=== PATIENT | female | born 1970 | race Caucasian/White ===

== ENCOUNTER → 2019-07-07 09:24 | Outpatient (BNVA) | payer MEDICAID, SELFPAY | PROVIDERS: PCP Nurse Practitioner Family; Visit Provider Psychiatry & Neurology Psychiatry | DX: F60.3 Borderline personality disorder (principal); F60.7 Dependent personality disorder; F10.21 Alcohol dependence, in remission; F41.0 Panic disorder [episodic paroxysmal anxiety]; F33.42 Major depressive disorder, recurrent, in full remission; F43.12 Post-traumatic stress disorder, chronic; G47.33 Obstructive sleep apnea (adult) (pediatric); F17.210 Nicotine dependence, cigarettes, uncomplicated | CPT/HCPCS: 99213 ==

== ENCOUNTER 2019-07-13 11:20 | Outpatient (CLI) | payer MEDICAID, SELFPAY ==
--- NOTE | 2019-07-13 11:25 | XR_ITS ---
WS: [id number] LATERAL LUMBAR SPINE: 3 view. Lateral radiographs are performed in upright neutral, flexion and extension to the patient's toleranc e. HISTORY: LOW BACK PAIN COMPARISON: 08/19/2018 Normal lumbar alignment. There is no evidence for instability with flexion or extension. Disc spaces and vertebral body heights are preserved. There is mild facet joint arthropathy at L4-5 and L5-S1. XR/XR lumbar spine f/e only [id number] IMPRESSION: No lumbar spine instability.
== END 2019-07-13 11:21 | disposition home or self-care (01) ==
LOC: RAD 11:24
PROVIDERS: PCP Nurse Practitioner Family; Visit Provider Nurse Practitioner
DX: M54.5 Low back pain (principal)
CPT/HCPCS: 72120

== ENCOUNTER 2019-08-28 12:51 | Emergency (ER) | payer MEDICAID, SELFPAY ==
--- NOTE | 2019-08-28 12:57 | XR_ITS ---
WS: [id number] RIGHT FOOT: 3 VIEW(S) TECHNIQUE: AP, oblique and lateral. HISTORY: fall/twist COMPARISON: None available. No acute fracture or dislocation. Normal tarsal/metatarsal alignment. Mild soft tissue edema. No fracture. XR/XR foot RT min 3V* [id number] IMPRESSION: Mild diffuse soft tissue edema. No fracture.
--- NOTE | 2019-08-28 12:57 | XR_ITS ---
WS: [id number] RIGHT ANKLE: 3 VIEW(S) TECHNIQUE: AP, oblique(s) and lateral. HISTORY: fall/twist COMPARISON: None available. Normal anatomic alignment with no fracture or dislocation. No joint effusion or widening of the ankle mortise. No significant degenerative changes at the joint spaces. Mild diffuse soft tissue edema around the ankle. XR/XR ankle RT min 3V* [id number] IMPRESSION: Soft tissue edema but no fracture identified.
--- NOTE | 2019-08-28 12:58 | ED_ITS ---
HPI - Extremity Injury (Lower) General: Chief Complaint: Extremity Injury, Lower Stated Complaint: RIGHT ANKLE PAIN S/P FALL Time Seen by Provider: 08/28/19 12:52 Source: patient Mode of arrival: EMS Limitations: no limitations History of Present Illness: HPI Narrative: Patient is a 49-year-old female who presents to ED today with complaints of a right ankle/foot injury. Patient states she was walking to the bathroom when she accidentally twisted her ankle and fell. Patient denies any other injury sustained during the fall. MD complaint: ankle injury and foot injury Onset (ago): hour(s) Injury: Right: ankle and foot Type of Injury: inversion Place: home Severity: moderate Relieving factors: immobilization Exacerbating factors: weight bearing, movement and palpation Context: other (twisting) Associated symptoms: Reports inability to bear weight Other symptoms: none Treatments prior to arrival: splint (applied by EMS) Review of Systems Card: Denies: chest pain, palpitations, irregular heart rhythm, edema, lightheadedness, syncope or pre-syncope Resp: Denies: shortness of breath Musc: Reports: extremity pain (R foot) and joint pain (R ankle); Denies: neck pain or back pain Neuro: Denies: numbness in extremities, weakness in extremities or changes in sensation PFSH ED PFSH: Medical History (Updated 08/28/19 @ 13:30 by DEXTER Hatch) Alcohol dependence, in remission Borderline personality disorder Cigarette nicotine dependence Dependent personality disorder Major depressive disorder, recurrent, in full remission Obstructive sleep apnea Panic disorder [episodic paroxysmal anxiety] Post-traumatic stress disorder, chronic Social History (Updated 07/07/19 @ 09:30 by Tressa Mercado) Smoking and tobacco status: current every day smoker cigarettes Quit status (tobacco): not considering quitting Second hand smoke exposure: No Physical Exam Const: COMMON NORMALS: no apparent distress, oriented x3, no limitations and alert NUTRITIONAL APPEARANCE: overweight Resp: COMMON NORMALS: normal respiratory effort and clear to auscultation bilaterally AUSCULTATION: clear to auscultation bilaterally Cardio: COMMON NORMALS: regular rate and regular rhythm RATE: regular rate RHYTHM: regular rhythm Extremity: OTHER: TTP lateral R ankle and lateral R foot; mild swelling appreciated; no obvious deformity; DP/PT pulses intact and equal bilaterally; sensory intact; cap refill brisk Neuro: COMMON NORMALS: oriented x3 and no sensory deficits noted SENSORIUM/ORIENTATION: Yes alert Skin: COMMON NORMALS: no rashes or lesions noted GENERAL SKIN EXAM: no rashes or lesions noted Course Vital Signs: Vital signs: Vital Signs Temperature 98.6 F 08/28/19 13:01 Pulse Rate 85 08/28/19 13:01 Respiratory Rate 20 H 08/28/19 13:01 Blood Pressure 135/105 08/28/19 13:01 Pulse Oximetry 95 08/28/19 13:01 MDM - Extremity Injury (Lower) Imaging Data^: R foot XR: My impression: NAD R ankle XR: My impression: NAD Discharge Plan Discharge Patient Disposition: Home, Self-Care Clinical Impression: Right ankle sprain Qualifiers: Encounter type: initial encounter Involved ligament of ankle: unspecified ligament Qualified Code(s): S93.401A - Sprain of unspecified ligament of right ankle, initial encounter Condition: Stable Prescriptions: No Action celecoxib [Celebrex] 400 mg capsule 400 mg PO DAILY RF: 0 amlodipine 10 mg tablet 10 mg PO DAILY RF: 0 simvastatin 40 mg tablet 40 mg PO DAILY RF: 0 tramadol 50 mg tablet 50 mg PO BID RF: 0 hydrochlorothiazide 50 mg tablet 50 mg PO DAILY RF: 0 albuterol sulfate 0.63 mg/3 mL solution for nebulization 0.63 mg INHALATION QID PRNRF: 0 albuterol sulfate 90 mcg/actuation aerosol powdr breath activated 1 inh INHALATION BID RF: 0 acamprosate 333 mg tablet,delayed release (DR/EC) 666 mg PO TID Qty: 180 RF: 5 prazosin 5 mg capsule 5 mg PO .QHS Qty: 30 RF: 5 Trintellix 20 mg tablet 20 mg PO DAILY Qty: 30 RF: 5 Discharge Orders: Discharge Order (Routine); Ordered 08/28/19 Ordered By: Luz Rosado Referrals: [facility] [Other] Serena Santana [Primary Care Provider] - Patient Instructions: Ankle Sprain (ED), RICE Therapy (ED), RICE Therapy Coding Level of Care Code ED Structural Engineering Technician for Chg Fwd Exam Detailed
[2019-08-28 13:01] VITALS: BP 135/105; PULSE 85; RESP 20; TEMP 37; O2SAT 95; BMI 38.0
[2019-08-28 14:47] VITALS: BP 130/97; PULSE 82; RESP 20; O2SAT 96
== END 2019-08-28 14:50 | disposition home or self-care (01) ==
PROVIDERS: Emergency Provider Physician Assistant; PCP Nurse Practitioner Family
DX: S93.401A Sprain of unspecified ligament of right ankle, initial encounter (principal); X50.1XXA Overexertion from prolonged static or awkward postures, initial encounter; F17.210 Nicotine dependence, cigarettes, uncomplicated
CPT/HCPCS: 12345; 73610; 73630; 99281; 99283

== ENCOUNTER → 2019-10-06 08:09 | Outpatient (BNVA) | payer MEDICAID, SELFPAY | PROVIDERS: PCP Nurse Practitioner Family; Visit Provider Psychiatry & Neurology Psychiatry | DX: F43.12 Post-traumatic stress disorder, chronic (principal); F33.42 Major depressive disorder, recurrent, in full remission; F41.0 Panic disorder [episodic paroxysmal anxiety]; F10.21 Alcohol dependence, in remission; F60.3 Borderline personality disorder; F60.7 Dependent personality disorder; F17.210 Nicotine dependence, cigarettes, uncomplicated; G47.33 Obstructive sleep apnea (adult) (pediatric) | CPT/HCPCS: 99213 ==

== ENCOUNTER 2019-11-09 10:49 | Emergency (ER) | payer MEDICAID, SELFPAY ==
[2019-11-09 10:53] VITALS: BP 167/115; PULSE 109; RESP 18; TEMP 36.3; O2SAT 94; BMI 37.1
--- NOTE | 2019-11-09 10:55 | CT_ITS ---
WS: [id number] CT HEAD NONCONTRAST HISTORY: memory loss TECHNIQUE: Contiguous axial imaging performed through the brain in 2.5 mm imaging. Bone and soft tiss ue windows. Sagittal and coronal reformats reviewed. All CT scans at [facility] use at ast one of these dose optimization techniques: automated exposure control; mA and/or kV adjustment pe r patient size (includes targeted exams where dose is matched to clinical indication); or iterative r econstruction. DLP: 795.8 mGy.cm COMPARISON: 03/25/2019 No acute intracranial hemorrhage, midline shift or mass effect. No atrophy or prior infarcts or herniation. Ventricles: Normal size with no hydrocephalus. Paranasal sinuses: As visualized are clear. Mastoid air cells: Well pneumatized. Calvarium and scalp: Hyperostosis frontalis interna. No scalp abnormality. CT/CT head wo con* [id number] IMPRESSION: Negative head CT.
--- NOTE | 2019-11-09 10:56 | ECG_ITS ---
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 Measurements Intervals [place] Rate: 108 P: 73 HI: 176 QRS: -45 QRSD: 114 T: 106 QT: 344 QTc: 462 Interpretive Statements SINUS TACHYCARDIA LEFT ANTERIOR FASCICULAR BLOCK LEFT VENTRICULAR HYPERTROPHY AND ST-T CHANGE POSSIBLE SEPTAL MYOCARDIAL INFARCTION , OF INDETERMINATE AGE No previous ECG available for comparison Electronically Signed On 11-10-2019 17:10:04 CDT by Velia Lopez M.D. [id number]
--- NOTE | 2019-11-09 10:58 | ED_ITS ---
HPI - Headache General: Chief Complaint: Headache Stated Complaint: HEADACHE, LOSS OF MEMORY Time Seen by Provider: 11/09/19 10:52 Source: patient and EMS Mode of arrival: EMS Limitations: no limitations History of Present Illness: HPI Narrative: 49-year-old female who states she has had memory loss over the last 2 to 3 hours. Patient states this is been going on for a month. States she cannot remember anything 2 hours ago and is now gradually having her memory back. States she is also had a headache. Denies any worsening or improving factors. She rates her headache an 8 out of 10. This started gradually. MD elicited complaint: headache Associated symptoms: Deny chest pain, fever(s), nausea, rash or vomiting Review of Systems Const: Denies: fever(s), chills, body aches or change in appetite Eyes: Denies: blurry vision or eye discomfort ENMT: Denies: throat pain or dental pain Card: Denies: chest pain Resp: Denies: dyspnea GI: Denies: abdominal pain, nausea, vomiting or diarrhea : Denies: dysuria Musc: Denies: neck pain or back pain Skin/Breast: Denies: rash Neuro: Reports: headache(s) Psych: Denies: depression Lew/Lymph: Denies: easy bruising All/Imm: Denies: urticaria PFSH ED PFSH: Medical History Alcohol dependence, in remission Borderline personality disorder Cigarette nicotine dependence Dependent personality disorder Major depressive disorder, recurrent, in full remission Obstructive sleep apnea Panic disorder [episodic paroxysmal anxiety] Post-traumatic stress disorder, chronic Social History Smoking and tobacco status: current every day smoker cigarettes Quit status (tobacco): not considering quitting Second hand smoke exposure: No Physical Exam Const: COMMON NORMALS: no acute distress, patient oriented x3 and healthy appearing HENMT: COMMON NORMALS: normocephalic and atraumatic HEAD & SCALP: normocephalic and atraumatic Eye: COMMON NORMALS: Equal, round and reactive pupils present and EOMs intact bilaterally PUPIL: Yes Equal, round and reactive pupils present Neck/C-Spine: COMMON NORMALS: full ROM and supple Chest: COMMONS NORMALS: normal inspection of the chest and normal palpation of entire chest wall Resp: COMMON NORMALS: normal respiratory effort, No retractions, No use of accessory muscles and clear to auscultation bilaterally AUSCULTATION: clear to auscultation bilaterally Cardio: COMMON NORMALS: regular rate, regular rhythm and No murmurs present (Cardio) RATE: regular rate RHYTHM: regular rhythm GI: COMMON NORMALS: Normal to inspection, nondistended, normoactive bowel sounds present, Soft to palpation, non-tender and no masses PALPATION: Yes Soft to palpation Extremity: COMMON NORMALS: normal to inspection and full ROM Neuro: COMMON NORMALS: patient oriented x3, moves all extremities and no focal motor deficits Psych: COMMON NORMALS: mental status grossly normal, Normal thought process present and cooperative THOUGHT PROCESS: Normal thought process present Skin: COMMON NORMALS: no rashes or lesions noted and no wounds GENERAL SKIN EXAM: no rashes or lesions noted Course Vital Signs: Vital signs: Vital Signs Temperature 97.3 F L 11/09/19 10:53 Pulse Rate 94 11/09/19 12:58 Respiratory Rate 22 H 11/09/19 12:58 Blood Pressure 164/110 11/09/19 12:58 Pulse Oximetry 94 11/09/19 12:58 MDM - Headache MDM Narrative: Medical decision making narrative: Patient presents with a headache that is likely a migraine. This is likely causing her memory issues as well. Patient is currently headache free and has no memory issues. Head CT and lab work are all normal. She is stable for discharge is to follow-up with her primary care doctor in 2 to 4 days and return if worsening. Lab Data: Labs: Lab Results 11/09/19 11/09/19 11/09/19 Range/Units 11:04 11:16 11:16 WBC 12.7 H (4.0-10.0) 10^3/ uL RBC 6.52 H (4.1-5.3) 10^6/u L Hgb 17.3 H (11.5-15.3) g/dL Hct 52.7 H (37.0-47.0) % MCV 80.8 L (81-99) fL MCH 26.5 L (28.0-34.0) pg MCHC 32.8 (30.0-36.0) g/dL RDW 15.2 H (12.1-15.1) % Plt Count 502 H (130-400) 10^3/c mm MPV 10.6 H (7.4-10.4) fL Neut % (Auto) 60.5 % Lymph % (Auto) 31.1 % Marshall % (Auto) 6.0 % Eos % (Auto) 0.3 % Baso % (Auto) 1.0 % Neut # (Auto) 7.7 (1.8-7.7) 10^3/u L Lymph # (Auto) 4.0 (0.8-4.8) 10^3/u L Marshall # (Auto) 0.8 (0.2-0.9) 10^3/u L Eos # (Auto) 0.0 (0.0-0.8) 10^3/u L Baso # (Auto) 0.1 (0.0-0.1) 10^3/u L Nucleated RBC % (a uto) 0 % Nucleated RBCs # 0.0 /100WBC Sodium Cancelled Potassium Cancelled Chloride Cancelled Carbon Dioxide Cancelled Anion Gap Cancelled BUN Cancelled Creatinine Cancelled GFR Calculation Cancelled Glucose Cancelled Calculated Osmolal ity Cancelled Calcium Cancelled Total Bilirubin Cancelled AST Cancelled ALT Cancelled Alkaline Phosphata se Cancelled Total Protein Cancelled Albumin Cancelled Globulin Cancelled Urine Color Yellow (Yellow) Urine Appearance Clear (CLEAR) Urine pH 5 (5-7) Ur Specific Gravit y 1.015 (1.005-1.030) Urine Protein 3+ H (Negative) Urine Glucose (UA) Norm (Normal) Urine Ketones Negative (Negative) Urine Blood 2+ H (Negative) Urine Nitrate Negative (Negative) Urine Bilirubin Neg (NEGATIVE) Urine Urobilinogen Norm (Negative) mg/dL Ur Leukocyte Tami ase Negative (Negative) Urine RBC 0-4 H (0-2) /hpf Urine WBC 0-4 H (0-5) /hpf Ur Squamous Epith Cells 10-15 H (0-5) Amorphous Sediment Not Reportable Urine Bacteria 2+ H (NONE) Hyaline Casts 0-4 H Urine Yeast Trace 11/09/19 Range/Units 12:35 WBC (4.0-10.0) 10^3/ uL RBC (4.1-5.3) 10^6/u L Hgb (11.5-15.3) g/dL Hct (37.0-47.0) % MCV (81-99) fL MCH (28.0-34.0) pg MCHC (30.0-36.0) g/dL RDW (12.1-15.1) % Plt Count (130-400) 10^3/c mm MPV (7.4-10.4) fL Neut % (Auto) % Lymph % (Auto) % Marshall % (Auto) % Eos % (Auto) % Baso % (Auto) % Neut # (Auto) (1.8-7.7) 10^3/u L Lymph # (Auto) (0.8-4.8) 10^3/u L Marshall # (Auto) (0.2-0.9) 10^3/u L Eos # (Auto) (0.0-0.8) 10^3/u L Baso # (Auto) (0.0-0.1) 10^3/u L Nucleated RBC % (a uto) % Nucleated RBCs # /100WBC Sodium 138 Potassium 3.4 L Chloride 98 Carbon Dioxide 22 Anion Gap 20.5 H BUN 8 Creatinine 0.6 GFR Calculation 106.7 Glucose 137 H Calculated Osmolal ity 284 L Calcium 10.5 Total Bilirubin 0.2 AST 25 ALT 30 Alkaline Phosphata se 82 Total Protein 7.6 Albumin 4.5 Globulin 3.1 Urine Color (Yellow) Urine Appearance (CLEAR) Urine pH (5-7) Ur Specific Gravit y (1.005-1.030) Urine Protein (Negative) Urine Glucose (UA) (Normal) Urine Ketones (Negative) Urine Blood (Negative) Urine Nitrate (Negative) Urine Bilirubin (NEGATIVE) Urine Urobilinogen (Negative) mg/dL Ur Leukocyte Tami ase (Negative) Urine RBC (0-2) /hpf Urine WBC (0-5) /hpf Ur Squamous Epith Cells (0-5) Amorphous Sediment Urine Bacteria (NONE) Hyaline Casts Urine Yeast EKG Data^: EKG 1: Attestation: I personally reviewed and interpreted this EKG as follows: EKG interpretation date: 11/09/19 EKG interpretation time: 11:15 Interpretation: sinus tach hr [address] or t wave abnormalities qrs 114 qtc 407 Discharge Plan Discharge Patient Disposition: Home, Self-Care Clinical Impression: Headache Qualifiers: Headache type: unspecified Headache chronicity pattern: acute headache Intractability: not intractable Qualified Code(s): R51 - Headache Condition: Stable Prescriptions: No Action celecoxib [Celebrex] 400 mg capsule 400 mg PO DAILY RF: 0 amlodipine 10 mg tablet 10 mg PO DAILY RF: 0 simvastatin 40 mg tablet 40 mg PO DAILY RF: 0 hydrochlorothiazide 50 mg tablet 50 mg PO DAILY RF: 0 acamprosate 333 mg tablet,delayed release (DR/EC) 666 mg PO TID Qty: 180 RF: 5 prazosin 5 mg capsule 5 mg PO .QHS Qty: 30 RF: 5 Trintellix 20 mg tablet 20 mg PO DAILY Qty: 30 RF: 5 epinephrine 0.3 mg/0.3 mL auto-injector 0.3 mg IM Q10M PRNRF: 0 hydrocodone-acetaminophen 10-325 mg tablet 1 tab PO BID PRNRF: 0 metformin 500 mg tablet 500 mg PO DAILY RF: 0 cyclobenzaprine 5 mg tablet 5 mg PO TID PRNRF: 0 Discharge Orders: Discharge Order (Routine); Ordered 11/09/19 Ordered By: Sonali Berumen Referrals: Serena Santana FNP [Primary Care Provider] - 1-3 days Discharge Diet: Advance as tolerated Discharge Activity: Resume usual activity Patient Instructions: Acute Headache (ED) Coding Level of Care Code ED Electrical Instrument Repairer for Chg Fwd Exam Comprehensive
[2019-11-09 11:18] VITALS: BP 165/115; PULSE 102; RESP 19; O2SAT 93
[2019-11-09 11:26] LABS: Basophils # 0.1 10^3/uL (0.0-0.1); Eosinophils % 0.3 %; Hematocrit 52.7 % (37.0-47.0); Hemoglobin 17.3 g/dL (11.5-15.3); Lymphocytes % 31.1 %; Mean Corpuscular HGB Conc 32.8 g/dL (30.0-36.0); Mean Corpuscular Hemoglobin 26.5 pg (28.0-34.0); Mean Corpuscular Volume 80.8 fL (81-99); Mean Platelet Volume 10.6 fL (7.4-10.4); Monocytes # 0.8 10^3/uL (0.2-0.9); Neutrophils # 7.7 10^3/uL (1.8-7.7); Neutrophils % 60.5 %; Nucleated Red Blood Cells % 0 %; Platelet Count 502 10^3/cmm (130-400); Red Blood Count 6.52 10^6/uL (4.1-5.3); Red Cell Distribution Width 15.2 % (12.1-15.1); White Blood Count 12.7 10^3/uL (4.0-10.0)
[2019-11-09] MEDS: ketorolac 30 mg/mL INJ IVP (11:27)
[2019-11-09 11:48] LABS: Add Urine Microscopic? YES; Bilirubin Urine Neg (NEGATIVE); Blood Urine 2+ (Negative); Glucose Urine UA Norm (Normal); Hyaline Casts Urine 0-4; Ketones Urine Negative (Negative); Leukocyte Esterase Urine Negative (Negative); Nitrate Urine Negative (Negative); Protein Urine 3+ (Negative); Specific Gravity, Urine 1.015 (1.005-1.030); Urine Appearance Clear (CLEAR); Urine Color Yellow (Yellow); Urobilinogen Urine Norm (Negative); pH Urine 5 (5-7)
[2019-11-09 11:49] LABS: Bacteria Urine 2+; RBC Urine 0-4 /hpf (0-2); WBC Urine 0-4 /hpf (0-5)
[2019-11-09 11:50] LABS: Add Urine Culture? No
[2019-11-09 12:58] VITALS: BP 164/110; PULSE 94; RESP 22; O2SAT 94
[2019-11-09 13:02] LABS: Alanine Aminotransferase 30 U/L (0-33); Albumin Level 4.5 g/dL (3.5-5.2); Alkaline Phosphatase 82 IU/L (35-105); Chloride 98 mmol/L (98-107); Potassium 3.4 mmol/L (3.5-5.1); Sodium 138 mmol/L (136-145)
[2019-11-09 13:06] LABS: Anion Gap 20.5 (5-19); Aspartate Amino Transferase 25 U/L (0-32); Blood Urea Nitrogen 8 mg/dL (6-20); Calcium 10.5 mg/dL (8.5-10.5); Carbon Dioxide 22 mmol/L (22-29); Globulin 3.1 g/dL (1.3-4.6); Glomerular Filtration Rate 106.7 mL/min (90-130); Glucose 137 mg/dL (65-115); Osmolality Calculated 284 mOsm/kg (285-295); Total Bilirubin 0.2 mg/dL (0.15-1.2); Total Protein 7.6 g/dL (6.6-8.7)
--- NOTE | 2019-11-09 13:07 | PC.NURSE ---
164/[address] TERRELL OF VERBALIZED UNDERSTANDING NO FURTHER ORDERS.
[2019-11-09 13:30] VITALS: BP 131/100; PULSE 93; RESP 16; O2SAT 98
== END 2019-11-09 13:32 | disposition home or self-care (01) ==
PROVIDERS: Emergency Provider Emergency Medicine; PCP Nurse Practitioner Family
DX: R51 Headache (principal); F17.210 Nicotine dependence, cigarettes, uncomplicated
CPT/HCPCS: 12345; 70450; 80053; 81001; 81003; 85025; 93005; 96374; 96375; 99283; 99284; J1885

== ENCOUNTER → 2019-11-16 07:38 | Outpatient (BNVA) | payer MEDICAID, SELFPAY | PROVIDERS: PCP Nurse Practitioner Family; Visit Provider Social Worker Clinical | DX: F43.12 Post-traumatic stress disorder, chronic (principal); F60.3 Borderline personality disorder | CPT/HCPCS: 90834 ==

== ENCOUNTER → 2019-12-22 07:40 | Outpatient (BNVA) | payer MEDICAID, SELFPAY | PROVIDERS: PCP Nurse Practitioner Family; Visit Provider Psychiatry & Neurology Psychiatry | DX: F43.12 Post-traumatic stress disorder, chronic (principal); F33.42 Major depressive disorder, recurrent, in full remission; F41.0 Panic disorder [episodic paroxysmal anxiety]; F10.21 Alcohol dependence, in remission; F60.3 Borderline personality disorder; F60.7 Dependent personality disorder; F17.210 Nicotine dependence, cigarettes, uncomplicated; G47.33 Obstructive sleep apnea (adult) (pediatric) | CPT/HCPCS: 99214 ==

== ENCOUNTER → 2020-01-25 09:12 | Outpatient (BNVA) | payer MEDICAID, SELFPAY | PROVIDERS: PCP Nurse Practitioner Family; Visit Provider Social Worker Clinical | DX: F60.3 Borderline personality disorder (principal); F43.12 Post-traumatic stress disorder, chronic | CPT/HCPCS: 90834 ==

== ENCOUNTER → 2020-01-30 07:42 | Outpatient (BNVA) | payer MEDICAID, SELFPAY | PROVIDERS: PCP Nurse Practitioner Family; Visit Provider Psychiatry & Neurology Psychiatry | DX: F60.3 Borderline personality disorder (principal); F60.7 Dependent personality disorder; F41.0 Panic disorder [episodic paroxysmal anxiety]; F33.42 Major depressive disorder, recurrent, in full remission; F43.12 Post-traumatic stress disorder, chronic; F10.21 Alcohol dependence, in remission | CPT/HCPCS: 99214 ==

== ENCOUNTER → 2020-02-08 08:42 | Outpatient (BNVA) | payer MEDICAID, SELFPAY | PROVIDERS: PCP Nurse Practitioner Family; Visit Provider Social Worker Clinical | DX: F43.12 Post-traumatic stress disorder, chronic (principal); F60.3 Borderline personality disorder | CPT/HCPCS: 90834 ==

== ENCOUNTER 2020-02-14 15:20 | Observation (INO) | payer MEDICAID, SELFPAY ==
[2020-02-14] VITALS (13 sets, daily range): BP systolic 121–167; BP diastolic 74–96; PULSE 71–86; RESP 16–20; TEMP 36.7–36.9; O2SAT 92–97; BMI 36.4
--- NOTE | 2020-02-14 15:32 | XR_ITS ---
WS: [id number] PORTABLE CHEST HISTORY: chest pain COMPARISON: 08/08/2018 Pulmonary hyperinflation. Very minimal interstitial thickening throughout both lungs. No pneumonia. N o pleural effusion or pneumothorax. Cardiac size: Normal. Mediastinum/Aorta: Normal mediastinum. No osseous abnormality seen. XR/XR chest 1V portable [id number] IMPRESSION: Chronic emphysema. Similar appearance to prior studies.
--- NOTE | 2020-02-14 15:32 | ECG_ITS ---
[facility] Test Date: 2020-02-14 Pat Name: Prudence Acuna Department: Room: Gender: Female Scheme Technician: : 1970 Requested By: Heike Garcia Order Number: [id number] Du MD: Ming Chicas M.D. Measurements Intervals [place] Rate: 83 P: 49 [place]: 187 QRS: -39 QRSD: 109 T: 65 QT: 361 QTc: 426 Interpretive Statements SINUS RHYTHM POSSIBLE LEFT ATRIAL ENLARGEMENT [-0.1mV P WAVE IN V1/V2] LEFT AXIS DEVIATION [QRS AXIS < -30] POSSIBLE LEFT VENTRICULAR HYPERTROPHY [VOLTAGE CRITERIA PLUS LAE OR QRS WIDENING] POSSIBLE SEPTAL MYOCARDIAL INFARCTION , PROBABLY OLD [30 ms Q WAVE IN V1/V2] Compared to ECG 11/09/2019 11:15:47 Left-axis deviation now present Sinus tachycardia no longer present Left anterior fascicular block no longer present ST (T wave) deviation no longer present Myocardial infarct finding still present Electronically Signed On 02-16-2020 20:42:39 CDT by Ming Chicas M.D. [id number]
[2020-02-14 15:44] LABS: Basophils # 0.1 10^3/uL (0.0-0.1); Basophils % 0.7 %; Eosinophils # 0.1 10^3/uL (0.0-0.8); Eosinophils % 0.7 %; Hematocrit 49.3 % (37.0-47.0); Hemoglobin 16.2 g/dL (11.5-15.3); Lymphocytes # 4.8 10^3/uL (0.8-4.8); Lymphocytes % 34.5 %; Mean Corpuscular HGB Conc 32.9 g/dL (30.0-36.0); Mean Corpuscular Hemoglobin 26.9 pg (28.0-34.0); Mean Corpuscular Volume 81.9 fL (81-99); Mean Platelet Volume 10.5 fL (7.4-10.4); Monocytes # 0.9 10^3/uL (0.2-0.9); Monocytes % 6.8 %; Neutrophils # 7.85 10^3/uL (1.8-7.7); Neutrophils % 56.6 %; Nucleated Red Blood Cells % 0 %; Platelet Count 461 10^3/cmm (130-400); Red Blood Count 6.02 10^6/uL (4.1-5.3); Red Cell Distribution Width 14.2 % (12.1-15.1); White Blood Count 13.9 10^3/uL (4.0-10.0)
[2020-02-14 15:52] LABS: INR 0.87 (0.8-1.2)
[2020-02-14 15:59] LABS: Troponin(5th) Baseline 6 ng/L (0-10)
[2020-02-14 16:08] LABS: Alanine Aminotransferase 32 U/L (0-33); Albumin Level 4.3 g/dL (3.5-5.2); Alkaline Phosphatase 100 IU/L (35-105); Anion Gap 20.7 (5-19); Aspartate Amino Transferase 25 U/L (0-32); Blood Urea Nitrogen 13 mg/dL (6-20); Calcium 9.7 mg/dL (8.5-10.5); Carbon Dioxide 25 mmol/L (22-29); Chloride 95 mmol/L (98-107); Glomerular Filtration Rate 76.2 mL/min (90-130); Glucose 157 mg/dL (65-115); NT Pro B Type Natriuretic Pept 10 pg/mL (0-125); Osmolality Calculated 287 mOsm/kg (285-295); Potassium 3.7 mmol/L (3.5-5.1); Sodium 137 mmol/L (136-145); Total Bilirubin 0.3 mg/dL (0.15-1.2); Total Protein 7.3 g/dL (6.6-8.7)
[2020-02-14 16:18] LABS: Urine Appearance Hazy (CLEAR); Urine Color Yellow (Yellow); pH Urine 5 (5-7)
[2020-02-14 16:19] LABS: Add Urine Microscopic? YES; Bilirubin Urine Neg (Negative); Blood Urine 2+ (Negative); Glucose Urine UA Norm (Normal); HCG Qualitative Urine. Negative (Negative); Ketones Urine Negative (Negative); Leukocyte Esterase Urine 2+ (Negative); Nitrate Urine Negative (Negative); Protein Urine Trace (Negative); Urobilinogen Urine 1 mg/dL (Negative)
--- NOTE | 2020-02-14 16:19 | ED_ITS ---
Documented by User: Morgan Frias DO 02/15/20 13:20 HPI - Chest Pain General: Chief Complaint: Chest Pain Stated Complaint: CHEST PAIN Time Seen by Provider: 02/14/20 15:24 History of Present Illness: HPI narrative: 50-year-old female presents emergency room complaining of chest pressure radiating to left arm and left jaw said the chest pressure continuously for the last 2 days she has not had any vomiting or diarrhea but has had nausea. She has noticed anything that exacerbates or relieves her symptoms. Today she was feeling worse her home health nurse advised to go to the emergency room. Last week they did add some medicines baclofen muscle spasm this was increasing her BuSpar for some anxiety issues. MD complaint: chest discomfort Onset (ago): day(s) (2) Timing of current episode: constant Prior episodes: No Onset: during rest Pain location: left chest Pain radiation: left arm Severity: severe Quality: heaviness Relieving factors: nothing Exacerbating factors: nothing Associated symptoms: Reports dyspnea and nausea; Deny abdominal pain, diaphoresis, fever(s), leg edema, palpitations, sense of impending doom, syncope or vomiting Treatment prior to arrival: none Review of Systems Const: Denies: fever(s) or diaphoresis ENMT: Denies: throat pain, ear or mastoid pain, nasal discharge or nasal congestion Card: Denies: palpitations or syncope Resp: Reports: dyspnea GI: Reports: nausea; Denies: abdominal pain or vomiting : Denies: flank pain, difficulty voiding, dysuria, urinary frequency or urinary urgency Skin/Breast: Denies: rash or pruritus PFSH ED PFSH: Medical History (Updated 02/14/20 @ 20:47 by Minna Holley MD) Alcohol dependence, in remission Borderline personality disorder Cigarette nicotine dependence COPD (chronic obstructive pulmonary disease) Dependent personality disorder Diabetes Hyperlipidemia Hypertension Major depressive disorder, recurrent, in full remission Obstructive sleep apnea Panic disorder [episodic paroxysmal anxiety] Post-traumatic stress disorder, chronic Surgical History (Updated 02/14/20 @ 20:47 by Minna Holley MD) deliv NOS-unsp X4 History of bilateral tubal ligation History of endometrial ablation Family History Other Cancer Diabetes Social History Smoking and tobacco status: current every day smoker cigarettes Packs smoked per day: 0.5 Years cigarettes smoked: 31 Quit status (tobacco): not considering quitting Second hand smoke exposure: No Alcohol intake: former Former alcohol use details: quit 6 months ago Desire information about alcohol rehabilitation?: No Desire information about substance/drug rehabilitation?: No Adopted: No Caregiver/support person: Yes (does not live in the home, comes in 2 1/2 hours a day) Lives independently: Yes Household members: significant other Housing: House Marital status: Number of children: 4 Number of grandchildren: 5 Highest education level completed: GED or Equivalent service: No Current occupational status: disabled Current occupational exposures/hazards: No Pets and animals: Yes Pets & animals: dog(s) History of recent travel: No Leisure activites: art and other Leisure activities details: games on computer Sexually active: Yes Current gender identity: Female Geno/Scientology: None Special geno needs: No Agree to transfusion: Yes Financial difficulty paying for basics: Hard Female Reproductive History: Date of last menstrual period: 01/07/20 Para: 4 Spontaneous abortions: Yes Physical Exam Const: COMMON NORMALS: no acute distress GENERAL APPEARANCE: cooperative and comfortable ORIENTATION/CONSCIOUSNESS: Yes awake, Yes oriented to person, Yes oriented to place and Yes oriented to time HENMT: COMMON NORMALS: normocephalic, atraumatic and hearing grossly normal bilaterally HEAD & SCALP: normocephalic and atraumatic Eye: COMMON NORMALS: Equal, round and reactive pupils present, EOMs intact bilaterally, conjunctivae normal and no scleral icterus CONJUNCTIVA: Yes conjunctivae normal PUPIL: Yes Equal, round and reactive pupils present Neck/C-Spine: COMMON NORMALS: no JVD Resp: COMMON NORMALS: normal respiratory effort, No retractions, No use of accessory muscles and clear to auscultation bilaterally AUSCULTATION: clear to auscultation bilaterally Cardio: COMMON NORMALS: no JVD, regular rate, regular rhythm and No murmurs present (Cardio) RATE: regular rate RHYTHM: regular rhythm GI: COMMON NORMALS: Soft to palpation and No hepatosplenomegaly present AUSCULTATION: Yes normoactive bowel sounds PALPATION: Yes Soft to palpation, No Tenderness to palpation present (GI), No Guarding due to palpation present (GI) and Yes No hepatosplenomegaly present Extremity: COMMON NORMALS: normal to inspection, capillary refill normal, no clubbing, cyanosis or edema, no calf tenderness and no pedal edema Neuro: SENSORIUM/ORIENTATION: Yes oriented to person, Yes oriented to place and Yes oriented to time Skin: COMMON NORMALS: no rashes or lesions noted GENERAL SKIN EXAM: no rashes or lesions noted Course Vital Signs: Vital signs: Vital Signs Temperature 98.4 F 02/15/20 11:33 Pulse Rate 79 02/15/20 11:33 Respiratory Rate 18 02/15/20 11:33 Blood Pressure 125/82 02/15/20 11:33 Pulse Oximetry 94 02/15/20 11:33 MDM - Chest Pain MDM Narrative: Medical decision making narrative: Care turned over to Dr. Jalloh at change of shift see has note for final diagnosis and disposition Lab Data: Labs: Lab Results 02/14/20 02/14/20 02/14/20 Range/Units 15:00 15:00 15:00 WBC 13.9 H (4.0-10.0) 10^3/ uL RBC 6.02 H (4.1-5.3) 10^6/u L Hgb 16.2 H (11.5-15.3) g/dL Hct 49.3 H (37.0-47.0) % MCV 81.9 (81-99) fL MCH 26.9 L (28.0-34.0) pg MCHC 32.9 (30.0-36.0) g/dL RDW 14.2 (12.1-15.1) % Plt Count 461 H (130-400) 10^3/c mm MPV 10.5 H (7.4-10.4) fL Neut % (Auto) 56.6 % Lymph % (Auto) 34.5 % [place] % (Auto) 6.8 % Eos % (Auto) 0.7 % Baso % (Auto) 0.7 % Neut # (Auto) 7.85 H (1.8-7.7) 10^3/u L Lymph # (Auto) 4.8 (0.8-4.8) 10^3/u L [place] # (Auto) 0.9 (0.2-0.9) 10^3/u L Eos # (Auto) 0.1 (0.0-0.8) 10^3/u L Baso # (Auto) 0.1 (0.0-0.1) 10^3/u L Nucleated RBC % (a uto) 0 % Nucleated RBCs # 0.0 /100WBC PT 12.10 (12.1-14.9) SECO NDS INR 0.87 (0.8-1.2) D-Dimer (0-0.59) ug/mIFE U Sodium 137 (136-145) mmol/L Potassium 3.7 (3.5-5.1) mmol/L Chloride 95 L (98-107) mmol/L Carbon Dioxide 25 (22-29) mmol/L Anion Gap 20.7 H (5-19) BUN 13 (6-20) mg/dL Creatinine 0.8 (0.5-0.9) mg/dL GFR Calculation 76.2 L (90-130) mL/min Glucose 157 H (65-115) mg/dL Estimat Average Gl ucose Hemoglobin A1c (4.0-6.0) % Calculated Osmolal ity 287 (285-295) mOsm/k g Calcium 9.7 (8.5-10.5) mg/dL Total Bilirubin 0.3 (0.15-1.2) mg/dL AST 25 (0-32) U/L ALT 32 (0-33) U/L Alkaline Phosphata se 100 (35-105) IU/L Troponin T Baselin e (0-10) ng/L Troponin T 120 Min [place] (0-10) ng/L Delta Troponin T (0-10) ABS# NT-Pro-B Natriuret Pep 10 (0-125) pg/mL Total Protein 7.3 (6.6-8.7) g/dL Albumin 4.3 (3.5-5.2) g/dL Globulin 3.0 (1.3-4.6) g/dL TSH (0.27-4.20) uIU/ mL HCG, Qual (Negative) Urine Color (Yellow) Urine Appearance (CLEAR) Urine pH (5-7) Ur Specific Gravit y (1.005-1.030) Urine Protein (Negative) Urine Glucose (UA) (Normal) Urine Ketones (Negative) Urine Blood (Negative) Urine Nitrate (Negative) Urine Bilirubin (Negative) Urine Urobilinogen (Negative) mg/dL Ur Leukocyte Tami ase (Negative) Urine RBC (0-2) /hpf Urine WBC (0-5) /hpf Ur Squamous Epith Cells (0-5) /hpf Amorphous Sediment Urine Bacteria (NONE) /hpf 02/14/20 02/14/20 02/14/20 Range/Units 15:00 15:00 15:00 WBC (4.0-10.0) 10^3/ uL RBC (4.1-5.3) 10^6/u L Hgb (11.5-15.3) g/dL Hct (37.0-47.0) % MCV (81-99) fL MCH (28.0-34.0) pg MCHC (30.0-36.0) g/dL RDW (12.1-15.1) % Plt Count (130-400) 10^3/c mm MPV (7.4-10.4) fL Neut % (Auto) % Lymph % (Auto) % [place] % (Auto) % Eos % (Auto) % Baso % (Auto) % Neut # (Auto) (1.8-7.7) 10^3/u L Lymph # (Auto) (0.8-4.8) 10^3/u L [place] # (Auto) (0.2-0.9) 10^3/u L Eos # (Auto) (0.0-0.8) 10^3/u L Baso # (Auto) (0.0-0.1) 10^3/u L Nucleated RBC % (a uto) % Nucleated RBCs # /100WBC PT (12.1-14.9) SECO NDS INR (0.8-1.2) D-Dimer 0.34 (0-0.59) ug/mIFE U Sodium (136-145) mmol/L Potassium (3.5-5.1) mmol/L Chloride (98-107) mmol/L Carbon Dioxide (22-29) mmol/L Anion Gap (5-19) BUN (6-20) mg/dL Creatinine (0.5-0.9) mg/dL GFR Calculation (90-130) mL/min Glucose (65-115) mg/dL Estimat Average Gl ucose 128 Hemoglobin A1c 6.1 H (4.0-6.0) % Calculated Osmolal ity (285-295) mOsm/k g Calcium (8.5-10.5) mg/dL Total Bilirubin (0.15-1.2) mg/dL AST (0-32) U/L ALT (0-33) U/L Alkaline Phosphata se (35-105) IU/L Troponin T Baselin e 6 (0-10) ng/L Troponin T 120 Min [place] (0-10) ng/L Delta Troponin T (0-10) ABS# NT-Pro-B Natriuret Pep (0-125) pg/mL Total Protein (6.6-8.7) g/dL Albumin (3.5-5.2) g/dL Globulin (1.3-4.6) g/dL TSH (0.27-4.20) uIU/ mL HCG, Qual (Negative) Urine Color (Yellow) Urine Appearance (CLEAR) Urine pH (5-7) Ur Specific Gravit y (1.005-1.030) Urine Protein (Negative) Urine Glucose (UA) (Normal) Urine Ketones (Negative) Urine Blood (Negative) Urine Nitrate (Negative) Urine Bilirubin (Negative) Urine Urobilinogen (Negative) mg/dL Ur Leukocyte Tami ase (Negative) Urine RBC (0-2) /hpf Urine WBC (0-5) /hpf Ur Squamous Epith Cells (0-5) /hpf Amorphous Sediment Urine Bacteria (NONE) /hpf 02/14/20 02/14/20 02/14/20 Range/Units 16:02 16:02 16:58 WBC (4.0-10.0) 10^3/ uL RBC (4.1-5.3) 10^6/u L Hgb (11.5-15.3) g/dL Hct (37.0-47.0) % MCV (81-99) fL MCH (28.0-34.0) pg MCHC (30.0-36.0) g/dL RDW (12.1-15.1) % Plt Count (130-400) 10^3/c mm MPV (7.4-10.4) fL Neut % (Auto) % Lymph % (Auto) % [place] % (Auto) % Eos % (Auto) % Baso % (Auto) % Neut # (Auto) (1.8-7.7) 10^3/u L Lymph # (Auto) (0.8-4.8) 10^3/u L [place] # (Auto) (0.2-0.9) 10^3/u L Eos # (Auto) (0.0-0.8) 10^3/u L Baso # (Auto) (0.0-0.1) 10^3/u L Nucleated RBC % (a uto) % Nucleated RBCs # /100WBC PT (12.1-14.9) SECO NDS INR (0.8-1.2) D-Dimer (0-0.59) ug/mIFE U Sodium (136-145) mmol/L Potassium (3.5-5.1) mmol/L Chloride (98-107) mmol/L Carbon Dioxide (22-29) mmol/L Anion Gap (5-19) BUN (6-20) mg/dL Creatinine (0.5-0.9) mg/dL GFR Calculation (90-130) mL/min Glucose (65-115) mg/dL Estimat Average Gl ucose Hemoglobin A1c (4.0-6.0) % Calculated Osmolal ity (285-295) mOsm/k g Calcium (8.5-10.5) mg/dL Total Bilirubin (0.15-1.2) mg/dL AST (0-32) U/L ALT (0-33) U/L Alkaline Phosphata se (35-105) IU/L Troponin T Baselin e (0-10) ng/L Troponin T 120 Min [place] 6.00 (0-10) ng/L Delta Troponin T 0 (0-10) ABS# NT-Pro-B Natriuret Pep (0-125) pg/mL Total Protein (6.6-8.7) g/dL Albumin (3.5-5.2) g/dL Globulin (1.3-4.6) g/dL TSH (0.27-4.20) uIU/ mL HCG, Qual Negative (Negative) Urine Color Yellow (Yellow) Urine Appearance Hazy A (CLEAR) Urine pH 5 (5-7) Ur Specific Gravit y 1.020 (1.005-1.030) Urine Protein Trace (Negative) Urine Glucose (UA) Norm (Normal) Urine Ketones Negative (Negative) Urine Blood 2+ H (Negative) Urine Nitrate Negative (Negative) Urine Bilirubin Neg (Negative) Urine Urobilinogen 1 H (Negative) mg/dL Ur Leukocyte Tami ase 2+ H (Negative) Urine RBC 25-40 H (0-2) /hpf Urine WBC 40-55 H (0-5) /hpf Ur Squamous Epith Cells 10-15 H (0-5) /hpf Amorphous Sediment Not Reportable Urine Bacteria 3+ H (NONE) /hpf 02/14/20 Range/Units 16:58 WBC (4.0-10.0) 10^3/ uL RBC (4.1-5.3) 10^6/u L Hgb (11.5-15.3) g/dL Hct (37.0-47.0) % MCV (81-99) fL MCH (28.0-34.0) pg MCHC (30.0-36.0) g/dL RDW (12.1-15.1) % Plt Count (130-400) 10^3/c mm MPV (7.4-10.4) fL Neut % (Auto) % Lymph % (Auto) % [place] % (Auto) % Eos % (Auto) % Baso % (Auto) % Neut # (Auto) (1.8-7.7) 10^3/u L Lymph # (Auto) (0.8-4.8) 10^3/u L [place] # (Auto) (0.2-0.9) 10^3/u L Eos # (Auto) (0.0-0.8) 10^3/u L Baso # (Auto) (0.0-0.1) 10^3/u L Nucleated RBC % (a uto) % Nucleated RBCs # /100WBC PT (12.1-14.9) SECO NDS INR (0.8-1.2) D-Dimer (0-0.59) ug/mIFE U Sodium (136-145) mmol/L Potassium (3.5-5.1) mmol/L Chloride (98-107) mmol/L Carbon Dioxide (22-29) mmol/L Anion Gap (5-19) BUN (6-20) mg/dL Creatinine (0.5-0.9) mg/dL GFR Calculation (90-130) mL/min Glucose (65-115) mg/dL Estimat Average Gl ucose Hemoglobin A1c (4.0-6.0) % Calculated Osmolal ity (285-295) mOsm/k g Calcium (8.5-10.5) mg/dL Total Bilirubin (0.15-1.2) mg/dL AST (0-32) U/L ALT (0-33) U/L Alkaline Phosphata se (35-105) IU/L Troponin T Baselin e (0-10) ng/L Troponin T 120 Min [place] (0-10) ng/L Delta Troponin T (0-10) ABS# NT-Pro-B Natriuret Pep (0-125) pg/mL Total Protein (6.6-8.7) g/dL Albumin (3.5-5.2) g/dL Globulin (1.3-4.6) g/dL TSH 1.55 (0.27-4.20) uIU/ mL HCG, Qual (Negative) Urine Color (Yellow) Urine Appearance (CLEAR) Urine pH (5-7) Ur Specific Gravit y (1.005-1.030) Urine Protein (Negative) Urine Glucose (UA) (Normal) Urine Ketones (Negative) Urine Blood (Negative) Urine Nitrate (Negative) Urine Bilirubin (Negative) Urine Urobilinogen (Negative) mg/dL Ur Leukocyte Tami ase (Negative) Urine RBC (0-2) /hpf Urine WBC (0-5) /hpf Ur Squamous Epith Cells (0-5) /hpf Amorphous Sediment Urine Bacteria (NONE) /hpf Discharge Plan Discharge Patient Disposition: Placed in Observation Admit Provider: Minna Holley Clinical Impression: Chest pain Qualifiers: Chest pain type: unspecified Qualified Code(s): R07.9 - Chest pain, unspecified Condition: Stable Referrals: [facility] [Outside] Serena Santana FNP [Primary Care Provider] - Discharge Date/Time: 02/14/20 19:59 Sign Out Sign Out Data: Patient Sign Out occurred on 02/14/20 at 18:23. Patient's care was discussed, and care was transferred from to [facility] [place]. Coding Level of Care Code ED Quality Review Specialist for Chg Fwd Exam Comprehensive Documented by User: Ariela German 02/14/20 21:46 HPI - Chest Pain General: Chief Complaint: Chest Pain Stated Complaint: CHEST PAIN Time Seen by Provider: 02/14/20 15:24 PFSH ED PFSH: Medical History (Updated 02/14/20 @ 20:47 by Minna Holley MD) Alcohol dependence, in remission Borderline personality disorder Cigarette nicotine dependence COPD (chronic obstructive pulmonary disease) Dependent personality disorder Diabetes Hyperlipidemia Hypertension Major depressive disorder, recurrent, in full remission Obstructive sleep apnea Panic disorder [episodic paroxysmal anxiety] Post-traumatic stress disorder, chronic Surgical History (Updated 02/14/20 @ 20:47 by Minna Holley MD) deliv NOS-unsp X4 History of bilateral tubal ligation History of endometrial ablation Family History Other Cancer Diabetes Social History Smoking and tobacco status: current every day smoker cigarettes Packs smoked per day: 0.5 Years cigarettes smoked: 31 Quit status (tobacco): not considering quitting Second hand smoke exposure: No Alcohol intake: former Former alcohol use details: quit 6 months ago Desire information about alcohol rehabilitation?: No Desire information about substance/drug rehabilitation?: No Adopted: No Caregiver/support person: Yes (does not live in the home, comes in 2 1/2 hours a day) Lives independently: Yes Household members: significant other Housing: House Marital status: Number of children: 4 Number of grandchildren: 5 Highest education level completed: GED or Equivalent service: No Current occupational status: disabled Current occupational exposures/hazards: No Pets and animals: Yes Pets & animals: dog(s) History of recent travel: No Leisure activites: art and other Leisure activities details: games on computer Sexually active: Yes Current gender identity: Female Geno/Scientology: None Special geno needs: No Agree to transfusion: Yes Financial difficulty paying for basics: Hard Course Vital Signs: Vital signs: Vital Signs Temperature 98.4 F 02/15/20 11:33 Pulse Rate 79 02/15/20 11:33 Respiratory Rate 18 02/15/20 11:33 Blood Pressure 125/82 02/15/20 11:33 Pulse Oximetry 94 02/15/20 11:33 MDM - Chest Pain MDM Narrative: Medical decision making narrative: Prudence is a nice 50-year-old female comes in with symptoms concerning for crescendo angina. Her EKG shows evidence of LVH but no evidence of acute STEMI. Patient's troponins have been negative x2. Patient has a heart score of 5-6. Because of this she will need to come in for further testing. I have endorsed the case to Dr. Holley he agrees to see and evaluate the patient. Lab Data: Attestation: I reviewed the patient's lab results. Labs: Lab Results 02/14/20 02/14/20 02/14/20 Range/Units 15:00 15:00 15:00 WBC 13.9 H (4.0-10.0) 10^3/ uL RBC 6.02 H (4.1-5.3) 10^6/u L Hgb 16.2 H (11.5-15.3) g/dL Hct 49.3 H (37.0-47.0) % MCV 81.9 (81-99) fL MCH 26.9 L (28.0-34.0) pg MCHC 32.9 (30.0-36.0) g/dL RDW 14.2 (12.1-15.1) % Plt Count 461 H (130-400) 10^3/c mm MPV 10.5 H (7.4-10.4) fL Neut % (Auto) 56.6 % Lymph % (Auto) 34.5 % [place] % (Auto) 6.8 % Eos % (Auto) 0.7 % Baso % (Auto) 0.7 % Neut # (Auto) 7.85 H (1.8-7.7) 10^3/u L Lymph # (Auto) 4.8 (0.8-4.8) 10^3/u L [place] # (Auto) 0.9 (0.2-0.9) 10^3/u L Eos # (Auto) 0.1 (0.0-0.8) 10^3/u L Baso # (Auto) 0.1 (0.0-0.1) 10^3/u L Nucleated RBC % (a uto) 0 % Nucleated RBCs # 0.0 /100WBC PT 12.10 (12.1-14.9) SECO NDS INR 0.87 (0.8-1.2) D-Dimer (0-0.59) ug/mIFE U Sodium 137 (136-145) mmol/L Potassium 3.7 (3.5-5.1) mmol/L Chloride 95 L (98-107) mmol/L Carbon Dioxide 25 (22-29) mmol/L Anion Gap 20.7 H (5-19) BUN 13 (6-20) mg/dL Creatinine 0.8 (0.5-0.9) mg/dL GFR Calculation 76.2 L (90-130) mL/min Glucose 157 H (65-115) mg/dL Estimat Average Gl ucose Hemoglobin A1c (4.0-6.0) % Calculated Osmolal ity 287 (285-295) mOsm/k g Calcium 9.7 (8.5-10.5) mg/dL Total Bilirubin 0.3 (0.15-1.2) mg/dL AST 25 (0-32) U/L ALT 32 (0-33) U/L Alkaline Phosphata se 100 (35-105) IU/L Troponin T Baselin e (0-10) ng/L Troponin T 120 Min [place] (0-10) ng/L Delta Troponin T (0-10) ABS# NT-Pro-B Natriuret Pep 10 (0-125) pg/mL Total Protein 7.3 (6.6-8.7) g/dL Albumin 4.3 (3.5-5.2) g/dL Globulin 3.0 (1.3-4.6) g/dL TSH (0.27-4.20) uIU/ mL HCG, Qual (Negative) Urine Color (Yellow) Urine Appearance (CLEAR) Urine pH (5-7) Ur Specific Gravit y (1.005-1.030) Urine Protein (Negative) Urine Glucose (UA) (Normal) Urine Ketones (Negative) Urine Blood (Negative) Urine Nitrate (Negative) Urine Bilirubin (Negative) Urine Urobilinogen (Negative) mg/dL Ur Leukocyte Tami ase (Negative) Urine RBC (0-2) /hpf Urine WBC (0-5) /hpf Ur Squamous Epith Cells (0-5) /hpf Amorphous Sediment Urine Bacteria (NONE) /hpf 02/14/20 02/14/20 02/14/20 Range/Units 15:00 15:00 15:00 WBC (4.0-10.0) 10^3/ uL RBC (4.1-5.3) 10^6/u L Hgb (11.5-15.3) g/dL Hct (37.0-47.0) % MCV (81-99) fL MCH (28.0-34.0) pg MCHC (30.0-36.0) g/dL RDW (12.1-15.1) % Plt Count (130-400) 10^3/c mm MPV (7.4-10.4) fL Neut % (Auto) % Lymph % (Auto) % [place] % (Auto) % Eos % (Auto) % Baso % (Auto) % Neut # (Auto) (1.8-7.7) 10^3/u L Lymph # (Auto) (0.8-4.8) 10^3/u L [place] # (Auto) (0.2-0.9) 10^3/u L Eos # (Auto) (0.0-0.8) 10^3/u L Baso # (Auto) (0.0-0.1) 10^3/u L Nucleated RBC % (a uto) % Nucleated RBCs # /100WBC PT (12.1-14.9) SECO NDS INR (0.8-1.2) D-Dimer 0.34 (0-0.59) ug/mIFE U Sodium (136-145) mmol/L Potassium (3.5-5.1) mmol/L Chloride (98-107) mmol/L Carbon Dioxide (22-29) mmol/L Anion Gap (5-19) BUN (6-20) mg/dL Creatinine (0.5-0.9) mg/dL GFR Calculation (90-130) mL/min Glucose (65-115) mg/dL Estimat Average Gl ucose 128 Hemoglobin A1c 6.1 H (4.0-6.0) % Calculated Osmolal ity (285-295) mOsm/k g Calcium (8.5-10.5) mg/dL Total Bilirubin (0.15-1.2) mg/dL AST (0-32) U/L ALT (0-33) U/L Alkaline Phosphata se (35-105) IU/L Troponin T Baselin e 6 (0-10) ng/L Troponin T 120 Min [place] (0-10) ng/L Delta Troponin T (0-10) ABS# NT-Pro-B Natriuret Pep (0-125) pg/mL Total Protein (6.6-8.7) g/dL Albumin (3.5-5.2) g/dL Globulin (1.3-4.6) g/dL TSH (0.27-4.20) uIU/ mL HCG, Qual (Negative) Urine Color (Yellow) Urine Appearance (CLEAR) Urine pH (5-7) Ur Specific Gravit y (1.005-1.030) Urine Protein (Negative) Urine Glucose (UA) (Normal) Urine Ketones (Negative) Urine Blood (Negative) Urine Nitrate (Negative) Urine Bilirubin (Negative) Urine Urobilinogen (Negative) mg/dL Ur Leukocyte Tami ase (Negative) Urine RBC (0-2) /hpf Urine WBC (0-5) /hpf Ur Squamous Epith Cells (0-5) /hpf Amorphous Sediment Urine Bacteria (NONE) /hpf 02/14/20 02/14/20 02/14/20 Range/Units 16:02 16:02 16:58 WBC (4.0-10.0) 10^3/ uL RBC (4.1-5.3) 10^6/u L Hgb (11.5-15.3) g/dL Hct (37.0-47.0) % MCV (81-99) fL MCH (28.0-34.0) pg MCHC (30.0-36.0) g/dL RDW (12.1-15.1) % Plt Count (130-400) 10^3/c mm MPV (7.4-10.4) fL Neut % (Auto) % Lymph % (Auto) % [place] % (Auto) % Eos % (Auto) % Baso % (Auto) % Neut # (Auto) (1.8-7.7) 10^3/u L Lymph # (Auto) (0.8-4.8) 10^3/u L [place] # (Auto) (0.2-0.9) 10^3/u L Eos # (Auto) (0.0-0.8) 10^3/u L Baso # (Auto) (0.0-0.1) 10^3/u L Nucleated RBC % (a uto) % Nucleated RBCs # /100WBC PT (12.1-14.9) SECO NDS INR (0.8-1.2) D-Dimer (0-0.59) ug/mIFE U Sodium (136-145) mmol/L Potassium (3.5-5.1) mmol/L Chloride (98-107) mmol/L Carbon Dioxide (22-29) mmol/L Anion Gap (5-19) BUN (6-20) mg/dL Creatinine (0.5-0.9) mg/dL GFR Calculation (90-130) mL/min Glucose (65-115) mg/dL Estimat Average Gl ucose Hemoglobin A1c (4.0-6.0) % Calculated Osmolal ity (285-295) mOsm/k g Calcium (8.5-10.5) mg/dL Total Bilirubin (0.15-1.2) mg/dL AST (0-32) U/L ALT (0-33) U/L Alkaline Phosphata se (35-105) IU/L Troponin T Baselin e (0-10) ng/L Troponin T 120 Min [place] 6.00 (0-10) ng/L Delta Troponin T 0 (0-10) ABS# NT-Pro-B Natriuret Pep (0-125) pg/mL Total Protein (6.6-8.7) g/dL Albumin (3.5-5.2) g/dL Globulin (1.3-4.6) g/dL TSH (0.27-4.20) uIU/ mL HCG, Qual Negative (Negative) Urine Color Yellow (Yellow) Urine Appearance Hazy A (CLEAR) Urine pH 5 (5-7) Ur Specific Gravit y 1.020 (1.005-1.030) Urine Protein Trace (Negative) Urine Glucose (UA) Norm (Normal) Urine Ketones Negative (Negative) Urine Blood 2+ H (Negative) Urine Nitrate Negative (Negative) Urine Bilirubin Neg (Negative) Urine Urobilinogen 1 H (Negative) mg/dL Ur Leukocyte Tami ase 2+ H (Negative) Urine RBC 25-40 H (0-2) /hpf Urine WBC 40-55 H (0-5) /hpf Ur Squamous Epith Cells 10-15 H (0-5) /hpf Amorphous Sediment Not Reportable Urine Bacteria 3+ H (NONE) /hpf 02/14/20 Range/Units 16:58 WBC (4.0-10.0) 10^3/ uL RBC (4.1-5.3) 10^6/u L Hgb (11.5-15.3) g/dL Hct (37.0-47.0) % MCV (81-99) fL MCH (28.0-34.0) pg MCHC (30.0-36.0) g/dL RDW (12.1-15.1) % Plt Count (130-400) 10^3/c mm MPV (7.4-10.4) fL Neut % (Auto) % Lymph % (Auto) % [place] % (Auto) % Eos % (Auto) % Baso % (Auto) % Neut # (Auto) (1.8-7.7) 10^3/u L Lymph # (Auto) (0.8-4.8) 10^3/u L [place] # (Auto) (0.2-0.9) 10^3/u L Eos # (Auto) (0.0-0.8) 10^3/u L Baso # (Auto) (0.0-0.1) 10^3/u L Nucleated RBC % (a uto) % Nucleated RBCs # /100WBC PT (12.1-14.9) SECO NDS INR (0.8-1.2) D-Dimer (0-0.59) ug/mIFE U Sodium (136-145) mmol/L Potassium (3.5-5.1) mmol/L Chloride (98-107) mmol/L Carbon Dioxide (22-29) mmol/L Anion Gap (5-19) BUN (6-20) mg/dL Creatinine (0.5-0.9) mg/dL GFR Calculation (90-130) mL/min Glucose (65-115) mg/dL Estimat Average Gl ucose Hemoglobin A1c (4.0-6.0) % Calculated Osmolal ity (285-295) mOsm/k g Calcium (8.5-10.5) mg/dL Total Bilirubin (0.15-1.2) mg/dL AST (0-32) U/L ALT (0-33) U/L Alkaline Phosphata se (35-105) IU/L Troponin T Baselin e (0-10) ng/L Troponin T 120 Min [place] (0-10) ng/L Delta Troponin T (0-10) ABS# NT-Pro-B Natriuret Pep (0-125) pg/mL Total Protein (6.6-8.7) g/dL Albumin (3.5-5.2) g/dL Globulin (1.3-4.6) g/dL TSH 1.55 (0.27-4.20) uIU/ mL HCG, Qual (Negative) Urine Color (Yellow) Urine Appearance (CLEAR) Urine pH (5-7) Ur Specific Gravit y (1.005-1.030) Urine Protein (Negative) Urine Glucose (UA) (Normal) Urine Ketones (Negative) Urine Blood (Negative) Urine Nitrate (Negative) Urine Bilirubin (Negative) Urine Urobilinogen (Negative) mg/dL Ur Leukocyte Tami ase (Negative) Urine RBC (0-2) /hpf Urine WBC (0-5) /hpf Ur Squamous Epith Cells (0-5) /hpf Amorphous Sediment Urine Bacteria (NONE) /hpf Imaging Data^: CXR: Attestation: I personally reviewed and interpreted this imaging study as follows: My impression: No acute cardiopulmonary findings. EKG Data^: EKG 1: Attestation: I personally reviewed and interpreted this EKG as follows: EKG interpretation date: 02/14/20 EKG interpretation time: 17:22 Interpretation: Normal sinus rhythm at 79 beats a minute, LVH, interventricular conduction delay, left axis deviation, no acute ST-T wave changes. EKG 2: Attestation: I personally reviewed and interpreted this EKG as follows: EKG interpretation date: 02/14/20 EKG interpretation time: 19:19 Interpretation: Normal sinus rhythm at 74 beats a minute, left axis deviation, LVH, Q waves anteriorly which is changed from previous likely lead placement, nonspecific ST-T wave changes. Discharge Plan Discharge Patient Disposition: Placed in Observation Admit Provider: Minna Holley Clinical Impression: Chest pain Qualifiers: Chest pain type: unspecified Qualified Code(s): R07.9 - Chest pain, unspecified Condition: Stable Referrals: [facility] [Outside] Serena Santana FNP [Primary Care Provider] - Discharge Date/Time: 02/14/20 19:59 Sign Out Sign Out Data: Patient Sign Out occurred on 02/14/20 at 18:23. Patient's care was discussed, and care was transferred from to Ariela German. Coding Level of Care Code ED Quality Review Specialist for Chg Fwd Exam Comprehensive
[2020-02-14 16:28] LABS: Bacteria Urine 3+ /hpf; WBC Urine 40-55 /hpf (0-5)
[2020-02-14 16:29] LABS: RBC Urine 25-40 /hpf (0-2)
[2020-02-14 16:30] LABS: Add Urine Culture? No
--- NOTE | 2020-02-14 17:32 | ECG_ITS ---
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 Measurements Intervals [place] Rate: 79 P: 47 IN: 189 QRS: -47 QRSD: 114 T: -47 QT: 369 QTc: 424 Interpretive Statements SINUS RHYTHM INCOMPLETE RIGHT BUNDLE BRANCH BLOCK [90+ ms QRS DURATION, TERMINAL R IN V1/V2, 40+ ms S IN I/aVL/V4/V5/V6] LEFT ANTERIOR FASCICULAR BLOCK [QRS AXIS <= -45, QR IN I, RS IN II] VOLTAGE CRITERIA FOR LVH [MEETS CRITERIA IN ONE OF: R(aVL), S(V1), R(V5), R(V5/V6)+S(V1)] POSSIBLE SEPTAL MYOCARDIAL INFARCTION , OF INDETERMINATE AGE [30 ms Q WAVE IN V1/V2] Compared to ECG 02/14/2020 15:26:32 Incomplete right bundle-branch block now present Left anterior fascicular block now present Electronically Signed On 02-16-2020 20:57:31 CDT by Ming Chicas M.D. [id number]
[2020-02-14 18:02] LABS: Troponin 5 2HR Delta 0 ABS# (0-10)
[2020-02-14] MEDS: morphine 4 mg/mL SDV 1 mL IVP ×2 (19:24→21:25)
[2020-02-14] MEDS: nitroglycerin 1 gm/inch oint Pkt 1 INCH TOPICAL (19:25)
[2020-02-14] MEDS: ondansetron 2 mg/ML SDV 2 mL 4 MG IVP (19:25)
--- NOTE | 2020-02-14 19:25 | P.HP_ITS ---
Providers/Chief Complaint Primary Care Provider: JONNY Taylor Chief Complaint: CHEST PAIN History of Present Illness Prudence Acuna is a 50 year old female who has history of type 2 diabetes, dyslipidemia, family history of coronary disease, leading a sedentary lifestyle, active smoker came in today with chief complaint of left-sided chest pain. Patient is stating that for last 2 to 3 days she has been experiencing chest nivia n on and off at rest, initially this pain would subside with change in her position but today her pain was not getting better, it lasted for about 1 hour, she is describing this pain as an elephant sitting on her chest, this pain is radiating towards her left arm she also noticed some numbness and tingling, she noticed nausea and diaphoresis with it. Her pain responded very well to nitroglycerin and morphine in the ER, she was also given GI cocktail. She does not carry any significant past medical history of IA, coronary disease however endorsing history of angina. She is currently following up with [facility] for her depression and podiatry for diabetic neuropathy, she has quit alcohol 6 months ago currently smoking 1 pack/day. Diagnosis in the ER revealed polycythemia, mild leukocytosis, normal hemodynamics, unremarkable troponins, EKG showed left anterior fascicular block, incomplete right bundle branch block, nonspecific T wave changes, LVH, patient is describing chest discomfort 5/10 at the time my evaluation, her chest pain is reproducible on my evaluation. No signs of UTI. Review of Systems Const: Reports: chills, body aches and fatigue; Denies: fever(s) Eyes: Denies: change in vision ENMT: Denies: throat pain Card: Reports: chest pain and dyspnea on exertion; Denies: pre-syncope or orthopnea Resp: Denies: dyspnea GI: Reports: nausea; Denies: abdominal pain or vomiting : Denies: flank pain Musc: Denies: neck pain Skin/Breast: Denies: rash Neuro: Denies: headache(s) Psych: Reports: anxiety and depression Endo: Denies: polyuria Lew/Lymph: Denies: easy bruising All/Imm: Denies: urticaria Medications/Allergies Home Medications Medication Instructions Recorded Confirmed Last Taken Type amlodipine 10 mg tablet 10 mg PO DAILY 07/07/19 02/01/20 Unknown History celecoxib 400 mg capsule 400 mg PO DAILY 07/07/19 02/01/20 Unknown History hydrochlorothiazide 50 mg tablet 50 mg PO DAILY 07/07/19 02/01/20 Unknown History simvastatin 40 mg tablet 40 mg PO DAILY 07/07/19 02/01/20 Unknown History metformin 500 mg tablet 500 mg PO DAILY 09/20/19 02/01/20 Unknown History epinephrine 0.3 mg/0.3 mL 0.3 mg IM Q10M PRN 10/05/19 02/01/20 Unknown History injection, auto-injector prazosin 5 mg capsule 5 mg PO .QHS #30 cap 12/22/19 02/01/20 Unknown Rx hydrocodone 10 mg-acetaminophen 1 tab PO .5 times daily PRN tab 01/27/20 02/01/20 Unknown History 300 mg tablet prazosin 2 mg capsule 2 mg PO .qhs #30 cap 01/30/20 02/01/20 Unknown Rx baclofen 10 mg PO TID PRN 02/14/20 02/14/20 02/14/20 08:00 History buspirone 10 mg PO TID PRN 02/14/20 02/14/20 02/14/20 08:00 History vortioxetine [Trintellix] 20 mg PO DAILY 02/14/20 02/14/20 02/14/20 History Allergies Allergy/AdvReac Type Severity Reaction Status Date / Time venom-wasp Allergy Unknown ALGY-Anaphy Verified 02/14/20 20:43 laxis bees Allergy Unknown ALGY-Anaphy Uncoded 02/14/20 20:43 laxis mushrooms Allergy Unknown ALGY-Anaphy Uncoded 02/14/20 20:43 laxis PFSH Acute PFSH: Medical History (Updated 02/14/20 @ 20:47 by Minna Holley MD) Alcohol dependence, in remission Borderline personality disorder Cigarette nicotine dependence COPD (chronic obstructive pulmonary disease) Dependent personality disorder Diabetes Hyperlipidemia Hypertension Major depressive disorder, recurrent, in full remission Obstructive sleep apnea Panic disorder [episodic paroxysmal anxiety] Post-traumatic stress disorder, chronic Surgical History (Updated 02/14/20 @ 20:47 by Minna Holley MD) deliv NOS-unsp X4 History of bilateral tubal ligation History of endometrial ablation Family History Other Cancer Diabetes Social History Smoking and tobacco status: current every day smoker cigarettes Packs smoked per day: 0.5 Years cigarettes smoked: 31 Quit status (tobacco): not considering quitting Second hand smoke exposure: No Alcohol intake: former Former alcohol use details: quit 6 months ago Desire information about alcohol rehabilitation?: No Desire information about substance/drug rehabilitation?: No Adopted: No Caregiver/support person: Yes (does not live in the home, comes in 2 1/2 hours a day) Lives independently: Yes Household members: significant other Housing: House Marital status: Number of children: 4 Number of grandchildren: 5 Highest education level completed: GED or Equivalent service: No Current occupational status: disabled Current occupational exposures/hazards: No Pets and animals: Yes Pets & animals: dog(s) History of recent travel: No Leisure activites: art and other Leisure activities details: games on computer Sexually active: Yes Current gender identity: Female Geno/Moravian: None Special geno needs: No Agree to transfusion: Yes Financial difficulty paying for basics: Hard Female Reproductive History: Date of last menstrual period: 01/07/20 Para: 4 Spontaneous abortions: Yes Vitals/I&O/Wt Last Vital Signs Temp 98.4 F 02/14/20 15:20 Pulse 81 02/14/20 18:54 Resp 18 02/14/20 19:24 BP 135/85 02/14/20 18:54 Pulse Ox 95 02/14/20 18:54 Weight last 48 hrs Weight 102.512 kg Physical Exam Narrative: EXAM NARRATIVE: General appearance: Patient is sitting in her bed working on her laptop Appears more than stated age Morbidly obese No active distress Chest pain is reproducible S1, S2 no tachycardia heart failure Hypertensive systolic blood pressure 170 mmHg Cholesteatoma around her eyelids bilaterally Lungs are clear to auscultation no adventitious sounds or active respiratory distress Abdomen soft distended bowel sound present Lower extremity no edema gangrene ulcer Neurologically no focal deficit Appropriate mood and affect Data : 02/14/20 15:00 02/14/20 15:00 A&P Assessment and plan (1) Unstable angina: Status: Acute (2) Diabetic peripheral neuropathy associated with type 2 diabetes mellitus: Status: Acute (3) Obstructive sleep apnea: Status: Acute (4) Cigarette nicotine dependence: Status: Acute Additional A&P Information Unstable angina Substernal left-sided chest pain radiating towards her arm associated with nausea lasting more than an hour relieved with nitro, family history positive Currently chest pain 5/10, however her chest pain on physical exam is reproducible, EKG is showing nonspecific T wave changes with LVH, left anterior fascicle block, sinus rhythm, incomplete right bundle branch block, Troponins not significantly higher I would check TSH, D-dimer Heart score 5 I would get Lexiscan stress test in the morning along echo N.p.o. after midnight Type 2 diabetes with peripheral neuropathy: Following up with podiatry, moderate dose sliding scale Will follow up with A1c level Cholesteatoma Patient is denying familial dyslipidemia, will check lipid profile, she is currently on simvastatin 40 mg Obstructive sleep apnea CPAP auto titration overnight Nicotine dependence: Patient is currently smoking 1 pack/day, quit using Chantix secondary to her depression and anxiety, has been sober for last 6 months Patient does not want to use nicotine patch overnight Abnormal UA without signs of UTI, I would avoid antibiotics Polycythemia most likely secondary to sleep apnea, chronic smoking I would add aspirin 81 mg DVT prophylaxis Lovenox Cardiac diet, n.p.o. after midnight Full code Attestations Medical Necessity Statement*: Anticipating discharge in less than 48 hours currently need Lexiscan stress test for coronary ischemia rule out Time Spent in Patient Care: (>than 50% of time spent in counselling and/or direct pt care on unit) . 35mins Coding Level of Care Code Acute Highway Maintenance Supervisor for Mallory Boucher Diagnoses Unstable angina I20.0 Diabetic peripheral neuropathy associated with type 2 diabetes mellitus E11.42 Obstructive sleep apnea G47.33 Cigarette nicotine dependence F17.210
--- NOTE | 2020-02-14 19:27 | ECG_ITS ---
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 Interpretive Statements NAME OF STUDY: LEXISCAN SESTAMIBI STRESS TEST INDICATION: Chest Pain PROCEDURE: At the baseline, the blood pressure was 116/71 mmHg with a heart rate of 74 bpm. The electrocardiogram showed normal sinus rhythm with left axis deviation. Poor anterior R wave progression. Possible old septal infarct. The Lexiscan was infused over a period of 20 seconds. A total of 0.4 milligrams of Lexiscan was infused. The stress phase was continued for a total of 5 minutes. Heart rate at the end of the stress phase was 86 bpm with a blood pressure of 125/77 mmHg. The EKG at the peak infusion revealed sinus rhythm with no significant ST-T wave changes. Study was terminated due to protocol completion. Sestamibi was injected 20 seconds after the Lexiscan infusion. Blood pressure at the end of the recovery phase was 110/81 mmHg with a heart rate of 87 beats per minute. CONCLUSION: 1. No significant EKG changes with the LexiScan infusion. 2. No LexiScan induced chest pain or cardiac arrhythmia. 3. Normal blood pressure and heart rate response. 4. Sestamibi/sestamibi perfusion scan pending; see separate report. Electronically Signed On 02-15-2020 14:56:33 CDT by Velia Lopez M.D. [id number]
--- NOTE | 2020-02-14 20:30 | PC.NURSE ---
Patient arrived to room after report was received via phone. Patient is alert and oriented and ambulatory. Patient is on room air, SR. Patient complains of chest pain 4/10 heavy. Pain becomes worse when pushing on chest. Dr. Holley at bedside. Patient has been oriented to her room and has call light within reach. Patient educated of NPO after midnight diet. VSS. Will monitor.
--- NOTE | 2020-02-14 20:56 | PC.NURSE ---
Patient is refusing a hospital gown at this time. Dr. Holley notified of med red being updated and patient has not had her nighttime medications.
[2020-02-14 20:57] LABS: D Dimer 0.34 ug/mIFEU (0-0.59)
[2020-02-14] MEDS: enoxaparin 40 mg/0.4 mL Syringe SUBCUT (21:04)
[2020-02-14] MEDS: prazosin 5 mg Capsule PO (21:04)
[2020-02-14 21:09] LABS: Thyroid Stimulating Hormone 1.55 uIU/mL (0.27-4.20)
[2020-02-14 21:17] LABS: Glucose Point of Care 200 mg/dL (70-110)
[2020-02-14] MEDS: atorvastatin 40 mg Tablet 20 MG PO (21:25)
--- NOTE | 2020-02-14 21:32 | ECG_ITS ---
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 Measurements Intervals [place] Rate: 74 P: 47 WA: 194 QRS: -41 QRSD: 120 T: 11 QT: 432 QTc: 481 Interpretive Statements SINUS RHYTHM LEFT AXIS DEVIATION [QRS AXIS < -30] VOLTAGE CRITERIA FOR LVH [MEETS CRITERIA IN ONE OF: R(aVL), S(V1), R(V5), R(V5/V6)+S(V1)] POSSIBLE SEPTAL MYOCARDIAL INFARCTION , OF INDETERMINATE AGE [30 ms Q WAVE IN V1/V2] Compared to ECG 02/14/2020 17:22:45 Left-axis deviation now present Incomplete right bundle-branch block no longer present Left anterior fascicular block no longer present Myocardial infarct finding still present Electronically Signed On 02-16-2020 20:55:31 CDT by Ming Chicas M.D. [id number]
--- NOTE | 2020-02-14 21:54 | PC.NURSE ---
Nurse asked patient if the morphine helped her pain and she states yes it is gone, I'm getting ready to lay down and go to sleep. Will monitor.
[2020-02-14 22:01] LABS: Estmated Average Glucose 128; Hemoglobin A1C 6.1 % (4.0-6.0)
[2020-02-15] VITALS (10 sets, daily range): BP systolic 101–125; BP diastolic 63–90; PULSE 73–84; RESP 16–23; TEMP 36.6–37; O2SAT 89–94
[2020-02-15] MEDS: acetaminophen 325 mg Tablet 650 MG PO ×2 (00:29→11:01)
--- NOTE | 2020-02-15 01:37 | PC.NURSE ---
Patient is currently resting with eyes closed. Will monitor.
[2020-02-15] MEDS: morphine 4 mg/mL SDV 1 mL IVP ×3 (04:22→16:00)
--- NOTE | 2020-02-15 04:22 | PC.NURSE ---
Patient is complaining of chest pain 11/10. Patient is currently playing a game on her computer. PRN Morphine given for chest pain. Will monitor and reassess.
[2020-02-15 05:01] LABS: Basophils # 0.1 10^3/uL (0.0-0.1); Basophils % 0.9 %; Eosinophils # 0.1 10^3/uL (0.0-0.8); Eosinophils % 0.9 %; Hematocrit 44.1 % (37.0-47.0); Lymphocytes # 3.8 10^3/uL (0.8-4.8); Lymphocytes % 37.5 %; Mean Corpuscular HGB Conc 31.7 g/dL (30.0-36.0); Mean Corpuscular Hemoglobin 26.9 pg (28.0-34.0); Mean Corpuscular Volume 84.8 fL (81-99); Mean Platelet Volume 10.3 fL (7.4-10.4); Monocytes # 0.7 10^3/uL (0.2-0.9); Monocytes % 7.2 %; Neutrophils # 5.28 10^3/uL (1.8-7.7); Neutrophils % 52.4 %; Nucleated Red Blood Cells % 0 %; Platelet Count 352 10^3/cmm (130-400); Red Cell Distribution Width 14.1 % (12.1-15.1); White Blood Count 10.1 10^3/uL (4.0-10.0)
--- NOTE | 2020-02-15 05:19 | PC.NURSE ---
Patient was awoken from her sleep. Patient stated her pain in chest was down to 3/10. Will monitor and reassess.
[2020-02-15 05:27] LABS: Anion Gap 15.2 (5-19); Blood Urea Nitrogen 12 mg/dL (6-20); Carbon Dioxide 28 mmol/L (22-29); Chloride 96 mmol/L (98-107); Glomerular Filtration Rate 169.7 mL/min (90-130); Glucose 128 mg/dL (65-115); Osmolality Calculated 283 mOsm/kg (285-295); Potassium 3.2 mmol/L (3.5-5.1); Sodium 136 mmol/L (136-145)
--- NOTE | 2020-02-15 07:00 | NMCV_ITS ---
NM julio perf SPECT r/s* [id number] Prudence Acuna Age: 50 Gender: F : 1970 Exam Date: 02/15/2020 07:21 Ordering Phys: Minna Holley MD Technologist: RADHA Nolasco Exam Location: [facility] Indications: Chest pain STRESS TEST Please [facility] IMAGE PROTOCOL Rest/Stress 1 Lexiscan Day Radiopharmaceutical Dose (mCi) Administration Site Administered by Rest: Tc-99m 11.0 IV RADHA Wilkerson Sestamibi Stress:Tc-99m 32.8 IV RADHA Nolasco [place] Rest: 15-Feb-2020 60 Discovery 630 Stress: 15-Feb-2020 45 Discovery 630 0.4mg Lexiscan. Images obtained in supine and prone position. SPECT RESULTS Technical Quality: Excellent Raw Data Analysis: Breast attenuation, Subdiaphragmatic activity Image Corrections: No attenuation or motion correction applied Summed Stress Score: 4 Summed Rest Score: 0 Summed Difference Score: 4 PERFUSION FINDINGS Small size perfusion abnormality of mild severity of apical anterior, apical lateral and apical mason on rest images with improved tracer uptake on stress images. This is suggestive of attenuation artifact. FUNCTIONAL RESULTS (calculated via Gated SPECT) Stress Image LV EF (%): 73 Stress EDV (mL):108 TID: 0.87 Stress ESV (mL):29 FUNCTIONAL FINDINGS: The left ventricle is normal in size. Transient Ischemia Dilatation of 0.87. There is normal left ventricular systolic function. The left ventricular ejection fraction is normal with a value of 73%. There is normal left ventricular wall thickening. Normal end-diastolic and end-systolic volumes. IMPRESSIONS 1. Myocardial perfusion imaging is normal. Attenuation artifact noted on apical anterior and apical lateral mason. 2. Overall left ventricular systolic function is normal without regional wall motion abnormalities. 3. The left ventricular ejection fraction is normal with a value of 73%. 4. No coronary ischemia based on the study. Velia Lopez MD (Electronically Signed) Final Date: 15 February 2020 13:04 S
[2020-02-15 07:05] LABS: Glucose Point of Care 116 mg/dL (70-110)
[2020-02-15] MEDS: regadenoson 0.4 Mg/5 ml Syringe IVP (08:42)
[2020-02-15] MEDS: sennosides-docusate Tablet 1 TAB PO (10:50)
[2020-02-15] MEDS: hydroCHLOROthiazide 25 mg Tablet 50 MG PO (10:50)
[2020-02-15] MEDS: amlodipine 10 mg Tablet PO (10:51)
[2020-02-15] MEDS: aspirin 81 mg EC Tablet PO (10:51)
[2020-02-15] MEDS: potassium chloride ER 10 mEq Tablet 40 MEQ PO (11:00)
[2020-02-15] MEDS: pneumococcal (23 valent) SDV 0.5 mL IM (11:01)
[2020-02-15 11:08] LABS: Glucose Point of Care 154 mg/dL (70-110)
--- NOTE | 2020-02-15 11:55 | XRR_ITS ---
PROCEDURE INFORMATION: Exam: XR Left Shoulder Exam date and time: 02/15/2020 12:21 PM Age: 50 years old Clinical indication: Pain; Shoulder; Left TECHNIQUE: Imaging protocol: XR Left shoulder. Views: 2 or more views. COMPARISON: CR Shoulder 2+ views LEFT* [id number] 02/10/2018 12:44 PM FINDINGS: Bones/joints: No fracture. No dislocation. The glenohumeral and acromioclavicular joints are within normal limits. The acromiohumeral interval is normal. Soft tissues: No acute soft tissue abnormality. XR/XR shoulder LT min 2V* [id number] IMPRESSION: No acute osseous abnormality.
--- NOTE | 2020-02-15 11:55 | P.PN_ITS ---
Subjective Subjective: Interval history: Patient reports that she quit drinking several months ago. Reports that she had fall approximately 4 weeks ago because of chronic problem with her gait and balance. Reports that 2 weeks ago she developed significant left shoulder pain and inability to raise her arm. Reports some neck discomfort with pain radiating to her left upper extremity. On exam she was tender on palpation of the lower cervical spine. She continues to smoke and reports that she is not ready to quit since she just recently quit drinking alcohol. She just had her stress test performed earlier today with results currently pending. She denies dysuria. Vitals/I&O/Wt Last Vital Signs Temp 98.4 F 02/15/20 11:33 Pulse 79 02/15/20 11:33 Resp 18 02/15/20 11:33 BP 125/82 02/15/20 11:33 Pulse Ox 94 02/15/20 11:33 02/14/20 02/15/20 02/15/20 22:59 06:59 14:59 Intake Total 1500 / 1500 220 / 220 Balance 1500 / 1500 220 / 220 Weight last 48 hrs Weight 102.512 kg Physical Exam Const: COMMON NORMALS: no acute distress and patient oriented x3 Resp: COMMON NORMALS: normal respiratory effort and clear to auscultation bilaterally AUSCULTATION: clear to auscultation bilaterally Cardio: COMMON NORMALS: regular rate, regular rhythm and S2 normal heart sound present RATE: regular rate RHYTHM: regular rhythm HEART SOUNDS: S2 normal heart sound present OTHER: No lower extremity edema GI: COMMON NORMALS: Normal to inspection, nondistended, normoactive bowel sounds present, Soft to palpation and non-tender PALPATION: Yes Soft to palpation Neuro: COMMON NORMALS: patient oriented x3 and no focal motor deficits Data : 02/15/20 04:49 02/15/20 04:49 A&P Assessment and plan (1) Unstable angina: Status: Acute (2) Diabetic peripheral neuropathy associated with type 2 diabetes mellitus: Status: Acute (3) Obstructive sleep apnea: Status: Acute (4) Cigarette nicotine dependence: Status: Acute Additional A&P Information Unstable angina felt unlikely but cannot be completely ruled out as patient is at high risk for underlying coronary artery disease. Atypical chest pain. Appears to be related to left shoulder pain. Left shoulder pain post fall 4 weeks ago. Substernal left-sided chest pain radiating towards her arm associated with nausea lasting more than an hour relieved with nitro, family history positive Currently chest pain 5/10, however her chest pain on physical exam is reproducible, EKG is showing nonspecific T wave changes with LVH, left anterior fascicle block, sinus rhythm, incomplete right bundle branch block, Troponins not significantly higher I would check TSH, D-dimer Heart score 5 I would get Lexiscan stress test in the morning along echo N.p.o. after midnight Type 2 diabetes with peripheral neuropathy: Following up with podiatry, moderate dose sliding scale Will follow up with A1c level Cholesteatoma Patient is denying familial dyslipidemia, will check lipid profile, she is currently on simvastatin 40 mg Obstructive sleep apnea CPAP auto titration overnight Nicotine dependence: Patient is currently smoking 1 pack/day, quit using Chantix secondary to her depression and anxiety, has been sober for last 6 months Patient does not want to use nicotine patch overnight Abnormal UA without signs of UTI, I would avoid antibiotics Polycythemia most likely secondary to sleep apnea, chronic smoking I would add aspirin 81 mg DVT prophylaxis Lovenox Cardiac diet, n.p.o. after midnight Full code PLAN: Obtain left shoulder x-ray and cervical spine CT. Will obtain blood cultures. Discontinue hydrochlorothiazide. Patient reports having good appetite and oral intake. Replete potassium. We will request occupational therapy and consider orthopedic surgery consultation either inpatient or outpatient Attestations Medical Necessity Statement*: Patient with atypical chest and shoulder pain and recent fall requires hospitalization for close monitoring, treatment and evaluation. Time Spent in Patient Care: 16 - 35 minutes Coding Level of Care Code Acute Driving Instructor for Mallory Boucher Diagnoses Unstable angina I20.0 Diabetic peripheral neuropathy associated with type 2 diabetes mellitus E11.42 Obstructive sleep apnea G47.33 Cigarette nicotine dependence F17.210
--- NOTE | 2020-02-15 11:55 | CT_ITS ---
WS: [id number] CT CERVICAL SPINE HISTORY: Pain with radiculopathy, had fall 4 weeks ago TECHNIQUE: Contiguous 2.5 mm axial imaging performed through the entire cervical spine. Sagittal and coronal reformats also performed. All CT scans at [facility] use at least one of these do se optimization techniques: automated exposure control; mA and/or kV adjustment per patient size (inc ludes targeted exams where dose is matched to clinical indication); or iterative reconstruction. DLP: 775.39 mGy.cm COMPARISON: 03/25/2019 Mild straightening of the normal cervical lordosis. Craniocervical junction is normal. C1 and C2 are aligned. Mild degenerative disc disease and spondylosis at C5-6 and C6-7. No fractures are identified . No acute-appearing disc protrusions or significant stenosis. There is very mild bilateral foraminal n arrowing at C5-6 and C6-7. Mild paraseptal emphysematous changes at the lung apices. CT/CT cervical spin wo con* [id number] IMPRESSION: 1. No acute cervical spine fracture. 2. Mild bilateral foraminal narrowing at C5-6 and C6-7.
[2020-02-15] MEDS: BuSPIRONE 10 mg Tablet PO (12:42)
[2020-02-15] MEDS: baclofen 10 mg Tablet PO (12:42)
--- NOTE | 2020-02-15 12:44 | PC.RESP ---
pt. does not have a CPAP at home. refuses auto
--- NOTE | 2020-02-15 15:39 | PC.RESP ---
Smoking Cessation and Pulmonary rehab information to patient.
[2020-02-15 16:51] LABS: Glucose Point of Care 130 mg/dL (70-110)
--- NOTE | 2020-02-15 17:11 | PM.DCS ---
Discharge Providers Date of Admission: 02/14/20 19:26 Date of Discharge: February 15, 2020 Attending Provider at Admission: Minna Holley MD Attending Provider at Discharge: Rudy Gandhi MD Primary Care Provider: JONNY Taylor Diagnoses at Discharge Discharge Diagnosis (1) Unstable angina: Status: Acute Problem details: Acute coronary syndrome ruled out. (2) Diabetic peripheral neuropathy associated with type 2 diabetes mellitus: Status: Acute (3) Obstructive sleep apnea: Status: Acute (4) Cigarette nicotine dependence: Status: Acute (5) Left shoulder pain: Status: Acute Problem details: Concerning for rotator cuff injury. Reason for Visit Reason for Visit: CHEST PAIN Hospital Course Hospital Course: Patient presented with left-sided chest pain which appears to be related to significant left shoulder pain after patient had fall approximately 4 weeks ago due to poor balance and unsteady gait which felt to be related to long period of alcohol use. Patient was further evaluated with sestamibi Lexiscan as well as echocardiogram showing no significant findings. Left shoulder x-ray and cervical spine CT showed no significant findings. Rotator cuff injury was suspected. Patient was seen by Occupational Therapy with recommendations provided. I have shortly discussed case with Dr. Garcia and will make an outpatient follow-up. I had extensive discussion with patient regarding smoking cessation of more than 3 minutes. Patient voiced understanding but refused any pharmacological help. Celecoxib will be discontinued as GI origin chest pain cannot be completely ruled out. Physical Exam Narrative: EXAM NARRATIVE: As per my note dictated earlier Discharge Data Data Completed and Pending: Completed Studies During Hospitalization Category Date Time Status CT cervical spin wo con* [id number] Rout ine Cat Scan 02/15/20 11:55 Completed Sestamibi Stress Test Request Routi ne Exams 02/14/20 19:27 Completed XR chest 1V junito ble [id number] Stat Exams 02/14/20 15:32 Completed XR shoulder LT mi n 2V* [id number] Routin e Exams 02/15/20 11:55 Completed NM julio perf SPECT r/s* [id number] Routin e Nuc Med 02/15/20 07:00 Completed CV echo complete* [id number] Routine Ultrasound 02/15/20 20:20 Completed Pending at discharge Category Date Time Status Blood Culture Sta t Lab 02/15/20 15:31 Results Labs from last 24 hours 02/15/20 02/15/20 02/15/20 16:47 11:00 06:31 WBC RBC Hgb Hct MCV MCH MCHC RDW Plt Count MPV Neut % (Auto) Lymph % (Auto) Porter % (Auto) Eos % (Auto) Baso % (Auto) Neut # (Auto) Lymph # (Auto) Porter # (Auto) Eos # (Auto) Baso # (Auto) Nucleated RBC % (a uto) Nucleated RBCs # D-Dimer Sodium Potassium Chloride Carbon Dioxide Anion Gap BUN Creatinine GFR Calculation Glucose POC Glucose 130 154 116 Estimat Average Gl ucose Hemoglobin A1c Calculated Osmolal ity Calcium Troponin T 120 Min [place] Troponin T TSH 02/15/20 02/15/20 02/14/20 04:49 04:49 20:55 WBC 10.1 H RBC 5.20 Hgb 14.0 Hct 44.1 MCV 84.8 MCH 26.9 L MCHC 31.7 RDW 14.1 Plt Count 352 MPV 10.3 Neut % (Auto) 52.4 Lymph % (Auto) 37.5 Porter % (Auto) 7.2 Eos % (Auto) 0.9 Baso % (Auto) 0.9 Neut # (Auto) 5.28 Lymph # (Auto) 3.8 Porter # (Auto) 0.7 Eos # (Auto) 0.1 Baso # (Auto) 0.1 Nucleated RBC % (a uto) 0 Nucleated RBCs # 0.0 D-Dimer Sodium 136 Potassium 3.2 L Chloride 96 L Carbon Dioxide 28 Anion Gap 15.2 BUN 12 Creatinine 0.4 L GFR Calculation 169.7 H Glucose 128 H POC Glucose 200 Estimat Average Gl ucose Hemoglobin A1c Calculated Osmolal ity 283 L Calcium 9.0 Troponin T 120 Min [place] Troponin T TSH 02/14/20 02/14/20 02/14/20 16:58 16:58 15:00 WBC RBC Hgb Hct MCV MCH MCHC RDW Plt Count MPV Neut % (Auto) Lymph % (Auto) Porter % (Auto) Eos % (Auto) Baso % (Auto) Neut # (Auto) Lymph # (Auto) Porter # (Auto) Eos # (Auto) Baso # (Auto) Nucleated RBC % (a uto) Nucleated RBCs # D-Dimer Sodium Potassium Chloride Carbon Dioxide Anion Gap BUN Creatinine GFR Calculation Glucose POC Glucose Estimat Average Gl ucose 128 Hemoglobin A1c 6.1 H Calculated Osmolal ity Calcium Troponin T 120 Min [place] 6.00 Delta Troponin T 0 TSH 1.55 02/14/20 15:00 WBC RBC Hgb Hct MCV MCH MCHC RDW Plt Count MPV Neut % (Auto) Lymph % (Auto) Porter % (Auto) Eos % (Auto) Baso % (Auto) Neut # (Auto) Lymph # (Auto) Porter # (Auto) Eos # (Auto) Baso # (Auto) Nucleated RBC % (a uto) Nucleated RBCs # D-Dimer 0.34 Sodium Potassium Chloride Carbon Dioxide Anion Gap BUN Creatinine GFR Calculation Glucose POC Glucose Estimat Average Gl ucose Hemoglobin A1c Calculated Osmolal ity Calcium Troponin T 120 Min [place] Troponin T TSH Vitals: Last Vital Signs Temp 98.6 F 02/15/20 15:25 Pulse 81 02/15/20 15:25 Resp 16 02/15/20 16:00 BP 118/69 02/15/20 15:25 Pulse Ox 91 02/15/20 16:00 Discharge Plan Discharge Patient Disposition: Home Condition: Stable Prescriptions: New aspirin 81 mg Tablet,Delayed Release (Dr/Ec) 81 mg PO DAILY Qty: 30 RF: 0 Continued prazosin 5 mg capsule 5 mg PO .QHS Qty: 30 RF: 5 hydrocodone-acetaminophen 10-300 mg tablet 1 tab PO .5 times daily PRN (Reason: Anaphylaxis) RF: 0 prazosin 2 mg capsule 2 mg PO .qhs Qty: 30 RF: 4 amlodipine 10 mg tablet 10 mg PO DAILY RF: 0 simvastatin 40 mg tablet 20 mg PO BEDTIME RF: 0 hydrochlorothiazide 50 mg tablet 50 mg PO DAILY RF: 0 epinephrine 0.3 mg/0.3 mL auto-injector 0.3 mg IM Q10M PRN (Reason: Anaphylaxis) RF: 0 metformin 500 mg tablet 500 mg PO QPM RF: 0 baclofen 10 mg Tablet 10 mg PO TID PRN (Reason: muscle spasms) RF: 0 buspirone 10 mg Tablet 10 mg PO TID PRN (Reason: Anxiety) RF: 0 Trintellix 20 mg Tablet 20 mg PO DAILY RF: 0 Protonix 40 mg Tablet,Delayed Release (Dr/Ec) 40 mg PO DAILY RF: 0 Discontinued celecoxib [Celebrex] 400 mg capsule 400 mg PO DAILY RF: 0 Discharge Orders: Discharge Order (Routine); Ordered 02/15/20 Ordered By: Rudy Gandhi Other Ambulatory Orders: DME: Cane/ Crutches (Order) Location: None Selected Ordered By: Rudy Gandhi Referrals: [facility] [Outside] Serena Santana FNP [Primary Care Provider] - 7-10 days (Please follow up with Dr Serena BOYLE on ThursdayFebruary 23 at 09:15 am.) Discharge Diet: Advance as tolerated Discharge Activity: Increase activity as tolerated Activity Restrictions/Additional Instructions: Please call your doctor or present to emergency department if your condition worsens or you develop diarrhea, lightheadedness, fatigue or see blood in your stool or black stool. Please follow-up with orthopedic surgery as we have discussed. Discharge Attestations Time Spent in Discharge Care*: greater than 30 min Time Spent in Smoking Cessation: Time spent discussing smoking cessation with patient: 3 to 10 minutes Quality Metrics Clinical Quality Measures During this hospital stay, did patient experience: None Coding Level of Care Code Acute Pathology Laboratory Director for Mallory Fwd Diagnoses Unstable angina I20.0 Diabetic peripheral neuropathy associated with type 2 diabetes mellitus E11.42 Obstructive sleep apnea G47.33 Cigarette nicotine dependence F17.210 Left shoulder pain M25.512
--- NOTE | 2020-02-15 18:12 | P.CONIM_ITS ---
Providers/Reason For Consult Consulting Physican/Specialty*: Taz Garcia MD Reason for Consult*: Left shoulder pain Attending Physician: Rudy Gandhi MD Primary Care Provider: JONNY Taylor History of Present Illness History of Present Illness Prudence Acuna is a 50 year old female who describes falling on 4 weeks ago on her left shoulder with immediate pain. She describes pain in the lateral subacromial shoulder. She states it is generally worse with effort to use. She describes difficulty holding her arm away from her body and pain at night. She was admitted to the hospital here for unstable angina. I have been asked to see the patient for left shoulder pain. She denies any previous history of problems with her shoulder Meds/Allergies Home Medications and Allergies Home Medications Medication Instructions Recorded Confirmed Last Taken Type amlodipine 10 mg tablet 10 mg PO DAILY 07/07/19 02/14/20 02/14/20 History hydrochlorothiazide 50 mg tablet 50 mg PO DAILY 07/07/19 02/14/20 02/14/20 History simvastatin 40 mg tablet 20 mg PO BEDTIME 07/07/19 02/14/20 02/13/20 History metformin 500 mg tablet 500 mg PO QPM 09/20/19 02/14/20 02/13/20 History epinephrine 0.3 mg/0.3 mL 0.3 mg IM Q10M PRN 10/05/19 02/14/20 Unknown History injection, auto-injector prazosin 5 mg capsule 5 mg PO .QHS #30 cap 12/22/19 02/14/20 02/13/20 Rx hydrocodone 10 mg-acetaminophen 1 tab PO .5 times daily PRN tab 01/27/20 02/14/20 02/14/20 08:00 History 300 mg tablet prazosin 2 mg capsule 2 mg PO .qhs #30 cap 01/30/20 02/14/20 02/13/20 Rx Trintellix 20 mg PO DAILY 02/14/20 02/14/20 02/14/20 History baclofen 10 mg PO TID PRN 02/14/20 02/14/20 02/14/20 08:00 History buspirone 10 mg PO TID PRN 02/14/20 02/14/20 02/14/20 08:00 History Protonix 40 mg PO DAILY 02/15/20 02/15/20 Unknown History aspirin 81 mg PO DAILY #30 tab 02/15/20 Unknown Rx Allergies Allergy/AdvReac Type Severity Reaction Status Date / Time venom-wasp Allergy Unknown ALGY-Anaphy Verified 02/14/20 20:43 laxis bees Allergy Unknown ALGY-Anaphy Uncoded 02/14/20 20:43 laxis mushrooms Allergy Unknown ALGY-Anaphy Uncoded 02/14/20 20:43 laxis Current Medications Current Medications Generic Name Dose Route Start Last Admin Trade Name Freq PRN Reason Stop Dose Admin Acetaminophen 650 mg 02/15/20 00:13 02/15/20 11:01 Tylenol PO 650 mg Q6H PRN Administration MILD PAIN Amlodipine Besylate 10 mg 02/15/20 09:00 02/15/20 10:51 Norvasc PO 10 mg DAILY ARLEY Administration Aspirin 81 mg 02/15/20 09:00 02/15/20 10:51 Aspirin Ec PO 81 mg DAILY ARELY Administration Atorvastatin Calcium 20 mg 02/14/20 21:30 02/14/20 21:25 Lipitor PO 20 mg BEDTIME ARLEY Administration Baclofen 10 mg 02/14/20 20:56 02/15/20 12:42 Lioresal PO 10 mg TID PRN Administration muscle spasms Buspirone HCl 10 mg 02/14/20 20:56 02/15/20 12:42 Buspar PO 10 mg TID PRN Administration Anxiety Enoxaparin Sodium 40 mg 02/14/20 20:20 02/14/20 21:04 Lovenox SUBCUT 40 mg Q24H ARLEY Administration Insulin Aspart 0 unit 02/14/20 21:00 02/15/20 17:20 Novolog SUBCUT Not Given WM&BEDTIME ARLEY Protocol Morphine Sulfate 4 mg 02/14/20 20:20 02/15/20 16:00 Morphine IVP 4 mg Q4H PRN Administration SEVERE PAIN Prazosin HCl 5 mg 02/14/20 21:00 02/14/20 21:04 Minipress PO 5 mg BEDTIME ARLEY Administration Senna/Docusate Sodium 1 tab 02/15/20 09:00 02/15/20 10:50 Senna-S PO 1 tab DAILY ARLEY Administration PFSH Acute PFSH: Medical History (Updated 02/15/20 @ 17:12 by Rudy Gandhi MD) Alcohol dependence, in remission Borderline personality disorder Cigarette nicotine dependence COPD (chronic obstructive pulmonary disease) Dependent personality disorder Diabetes Hyperlipidemia Hypertension Major depressive disorder, recurrent, in full remission Obstructive sleep apnea Panic disorder [episodic paroxysmal anxiety] Post-traumatic stress disorder, chronic Surgical History (Updated 02/14/20 @ 20:47 by Minna Holley MD) deliv NOS-unsp X4 History of bilateral tubal ligation History of endometrial ablation Family History Other Cancer Diabetes Social History Smoking and tobacco status: current every day smoker cigarettes Packs smoked per day: 0.5 Years cigarettes smoked: 31 Quit status (tobacco): not considering quitting Second hand smoke exposure: No Alcohol intake: former Former alcohol use details: quit 6 months ago Desire information about alcohol rehabilitation?: No Desire information about substance/drug rehabilitation?: No Adopted: No Caregiver/support person: Yes (does not live in the home, comes in 2 1/2 hours a day) Lives independently: Yes Household members: significant other Housing: House Marital status: Number of children: 4 Number of grandchildren: 5 Highest education level completed: GED or Equivalent service: No Current occupational status: disabled Current occupational exposures/hazards: No Pets and animals: Yes Pets & animals: dog(s) History of recent travel: No Leisure activites: art and other Leisure activities details: games on computer Sexually active: Yes Current gender identity: Female Geno/Hindu: None Special geno needs: No Agree to transfusion: Yes Financial difficulty paying for basics: Hard Female Reproductive History: Date of last menstrual period: 01/07/20 Para: 4 Spontaneous abortions: Yes Vitals/I&O/Wt Last Vital Signs Temp 98.6 F 02/15/20 15:25 Pulse 81 02/15/20 15:25 Resp 16 02/15/20 17:24 BP 118/69 02/15/20 15:25 Pulse Ox 91 02/15/20 17:24 02/15/20 02/15/20 02/15/20 06:59 14:59 22:59 Intake Total 1500 / 1500 520 / 520 Balance 1500 / 1500 520 / 520 Weight last 48 hrs Weight 226 lb Physical Exam Narrative: EXAM NARRATIVE: The patient is a heavyset female appearing older than stated age. She has a right above-knee amputation but sits up comfortably in bed. She has no visible deformity or swelling about her shoulder She has tenderness over anterior posterior shoulder as well as her subacromial space. I can flex her to 90 degrees and externally rotate her 60 degrees. By comparison her contralateral arm can be flexed to 160 degrees and externally rotated 60 degrees. She has pain with motion of the left shoulder She has excellent rotator cuff strength without pain abducting her arm away from her body in both the pronated and supinated position and with external rotator and subscap strength testing. She has strong and symmetrical wan support specialist, interossei, wrist extension, wrist flexion, biceps and tricep strength. Her sensation is intact light touch. Data Micro: Micro: Microbiology 02/15/20 15:31 Blood Culture - Pr eliminary Blood SPECIMEN [facility] 02/15/20 15:27 Blood Culture - Pr eliminary Blood SPECIMEN [facility] Imaging^: Xray Ortho: My impression: 2 views of the left shoulder are interpreted which are unremarkable for any traumatic process. Glenohumeral joint is well-preserved. A&P Assessment and plan (1) Left shoulder pain: She has a strong rotator cuff. She has no evidence of fractures. I suspect this represents a capsular sprain and should improve with therapy. I wi ll set her up with outpatient therapy. I can follow-up with her in a month. Status: Acute Coding Level of Care Code Acute Production Quality Manager for Mallory Boucher Diagnoses Left shoulder pain M25.512
--- NOTE | 2020-02-15 20:20 | USCV_ITS ---
Prudence Acuna Age: 50 Gender: F : 1970 Exam Date: 02/15/2020 05:36 Ordering Phys: Minna Holley MD Technologist: Hayley Hernandez [place]am Location[place] [facility] [place] Indication: ANGINA BP: 125 / 81 HR: 72 Rhythm: Sinus Technical Quality: Adequate MEASUREMENTS (Male / Female) Normal Values 2D ECHO LV Diastolic Diameter PLAX 4.2 cm 4.2 - 5.9 / 3.9 - 5.3 cm LV Systolic Diameter PLAX 1.7 cm LV Chamber Size 3.8 cm IVS Diastolic Thickness 1.1 cm 0.6 - 1.0 / 0.6 - 0.9 cm IVS Systolic Thickness 1.8 cm LVPW Diastolic Thickness 1.4 cm 0.6 - 1.0 / 0.6 - 0.9 cm LVPW Systolic Thickness 1.5 cm RV Chamber Size 2.8 cm LVOT Diameter 2.0 cm LV Ejection Fraction 2D Teich 88.7 % LV Ejection Fraction MOD 2C 58.4 % LV Ejection Fraction 2C AL 57.0 % LA Diameter 3.5 cm LA Width 2.3 cm LA Height 5.0 cm RA Width 3.4 cm RA Height 4.0 cm Aorta at Sinotubular Diameter 3.0 cm M-MODE LV Diastolic Diameter MM 4.0 cm 4.2 - 5.9 / 3.9 - 5.3 cm LV Systolic Diameter MM 2.5 cm LV Ejection Fraction MM Teich 68.1 % IVS Diastolic Thickness MM 1.4 cm 0.6 - 1.0 / 0.6 - 0.9 cm IVS Systolic Thickness MM 1.6 cm LVPW Diastolic Thickness MM 1.5 cm 0.6 - 1.0 / 0.6 - 0.9 cm LVPW Systolic Thickness MM 1.7 cm RV Diastolic Diameter MM 1.7 cm Aortic Annulus Diameter 3.2 cm LA Ao Ratio MM 1.2 MV E Point Septal Separation 0.1 cm DOPPLER AV Peak Velocity 171.7 cm/s LVOT Peak Velocity 89.0 cm/s AV Area Cont Eq vti 1.7 cm squared AV Area Cont Eq pk 1.6 cm squared MV Area PHT 4.9 cm squared Mitral E to A Ratio 1.1 MV E' Velocity 52.0 cm/s Mitral E to MV E' Ratio 10.4 Mitral E to LV E' Lateral Ratio 9.3 Mitral E to LV E' Septal Ratio 11.9 TR Peak Velocity 186.9 cm/s TR Peak Gradient 14.0 mmHg TR Mean Velocity 122.2 cm/s TR Mean Gradient 6.9 mmHg TR Velocity Time Integral 35.3 cm TV Peak E Velocity 71.0 cm/s Right Atrial Pressure 3.0 mmHg Pulmonary Artery Systolic Pressu 17.0 mmHg PV Peak Velocity 78.0 cm/s RV Acceleration Time 0.2 s RV Ejection Time 0.3 s RV AcT/ET 0.5 FINDINGS Left Ventricle Normal left ventricular size, systolic function and wall thickness, with no regional wall motion abnormalities. LVEF is 55 to 60%. Normal left ventricular wall thickness. Normal diastolic filling pattern. Right Ventricle The right ventricle is normal in size and function. Right Atrium The right atrium is normal in size. Left Atrium The left atrium is normal in size. Mitral Valve Structurally normal mitral valve without significant stenosis or prolapse. There is no mitral regurgitation. Aortic Valve Structurally normal aortic valve without significant sclerosis or stenosis. There is no aortic regurgitation. Tricuspid Valve Structurally normal tricuspid valve without significant stenosis. Trace tricuspid regurgitation is noted. RVSP is 15 to 20 mmHg. Pulmonic Valve Structurally normal pulmonic valve without significant stenosis. There is no pulmonic regurgitation. Pericardium Normal pericardium without effusion. Aorta Normal ascending aorta dimension. CONCLUSIONS LV systolic function is normal with EF of 55 to 60%. Normal diastolic function. Right ventricular systolic pressure is 15 to 20 mmHg. No comparison studies are available. Ming Chicas MD (Electronically Signed) Final Date: 15 February 2020 12:52 S
== END 2020-02-15 18:49 | disposition home or self-care (01) ==
LOC: ER 19:32 → CSU 19:35 → MEDSURG 02-15 06:10
PROVIDERS: Emergency Medicine; Admitting Provider Internal Medicine; PCP Nurse Practitioner Family; Visit Provider Internal Medicine
DX: I20.0 Unstable angina (principal); E11.42 Type 2 diabetes mellitus with diabetic polyneuropathy; G47.33 Obstructive sleep apnea (adult) (pediatric); F17.210 Nicotine dependence, cigarettes, uncomplicated; J44.9 Chronic obstructive pulmonary disease, unspecified; R26.81 Unsteadiness on feet; M25.512 Pain in left shoulder; Z82.49 Family history of ischemic heart disease and other diseases of the circulatory system; Z79.4 Long term (current) use of insulin; F33.9 Major depressive disorder, recurrent, unspecified
CPT/HCPCS: 12345; 36415; 36416; 71045; 72125; 73030; 78452; 80048; 80053; 81001; 81025; 82962; 83036; 83880; 84443; 84484; 85025; 85378; 85610; 87040; 90471; 90686; 90732; 93005; 93017; 93306; 96372; 96374; 96375; 97166; 99284; 99285; A9500; G0378; J1650; J1815; J2270; J2405; J2785

== ENCOUNTER 2020-02-23 07:31 | Outpatient (RCR) | payer SELFPAY | END 2020-03-03 23:59 | disposition home or self-care (01) | LOC: SPT 07:31 | PROVIDERS: PCP Nurse Practitioner Family; Referring Provider Orthopaedic Surgery; Visit Provider Orthopaedic Surgery | DX: M25.512 Pain in left shoulder (principal) | CPT/HCPCS: 97110; 97162 ==

== ENCOUNTER → 2020-02-28 07:44 | Outpatient (BNVA) | payer MEDICAID, SELFPAY | PROVIDERS: PCP Nurse Practitioner Family; Visit Provider Psychiatry & Neurology Psychiatry | DX: F60.3 Borderline personality disorder (principal); F60.7 Dependent personality disorder; F41.0 Panic disorder [episodic paroxysmal anxiety]; F33.42 Major depressive disorder, recurrent, in full remission | CPT/HCPCS: 99213 ==

== ENCOUNTER → 2020-03-01 00:01 | Outpatient (BNVA) | payer MEDICAID, SELFPAY | PROVIDERS: PCP Nurse Practitioner Family; Visit Provider Family Medicine Adult Medicine | DX: S69.91XA Unspecified injury of right wrist, hand and finger(s), initial encounter (principal); R29.6 Repeated falls; M25.361 Other instability, right knee; X58.XXXA Exposure to other specified factors, initial encounter | CPT/HCPCS: 73100; 73560 ==

== ENCOUNTER 2020-03-04 06:00 | Outpatient (RCR) | payer MEDICAID, SELFPAY | END 2020-04-02 10:33 | disposition home or self-care (01) | LOC: SPT 06:00 | PROVIDERS: PCP Nurse Practitioner Family; Referring Provider Orthopaedic Surgery; Visit Provider Orthopaedic Surgery | DX: M25.512 Pain in left shoulder (principal) | CPT/HCPCS: 97110 ==

== ENCOUNTER → 2020-03-06 08:13 | Outpatient (BNVA) | payer MEDICAID, SELFPAY | PROVIDERS: PCP Nurse Practitioner Family; Referring Provider Social Worker Clinical; Visit Provider Social Worker Clinical | DX: F43.12 Post-traumatic stress disorder, chronic (principal); F60.3 Borderline personality disorder; F60.7 Dependent personality disorder | CPT/HCPCS: 90832 ==

== ENCOUNTER → 2020-03-12 10:27 | Outpatient (BNVA) | payer OTHER, SELFPAY | PROVIDERS: PCP Nurse Practitioner Family; Visit Provider Psychiatry & Neurology Psychiatry | DX: F43.12 Post-traumatic stress disorder, chronic (principal); F60.3 Borderline personality disorder | CPT/HCPCS: 80061; 83036 ==

== ENCOUNTER → 2020-03-13 08:00 | Outpatient (BNVA) | payer MEDICAID, SELFPAY ==
[2020-03-13 14:41] VITALS: BP 139/93; BMI 37.2
== END ==
PROVIDERS: Visit Provider Social Worker Clinical
DX: F43.12 Post-traumatic stress disorder, chronic (principal); F60.3 Borderline personality disorder
CPT/HCPCS: 90832

== ENCOUNTER 2020-03-16 09:51 | Outpatient (CLI) | payer MEDICAID, SELFPAY ==
[2020-03-13 14:41] VITALS: BP 139/93; BMI 37.2
--- NOTE | 2020-03-16 09:56 | MM_ITS ---
WS: [id number] Bilateral screening digital mammogram, 03/16/2020 Clinical Data: SCREENING Comparison: 08/09/2018, 02/21/2016, 02/19/2015, 01/19/2014, 12/30/2012, 11/06/2011. Findings: The breast parenchymal pattern shows heterogeneous density No spiculated masses or clustered calcific ations are seen. There are no secondary signs of carcinoma. MM/[place] [id number] Impression: 1. Negative bilateral mammogram unchanged. 2. Recommend annual screening mammograms. BIRADS: 1-Negative FOLLOW UP: 1 Year Follow-up The CAD bill checker was used.
== END 2020-03-16 09:52 | disposition home or self-care (01) ==
LOC: RADSHAW 09:53
PROVIDERS: PCP Nurse Practitioner Family; Visit Provider Nurse Practitioner Family
DX: Z12.31 Encounter for screening mammogram for malignant neoplasm of breast (principal)
CPT/HCPCS: 77067

== ENCOUNTER → 2020-04-03 08:12 | Outpatient (BNVA) | payer MEDICAID, SELFPAY ==
[2020-03-13 14:41] VITALS: BP 139/93; BMI 37.2
== END ==
PROVIDERS: PCP Nurse Practitioner Family; Visit Provider Social Worker Clinical
DX: F43.12 Post-traumatic stress disorder, chronic (principal); F60.3 Borderline personality disorder
CPT/HCPCS: 90834

== ENCOUNTER → 2020-04-12 11:28 | Outpatient (BNVA) | payer MEDICAID, SELFPAY ==
[2020-03-13 14:41] VITALS: BP 139/93; BMI 37.2
== END ==
PROVIDERS: PCP Nurse Practitioner Family; Referring Provider Nurse Practitioner Family; Visit Provider Specialist
DX: M25.561 Pain in right knee (principal)
CPT/HCPCS: 73560; 73565

== ENCOUNTER 2020-04-25 07:53 | Outpatient (CLI) | payer MEDICAID, SELFPAY ==
[2020-03-13 14:41] VITALS: BP 139/93; BMI 37.2
--- NOTE | 2020-04-25 08:00 | MR_ITS ---
WS: [id number] MRI RIGHT KNEE HISTORY: M23.91 - Unspecified internal derangement of right knee COMPARISON: 03/01/2020 knee radiographs. Anterior cruciate ligament: Intact. Posterior cruciate ligament: Intact. Medial collateral ligament: Intact. Posterior lateral corner structures: Intact. Medial menisci: Moderate intrasubstance degeneration posterior horn. Increased signal does not extend to an articular surface. Anterior horn is normal. Lateral meniscus: Intact. Normal signal, size and shape. Extensor mechanism: Distal quadriceps tendon and patellar tendons are intact. Fluid and soft tissue: Very small amount of fluid at the joint space. No Polanco's cyst. Osseous and articular structures: Patellofemoral compartment: Normal. Medial compartment: Mild narrowing of the medial compartment. There is thinning of the cartilage. The re are small defects within the cartilage which are superficial and do not extend completely through to the bone. Lobulated cystic lesion in the posterior medial tibial plateau measures 16 x 22 mm. Mult iple small lobulated components. Serpiginous area of decreased signal surrounding a portion of the le bong suggesting osteonecrosis. Lateral compartment: Negative. MR/MR knee RT wo con* [id number] IMPRESSION: 1. No meniscal tear. 2. Mild joint space narrowing and mild loss of cartilage involving the medial joint space. 3. Subchondral cystic lesion in the posterior medial tibial plateau with mcpherson es also of osteonecrosis. No loose body or collapse at this time.
== END 2020-04-25 07:54 | disposition home or self-care (01) ==
LOC: RADSHAW 07:56
PROVIDERS: PCP Nurse Practitioner Family; Visit Provider Specialist
DX: M23.91 Unspecified internal derangement of right knee (principal)
CPT/HCPCS: 73721

== ENCOUNTER → 2020-05-23 07:30 | Outpatient (BNVA) | payer MEDICAID, SELFPAY ==
[2020-03-13 14:41] VITALS: BP 139/93; BMI 37.2
== END ==
PROVIDERS: PCP Nurse Practitioner Family; Visit Provider Psychiatry & Neurology Psychiatry
DX: F33.1 Major depressive disorder, recurrent, moderate (principal); F43.12 Post-traumatic stress disorder, chronic; F41.0 Panic disorder [episodic paroxysmal anxiety]; F60.3 Borderline personality disorder; F10.21 Alcohol dependence, in remission; F60.7 Dependent personality disorder; F17.210 Nicotine dependence, cigarettes, uncomplicated
CPT/HCPCS: 99214

== ENCOUNTER → 2020-06-13 07:19 | Outpatient (BNVA) | payer MEDICAID, SELFPAY ==
[2020-03-13 14:41] VITALS: BP 139/93; BMI 37.2
== END ==
PROVIDERS: PCP Nurse Practitioner Family; Visit Provider Psychiatry & Neurology Psychiatry
DX: F33.42 Major depressive disorder, recurrent, in full remission (principal); F43.12 Post-traumatic stress disorder, chronic; F41.0 Panic disorder [episodic paroxysmal anxiety]; F10.21 Alcohol dependence, in remission; F60.3 Borderline personality disorder; F60.7 Dependent personality disorder; F17.210 Nicotine dependence, cigarettes, uncomplicated; F33.2 Major depressive disorder, recurrent severe without psychotic features
CPT/HCPCS: 99214

== ENCOUNTER → 2020-07-19 08:00 | Outpatient (BNVA) | payer MEDICAID, SELFPAY ==
[2020-03-13 14:41] VITALS: BP 139/93; BMI 37.2
== END ==
PROVIDERS: PCP Nurse Practitioner Family; Visit Provider Psychiatry & Neurology Psychiatry
DX: F33.42 Major depressive disorder, recurrent, in full remission (principal); F43.12 Post-traumatic stress disorder, chronic; F41.0 Panic disorder [episodic paroxysmal anxiety]; F10.21 Alcohol dependence, in remission; F60.3 Borderline personality disorder
CPT/HCPCS: 99214

== ENCOUNTER → 2020-08-20 07:33 | Outpatient (BNVA) | payer MEDICAID, SELFPAY ==
[2020-03-13 14:41] VITALS: BP 139/93; BMI 37.2
== END ==
PROVIDERS: PCP Nurse Practitioner Family; Visit Provider Psychiatry & Neurology Psychiatry
DX: F33.42 Major depressive disorder, recurrent, in full remission (principal); F43.12 Post-traumatic stress disorder, chronic; F41.0 Panic disorder [episodic paroxysmal anxiety]; F10.21 Alcohol dependence, in remission; F60.3 Borderline personality disorder; F17.210 Nicotine dependence, cigarettes, uncomplicated
CPT/HCPCS: 99214

== ENCOUNTER 2020-11-17 11:34 | Inpatient (IN) | payer MEDICAID, SELFPAY ==
[2020-03-13 14:41] VITALS: BP 139/93; BMI 37.2
[2020-11-17] VITALS (8 sets, daily range): BP systolic 113–127; BP diastolic 69–93; PULSE 74–87; RESP 16–18; TEMP 36.7–36.9; O2SAT 65–96
--- NOTE | 2020-11-17 11:46 | ED_ITS ---
HPI - Psych General: Chief Complaint: Psychiatric Symptoms Stated Complaint: SI Time Seen by Provider: 11/17/20 11:36 History of Present Illness: HPI Narrative: The patient is a 50-year-old female with past medical history depression and suicidal ideation who comes to the ER complaining of suicidal ideation with plans to take all of her medications because she wants it all to end. She says she is feeling hopeless and depressed about bills, needing to take other of other people when she cannot take care of herself. She has made no attempt at harming herself today. She also says she is out of her medications. complaint: suicidal ideation and feels depressed Duration: constant History of same: Yes Relieving factors: none Exacerbating factors: none Associated psychiatric symptoms: depression and suicidal ideation Associated symptoms: Reports no associated symptoms, depression and suicidal ideation; Deny auditory hallucinations, visual hallucinations or homicidal ideation If self harm: admits thoughts of self harm and has plan Review of Systems General: Reports: 10 or more systems reviewed and unremarkable except in HPI and below Const: Denies: fatigue Eyes: Denies: change in vision, blurry vision or eye redness ENMT: Denies: throat pain, swelling of lips/tongue, ear or mastoid pain or nasal congestion Card: Denies: chest pain, palpitations, irregular heart rhythm, edema, dyspnea on exertion or orthopnea Resp: Denies: dyspnea, productive cough or non-productive cough GI: Denies: abdominal pain, diarrhea or GI cramping : Denies: flank pain, difficulty voiding, urinary frequency or urinary urgency Musc: Denies: neck pain, back pain, extremity pain, joint pain, joint redness, limited range of motion or muscle weakness Skin/Breast: Denies: rash, pruritus, erythema, skin pain or skin tenderness Neuro: Denies: headache(s), numbness in extremities, weakness in extremities, sensory changes, difficulty walking, dizziness, confusion or Slurred speech present Psych: Reports: depression and suicidal ideation; Denies: anxiety, visual hallucinations, auditory hallucinations or homicidal ideation Endo: Denies: polyuria All/Imm: Denies: urticaria, throat swelling or tongue swelling PFSH ED PFSH: Medical History (Updated 11/17/20 @ 13:12 by Felipe Faria MD) Alcohol dependence, in remission Borderline personality disorder Cigarette nicotine dependence COPD (chronic obstructive pulmonary disease) Dependent personality disorder Diabetes Falls frequently Hyperlipidemia Hypertension Insect bite, venomous Knee buckling Major depressive disorder, recurrent, in full remission Obstructive sleep apnea Panic disorder [episodic paroxysmal anxiety] Post-traumatic stress disorder, chronic Right wrist injury Surgical History deliv NOS-unsp X4 History of bilateral tubal ligation History of endometrial ablation Family History Other Cancer Diabetes Social History Smoking and tobacco status: current every day smoker cigarettes Packs smoked per day: 0.5 Years cigarettes smoked: 31 Quit status (tobacco): not considering quitting Second hand smoke exposure: No Alcohol intake: former Former alcohol use details: quit 6 months ago Desire information about alcohol rehabilitation?: No Desire information about substance/drug rehabilitation?: No Adopted: No Caregiver/support person: Yes (does not live in the home, comes in 2 1/2 hours a day) Lives independently: Yes Household members: significant other Housing: House Marital status: Number of children: 4 Number of grandchildren: 5 Highest education level completed: GED or Equivalent service: No Current occupational status: disabled Current occupational exposures/hazards: No Pets and animals: Yes Pets & animals: dog(s) History of recent travel: No Leisure activites: art and other Leisure activities details: games on computer Sexually active: Yes Current gender identity: Female Geno/Zoroastrian: None Special geno needs: No Agree to transfusion: Yes Financial difficulty paying for basics: Hard Female Reproductive History: Date of last menstrual period: 01/07/20 Para: 4 Spontaneous abortions: Yes Physical Exam Const: COMMON NORMALS: no acute distress, average body habitus, patient oriented x3, no limitations, healthy appearing, alert and well nourished GENERAL APPEARANCE: cooperative, comfortable, well kempt and well developed ORIENTATION/CONSCIOUSNESS: Yes awake, Yes oriented to person, Yes oriented to place and Yes oriented to time HENMT: COMMON NORMALS: normocephalic, external ears normal and Normal external nose present HEAD & SCALP: normal to inspection and normocephalic NOSE: Normal external nose present EXTERNAL EAR: Yes external ears normal MOUTH: Normal oral and palatal mucosa present THROAT: posterior oropharynx normal Eye: COMMON NORMALS: Equal, round and reactive pupils present and EOMs intact bilaterally GENERAL EYE: appearance normal, both eyes and all related structures PUPIL: Yes Equal, round and reactive pupils present Neck/C-Spine: COMMON NORMALS: full ROM, no lymphadenopathy, no meningeal signs and no JVD GENERAL: Yes normal visual inspection Lymph: LYMPHATIC: no lymphadenopathy noted Chest: COMMONS NORMALS: normal inspection of the chest and normal palpation of entire chest wall Resp: COMMON NORMALS: normal respiratory effort, No retractions, No use of accessory muscles, clear to auscultation bilaterally and percussion normal EFFORT & INSPECTION: Yes able to speak in complete sentences AUSCULTATION: clear to auscultation bilaterally PERCUSSION: percussion normal Cardio: COMMON NORMALS: no JVD, regular rate, regular rhythm, S1 normal heart sound present, S2 normal heart sound present and Peripheral pulses 2+ throughout RATE: regular rate RHYTHM: regular rhythm HEART SOUNDS: S1 normal heart sound present and S2 normal heart sound present PERIPHERAL PULSES: Peripheral pulses 2+ throughout GI: COMMON NORMALS: Normal to inspection, nondistended, normoactive bowel sounds present, Soft to palpation, non-tender and no masses INSPECTION: Yes normal to inspection PALPATION: Yes Soft to palpation : COMMON NORMALS: Yes no CVA tenderness BLADDER/KIDNEY EXAM: Yes no CVA tenderness Back/Pelvis: COMMON NORMALS: no CVA tenderness, thoracic and lumbar spine normal to inspection, no thoracic nor lumbar tenderness and thoraco-lumbar ROM normal Extremity: COMMON NORMALS: normal to inspection, full ROM, capillary refill normal, no joint enlargement and no pedal edema GENERAL: Yes normal exam except as noted Neuro: COMMON NORMALS: patient oriented x3, CN's II-XII intact bilaterally, moves all extremities, no focal motor deficits, no sensory deficits noted and gait normal SENSORIUM/ORIENTATION: Yes alert, Yes oriented to person, Yes oriented to place and Yes oriented to time MENINGEAL SIGNS: Yes no meningeal signs Psych: COMMON NORMALS: mental status grossly normal, Normal thought process present, cooperative, normal affect and speech normal APPEARANCE: Yes well kempt ATTITUDE: Yes calm SPEECH: Yes normal speech THOUGHT PROCESS: Normal thought process present Skin: COMMON NORMALS: no rashes or lesions noted GENERAL SKIN EXAM: no rashes or lesions noted Course Vital Signs: Vital signs: Vital Signs Temperature 98.4 F 07/17/21 11:38 Pulse Rate 86 11/17/20 12:50 Respiratory Rate 18 11/17/20 12:50 Blood Pressure 127/93 11/17/20 11:45 Pulse Oximetry 91 11/17/20 12:50 MDM - Psych MDM Narrative: Medical decision making narrative: Patient came to the ER complaining of suicidal ideations. Drug screen shows positive opiates which is in her prescription and benzodiazepine which is not. Discussed with Dr. Singh who accepts for admission. The patient has been stable in the ED. Medically clear for admission Lab Data: Labs: Lab Results 11/17/20 11/17/20 11/17/20 Range/Units 11:54 11:54 12:02 WBC 11.7 H (4.0-10.0) 10^3/ uL RBC 6.15 H (4.1-5.3) 10^6/u L Hgb 16.3 H (11.5-15.3) g/dL Hct 49.7 H (37.0-47.0) % MCV 80.8 L (81-99) fL MCH 26.5 L (28.0-34.0) pg MCHC 32.8 (30.0-36.0) g/dL RDW 14.2 (12.1-15.1) % Plt Count 421 H (130-400) 10^3/c mm MPV 10.4 (7.4-10.4) fL Neut % (Auto) 59.1 % Lymph % (Auto) 32.9 % [place] % (Auto) 5.9 % Eos % (Auto) 0.7 % Baso % (Auto) 1.0 % Neut # (Auto) 6.88 (1.8-7.7) 10^3/u L Lymph # (Auto) 3.8 (0.8-4.8) 10^3/u L [place] # (Auto) 0.7 (0.2-0.9) 10^3/u L Eos # (Auto) 0.1 (0.0-0.8) 10^3/u L Baso # (Auto) 0.1 (0.0-0.1) 10^3/u L Nucleated RBC % (a uto) 0 % Nucleated RBCs # 0.0 /100WBC Sodium 138 (136-145) mmol/L Potassium 3.7 (3.5-5.1) mmol/L Chloride 99 (98-107) mmol/L Carbon Dioxide 28 (22-29) mmol/L Anion Gap 14.7 (5-19) BUN 8 (6-20) mg/dL Creatinine 0.5 (0.5-0.9) mg/dL GFR Calculation 131.1 H (90-130) mL/min Glucose 148 H (65-115) mg/dL Calculated Osmolal ity 287 (285-295) mOsm/k g Calcium 9.0 (8.5-10.5) mg/dL Total Bilirubin 0.2 (0.15-1.2) mg/dL AST 21 (0-32) U/L ALT 29 (0-33) U/L Alkaline Phosphata se 74 (35-105) IU/L Total Protein 6.7 (6.6-8.7) g/dL Albumin 4.0 (3.5-5.2) g/dL Globulin 2.7 (1.3-4.6) g/dL TSH 0.70 (0.27-4.20) uIU/ mL HCG, Qual Negative (Negative) Urine Color (Yellow) Urine Appearance (CLEAR) Urine pH (5-7) Ur Specific Gravit y (1.005-1.030) Urine Protein (Negative) Urine Glucose (UA) (Normal) Urine Ketones (Negative) Urine Blood (Negative) Urine Nitrate (Negative) Urine Bilirubin (Negative) Urine Urobilinogen (Negative) mg/dL Ur Leukocyte Tami ase (Negative) Urine RBC (0-2) /hpf Urine WBC (0-5) /hpf Ur Squamous Epith Cells (0-5) /hpf Amorphous Sediment Urine Bacteria (NONE) /hpf Urine Mucus /hpf Salicylates < 0.3 L (3-10) mg/dL Urine Opiates Scre en (Negative) ng/mL Acetaminophen < 5.0 L (10-30) ug/mL Ur Barbiturates Sc reen (Negative) ng/mL Ur Phencyclidine S crn (Negative) ng/mL Ur Amphetamines Sc reen (Negative) ng/mL U Benzodiazepines Scrn (Negative) ng/mL Urine Cocaine Scre en (Negative) ng/mL U Marijuana (THC) Screen (Negative) ng/mL Ethyl Alcohol < 10 (0-10) mg/dL 11/17/20 11/17/20 Range/Units 12:02 12:02 WBC (4.0-10.0) 10^3/ uL RBC (4.1-5.3) 10^6/u L Hgb (11.5-15.3) g/dL Hct (37.0-47.0) % MCV (81-99) fL MCH (28.0-34.0) pg MCHC (30.0-36.0) g/dL RDW (12.1-15.1) % Plt Count (130-400) 10^3/c mm MPV (7.4-10.4) fL Neut % (Auto) % Lymph % (Auto) % [place] % (Auto) % Eos % (Auto) % Baso % (Auto) % Neut # (Auto) (1.8-7.7) 10^3/u L Lymph # (Auto) (0.8-4.8) 10^3/u L [place] # (Auto) (0.2-0.9) 10^3/u L Eos # (Auto) (0.0-0.8) 10^3/u L Baso # (Auto) (0.0-0.1) 10^3/u L Nucleated RBC % (a uto) % Nucleated RBCs # /100WBC Sodium (136-145) mmol/L Potassium (3.5-5.1) mmol/L Chloride (98-107) mmol/L Carbon Dioxide (22-29) mmol/L Anion Gap (5-19) BUN (6-20) mg/dL Creatinine (0.5-0.9) mg/dL GFR Calculation (90-130) mL/min Glucose (65-115) mg/dL Calculated Osmolal ity (285-295) mOsm/k g Calcium (8.5-10.5) mg/dL Total Bilirubin (0.15-1.2) mg/dL AST (0-32) U/L ALT (0-33) U/L Alkaline Phosphata se (35-105) IU/L Total Protein (6.6-8.7) g/dL Albumin (3.5-5.2) g/dL Globulin (1.3-4.6) g/dL TSH (0.27-4.20) uIU/ mL HCG, Qual (Negative) Urine Color Straw (Yellow) Urine Appearance Clear (CLEAR) Urine pH 7 (5-7) Ur Specific Gravit y 1.005 (1.005-1.030) Urine Protein Trace (Negative) Urine Glucose (UA) Norm (Normal) Urine Ketones Negative (Negative) Urine Blood 2+ H (Negative) Urine Nitrate Negative (Negative) Urine Bilirubin Neg (Negative) Urine Urobilinogen Norm (Negative) mg/dL Ur Leukocyte Tami ase Negative (Negative) Urine RBC None (0-2) /hpf Urine WBC Rare (0-5) /hpf Ur Squamous Epith Cells 25-40 H (0-5) /hpf Amorphous Sediment Not Reportable Urine Bacteria 2+ H (NONE) /hpf Urine Mucus 1+ /hpf Salicylates (3-10) mg/dL Urine Opiates Scre en Positive H (Negative) ng/mL Acetaminophen (10-30) ug/mL Ur Barbiturates Sc reen Negative (Negative) ng/mL Ur Phencyclidine S crn Negative (Negative) ng/mL Ur Amphetamines Sc reen Negative (Negative) ng/mL U Benzodiazepines Scrn Positive H (Negative) ng/mL Urine Cocaine Scre en Negative (Negative) ng/mL U Marijuana (THC) Screen Negative (Negative) ng/mL Ethyl Alcohol (0-10) mg/dL Discharge Plan Discharge Patient Disposition: Admitted As Inpatient Clinical Impression: Suicidal ideation Condition: Stable Coding Level of Care Code ED [employer] for [employer] Fwscar[facility] Exam Comprehensive
[2020-11-17 12:03] LABS: Basophils # 0.1 10^3/uL (0.0-0.1); Eosinophils # 0.1 10^3/uL (0.0-0.8); Eosinophils % 0.7 %; Hematocrit 49.7 % (37.0-47.0); Hemoglobin 16.3 g/dL (11.5-15.3); Lymphocytes # 3.8 10^3/uL (0.8-4.8); Lymphocytes % 32.9 %; Mean Corpuscular HGB Conc 32.8 g/dL (30.0-36.0); Mean Corpuscular Hemoglobin 26.5 pg (28.0-34.0); Mean Corpuscular Volume 80.8 fL (81-99); Mean Platelet Volume 10.4 fL (7.4-10.4); Monocytes # 0.7 10^3/uL (0.2-0.9); Monocytes % 5.9 %; Neutrophils # 6.88 10^3/uL (1.8-7.7); Neutrophils % 59.1 %; Nucleated Red Blood Cells % 0 %; Platelet Count 421 10^3/cmm (130-400); Red Blood Count 6.15 10^6/uL (4.1-5.3); Red Cell Distribution Width 14.2 % (12.1-15.1); White Blood Count 11.7 10^3/uL (4.0-10.0)
[2020-11-17 12:17] LABS: HCG Qualitative Urine. Negative (Negative)
[2020-11-17 12:22] LABS: Amphetamines Screen Urine Negative (Negative); Barbiturates Screen Urine Negative (Negative); Benzodiazepines Screen Urine Positive (Negative); Cocaine Screen Urine Negative (Negative); Opiate Screen Urine Positive (Negative); PCP Screen Urine Negative (Negative); THC Screen Urine Negative (Negative)
[2020-11-17 12:34] LABS: Urine Appearance Clear (CLEAR); Urine Color Straw (Yellow)
[2020-11-17 12:34] LABS: Alanine Aminotransferase 29 U/L (0-33); Alkaline Phosphatase 74 IU/L (35-105); Anion Gap 14.7 (5-19); Aspartate Amino Transferase 21 U/L (0-32); Blood Urea Nitrogen 8 mg/dL (6-20); Carbon Dioxide 28 mmol/L (22-29); Chloride 99 mmol/L (98-107); Globulin 2.7 g/dL (1.3-4.6); Glomerular Filtration Rate 131.1 mL/min (90-130); Glucose 148 mg/dL (65-115); Osmolality Calculated 287 mOsm/kg (285-295); Potassium 3.7 mmol/L (3.5-5.1); Sodium 138 mmol/L (136-145); Total Bilirubin 0.2 mg/dL (0.15-1.2); Total Protein 6.7 g/dL (6.6-8.7)
[2020-11-17 12:35] LABS: Add Urine Culture? No; Add Urine Microscopic? YES; Bacteria Urine 2+ /hpf; Bilirubin Urine Neg (Negative); Blood Urine 2+ (Negative); Glucose Urine UA Norm (Normal); Ketones Urine Negative (Negative); Leukocyte Esterase Urine Negative (Negative); Mucus Urine 1+ /hpf; Nitrate Urine Negative (Negative); Protein Urine Trace (Negative); Specific Gravity, Urine 1.005 (1.005-1.030); Squamous Epithelial Cell Urine 25-40 /hpf (0-5); Urobilinogen Urine Norm (Negative); WBC Urine RARE /hpf (0-5); pH Urine 7 (5-7)
[2020-11-17 12:37] LABS: Acetaminophen < 5.0 ug/mL (10-30); Alcohol Level < 10 mg/dL (0-10); Salicylate < 0.3 mg/dL (3-10)
[2020-11-17 22:22] LABS: Glucose Point of Care 130 mg/dL (70-110)
[2020-11-18 06:00] VITALS: BP 114/69; PULSE 80; RESP 17; TEMP 36.4; O2SAT 94
[2020-11-18 06:41] LABS: Glucose Point of Care 128 mg/dL (70-110)
[2020-11-18] MEDS: pantoprazole DR 40 mg Tablet PO (09:43)
[2020-11-18] MEDS: polyethylene glycol 3350 Pkt 17 gm PO (09:43)
[2020-11-18] MEDS: methocarbamol 750 mg Tablet PO ×3 (09:43→20:35)
[2020-11-18] MEDS: aspirin 81 mg EC Tablet PO (09:43)
[2020-11-18] MEDS: amlodipine 10 mg Tablet PO (09:44)
[2020-11-18] MEDS: hydroCHLOROthiazide 25 mg Tablet 50 MG PO (09:44)
[2020-11-18] MEDS: BuSPIRONE 10 mg Tablet 20 MG PO ×3 (09:44→20:35)
[2020-11-18] MEDS: hyDROXYzine 25 mg Capsule 50 MG PO (10:52)
--- NOTE | 2020-11-18 10:56 | PC.NURSE ---
PRN [id number] administered vistaril 50mg for anxiety, will continue to monitor pt until end of shift.
[2020-11-18 11:20] LABS: Glucose Point of Care 133 mg/dL (70-110)
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
[2020-11-18] MEDS: buPROPion XL (24 HR) 150 mg Tablet PO (12:33)
[2020-11-18 14:00] VITALS: BP 143/91; PULSE 72; RESP 18; TEMP 36.5; O2SAT 96
[2020-11-18 16:23] LABS: Glucose Point of Care 130 mg/dL (70-110)
[2020-11-18] MEDS: metformin 500 mg Tablet PO (17:52)
[2020-11-18 20:29] VITALS: BP 128/90; PULSE 77; RESP 15; TEMP 36.6; O2SAT 95
[2020-11-18] MEDS: acetaminophen 325 mg Tablet 650 MG PO (20:35)
[2020-11-18] MEDS: atorvastatin 40 mg Tablet PO (20:35)
[2020-11-18] MEDS: prazosin 1 mg Capsule 2 MG PO (20:36)
[2020-11-18 22:13] LABS: Glucose Point of Care 149 mg/dL (70-110)
[2020-11-18] MEDS: prazosin 5 mg Capsule PO (22:58)
[2020-11-19 06:00] VITALS: BP 128/76; PULSE 67; RESP 15; TEMP 37.1; O2SAT 97
[2020-11-19 06:43] LABS: Glucose Point of Care 140 mg/dL (70-110)
[2020-11-19] MEDS: polyethylene glycol 3350 Pkt 17 gm PO (09:12)
[2020-11-19] MEDS: buPROPion XL (24 HR) 150 mg Tablet PO (09:12)
[2020-11-19] MEDS: aspirin 81 mg EC Tablet PO (09:12)
[2020-11-19] MEDS: methocarbamol 750 mg Tablet PO ×2 (09:12→16:09)
[2020-11-19] MEDS: amlodipine 10 mg Tablet PO (09:12)
[2020-11-19] MEDS: BuSPIRONE 10 mg Tablet 20 MG PO ×2 (09:12→15:45)
[2020-11-19] MEDS: hydroCHLOROthiazide 25 mg Tablet 50 MG PO (09:12)
[2020-11-19] MEDS: pantoprazole DR 40 mg Tablet PO (09:12)
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
[2020-11-19 13:31] VITALS: BP 128/76; PULSE 67; RESP 15; TEMP 37.1; O2SAT 97
[2020-11-19] MEDS: metformin 500 mg Tablet PO (17:30)
--- NOTE | 2020-11-19 18:55 | PC.RESP ---
SMOKING CESSATION AND PULMONARY REHAB INFORMATION SENT TO PATIENT.
== END 2020-11-19 17:45 | disposition home or self-care (01) | DRG 885 ==
LOC: ER 13:12 → NP 13:30
PROVIDERS: Admitting Provider Psychiatry & Neurology Psychiatry; Emergency Provider Family Medicine; PCP Nurse Practitioner Family; Visit Provider Psychiatry & Neurology Psychiatry
DX: F33.2 Major depressive disorder, recurrent severe without psychotic features (principal); R45.851 Suicidal ideations; Z68.42 Body mass index [BMI] 45.0-49.9, adult; F17.210 Nicotine dependence, cigarettes, uncomplicated; E66.01 Morbid (severe) obesity due to excess calories; F10.21 Alcohol dependence, in remission; F60.3 Borderline personality disorder; J44.9 Chronic obstructive pulmonary disease, unspecified; E11.42 Type 2 diabetes mellitus with diabetic polyneuropathy; E78.5 Hyperlipidemia, unspecified; I10 Essential (primary) hypertension; G47.33 Obstructive sleep apnea (adult) (pediatric); F43.12 Post-traumatic stress disorder, chronic; F41.0 Panic disorder [episodic paroxysmal anxiety]; M25.512 Pain in left shoulder; M23.91 Unspecified internal derangement of right knee; Z91.5 Personal history of self-harm; Z63.0 Problems in relationship with spouse or partner; Z62.810 Personal history of physical and sexual abuse in childhood; Z79.82 Long term (current) use of aspirin; Z79.84 Long term (current) use of oral hypoglycemic drugs; Z79.891 Long term (current) use of opiate analgesic
CPT/HCPCS: 36416; 80053; 80306; 80307; 81001; 81025; 82962; 84443; 85025; 96372; 99285; J1815

== ENCOUNTER → 2020-11-30 07:08 | Outpatient (BNVA) | payer MEDICAID, SELFPAY ==
[2020-03-13 14:41] VITALS: BP 139/93; BMI 37.2
== END ==
PROVIDERS: PCP Nurse Practitioner Family; Visit Provider Psychiatry & Neurology Psychiatry
DX: F33.1 Major depressive disorder, recurrent, moderate (principal); F60.3 Borderline personality disorder; F43.12 Post-traumatic stress disorder, chronic; F41.0 Panic disorder [episodic paroxysmal anxiety]; F17.210 Nicotine dependence, cigarettes, uncomplicated; F10.21 Alcohol dependence, in remission; Z59.6 Low income
CPT/HCPCS: 99214

== ENCOUNTER → 2020-12-24 07:43 | Outpatient (BNVA) | payer MEDICAID, SELFPAY ==
[2020-03-13 14:41] VITALS: BP 139/93; BMI 37.2
== END ==
PROVIDERS: PCP Nurse Practitioner Family; Visit Provider Psychiatry & Neurology Psychiatry
DX: F33.42 Major depressive disorder, recurrent, in full remission (principal); F60.3 Borderline personality disorder; F41.0 Panic disorder [episodic paroxysmal anxiety]; F17.210 Nicotine dependence, cigarettes, uncomplicated; F43.12 Post-traumatic stress disorder, chronic; F10.21 Alcohol dependence, in remission; Z59.6 Low income
CPT/HCPCS: 99214

== ENCOUNTER → 2021-04-10 08:13 | Outpatient (BNVA) | payer MEDICAID, SELFPAY ==
[2020-03-13 14:41] VITALS: BP 139/93; BMI 37.2
== END ==
PROVIDERS: PCP Nurse Practitioner Family; Visit Provider Psychiatry & Neurology Psychiatry
DX: F33.42 Major depressive disorder, recurrent, in full remission (principal); F60.3 Borderline personality disorder; F41.0 Panic disorder [episodic paroxysmal anxiety]; F17.210 Nicotine dependence, cigarettes, uncomplicated; F43.12 Post-traumatic stress disorder, chronic; F10.21 Alcohol dependence, in remission; Z59.6 Low income
CPT/HCPCS: 99215

== ENCOUNTER 2021-04-25 08:04 | Outpatient (CLI) | payer MEDICAID, SELFPAY ==
[2020-03-13 14:41] VITALS: BP 139/93; BMI 37.2
--- NOTE | 2021-04-25 08:10 | CT_ITS ---
WS: [id number] CT CHEST WITH INTRAVENOUS CONTRAST HISTORY: ABNORMAL CHEST X-RAY TECHNIQUE: Contiguous 5 mm axial imaging performed on the thorax. Coronal and sagittal reformats are submitted. All CT scans at [facility] use at least one of these dose optimization techniques: automated exposure control; mA and/or kV adjustment per patient size (includes targeted exams where dose is matched to clinical indication); or iterative reconstruction. CONTRAST: Omnipaque 300; 95 mL IV. DLP: 840.87 mGy.cm COMPARISON: 08/17/2010, 05/01/2016, 04/02/2021 Lungs and central airway: Hyperinflated lungs. Paraseptal emphysematous changes. No pulmonary nodule or mass is identified. Pleura: Normal. No pleural effusion. Heart and pericardium: Normal size heart with no pericardial effusion. Mediastinum and cece: No mediastinum or hilar adenopathy. Vessels: Normal size aortic and pulmonary artery. No coronary artery calcifications. 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 Chest wall and lower neck: No soft tissue masses. Upper abdomen: Liver is enlarged as visualized with hepatic steatosis. There is a well-rounded nodule measuring 14 x 18 mm in the medial RIGHT lobe of the liver just posterior to the gallbladder. This n odule has been present on prior studies and slowly increased in size since 2010. No adrenal mass. Osseous structures: Moderate RIGHT curvature thoracic spine. CT/CT chest w con* [id number] IMPRESSION: 1. No pulmonary mass or nodule is identified. This may have been superimposed soft tissues seen on the recent chest radiograph. 2. Moderate paraseptal emphysema. 3. Low-attenuation nodule incompletely visualized in the inferior medial RIGHT lobe of the liver. This liver nodule measures 14 x 18 mm and slowly increased in size since 2010. Consider ultrasound follow-up to confirm this is probably a cyst or benign lesion.
[2021-04-25] MEDS: iohexol 300 mg/mL 100 mL Btl IV (08:22)
== END 2021-04-25 08:05 | disposition home or self-care (01) ==
PROVIDERS: PCP Nurse Practitioner Family; Visit Provider Nurse Practitioner Family
DX: R93.89 Abnormal findings on diagnostic imaging of other specified body structures (principal); J43.8 Other emphysema
CPT/HCPCS: 71260

== ENCOUNTER → 2021-05-09 08:36 | Outpatient (BNVA) | payer MEDICAID, SELFPAY ==
[2020-03-13 14:41] VITALS: BP 139/93; BMI 37.2
== END ==
PROVIDERS: PCP Nurse Practitioner Family; Visit Provider Psychiatry & Neurology Psychiatry
DX: F33.42 Major depressive disorder, recurrent, in full remission (principal); F60.3 Borderline personality disorder; F41.0 Panic disorder [episodic paroxysmal anxiety]; F43.12 Post-traumatic stress disorder, chronic; F10.21 Alcohol dependence, in remission; F17.210 Nicotine dependence, cigarettes, uncomplicated; Z59.6 Low income
CPT/HCPCS: 99214

== ENCOUNTER 2021-05-29 20:00 | Outpatient (CLI) | payer MEDICAID, SELFPAY ==
[2020-03-13 14:41] VITALS: BP 139/93; BMI 37.2
== END 2021-05-29 20:01 | disposition home or self-care (01) ==
LOC: SLEEP 05-30 02:29
PROVIDERS: PCP Nurse Practitioner Family; Visit Provider Nurse Practitioner Family
DX: G47.33 Obstructive sleep apnea (adult) (pediatric) (principal)
CPT/HCPCS: 95810

== ENCOUNTER → 2021-06-03 00:01 | Outpatient (BNVA) | payer MEDICAID, SELFPAY ==
[2020-03-13 14:41] VITALS: BP 139/93; BMI 37.2
== END ==
PROVIDERS: PCP Nurse Practitioner Family; Visit Provider Family Medicine
DX: Z01.812 Encounter for preprocedural laboratory examination (principal); Z20.822 Contact with and (suspected) exposure to COVID-19
CPT/HCPCS: 87635

== ENCOUNTER 2021-07-01 10:04 | Outpatient (CLI) | payer MEDICAID, SELFPAY ==
[2020-03-13 14:41] VITALS: BP 139/93; BMI 37.2
--- NOTE | 2021-07-01 10:16 | MM_ITS ---
WS: [id number] BILATERAL DIGITAL SCREENING MAMMOGRAPHY WITH CAD CLINICAL INFORMATION: SCREENING HISTORY: Screening mammogram. No current complaints. COMPARISON: March 16, 2020, 2015, 2018. TECHNIQUE: Bilateral CC and MLO views. FINDINGS: Scattered fibroglandular densities bilaterally. Increasing ovoid nodule mid RIGHT breast measuring 8 mm may represent intramammary lymph node but indeterminant. Recommend further evaluation with RIGHT d iagnostic mammography and ultrasound. This is best seen on the cc view. LEFT breast is unchanged and unremarkable. MM/[place] [id number] IMPRESSION: BI-RADS: 0-Incomplete: Need additional imaging evaluation FOLLOW UP: Need Additional Imaging Recommend RIGHT breast diagnostic mammography and ultrasound.
== END 2021-07-01 10:05 | disposition home or self-care (01) ==
PROVIDERS: PCP Nurse Practitioner Family; Visit Provider Nurse Practitioner Family
DX: Z12.31 Encounter for screening mammogram for malignant neoplasm of breast (principal)
CPT/HCPCS: 77067

== ENCOUNTER 2021-07-22 20:00 | Outpatient (CLI) | payer MEDICAID, SELFPAY ==
[2020-03-13 14:41] VITALS: BP 139/93; BMI 37.2
== END 2021-07-22 20:01 | disposition home or self-care (01) ==
LOC: SLEEP 07-23 07:45
PROVIDERS: PCP Nurse Practitioner Family; Visit Provider Nurse Practitioner Family
DX: G47.33 Obstructive sleep apnea (adult) (pediatric) (principal)
CPT/HCPCS: 95811

== ENCOUNTER → 2021-08-15 08:27 | Outpatient (BNVA) | payer MEDICAID, SELFPAY ==
[2020-03-13 14:41] VITALS: BP 139/93; BMI 37.2
== END ==
PROVIDERS: PCP Nurse Practitioner Family; Visit Provider Psychiatry & Neurology Psychiatry
DX: F33.42 Major depressive disorder, recurrent, in full remission (principal); F60.3 Borderline personality disorder; F43.12 Post-traumatic stress disorder, chronic; G47.33 Obstructive sleep apnea (adult) (pediatric); F17.210 Nicotine dependence, cigarettes, uncomplicated; F41.0 Panic disorder [episodic paroxysmal anxiety]
CPT/HCPCS: 99215

== ENCOUNTER 2021-08-16 01:17 | Emergency (ER) | payer MEDICAID, SELFPAY ==
[2020-03-13 14:41] VITALS: BP 139/93; BMI 37.2
--- NOTE | 2021-08-16 01:19 | XRR_ITS ---
PROCEDURE INFORMATION: Exam: XR Right Ankle Exam date and time: 08/16/2021 2:33 AM Age: 51 years old Clinical indication: Injury or trauma; Fall; Blunt trauma; Right; Patient HX: Patient tripped and fell at home from standing position. C/O RT knee and ankle pain. ; Additional info: Right ankle pain, fall TECHNIQUE: Imaging protocol: XR Right ankle. Views: 3 or more views. COMPARISON: No relevant prior studies available. FINDINGS: Bones/joints: Normal. Soft tissues: Normal. XR/XR ankle RT min 3V* [id number] IMPRESSION: No acute findings.
--- NOTE | 2021-08-16 01:19 | W.ED.LOWEXIN ---
HPI - Extremity Injury (Lower) General: Chief Complaint: Fall Stated Complaint: fall, ankle pain History of Present Illness: 51-year-old female comes in today with complaints of injury to the right ankle. Patient reports going down the steps and missed stepped on the last one causing her to twist her right ankle. Patient has pain and discomfort to the ankle. EMS has wrapped the ankle and reports some swelling and no obvious deformity. Cap refill is intact. Patient has a history of bipolar disorder, diabetes mellitus type 2, gallstones, and anxiety. Review of Systems General: Reports: 10 or more systems reviewed and unremarkable except in HPI and below Card: Denies: chest pain Resp: Denies: dyspnea Musc: Reports: joint pain (Right ankle pain) PFS ED PFSH: Medical History (Updated 08/16/21 @ 02:38 by JONNY Lowry) Alcohol dependence, in remission Borderline personality disorder Cigarette nicotine dependence COPD (chronic obstructive pulmonary disease) Dependent personality disorder Diabetes Falls frequently Hyperlipidemia Hypertension Insect bite, venomous Knee buckling Major depressive disorder, recurrent, in full remission Obstructive sleep apnea Panic disorder [episodic paroxysmal anxiety] Post-traumatic stress disorder, chronic Psychiatric care Right wrist injury Surgical History deliv NOS-unsp X4 History of bilateral tubal ligation History of endometrial ablation Family History Other Cancer Diabetes Social History Smoking and tobacco status: current every day smoker cigarettes Packs smoked per day: 0.5 Years cigarettes smoked: 31 Quit status (tobacco): not considering quitting Second hand smoke exposure: No Alcohol intake: former Former alcohol use details: quit 6 months ago Desire information about alcohol rehabilitation?: No Desire information about substance/drug rehabilitation?: No Adopted: No Caregiver/support person: Yes (does not live in the home, comes in 2 1/2 hours a day) Lives independently: Yes Household members: significant other Housing: House Marital status: Number of children: 4 Number of grandchildren: 5 Highest education level completed: GED or Equivalent service: No Current occupational status: disabled Current occupational exposures/hazards: No Pets and animals: Yes Pets & animals: dog(s) History of recent travel: No Leisure activites: art and other Leisure activities details: games on computer Sexually active: Yes Current gender identity: Female Geno/Rastafari: None Special geno needs: No Agree to transfusion: Yes Financial difficulty paying for basics: Hard Female Reproductive History: Date of last menstrual period: 01/07/20 Para: 4 Spontaneous abortions: Yes Physical Exam Const: COMMON NORMALS: alert Neck/C-Spine: COMMON NORMALS: full ROM Resp: COMMON NORMALS: normal respiratory effort and clear to auscultation bilaterally AUSCULTATION: clear to auscultation bilaterally Cardio: COMMON NORMALS: regular rate and regular rhythm RATE: regular rate RHYTHM: regular rhythm Extremity: RIGHT LOWER EXTREMITY: Yes knee joint (Tenderness distal knee no swelling) Right knee: Yes inspection, Yes palpation and Yes ROM and Yes foot & digits (Lateral swelling and tenderness.) Right ankle: Yes inspection, Yes palpation and Yes ROM Neuro: SENSORIUM/ORIENTATION: Yes alert Skin: COMMON NORMALS: no rashes or lesions noted GENERAL SKIN EXAM: no rashes or lesions noted Course Vital Signs: Vital signs: Vital Signs Temperature 97.1 F L 08/16/21 01:25 Pulse Rate 75 08/16/21 01:25 Respiratory Rate 20 H 08/16/21 02:42 Blood Pressure 132/80 08/16/21 02:42 Pulse Oximetry 97 08/16/21 01:25 MDM - Extremity Injury (Lower) Medical Decision Making Patient is presents with injury to the right ankle. Patient reports she had stepped off the last step but missed stepped on her to roll her right ankle. Patient has pain and discomfort to the right ankle and right knee. Patient states pain is mainly in the ankle. No obvious deformity is noted. Pulses are intact. Patient has some swelling to the lateral aspect of ankle. Differential diagnosis includes but not limited to fracture, sprain, contusion. X-rays showed no definitive fracture or dislocation. Patient was put into a premade stirrup splint for her ankles. Patient was recommended to use a walker until she can bear weight comfortably on her ankle. Patient to use Tylenol for further pain relief and ice packs. Case management was requested for referral to podiatry for follow-up and possible management of foot care due to patient's diabetes mellitus type 2. Discharge Plan Discharge Patient Disposition: Home Clinical Impression: Fall (on) (from) other stairs and steps, initial encounter Knee pain, right Qualifiers: Chronicity: unspecified Qualified Code(s): M25.561 - Pain in right knee Right ankle injury Qualifiers: Encounter type: initial encounter Qualified Code(s): S99.911A - Unspecified injury of right ankle, initial encounter Condition: Stable Prescriptions: No Action melatonin 500 mcg tablet 600 mcg PO BEDTIME PRN (Reason: Sleep) 0RF amlodipine 10 mg tablet 10 mg PO DAILY 0RF hydrochlorothiazide 50 mg tablet 50 mg PO DAILY 0RF simvastatin 40 mg tablet 40 mg PO BEDTIME 0RF epinephrine 0.3 mg/0.3 mL auto-injector 0.3 mg IM Q10M PRN (Reason: Anaphylaxis) 0RF Rx Instructions: for 2 doses metformin 500 mg tablet 500 mg PO QPM 0RF polyethylene glycol 3350 [Miralax] 17 gram/dose powder 17 g PO DAILY 0RF hydrocodone-acetaminophen 7.5-325 mg tablet 1 tab PO TID PRN (Reason: Pain) 0RF bupropion HCl [Wellbutrin XL] 300 mg tablet extended release 24 hr 300 mg PO QAM Qty: 30 11RF buspirone 10 mg tablet 20 mg PO TID Qty: 90 11RF nicotine 21 mg/24 hr patch 24 hour 1 patch transdermal Q24H Qty: 28 2RF nicotine (polacrilex) 4 mg gum 4 mg buccal Q2H Qty: 110 5RF prazosin 5 mg capsule 5 mg PO BEDTIME Qty: 30 11RF prazosin 2 mg capsule 2 mg PO BEDTIME Qty: 30 11RF Rx Instructions: take with 5mg dose for total daily dose of 7mg. Trintellix 20 mg tablet 20 mg PO DAILY Qty: 30 11RF pantoprazole [Protonix] 40 mg Tablet,Delayed Release (Dr/Ec) 40 mg PO DAILY 0RF aspirin 81 mg Tablet,Delayed Release (Dr/Ec) 81 mg PO DAILY Qty: 30 0RF celecoxib [Celebrex] 100 mg Capsule 100 mg PO BID PRN (Reason: Pain) 0RF Narcan 4 mg/actuation [place]y,Non-Aerosol 4 mg INTRANASAL Q2M PRN (Reason: overdose) 0RF Discharge Orders: Discharge ED (Routine); Ordered 08/16/21 Ordered By: Praveen Calixto Referrals: Max,Serena, [employer] OPERATOR [Primary Care Provider] - Discharge Diet: Usual diet Discharge Activity: Increase activity as tolerated Patient Instructions: Ankle Sprain (ED), Opioid Safety Activity Restrictions/Additional Instructions: Use stirrup splint for added ankle support. Use a walker to help with ambulation until he can bear weight comfortably on the ankle. Use acetaminophen for pain. Use ice packs for further pain. Follow-up with primary care for further instructions. Case management will contact you for podiatry follow-up for further evaluation of ankle injury and assistance with diabetic foot care. Coding Level of Care Code ED Coiled Tubing Operator for Mallory Fwd Exam Detailed
--- NOTE | 2021-08-16 01:22 | XRR_ITS ---
PROCEDURE INFORMATION: Exam: XR Right Knee Exam date and time: 08/16/2021 2:33 AM Age: 51 years old Clinical indication: Injury or trauma; Fall; Blunt trauma; Right; Patient HX: Patient tripped and fell at home from standing position. C/O RT knee and ankle pain. ; Additional info: [place] TECHNIQUE: Imaging protocol: XR Right knee. Views: 3 views. COMPARISON: No relevant prior studies available. FINDINGS: Bones/joints: Normal. Soft tissues: Normal. XR/XR knee RT 3V* [id number] IMPRESSION: No acute findings.
[2021-08-16 01:25] VITALS: BP 158/68; PULSE 75; RESP 20; TEMP 36.2; O2SAT 97; BMI 44.1
[2021-08-16] MEDS: HYDROcodone-acetaminophen 5-325 mg Tablet 1 TAB PO (02:40)
[2021-08-16 02:42] VITALS: BP 132/80; RESP 20
[2021-08-16 03:08] VITALS: BP 132/80; PULSE 75; RESP 20; O2SAT 97
--- NOTE | 2021-08-16 12:56 | DCPLANNER ---
Addendum entered by Aziza Cristobal 08/21/21 07:51: Patient had a follow up appointment scheduled for 08.20.[address] Kuhn at ortho - patient did attend appointment. Original Note: client service manager had message to schedule a follow up appointment for patient with ortho. client service manager sent patients information for review to the front staff at ortho. Patients information will be printed and reviewed. Clinic will call patient with appointment information.
== END 2021-08-16 03:13 | disposition home or self-care (01) ==
PROVIDERS: Emergency Provider Nurse Practitioner Family; PCP Nurse Practitioner Family
DX: S99.911A Unspecified injury of right ankle, initial encounter (principal); W10.9XXA Fall (on) (from) unspecified stairs and steps, initial encounter
CPT/HCPCS: 73562; 73610; 99283

== ENCOUNTER → 2021-08-20 10:45 | Outpatient (BNVA) | payer MEDICAID, SELFPAY ==
[2020-03-13 14:41] VITALS: BP 139/93; BMI 37.2
== END ==
PROVIDERS: PCP Nurse Practitioner Family; Referring Provider Nurse Practitioner Family; Visit Provider Podiatrist Foot & Ankle Surgery
DX: S93.402A Sprain of unspecified ligament of left ankle, initial encounter (principal); W10.9XXA Fall (on) (from) unspecified stairs and steps, initial encounter; E11.42 Type 2 diabetes mellitus with diabetic polyneuropathy; L60.3 Nail dystrophy; F17.210 Nicotine dependence, cigarettes, uncomplicated
CPT/HCPCS: 11721; 99213; 99214

== ENCOUNTER 2021-08-27 15:22 | Outpatient (CLI) | payer MEDICAID, SELFPAY ==
[2020-03-13 14:41] VITALS: BP 139/93; BMI 37.2
--- NOTE | 2021-08-27 15:39 | MM_ITS ---
WS: [id number] RIGHT 3D TOMOSYNTHESIS DIGITAL MAMMOGRAPHY WITH CAD CLINICAL INFORMATION: ABNORMAL MAMMOGRAM COMPARISON: July 01, 2021 TECHNIQUE: 3 views of the right breast were obtained. FINDINGS: Scattered fibroglandular densities of the right breast. Stable 8 mm ovoid nodule mid RIGHT breast. This persists on spot compression views. Ultrasound is pen ding. ULTRASOUND BREAST RIGHT TECHNIQUE: Ultrasound right breast focused area of concern. CLINICAL INFORMATION: ABNORMAL MAMMOGRAM COMPARISON: None. FINDINGS: Ultrasound RIGHT breast at the 6 clock position 1 cm from the nipple. Hypoechoic ovoid solid appearin g lesion at the 6 clock position 1 cm from the nipple. This measures approximately 6.4 x 5.3 x 9.5 mm and is indeterminant. Recommend further evaluation with ultrasound-guided biopsy. Additional tiny adjacent lesion measuring 2.9 x 1.7 x 3.9 mm may represent a tiny complex cyst but t oo small to definitively characterize. Small amount of through transmission suggesting cystic content s. MM/[place] [id number] IMPRESSION: BI-RADS: 4-Suspicious Finding-Biopsy Should Be Considered FOLLOW UP: Biopsy Recommended Recommend ultrasound-guided biopsy of the solid ovoid lesion at the 6 clock pos ition measuring 6.4 x 5.3 x 9.5 mm
== END 2021-08-27 15:23 | disposition home or self-care (01) ==
PROVIDERS: PCP Nurse Practitioner Family; Visit Provider Nurse Practitioner Family
DX: N64.9 Disorder of breast, unspecified (principal); R92.8 Other abnormal and inconclusive findings on diagnostic imaging of breast
CPT/HCPCS: 76642; 77061

== ENCOUNTER 2021-09-13 12:26 | Outpatient (CLI) | payer MEDICAID, SELFPAY ==
[2020-03-13 14:41] VITALS: BP 139/93; BMI 37.2
--- NOTE | 2021-09-13 12:37 | US_ITS ---
WS: [id number] ULTRASOUND-GUIDED RIGHT BREAST BIOPSY CLINICAL INFORMATION: ABNORMAL MAMMO FINDINGS: The procedure including risks, benefits, and complications were discussed with the patient who agreed to proceed. Using sterile technique patient was prepped and draped in the usual sterile fashion. Aft er 1% lidocaine utilizing real-time ultrasound guidance 5 14-gauge cores were obtained of the RIGHT b reast lesion at the 6 o'clock position. Subsequently a titanium clip was placed in the biopsy cavity. No immediate complications. Pathology demonstrates : Right breast mass, multiple core biopsies: Fibroadenoma There is no evidence of atypical ductal proliferation or malignancy US/[place] [id number] IMPRESSION: 1. Uncomplicated ultrasound-guided RIGHT breast biopsy. 2. The pathology demonstrates fibroadenoma. No evidence of malignancy. 3. Recommend 6 month follow-up postbiopsy RIGHT breast diagnostic mammography and ultrasound BI-RADS: 2-Benign FOLLOW UP: 6 Month Follow-up
== END 2021-09-13 12:27 | disposition home or self-care (01) ==
LOC: RAD 12:28
PROVIDERS: PCP Nurse Practitioner Family; Visit Provider Nurse Practitioner Family
DX: N63.10 Unspecified lump in the right breast, unspecified quadrant (principal); R92.8 Other abnormal and inconclusive findings on diagnostic imaging of breast
CPT/HCPCS: 19083; 88305

== ENCOUNTER 2021-10-24 06:41 | Day surgery (SDC) | payer MEDICAID, SELFPAY ==
[2020-03-13 14:41] VITALS: BP 139/93; BMI 37.2
[2021-10-23 15:09] VITALS: BMI 43.6
[2021-10-24] VITALS (10 sets, daily range): BP systolic 124–150; BP diastolic 78–97; PULSE 94–105; RESP 16–20; TEMP 36.2–36.4; O2SAT 90–94
[2021-10-24] MEDS: sodium chloride 0.9% 1,000 ML 30 ML IV (07:20)
[2021-10-24 07:30] LABS: Glucose Point of Care 202 mg/dL (70-110)
[2021-10-24 07:33] LABS: OR HCG Qualitative Urine Negative (Negative)
--- NOTE | 2021-10-24 07:34 | W.PM.OPSUD ---
Surgery/Procedure H&P Update DATE OF PROCEDURE: October 24, 2021 DATE H&P PERFORMED: 10/15/21 H&P UPDATE INFORMATION: No changes to prior documentation PREOP DIAGNOSIS: Symptomatic cholelithiasis. PLANNED PROCEDURE: Operation Date: 10/24/21 08:05 Proposed Procedures p Laparoscopic Possible Open Cholecystectomy 20247,K80.10(Not Applicable) - Karan Murphy MD
--- NOTE | 2021-10-24 07:39 | P.ANESASSM_ITS ---
Pre-Anesthetic Assessment Height/Weight: Height 1.65 m Weight 118.841 kg Preop Diagnosis: Symptomatic cholelithiasis. Operation Date: 10/24/21 08:05 Proposed Procedures p Laparoscopic Possible Open Cholecystectomy 49366,K80.10(Not Applicable) - Karan Murphy MD Familial anesthetic complications: None Was Beta Yary taken within 24 hours: N/A Was Clonidine taken within 24 hours: N/A Social Tobacco and No alcohol Exam alert, oriented x 3 and regular rate & rhythm Airway Submandibular: within normal limits Cervical ROM: within normal limits Mallampati: Class II Dentition: false Pulmonary Chronic Obstructive Pulmonary Disease and Sleep Apnea CV/HEM Hypertension GI Gastroesophageal Reflux Disease Metabolic Diabetes Mellitus and Morbid Ob[place] [facility] [place] Lower Back Pain chronic pain Neuropsych Depression and Neuropathy Anesthetic Plan ASA status: 3 Anesthesia: General Medications/Allergies Home Medications Medication Instructions Recorded Confirmed Last Taken Type amlodipine 10 mg tablet 10 mg PO DAILY 07/07/19 10/24/21 10/23/21 History hydrochlorothiazide 50 mg tablet 50 mg PO DAILY 07/07/19 10/24/21 10/23/21 History metformin 500 mg tablet 500 mg PO BID 09/20/19 10/24/21 10/22/21 History epinephrine 0.3 mg/0.3 mL 0.3 mg IM Q10M PRN 10/05/19 10/23/21 Unknown History injection, auto-injector aspirin 81 mg tablet,delayed 81 mg PO DAILY #30 tab 02/15/20 10/24/21 10/23/21 Rx release pantoprazole 40 mg tablet,delayed 40 mg PO DAILY 02/15/20 10/24/21 10/23/21 History release (Protonix) simvastatin 40 mg tablet 40 mg PO BEDTIME tab 03/01/20 10/24/21 10/23/21 History polyethylene glycol 3350 17 17 g PO DAILY 04/11/20 10/24/21 10/23/21 History gram/dose oral powder (Miralax) hydrocodone 7.5 mg-acetaminophen 1 tab PO TID PRN tab 08/17/20 10/24/21 10/23/21 History 325 mg tablet bupropion HCl 300 mg 24 hr tablet, 300 mg PO QAM #30 tab 08/15/21 10/24/21 10/23/21 Rx extended release (Wellbutrin XL) prazosin 2 mg capsule 2 mg PO BEDTIME #30 cap 08/15/21 10/24/21 10/23/21 Rx prazosin 5 mg capsule 5 mg PO BEDTIME #30 cap 08/15/21 10/24/21 10/23/21 Rx vortioxetine 20 mg tablet 20 mg PO DAILY #30 tab 08/15/21 10/24/21 10/23/21 Rx (Trintellix) buspirone 10 mg tablet 20 mg PO TID PRN 10/23/21 10/24/21 10/23/21 History lisinopril 5 mg tablet 5 mg PO DAILY 10/24/21 10/24/21 10/23/21 History Allergies Allergy/AdvReac Type Severity Reaction Status Date / Time venom-wasp Allergy Unknown ALGY-Anaphy Verified 10/23/21 15:07 laxis bees Allergy Unknown ALGY-Anaphy Uncoded 10/23/21 15:07 laxis mushrooms Allergy Unknown ALGY-Anaphy Uncoded 10/23/21 15:07 laxis [facility] Anesthesia Medical History Alcohol dependence, in remission Borderline personality disorder Cigarette nicotine dependence COPD (chronic obstructive pulmonary disease) Dependent personality disorder Diabetes Falls frequently Hyperlipidemia Hypertension Insect bite, venomous Knee buckling Major depressive disorder, recurrent, in full remission Obstructive sleep apnea Panic disorder [episodic paroxysmal anxiety] Post-traumatic stress disorder, chronic Psychiatric care Right wrist injury Surgical History deliv NOS-unsp X4 History of bilateral tubal ligation History of endometrial ablation Family History Other Cancer Diabetes Social History Smoking and tobacco status: current every day smoker cigarettes Packs smoked per day: 0.5 Years cigarettes smoked: 31 Quit status (tobacco): not considering quitting Second hand smoke exposure: No Alcohol intake: former Former alcohol use details: quit 6 months ago Desire information about alcohol rehabilitation?: No Desire information about substance/drug rehabilitation?: No Adopted: No Caregiver/support person: Yes (does not live in the home, comes in 2 1/2 hours a day) Lives independently: Yes Household members: significant other Housing: House Marital status: Number of children: 4 Number of grandchildren: 5 Highest education level completed: GED or Equivalent service: No Current occupational status: disabled Current occupational exposures/hazards: No Pets and animals: Yes Pets & animals: dog(s) History of recent travel: No Leisure activites: art and other Leisure activities details: games on computer Sexually active: Yes Current gender identity: Female Geno/Rastafarian: None Special geno needs: No Agree to transfusion: Yes Financial difficulty paying for basics: Hard Female Reproductive History Date of last menstrual period: 09/19/21 Para: 4 Spontaneous abortions: Yes Data Anesthesia Cardiac Studies: Echocardiogram Ultrasound 02/15/20 Sestamibi Stress Test (Cardiology) 02/14/20
[2021-10-24] MEDS: ceFAZolin 3,000 MG in sodium chloride 0.9% (100 ml) 100 ML 200 MG IV (07:50)
--- NOTE | 2021-10-24 08:50 | P.OP_ITS ---
Operative Report Date of procedure: October 24, 2021 Pre-op diagnosis: Preop Diagnosis Symptomatic cholelithiasis. Post-op diagnosis: Same. Procedure done: Laparoscopic cholecystectomy. Specimens removed/disposition: Gallbladder. Surgeon: General Surgery Karan Murphy MD Anesthesia: General Estimated blood loss: 5 mL. Complications: None. Procedure: The patient was brought to the Operating Room and was placed in a supine pos ition on the Operating Room table. General endotracheal anesthesia was induced. The abdomen was prepped and draped in a sterile fashion. A small vertical incision was carried out in the superior aspect of the umbilicus. Blunt dissection was carried out down to the fascia, which was grasped with a Dee clamp. A stay suture of 0 Vicryl was placed on either side of the midline and the midline fascia was incised. The underlying peritoneum was opened bluntly and the Darion port was placed directly into the peritoneal cavity and was held in place with the inflatable balloon. The peritoneal cavity was insufflated with carbon dioxide. The laparoscope was used to inspect the abdominal cavity. No gross abnormalities were initially noted other than for some focal adhesions from the anterior surface of the liver to the diaphragm. These were taken down. A 5 millimeter port was placed in the epigastrium under direct vision. Two 5- millimeter ports were placed on the right side of the abdomen under direct vision. The gallbladder was grasped and was elevated. The patient had a few adhesions to the fundus of the gallbladder which were taken down using blunt dissection. Blunt dissection and hydrodissection were carried out in the infundibular region of the gallbladder and the cystic duct and cystic artery were identified. The gallbladder was partially removed from the liver bed using cautery and the spatula to confirm the anatomy before the structures were clipped and divided. The gallbladder was then removed from the liver bed using cautery and the spatula. After the gallbladder had been removed from the liver bed, the laparoscope was moved to the epigastric port and the gallbladder was removed from the peritoneal cavity through the umbilical port site. The stay sutures of Vicryl were tied to each other at the umbilicus. An additional [id number] suture of 0 Vicryl was placed, closing the defect so that it was airtight. The perihepatic spaces were irrigated with saline and the liver bed was reinspected. No ongoing problems were seen. The remaining ports were removed from the abdominal wall and the pneumoperitoneum was evacuated. All skin incisions were closed using inverted interrupted sutures of 4-0 Vicryl. Benzoin and Steri-Strips were placed over the incisions and Band-Aids followed. The patient was taken to the Recovery Area in stable condition postoperatively.
[2021-10-24] MEDS: fentaNYL 50 mcg/mL INJ 2mL IVP ×2 (09:00→09:22)
[2021-10-24] MEDS: HYDROcodone-acetaminophen 7.5-325 mg Tablet 1 TAB PO (09:56)
--- NOTE | 2021-10-24 14:59 | ANE.PACU2 ---
Inpatient post-anesthesia follow up: Airway intact: Yes Vital signs: Temperature 97.1 F Pulse Rate 100 Respiratory Rate 18 Blood Pressure 147/95 Pulse Oximetry 93 Oxygen Delivery Me thod Room Air Oxygen Flow Rate 4 Fraction of Inspir ed Oxygen Hydration adequate: Yes Nausea and vomiting: No Pain level: 3 Mental status: Baseline
== END 2021-10-24 10:36 | disposition home or self-care (01) ==
PROVIDERS: Anesthesiology; PCP Nurse Practitioner Family; Visit Provider Surgery
PROC: 0FT44ZZ Resection of Gallbladder, Percutaneous Endoscopic Approach (ICD-10-PCS; CPT 47562; principal; 2021-10-24 08:05)
DX: K80.10 Calculus of gallbladder with chronic cholecystitis without obstruction (principal); J44.9 Chronic obstructive pulmonary disease, unspecified; E11.40 Type 2 diabetes mellitus with diabetic neuropathy, unspecified; Z79.82 Long term (current) use of aspirin; E78.5 Hyperlipidemia, unspecified; G47.33 Obstructive sleep apnea (adult) (pediatric); F17.210 Nicotine dependence, cigarettes, uncomplicated
CPT/HCPCS: 47562; 36416; 81025; 82962; 84703; 88304; J0690; J1100; J1170; J2405; J2704; J2710; J3010; J3490; J7030

== ENCOUNTER → 2021-11-25 09:34 | Outpatient (BNVA) | payer MEDICAID, SELFPAY ==
[2020-03-13 14:41] VITALS: BP 139/93; BMI 37.2
== END ==
PROVIDERS: PCP Nurse Practitioner Family; Visit Provider Psychiatry & Neurology Neurology
DX: F43.12 Post-traumatic stress disorder, chronic (principal)
CPT/HCPCS: 80061; 83036

== ENCOUNTER 2021-12-09 20:00 | Outpatient (CLI) | payer MEDICAID, SELFPAY ==
[2020-03-13 14:41] VITALS: BP 139/93; BMI 37.2
[2021-12-03 15:38] VITALS: BP 130/93; BMI 42.0
== END 2021-12-09 20:01 | disposition home or self-care (01) ==
PROVIDERS: PCP Nurse Practitioner Family; Visit Provider Nurse Practitioner Family
DX: G47.33 Obstructive sleep apnea (adult) (pediatric) (principal)
CPT/HCPCS: 95811

== ENCOUNTER 2022-03-20 07:33 | Outpatient (CLI) | payer MEDICAID, SELFPAY ==
[2021-12-03 15:38] VITALS: BP 130/93; BMI 42.0
--- NOTE | 2022-03-20 07:55 | MR_ITS ---
WS: [id number] MRI LUMBAR SPINE NONCONTRAST HISTORY: LUMBOSACRAL SPONDYLOSIS COMPARISON: 04/20/2019 TECHNIQUE: Sagittal and axial multisequence imaging is submitted. Normal lumbar alignment with no compression fractures or marrow edema. Disc spaces and vertebral body heights are well-preserved. Conus terminates normally at L1-2 disc level. L1-L2: Normal. L2-L3: Normal. L3-L4: Mild disc bulging with mild ligamentum flavum and facet arthritis. There is very mild encroach ment into the subarticular recesses. No high-grade stenosis. L4-L5: Mild annular disc bulging. Moderate ligamentum flavum and facet arthritis. Small amount of flu id in the facet joints. No focal disc protrusion. Mild central and bilateral subarticular recess sten osis. L5-S1: Mild disc bulging and moderate facet arthritis. There is probably a very tiny central disc pro trusion. Paravertebral soft tissues are negative. MR/MR lumbar spine wo con* [id number] IMPRESSION: 1. No high-grade central or foraminal stenosis. 2. Mild central and bilateral subarticular recess stenosis at L4-5 as describe d above. 3. Facet joint arthritis from L3-4 to L5-S1. Most significant is moderate at L 5-S1.
== END 2022-03-20 07:34 | disposition home or self-care (01) ==
LOC: RAD 07:34
PROVIDERS: PCP Nurse Practitioner Family; Visit Provider Nurse Practitioner Family
DX: M48.061 Spinal stenosis, lumbar region without neurogenic claudication (principal); M47.897 Other spondylosis, lumbosacral region; M47.896 Other spondylosis, lumbar region
CPT/HCPCS: 72148

== ENCOUNTER 2022-10-27 08:44 | Emergency (ER) | payer MEDICAID, SELFPAY ==
[2021-12-03 15:38] VITALS: BP 130/93; BMI 42.0
[2022-10-27 08:45] VITALS: BP 130/106; PULSE 110; RESP 18; TEMP 37; O2SAT 93; BMI 37.9
--- NOTE | 2022-10-27 08:47 | XR_ITS ---
WS: [id number] Exam: XR shoulder LT min 2V* [id number] Date/Time of Exam: 10/27/2022 8:49 AM Reason For Exam: trauma No acute fracture or dislocation. Minimal AC joint DJD. Normal soft tissues. XR/XR shoulder LT min 2V* [id number] IMPRESSION: 1. No fracture or dislocation.
--- NOTE | 2022-10-27 08:47 | XR_ITS ---
WS: [id number] Exam: XR hip LT 2-3V wo/w pel* [id number] Date/Time of Exam: 10/27/2022 8:49 AM Reason For Exam: trauma Comparison 08/28/2015. [id number] degenerative narrowing of the joint compartment. No fracture or dislocation. Normal soft tissues. XR/XR hip LT 2-3V wo/w pel* [id number] IMPRESSION: 1. Mild to moderate DJD. No fracture.
--- NOTE | 2022-10-27 08:56 | XR_ITS ---
WS: [id number] Exam: XR chest 1V portable [id number] Date/Time of Exam: 10/27/2022 8:56 AM Reason For Exam: chest pain Comparison 04/02/2021. The lungs are clear and fully expanded. Normal cardiomediastinal silhouette. Bony structures are inta ct. XR/XR chest 1V portable [id number] IMPRESSION: 1. No acute cardiopulmonary process.
--- NOTE | 2022-10-27 08:58 | ECG_ITS ---
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 Measurements Intervals [place] Rate: 90 P: 58 KS: 197 QRS: -11 QRSD: 109 T: 88 QT: 380 QTc: 467 Interpretive Statements SINUS RHYTHM INCOMPLETE RIGHT BUNDLE BRANCH BLOCK [90+ ms QRS DURATION, TERMINAL R IN V1/V2, 40+ ms S IN I/aVL/V4/V5/V6] MINIMAL VOLTAGE CRITERIA FOR LVH, CONSIDER NORMAL VARIANT [MEETS CRITERIA IN ONE OF: R(aVL), S(V1), R(V5), R(V5/V6)+S(V1)] SEPTAL MYOCARDIAL INFARCTION , PROBABLY OLD [40+ ms Q WAVE IN V1/V2] Compared to ECG 02/14/2020 19:19:46 Incomplete right bundle-branch block now present Left-axis deviation no longer present Myocardial infarct finding still present Electronically Signed On 10-27-2022 9:37:35 CDT by Ming Chicas M.D. [id number]
--- NOTE | 2022-10-27 09:06 | W.ED.FALL ---
HPI - Fall General: Chief Complaint: Fall Stated Complaint: fall, left hip and left shoulder pain Time Seen by Provider: 10/27/22 08:47 Source: patient Mode of arrival: EMS History of Present Illness: 52-year-old female who presents via EMS after having stood up to get out of bed to get her medications she got lightheaded dizzy sensation after standing and was going to try to sit back down on the bed she thought she was closer to the bed than she was and when she went to sit down she fell onto the floor. She is complaining of left shoulder elbow and left hip pain. Did not strike her head she did not lose consciousness. MD complaint: fall Onset (ago): minute(s) Fall from: standing Fall witnessed: no Loss of consciousness: None Prolonged down time: no Symptoms prior to fall: lightheadedness and dizziness Location of injury - extremities: Left: shoulder, elbow and thigh Associated symptoms-after fall: Denies abdominal pain, chest pain, confusion, difficulty walking, headache(s), hematuria, lightheadedness, neck pain, numbness, short of breath, vertigo or weakness Review of Systems Const: Denies: fever(s) or chills Card: Denies: chest pain or lightheadedness GI: Denies: abdominal pain : Denies: flank pain, dysuria, urinary frequency, urinary urgency or hematuria Musc: Reports: extremity pain and joint pain; Denies: neck pain or back pain Neuro: Denies: headache(s), difficulty walking, vertigo or confusion PFSH ED PFSH: Medical History Alcohol dependence, in remission Borderline personality disorder COPD (chronic obstructive pulmonary disease) Dependent personality disorder Diabetes Falls frequently Hyperlipidemia Hypertension Insect bite, venomous Knee buckling Major depressive disorder, recurrent, in full remission Obstructive sleep apnea Panic disorder [episodic paroxysmal anxiety] Post-traumatic stress disorder, chronic Psychiatric care Right wrist injury Surgical History deliv NOS-unsp X4 History of bilateral tubal ligation History of endometrial ablation Family History Other Cancer Diabetes Social History (Reviewed 10/27/22 @ 09:13 by LAURA Banda Smoking and tobacco status: current every day smoker cigarettes Packs smoked per day: 0.5 Years cigarettes smoked: 33 Quit status (tobacco): has tried quititng Number of times tried to quit tobacco: 1 Second hand smoke exposure: No Smoking risk assessment/counseling performed?: Yes Tobacco counseling given: counseling >3 minutes Alcohol intake: former Former alcohol use details: quit 6 months ago Desire information about alcohol rehabilitation?: No Substance/Drug Use: former Desire information about substance/drug rehabilitation?: No Adopted: No Caregiver/support person: Yes ([facility] 2 days a week for 4.5 hrs and med Nurse 1 day a week) Lives independently: Yes Household members: friend(s) Housing: House Marital status: Number of children: 4 Number of grandchildren: 5 Highest education level completed: GED or Equivalent service: No Current occupational status: disabled Current occupational exposures/hazards: No Pets and animals: Yes Pets & animals: cat(s) and dog(s) Leisure activites: reading and other Leisure activities details: games on computer Sexually active: No Do you think of yourself as: Straight/Heterosexual Current gender identity: Female Geno/Restorationism: None Special geno needs: No Agree to transfusion: Yes Financial difficulty paying for basics: Hard Female Reproductive History: Para: 4 Spontaneous abortions: Yes Physical Exam Const: GENERAL APPEARANCE: cooperative and comfortable ORIENTATION/CONSCIOUSNESS: Yes awake, Yes oriented to person, Yes oriented to place and Yes oriented to time HENMT: COMMON NORMALS: normocephalic, atraumatic and hearing grossly normal bilaterally HEAD & SCALP: normocephalic and atraumatic Resp: COMMON NORMALS: normal respiratory effort, No retractions, No use of accessory muscles and clear to auscultation bilaterally AUSCULTATION: clear to auscultation bilaterally Cardio: COMMON NORMALS: regular rate, regular rhythm and No murmurs present (Cardio) RATE: regular rate RHYTHM: regular rhythm GI: COMMON NORMALS: Soft to palpation and No hepatosplenomegaly present AUSCULTATION: Yes normoactive bowel sounds PALPATION: Yes Soft to palpation, No Tenderness to palpation present (GI), No Guarding due to palpation present (GI) and Yes No hepatosplenomegaly present Extremity: COMMON NORMALS: normal to inspection, capillary refill normal, no clubbing, cyanosis or edema, no calf tenderness and no pedal edema Neuro: SENSORIUM/ORIENTATION: Yes oriented to person, Yes oriented to place and Yes oriented to time Skin: COMMON NORMALS: no rashes or lesions noted GENERAL SKIN EXAM: no rashes or lesions noted Course Vital Signs: Vital signs: Vital Signs Temperature 98.6 F 10/27/22 08:45 Pulse Rate 87 10/27/22 11:16 Respiratory Rate 18 10/27/22 11:16 Blood Pressure 156/96 10/27/22 11:16 Pulse Oximetry 94 10/27/22 11:16 Oxygen Delivery Me thod Room Air 10/27/22 10:21 MDM - Fall Medical Decision Making Labs and imaging reviewed no acute fractures. We will discharge patient home with tramadol to use as needed follow-up with primary care. Discussed imaging findings with her as well. Medical Records I reviewed the patient's medical records. Lab Data I reviewed the patient's lab results. 10/27/22 08:26 10/27/22 08:26 Radiology Impressions Hip/Pelvis X-Ray 10/27/22 08:47 IMPRESSION: 1. Mild to moderate DJD. No fracture. Shoulder X-Ray 10/27/22 08:47 IMPRESSION: 1. No fracture or dislocation. Chest X-Ray 10/27/22 08:56 IMPRESSION: 1. No acute cardiopulmonary process. Elbow X-Ray 10/27/22 09:09 IMPRESSION: 1. Mild DJD. No acute fracture noted. Laboratory Results WBC 9.9 10^3/uL (4.0-10.0) 10/27/22 08:26 RBC 5.63 10^6/uL (4.1-5.3) H 10/27/22 08:26 Hgb 14.9 g/dL (11.5-15.3) 10/27/22 08:26 Hct 48.1 % (37.0-47.0) H 10/27/22 08:26 MCV 85.4 fl (81-99) 10/27/22 08:26 MCH 26.5 pg (28.0-34.0) L 10/27/22 08: MCHC 31.0 g/dL (30.0-36.0) 10/27/22 08:26 RDW 13.9 % (12.1-15.1) 10/27/22 08:26 Plt Count 449 10^3/cmm (130-400) H 10/27/22 08: MPV 10.8 fL (7.4-10.4) H 10/27/22 08:26 Neut % (Auto) 55.1 % 10/27/22 08: Lymph % (Auto) 33.9 % 10/27/22 08: Miner % (Auto) 8.0 % 10/27/22 08: Eos % (Auto) 1.6 % 10/27/22 08:26 Baso % (Auto) 0.8 % 10/27/22 08: Neut # (Auto) 5.46 10^3/uL (1.8-7.7) 10/27/22 08: Lymph # (Auto) 3.4 10^3/uL (0.8-4.8) 10/27/22 08: Miner # (Auto) 0.8 10^3/uL (0.2-0.9) 10/27/22 08: Eos # (Auto) 0.2 10^3/uL (0.0-0.8) 10/27/22 08: Baso # (Auto) 0.1 10^3/uL (0.0-0.1) 10/27/22 08: Nucleated RBC % (auto) 0 % 10/27/22 08: Nucleated RBCs # 0.0 /100WBC 10/27/22 08:26 Sodium 142 mmol/L (136-145) 10/27/22 08:26 Potassium 4.7 mmol/L (3.5-5.1) 10/27/22 08: Chloride 102 mmol/L (98-107) 10/27/22 08:26 Carbon Dioxide 25 mmol/L (22-29) 10/27/22 08:26 Anion Gap 19.7 (5-19) H 10/27/22 08:26 BUN 6 mg/dL (6-20) 10/27/22 08:26 Creatinine 0.6 mg/dL (0.5-0.9) 10/27/22 08:26 GFR Calculation 105.4 mL/min (90-130) 10/27/22 08:26 Glucose 162 mg/dL (65-115) H 10/27/22 08:26 Calculated Osmolality 295 mOsm/kg (285-295) 10/27/22 08:26 Calcium 9.7 mg/dL (8.5-10.5) 10/27/22 08:26 Total Bilirubin 0.2 mg/dL (0.15-1.2) 10/27/22 08:26 AST 29 U/L (0-32) 10/27/22 08:26 ALT 29 U/L (0-33) 10/27/22 08:26 Alkaline Phosphatase 95 U/L (35-105) 10/27/22 08:26 Troponin T Baseline 6 ng/L (0-10) 10/27/22 08: Troponin T 120 Minute 6.00 ng/L (0-10) 10/27/22 10:31 Delta Troponin T 0 ABS# (0-10) 10/27/22 10:31 Total Protein 6.9 g/dL (6.6-8.7) 10/27/22 08:26 Albumin 4.5 g/dL (3.5-5.2) 10/27/22 08:26 Globulin 2.4 g/dL (1.3-4.6) 10/27/22 08:26 Discharge Plan Discharge Patient Disposition: Home Clinical Impression: Left hip pain, Left shoulder pain, Left elbow pain Condition: Stable Prescriptions: New tramadol 50 mg tablet 50 mg PO Q8H PRN (Reason: pain) Qty: 10 0RF No Action amlodipine 10 mg tablet 10 mg PO QAM hydrochlorothiazide 50 mg tablet 50 mg PO QAM epinephrine 0.3 mg/0.3 mL auto-injector 0.3 mg IM Q10M PRN (Reason: Anaphylaxis) Rx Instructions: for 2 doses meloxicam 15 mg tablet 15 mg PO DAILY albuterol sulfate [ProAir HFA] 90 mcg/actuation HFA aerosol inhaler 2 puff inhalation Q6H PRN (Reason: Shortness Of Breath) bupropion HCl [Wellbutrin XL] 150 mg tablet extended release 24 hr 150 mg PO QAM Qty: 30 11RF Rx Instructions: Take with 300mg tablet for total daily dose of 450mg. gabapentin 300 mg capsule 300 mg PO TID Trintellix 20 mg tablet 20 mg PO DAILY Qty: 30 11RF buspirone 30 mg tablet 30 mg PO BID Qty: 60 11RF pantoprazole [Protonix] 40 mg Tablet,Delayed Release (Dr/Ec) 40 mg PO DAILY lisinopril 5 mg tablet 5 mg PO QAM benzonatate 200 mg capsule 200 mg PO TID PRN (Reason: Cough) famotidine 20 mg tablet 20 mg PO BEDTIME PRN (Reason: Acid Reflux) meclizine 25 mg tablet 25 mg PO TID PRN (Reason: Nausea And Vomiting) simvastatin 20 mg tablet 20 mg PO BEDTIME metformin 500 mg tablet extended release 24 hr 500 mg PO BID bupropion HCl 300 mg tablet extended release 24 hr 300 mg PO QAM aspirin 81 mg tablet,delayed release (DR/EC) 81 mg PO QAM Discharge Orders: Discharge ED (Routine); Ordered 10/27/22 Ordered By: Morgan Frias Referrals: Serena Santana FNP [Primary Care Provider] - Patient Instructions: Opioid Safety, Pain Management Coding Level of Care Code ED Biodiesel Engineering Manager for Mallory Boucher
[2022-10-27 09:08] LABS: Basophils # 0.1 10^3/uL (0.0-0.1); Basophils % 0.8 %; Eosinophils # 0.2 10^3/uL (0.0-0.8); Eosinophils % 1.6 %; Hematocrit 48.1 % (37.0-47.0); Hemoglobin 14.9 g/dL (11.5-15.3); Lymphocytes # 3.4 10^3/uL (0.8-4.8); Lymphocytes % 33.9 %; Mean Corpuscular Hemoglobin 26.5 pg (28.0-34.0); Mean Corpuscular Volume 85.4 fl (81-99); Mean Platelet Volume 10.8 fL (7.4-10.4); Monocytes # 0.8 10^3/uL (0.2-0.9); Neutrophils # 5.46 10^3/uL (1.8-7.7); Neutrophils % 55.1 %; Nucleated Red Blood Cells % 0 %; Platelet Count 449 10^3/cmm (130-400); Red Blood Count 5.63 10^6/uL (4.1-5.3); Red Cell Distribution Width 13.9 % (12.1-15.1); White Blood Count 9.9 10^3/uL (4.0-10.0)
[2022-10-27] MEDS: aspirin 81 mg Chew Tablet 324 MG PO (09:09)
--- NOTE | 2022-10-27 09:09 | XR_ITS ---
WS: [id number] Exam: XR elbow LT min 3V* [id number] Date/Time of Exam: 10/27/2022 9:09 AM Reason For Exam: trauma No acute fracture or dislocation. No significant joint effusion seen. Soft tissues are unremarkable. Mild degenerative changes. XR/XR elbow LT min 3V* [id number] IMPRESSION: 1. Mild DJD. No acute fracture noted.
[2022-10-27 09:19] LABS: Alanine Aminotransferase 29 U/L (0-33); Albumin Level 4.5 g/dL (3.5-5.2); Alkaline Phosphatase 95 U/L (35-105); Anion Gap 19.7 (5-19); Aspartate Amino Transferase 29 U/L (0-32); Blood Urea Nitrogen 6 mg/dL (6-20); Calcium 9.7 mg/dL (8.5-10.5); Carbon Dioxide 25 mmol/L (22-29); Chloride 102 mmol/L (98-107); Globulin 2.4 g/dL (1.3-4.6); Glomerular Filtration Rate 105.4 mL/min (90-130); Glucose 162 mg/dL (65-115); Osmolality Calculated 295 mOsm/kg (285-295); Potassium 4.7 mmol/L (3.5-5.1); Sodium 142 mmol/L (136-145); Total Bilirubin 0.2 mg/dL (0.15-1.2); Total Protein 6.9 g/dL (6.6-8.7)
[2022-10-27 09:20] LABS: Troponin(5th) Baseline 6 ng/L (0-10)
[2022-10-27 10:21] VITALS: BP 136/98; PULSE 91; RESP 18; O2SAT 93
[2022-10-27] MEDS: acetaminophen 500 mg Tablet 1000 MG PO (10:42)
--- NOTE | 2022-10-27 10:58 | ECG_ITS ---
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 Measurements Intervals [place] Rate: 74 P: 62 KS: 184 QRS: -20 QRSD: 107 T: 16 QT: 391 QTc: 436 Interpretive Statements SINUS RHYTHM INCOMPLETE RIGHT BUNDLE BRANCH BLOCK [90+ ms QRS DURATION, TERMINAL R IN V1/V2, 40+ ms S IN I/aVL/V4/V5/V6] MODERATE VOLTAGE CRITERIA FOR LVH, CONSIDER NORMAL VARIANT [MEETS CRITERIA IN ONE OF: R(aVL), S(V1), R(V5), R(V5/V6)+S(V1)] POSSIBLE SEPTAL MYOCARDIAL INFARCTION , PROBABLY OLD [30 ms Q WAVE IN V1/V2] Compared to ECG 10/27/2022 09:06:46 No significant changes Electronically Signed On 10-27-2022 17:26:49 CDT by Ming Chicas M.D. [email or web address]' [email or web address] medical [email or web address]/[id number]
[2022-10-27 11:16] VITALS: BP 156/96; PULSE 87; RESP 18; O2SAT 94
[2022-10-27 11:16] LABS: Troponin 5 2HR Delta 0 ABS# (0-10)
== END 2022-10-27 11:18 | disposition home or self-care (01) ==
PROVIDERS: Emergency Provider Family Medicine; PCP Nurse Practitioner Family
DX: M25.552 Pain in left hip (principal); M25.512 Pain in left shoulder; M25.522 Pain in left elbow; Z79.84 Long term (current) use of oral hypoglycemic drugs; Z79.82 Long term (current) use of aspirin; F17.210 Nicotine dependence, cigarettes, uncomplicated; J44.9 Chronic obstructive pulmonary disease, unspecified; E22.9 Hyperfunction of pituitary gland, unspecified; E78.5 Hyperlipidemia, unspecified; I10 Essential (primary) hypertension
CPT/HCPCS: 71045; 73030; 73080; 73502; 80053; 84484; 85025; 93005; 99285

== ENCOUNTER → 2022-11-11 10:31 | Outpatient (BNVA) | payer OTHER, SELFPAY ==
[2021-12-03 15:38] VITALS: BP 130/93; BMI 42.0
== END ==
PROVIDERS: PCP Nurse Practitioner Family; Visit Provider Psychiatry & Neurology Psychiatry
DX: F60.3 Borderline personality disorder (principal)
CPT/HCPCS: 80061; 83036

== ENCOUNTER 2023-01-08 10:40 | Inpatient (IN) | payer MEDICAID, SELFPAY ==
[2022-12-05 16:05] VITALS: BP 129/87; BMI 38.7
[2023-01-08] VITALS (12 sets, daily range): BP systolic 108–147; BP diastolic 68–99; PULSE 81–101; RESP 16–19; TEMP 36.6–36.8; O2SAT 90–95; BMI 39.5
[2023-01-08 11:20] LABS: Basophils # 0.1 10^3/uL (0.0-0.1); Basophils % 0.6 %; Eosinophils % 0.2 %; Hematocrit 41.9 % (36-47); Lymphocytes # 2.5 10^3/uL (0.8-4.8); Lymphocytes % 14.1 %; Mean Corpuscular HGB Conc 33.7 g/dL (30-55); Mean Corpuscular Volume 77.2 fl (85-98); Mean Platelet Volume 10.4 fL (7.4-10.4); Monocytes # 1.7 10^3/uL (0.2-0.9); Monocytes % 9.6 %; Neutrophils # 13.01 10^3/uL (1.8-7.7); Neutrophils % 74.1 %; Nucleated Red Blood Cells % 0 %; Platelet Count 400 10^3/cmm (157-399); Red Blood Count 5.43 10^6/uL (3.85-5.65); Red Cell Distribution Width 13.6 % (12.1-15.1); White Blood Count 17.57 10^3/uL (3.29-11.43)
[2023-01-08 11:36] LABS: Alanine Aminotransferase 33 U/L (0-33); Albumin Level 3.6 g/dL (3.5-5.2); Alkaline Phosphatase 140 U/L (35-105); Anion Gap 16.7 (5-19); Aspartate Amino Transferase 17 U/L (0-32); Blood Urea Nitrogen 8 mg/dL (6-20); Calcium 8.9 mg/dL (8.5-10.5); Carbon Dioxide 29 mmol/L (22-29); Chloride 84 mmol/L (98-107); Glomerular Filtration Rate 88.2 mL/min (90-130); Glucose 164 mg/dL (65-115); Osmolality Calculated 266 mOsm/kg (285-295); Sodium 127 mmol/L (136-145); Total Bilirubin 0.3 mg/dL (0.15-1.2); Total Protein 6.6 g/dL (6.6-8.7)
[2023-01-08 11:49] LABS: Potassium 2.7 mmol/L (3.5-5.1)
[2023-01-08] MEDS: sodium chloride 0.9% 1,000 ML 999 ML IV (13:28)
[2023-01-08 13:31] LABS: Magnesium 1.6 mg/dL (1.7-2.3)
--- NOTE | 2023-01-08 13:31 | W.ED.ABDPA2 ---
HPI - Abdominal Pain General: Chief Complaint: Abdominal Pain Stated Complaint: sent by UC/abn labs Time Seen by Provider: 01/08/23 13:12 Source: patient Mode of arrival: ambulatory Limitations: no limitations History of Present Illness: 52-year-old female over the last 3 to 4 days been having right lower quadrant abdominal pain. States she is also had vomiting and diarrhea she was seen at urgent care yesterday told that she had had an elevated white count. States pain is sharp in nature rates it a 7 out of 10 its worse with movement and palpation. No known fevers. Associated Symptoms: Reports diarrhea, nausea and vomiting; Denies chills, dysuria and fever(s) Review of Systems Const: Denies: fever(s) or chills Eyes: Denies: eye discomfort ENMT: Denies: throat pain or dental pain Card: Denies: chest pain Resp: Denies: dyspnea GI: Reports: abdominal pain, nausea, vomiting and diarrhea : Denies: dysuria Musc: Denies: neck pain or back pain Skin/Breast: Denies: rash Neuro: Denies: headache(s) Psych: Denies: depression PFSH ED PFSH: Medical History Alcohol dependence, in remission Borderline personality disorder COPD (chronic obstructive pulmonary disease) Dependent personality disorder Diabetes Falls frequently Hyperlipidemia Hypertension Insect bite, venomous Knee buckling Major depressive disorder, recurrent, in full remission Obstructive sleep apnea Panic disorder [episodic paroxysmal anxiety] Post-traumatic stress disorder, chronic Psychiatric care Right wrist injury Surgical History deliv NOS-unsp X4 History of bilateral tubal ligation History of endometrial ablation Family History Other Cancer Diabetes Social History Smoking and tobacco status: current every day smoker cigarettes Years cigarettes smoked: 34 Quit status (tobacco): has tried quititng Number of times tried to quit tobacco: 1 Second hand smoke exposure: No Smoking risk assessment/counseling performed?: Yes (discussed risks/benefits. client declined TTS at this time) Alcohol intake: former Former alcohol use details: quit 6 months ago Desire information about alcohol rehabilitation?: No Substance/Drug Use: former Desire information about substance/drug rehabilitation?: No Adopted: No Caregiver/support person: Yes ([facility] aid 5 days a week for 2.5 hrs and med Nurse 1 day a week) Lives independently: Yes Household members: none Housing: Apartment Marital status: Number of children: 4 Number of grandchildren: 5 Highest education level completed: GED or Equivalent service: No Current occupational status: disabled Current occupational exposures/hazards: No Pets and animals: Yes Pets & animals: dog(s) Pets & animal details: mighty Leisure activites: reading and other Leisure activities details: games on computer, making jewlery Sexually active: No Do you think of yourself as: Straight/Heterosexual Current gender identity: Female Geno/Scientologist: None Special geno needs: No Agree to transfusion: Yes Financial difficulty paying for basics: Somewhat Hard Female Reproductive History: Para: 4 Spontaneous abortions: Yes Physical Exam Const: COMMON NORMALS: no acute distress, patient oriented x3 and healthy appearing HENMT: COMMON NORMALS: normocephalic and atraumatic HEAD & SCALP: normocephalic and atraumatic Neck/C-Spine: COMMON NORMALS: full ROM and supple Chest: COMMONS NORMALS: normal inspection of the chest Resp: COMMON NORMALS: normal respiratory effort, No retractions, No use of accessory muscles and clear to auscultation bilaterally AUSCULTATION: clear to auscultation bilaterally Cardio: COMMON NORMALS: regular rate, regular rhythm and No murmurs present (Cardio) RATE: regular rate RHYTHM: regular rhythm GI: COMMON NORMALS: Soft to palpation INSPECTION: Yes normal to inspection PALPATION: Yes Soft to palpation and Yes Tenderness to palpation present (GI) Details: RLQ Extremity: COMMON NORMALS: normal to inspection and full ROM Neuro: COMMON NORMALS: patient oriented x3, moves all extremities and no focal motor deficits Psych: COMMON NORMALS: mental status grossly normal, Normal thought process present and cooperative THOUGHT PROCESS: Normal thought process present Skin: COMMON NORMALS: no rashes or lesions noted and no wounds GENERAL SKIN EXAM: no rashes or lesions noted Course Vital Signs: Vital signs: Vital Signs Temperature 97.8 F 01/08/23 10:51 Pulse Rate 91 01/08/23 14:30 Respiratory Rate 19 H 01/08/23 13:33 Blood Pressure 126/83 01/08/23 14:30 Pulse Oximetry 94 01/08/23 14:30 Oxygen Delivery Me thod Room Air 01/08/23 14:30 MDM - Abdominal Pain Medical Decision Making Patient presents for abdominal pain along with vomiting diarrhea along with leukocytosis hyponatremia and hypokalemia likely from her diarrhea will order C. difficile she has not been able to give a stool sample here did speak to the hospitalist will admit charlie Varela. Medical Records I reviewed the patient's medical records. Lab Data I reviewed the patient's lab results. 01/08/23 11:13 01/08/23 11:13 Labs/Radiology: Laboratory Results WBC 17.57 10^3/uL (3.29-11.43) H 01/08/23 11:13 RBC 5.43 10^6/uL (3.85-5.65) 01/08/23 11:13 Hgb 14.10 g/dL (11.27-16.99) 01/08/23 11:13 Hct 41.9 % (36-47) 01/08/23 11:13 MCV 77.2 fl (85-98) L 01/08/23 11:13 MCH 26.0 pg (27-33) L 01/08/23 11:13 MCHC 33.7 g/dL (30-55) 01/08/23 11:13 RDW 13.6 % (12.1-15.1) 01/08/23 11:13 Plt Count 400 10^3/cmm (157-399) H 01/08/23 11:13 MPV 10.4 fL (7.4-10.4) 01/08/23 11:13 Neut % (Auto) 74.1 % 01/08/23 11:13 Lymph % (Auto) 14.1 % 01/08/23 11:13 [place] % (Auto) 9.6 % 01/08/23 11:13 Eos % (Auto) 0.2 % 01/08/23 11:13 Baso % (Auto) 0.6 % 01/08/23 11:13 Neut # (Auto) 13.01 10^3/uL (1.8-7.7) H 01/08/23 11:13 Lymph # (Auto) 2.5 10^3/uL (0.8-4.8) 01/08/23 11:13 [place] # (Auto) 1.7 10^3/uL (0.2-0.9) H 01/08/23 11:13 Eos # (Auto) 0.0 10^3/uL (0.0-0.8) 01/08/23 11:13 Baso # (Auto) 0.1 10^3/uL (0.0-0.1) 01/08/23 11:13 Nucleated RBC % (auto) 0 % 01/08/23 11:13 Nucleated RBCs # 0.0 /100WBC 01/08/23 11:13 Sodium 127 mmol/L (136-145) L 01/08/23 11:13 Potassium 2.7 mmol/L (3.5-5.1) L* 01/08/23 11:13 Chloride 84 mmol/L (98-107) L 01/08/23 11:13 Carbon Dioxide 29 mmol/L (22-29) 01/08/23 11:13 Anion Gap 16.7 (5-19) 01/08/23 11:13 BUN 8 mg/dL (6-20) 01/08/23 11:13 Creatinine 0.7 mg/dL (0.5-0.9) 01/08/23 11:13 GFR Calculation 88.2 mL/min (90-130) L 01/08/23 11:13 Glucose 164 mg/dL (65-115) H 01/08/23 11:13 Calculated Osmolality 266 mOsm/kg (285-295) L 01/08/23 11:13 Calcium 8.9 mg/dL (8.5-10.5) 01/08/23 11:13 Magnesium 1.6 mg/dL (1.7-2.3) L 01/08/23 11:13 Total Bilirubin 0.3 mg/dL (0.15-1.2) 01/08/23 11:13 AST 17 U/L (0-32) 01/08/23 11:13 ALT 33 U/L (0-33) 01/08/23 11:13 Alkaline Phosphatase 140 U/L (35-105) H 01/08/23 11:13 Total Protein 6.6 g/dL (6.6-8.7) 01/08/23 11:13 Albumin 3.6 g/dL (3.5-5.2) 01/08/23 11:13 Globulin 3.0 g/dL (1.3-4.6) 01/08/23 11:13 Discharge Plan Discharge Patient Disposition: Admitted As Inpatient Clinical Impression: Colitis, Hypokalemia, Hyponatremia Condition: Stable Prescriptions: No Action amlodipine 10 mg tablet 10 mg PO QAM hydrochlorothiazide 50 mg tablet 50 mg PO QAM epinephrine 0.3 mg/0.3 mL auto-injector 0.3 mg IM Q10M PRN (Reason: Anaphylaxis) Rx Instructions: for 2 doses meloxicam 15 mg tablet 15 mg PO DAILY albuterol sulfate [ProAir HFA] 90 mcg/actuation HFA aerosol inhaler 2 puff inhalation Q6H PRN (Reason: Shortness Of Breath) bupropion HCl [Wellbutrin XL] 150 mg tablet extended release 24 hr 150 mg PO QAM Qty: 30 11RF Rx Instructions: Take with 300mg tablet for total daily dose of 450mg. gabapentin 300 mg capsule 300 mg PO TID Trintellix 20 mg tablet 20 mg PO DAILY Qty: 30 11RF buspirone 30 mg tablet 30 mg PO BID Qty: 60 11RF pantoprazole [Protonix] 40 mg Tablet,Delayed Release (Dr/Ec) 40 mg PO DAILY lisinopril 5 mg tablet 5 mg PO QAM benzonatate 200 mg capsule 200 mg PO TID PRN (Reason: Cough) famotidine 20 mg tablet 20 mg PO BEDTIME PRN (Reason: Acid Reflux) simvastatin 20 mg tablet 20 mg PO BEDTIME metformin 500 mg tablet extended release 24 hr 500 mg PO BID bupropion HCl 300 mg tablet extended release 24 hr 300 mg PO QAM aspirin 81 mg tablet,delayed release (DR/EC) 81 mg PO QAM Referrals: Serena Santana FNP [Primary Care Provider] - Coding Level of Care Code ED Software Test Technician for Mallory Boucher
[2023-01-08] MEDS: morphine 4 mg/mL SDV 1 mL IVP (13:33)
[2023-01-08] MEDS: ondansetron 2 mg/ML SDV 2 mL 4 MG IVP (13:33)
--- NOTE | 2023-01-08 13:59 | CT_ITS ---
WS: [id number] CT ABDOMEN PELVIS TECHNIQUE: Contrast-enhanced CT of the abdomen and pelvis with coronal and sagittal reformatted image s. CLINICAL INFORMATION: rlq pain COMPARISON: None. DLP: 1161.[address] scans at [facility] use at least one of these dose optimization techniques: automated e xposure control; mA and/or kV adjustment per patient size (includes targeted exams where dose is matc hed to clinical indication); or iterative reconstruction. FINDINGS: Appendix in the RIGHT lower quadrant is air-filled and appears normal. No evidence of acute appendici tis. However, there is diffuse thickening with edema involving the cecum and RIGHT colon extending in to the transverse colon. Associated submucosal enhancement with surrounding induration. Findings comp atible with colitis. Descending LEFT colon has a more normal-appearing appearance. Normal sigmoid col on. Diffuse fatty filtration of the liver. Mild hepatomegaly. Prior cholecystectomy. Normal spleen. Tiny esophageal hernia. Lung bases are well aerated. Tiny RIGHT adrenal adenoma measuring 10 mm. Portal vein and splenic vein are patent. Normal pancreati c parenchymal enhancement. Normal renal parenchymal enhancement. No hydronephrosis. Celiac and SMA ar e patent. Normal caliber abdominal aorta. Urine distended bladder. No free fluid in the pelvis. IMPRESSION: 1. Normal air-filled appendix in the RIGHT lower quadrant. No evidence of acute appendicitis. 2. Diffuse thickening with bowel wall edema and enhancement involving the cecum and RIGHT colon exte nding into the transverse colon suspicious for infectious or inflammatory colitis. LEFT descending co rafael has a more normal appearance. Normal sigmoid colon. 3. Mild hepatomegaly with diffuse fatty infiltration. 4. Prior cholecystectomy. 5. 10 mm RIGHT adrenal adenoma. 6. Incidental RIGHT hepatic cyst measuring 2.9 cm. Notified Sonali Berumen MD at 01/08/2023 2:51 PM.
[2023-01-08] MEDS: iohexol 350 mg/mL 500 mL Btl (per mL) IV (14:20)
[2023-01-08] MEDS: potassium chloride ER 20 mEq Tablet 40 MEQ PO (15:00)
[2023-01-08 15:21] LABS: Add Urine Microscopic? NO; Charge for UA Resulting for Rev
[2023-01-08 15:24] LABS: Bilirubin Urine Neg (Negative); Blood Urine Neg (Negative); Glucose Urine UA Norm (Normal); Ketones Urine Negative (Negative); Leukocyte Esterase Urine Negative (Negative); Nitrate Urine Negative (Negative); Protein Urine Neg (Negative); Urine Appearance Clear (CLEAR); Urine Color Light yellow (Yellow); Urobilinogen Urine Norm (Negative); pH Urine 6 (5-7)
--- NOTE | 2023-01-08 16:05 | PC.NURSE ---
REPORT CALLED TO [facility]. NURSE TAKING PATIENT NOTIFIED OF PHARMACY DELAY FOR MAGNESIUM AND DELAY OF HANGING ANTIBIOTICS DUE TO BLOOD CULTURES NOT BEING COLLECTED YET. RECEIVING NURSE OKAY WITH PATIENT BEING SENT UP WITH MAGNESIUM TO BE HUNG ON THE FLOOR.
--- NOTE | 2023-01-08 17:10 | P.HP_ITS ---
Providers/Chief Complaint Admitting Physician: Beatriz Sow MD Primary Care Provider: JONNY Taylor Chief Complaint: sent by UC/abn labs History of Present Illness Prudence Acuna is a 52 year old female with past medical history of hypertension, diabetes mellitus, sleep apnea, developed right lower quadrant abdominal pain 4 days ago. Patient states that her symptoms came on all of a sudden, she woke up and had to go to the bathroom due to significant abdominal pain. She has had multiple episodes of diarrhea and vomiting thereafter. Pain is located mostly in the right lower quadrant, 8-10 on intensity, nonradiating. She has been unable to keep any food down. Does not recall eating anything out of the ordinary prior to onset of symptoms. Drinks bottled water usually. She went to [facility] with the above symptoms yesterday, she was noted to have leukocytosis on lab work, she was given Zofran for symptomatic management and today asked to come to the ER when her symptoms did not improve. She has not been able to tolerate the oral Zofran at home because of nausea and vomiting. CT scan taken in the emergency room today shows evidence of colitis. Negative for appendicitis. Patient had a colonoscopy approximately 1 year ago at which time she was found to have 5 polyps which were removed. She does not have any past medical history of inflammatory bowel disease. No history of atrial fibrillation. No history of CAD. Review of Systems General: Reports: 10 or more systems reviewed and unremarkable except in HPI and below Const: Denies: fever(s), chills or body aches Eyes: Denies: change in vision, blurry vision or photophobia ENMT: Reports: hoarseness; Denies: throat pain, enlarged tonsils, odynophagia or nasal congestion Card: Denies: chest pain, palpitations, irregular heart rhythm, edema, swelling of feet/ankles, lightheadedness, pre-syncope, dyspnea on exertion or orthopnea Resp: Denies: dyspnea, productive cough, non-productive cough, wheezing, stridor, pain on inspiration, change in phlegm color, hemoptysis or chest congestion GI: Denies: abdominal pain, nausea, vomiting, hematemesis, coffee ground emesis, dysphagia, heartburn, diarrhea, constipation, GI cramping, change in stool character, hematochezia or melena : Denies: flank pain, difficulty voiding, dysuria, urinary frequency, urinary urgency, urinary hesitancy or hematuria Musc: Denies: neck pain, back pain, extremity pain, joint swelling, joint w armth or deformity Neuro: Denies: headache(s), numbness in extremities, weakness in extremities, sensory changes, difficulty walking, frequent falls, dizziness, vertigo, behavioral changes, Slurred speech present or seizure-like activity Psych: Denies: anxiety, depression, suicidal ideation or homicidal ideation Endo: Denies: polyuria, polydipsia, tired all the time, cold intolerance or hot flashes Lew/Lymph: Denies: easy bruising or easy bleeding Medications/Allergies Home Medications Medication Instructions Recorded Confirmed Last Taken Type amlodipine 10 mg tablet 10 mg PO QAM 07/07/19 01/08/23 01/08/23 History hydrochlorothiazide 50 mg tablet 50 mg PO QAM 07/07/19 01/08/23 01/08/23 History epinephrine 0.3 mg/0.3 mL 0.3 mg IM Q10M PRN Anaphylaxis 10/05/19 01/08/23 Unknown History injection, auto-injector pantoprazole 40 mg tablet,delayed 40 mg PO DAILY 02/15/20 01/08/23 01/08/23 Hist ory release (Protonix) lisinopril 5 mg tablet 5 mg PO QAM 10/24/21 01/08/23 01/08/23 History albuterol sulfate 90 mcg/actuation 2 puff inhalation Q6H PRN 11/25/21 01/08/23 Unknown History aerosol inhaler (ProAir HFA) Shortness Of Breath meloxicam 15 mg tablet 15 mg PO DAILY 11/25/21 01/08/23 01/08/23 History bupropion HCl 150 mg 24 hr tablet, 150 mg PO QAM #30 tabs 04/08/22 01/08/23 01/08/23 Rx extended release (Wellbutrin XL) gabapentin 300 mg capsule 300 mg PO TID 05/06/22 01/08/23 01/08/23 History buspirone 30 mg tablet 30 mg PO BID #60 tabs 06/10/22 01/08/23 01/08/23 Rx vortioxetine 20 mg tablet 20 mg PO DAILY #30 tabs 06/10/22 01/08/23 01/08/23 Rx (Trintellix) aspirin 81 mg tablet,delayed 81 mg PO QAM 10/27/22 01/08/23 01/08/23 History release benzonatate 200 mg capsule 200 mg PO TID PRN Cough 10/27/22 01/08/23 Unknown History bupropion HCl 300 mg 24 hr tablet, 300 mg PO QAM 10/27/22 01/08/23 01/08/23 History extended release famotidine 20 mg tablet 20 mg PO BEDTIME PRN Acid Reflux 10/27/22 01/08/23 Unknown History metformin 500 mg tablet,extended 500 mg PO BID 10/27/22 01/08/23 01/08/23 History release 24 hr simvastatin 20 mg tablet 20 mg PO BEDTIME 10/27/22 01/08/23 01/08/23 History Allergies Allergy/AdvReac Type Severity Reaction Status Date / Time venom-wasp Allergy Unknown ALGY-Anaphy Verified 11/11/22 10:31 laxis Latex, Natural Rubber Allergy ALGY-Bliste Verified 11/11/22 10:31 r bees Allergy Unknown ALGY-Anaphy Uncoded 10/22/22 09:37 laxis mushrooms Allergy Unknown ALGY-Anaphy Uncoded 10/22/22 09:37 laxis PFSH Acute PFSH: Medical History (Updated 01/08/23 @ 17:15 by Beatriz Sow MD) Alcohol dependence, in remission Borderline personality disorder COPD (chronic obstructive pulmonary disease) Dependent personality disorder Diabetes Falls frequently Hyperlipidemia Hypertension Insect bite, venomous Knee buckling Major depressive disorder, recurrent, in full remission Obstructive sleep apnea Panic disorder [episodic paroxysmal anxiety] Post-traumatic stress disorder, chronic Psychiatric care Right wrist injury Surgical History deliv NOS-unsp X4 History of bilateral tubal ligation History of endometrial ablation Family History Other Cancer Diabetes Social History Smoking and tobacco status: current every day smoker cigarettes Years cigarettes smoked: 34 Quit status (tobacco): has tried quititng Number of times tried to quit tobac co: 1 Second hand smoke exposure: No Smoking risk assessment/counseling performed?: Yes (discussed risks/benefits. client declined TTS at this time) Alcohol intake: former Former alcohol use details: quit 6 months ago Desire information about alcohol rehabilitation?: No Substance/Drug Use: former Desire information about substance/drug rehabilitation?: No Adopted: No Caregiver/support person: Yes ([facility] 5 days a week for 2.5 hrs and med Nurse 1 day a week) Lives independently: Yes Household members: none Housing: Apartment Marital status: Number of children: 4 Number of grandchildren: 5 Highest education level completed: GED or Equivalent service: No Current occupational status: disabled Current occupational exposures/hazards: No Pets and animals: Yes Pets & animals: dog(s) Pets & animal details: mighty Leisure activites: reading and other Leisure activities details: games on computer, making jewlery Sexually active: No Do you think of yourself as: Straight/Heterosexual Current gender identity: Female Geno/Restorationism: None Special geno needs: No Agree to transfusion: Yes Financial difficulty paying for basics: Somewhat Hard Female Reproductive History: Para: 4 Spontaneous abortions: Yes Vitals/I&O/Wt Last Vital Signs Temp 97.8 F 01/08/23 10:51 Pulse 98 01/08/23 16:00 Resp 19 H 01/08/23 13:33 BP 109/76 01/08/23 16:00 Pulse Ox 90 01/08/23 16:00 O2 Del Method Room Air 01/08/23 16:31 01/08/23 01/08/23 01/08/23 06:59 14:59 22:59 Intake Total 1000 / 1000 Balance 1000 / 1000 Weight last 48 hrs Weight 111.13 kg Physical Exam Narrative: General: No acute distress, AO x3 HEENT: PERRLA, pupils bilaterally equal and reactive, pallors not present Chest: Normal vesicular breath sounds, no added sounds, equal good air entry bilaterally CVS: S1-S2 regular, no murmurs, no tachycardia, no gallops, no rubs Abdomen: Soft, nontender, no organomegaly, bowel sounds present Neuro: No focal deficits, no facial deformity, AO x3, power 5/5 in all limbs Extremities: Healthy surgical dressing present on the right hip, mild tenderness, soft no erythema. Data 01/08/23 11:13 01/08/23 11:13 Micro: Microbiology 01/08/23 15:45 Blood Culture - Preliminary Blood SPECIMEN COLLECTED 01/08/23 15:45 Blood Culture - Preliminary Blood SPECIMEN COLLECTED Other data: Laboratory Results WBC 17.57 10^3/uL (3.29-11.43) H 01/08/23 11:13 RBC 5.43 10^6/uL (3.85-5.65) 01/08/23 11:13 Hgb 14.10 g/dL (11.27-16.99) 01/08/23 11:13 Hct 41.9 % (36-47) 01/08/23 11:13 MCV 77.2 fl (85-98) L 01/08/23 11:13 MCH 26.0 pg (27-33) L 01/08/23 11:13 MCHC 33.7 g/dL (30-55) 01/08/23 11:13 RDW 13.6 % (12.1-15.1) 01/08/23 11:13 Plt Count 400 10^3/cmm (157-399) H 01/08/23 11:13 MPV 10.4 fL (7.4-10.4) 01/08/23 11:13 Neut % (Auto) 74.1 % 01/08/23 11:13 Lymph % (Auto) 14.1 % 01/08/23 11:13 [place] % (Auto) 9.6 % 01/08/23 11:13 Eos % (Auto) 0.2 % 01/08/23 11:13 Baso % (Auto) 0.6 % 01/08/23 11:13 Neut # (Auto) 13.01 10^3/uL (1.8-7.7) H 01/08/23 11:13 Lymph # (Auto) 2.5 10^3/uL (0.8-4.8) 01/08/23 11:13 [place] # (Auto) 1.7 10^3/uL (0.2-0.9) H 01/08/23 11:13 Eos # (Auto) 0.0 10^3/uL (0.0-0.8) 01/08/23 11:13 Baso # (Auto) 0.1 10^3/uL (0.0-0.1) 01/08/23 11:13 Nucleated RBC % (auto) 0 % 01/08/23 11:13 Nucleated RBCs # 0.0 /100WBC 01/08/23 11:13 Sodium 127 mmol/L (136-145) L 01/08/23 11:13 Potassium 2.7 mmol/L (3.5-5.1) L* 01/08/23 11:13 Chloride 84 mmol/L (98-107) L 01/08/23 11:13 Carbon Dioxide 29 mmol/L (22-29) 01/08/23 11:13 Anion Gap 16.7 (5-19) 01/08/23 11:13 BUN 8 mg/dL (6-20) 01/08/23 11:13 Creatinine 0.7 mg/dL (0.5-0.9) 01/08/23 11:13 GFR Calculation 88.2 mL/min (90-130) L 01/08/23 11:13 Glucose 164 mg/dL (65-115) H 01/08/23 11:13 Calculated Osmolality 266 mOsm/kg (285-295) L 01/08/23 11:13 Calcium 8.9 mg/dL (8.5-10.5) 01/08/23 11:13 Magnesium 1.6 mg/dL (1.7-2.3) L 01/08/23 11:13 Total Bilirubin 0.3 mg/dL (0.15-1.2) 01/08/23 11:13 AST 17 U/L (0-32) 01/08/23 11:13 ALT 33 U/L (0-33) 01/08/23 11:13 Alkaline Phosphatase 140 U/L (35-105) H 01/08/23 11:13 Total Protein 6.6 g/dL (6.6-8.7) 01/08/23 11:13 Albumin 3.6 g/dL (3.5-5.2) 01/08/23 11:13 Globulin 3.0 g/dL (1.3-4.6) 01/08/23 11:13 Urine Color Light yellow (Yellow) 01/08/23 15:10 Urine Appearance Clear (CLEAR) 01/08/23 15:10 Urine pH 6 (5-7) 01/08/23 15:10 Ur Specific [place] 1.010 (1.005-1.030) 01/08/23 15:10 Urine Protein Neg (Negative) 01/08/23 15:10 Urine Glucose (UA) Norm (Normal) 01/08/23 15:10 Urine Ketones Negative (Negative) 01/08/23 15:10 Urine Blood Neg (Negative) 01/08/23 15:10 Urine Nitrate Negative (Negative) 01/08/23 15:10 Urine Bilirubin Neg (Negative) 01/08/23 15:10 Urine Urobilinogen Norm mg/dL (Negative) 01/08/23 15:10 Ur Leukocyte Esterase Negative (Negative) 01/08/23 15:10 [facility] [address] [address] CT Scan Report Signed Patient: Prudence Acuna Unit #: [id number] : 1970 Age/Sex: 52 / F ADM Date: 01/08/23 Loc: ER Room/Bed: Attending Dr: Ordering Provider/Ordering MD: Sonali Berumen MD Date of Service: 01/08/23 Procedure(s): CT abdomen pelvis w con* [id number] Accession Number(s): [id number] Report Number: [id number] WS: [id number] CT ABDOMEN PELVIS TECHNIQUE: Contrast-enhanced CT of the abdomen and pelvis with coronal and sagittal reformatted images. CLINICAL INFORMATION: rlq pain COMPARISON: None. DLP: 1161.[address] scans at [facility] use at least one of these dose optimization techniques: automated exposure control; mA and/or kV adjustment per patient size (includes targeted exams where dose is matched to clinical indication); or iterative reconstruction. FINDINGS: Appendix in the RIGHT lower quadrant is air-filled and appears normal. No evidence of acute appendicitis. However, there is diffuse thickening with edema involving the cecum and RIGHT colon extending into the transverse colon. Associated submucosal enhancement with surrounding induration. Findings compatible with colitis. Descending LEFT colon has a more normal-appearing appearance. Normal sigmoid colon. Diffuse fatty filtration of the liver. Mild hepatomegaly. Prior cholecystectomy. Normal spleen. Tiny esophageal hernia. Lung bases are well aerated. Tiny RIGHT adrenal adenoma measuring 10 mm. Portal vein and splenic vein are patent. Normal pancreatic parenchymal enhancement. Normal renal parenchymal enhancement. No hydronephrosis. Celiac and SMA are patent. Normal caliber abdominal aorta. Urine distended bladder. No free fluid in the pelvis. IMPRESSION: 1.? Normal air-filled appendix in the RIGHT lower quadrant. No evidence of acute appendicitis. 2.? Diffuse thickening with bowel wall edema and enhancement involving the cecum and RIGHT colon extending into the transverse colon suspicious for infectious or inflammatory colitis. LEFT descending colon has a more normal appearance. Normal sigmoid colon. 3.? Mild hepatomegaly with diffuse fatty infiltration. 4.? Prior cholecystectomy. 5.? 10 mm RIGHT adrenal adenoma. 6.? Incidental RIGHT hepatic cyst measuring 2.9 cm. Notified Sonali Berumen MD at 01/08/2023 2:51 PM. A&P Assessment and plan (1) Colitis: Admit to MedSurg IV fluid with normal saline at 100 cc an hour Clear liquid diet for now as tolerated Pain control with as needed morphine As needed Tylenol for pain and fever. As needed Zofran for nausea management. CT of the abdomen and pelvis shows signs of colitis involving the right colon extending into the transverse colon. started on empiric antibiotic regimen with ciprofloxacin and metronidazole intravenously which we will continue. blood cx pending (2) Hypokalemia: Likely related to GI losses, replete with IV supplementation (3) Hyponatremia: likely from GI loss , IVF NS (4) Obstructive sleep apnea: Bipap at [facility] time (5) Diabetes: insulin sliding scale Plan dvt ppx: lovenox Attestations Medical Necessity Statement*: Greater than 2 midnight admission is anticipated for acute colitis, need for IV antibiotics, IV hydration, inability to tolerate any p.o. intake currently, trial of clears Coding Level of Care Code Acute Code for g Fwd Diagnoses Colitis K52.9 Hypokalemia E87.6 Hyponatremia E87.1 Obstructive sleep apnea G47.33 Diabetes E11.9
[2023-01-08] MEDS: ciprofloxacin 400 MG/200 ML PREMIX 200 MG IV (18:05)
[2023-01-08] MEDS: enoxaparin 40 mg/0.4 mL Syringe SUBCUT (18:05)
[2023-01-08] MEDS: BuSPIRONE 10 mg Tablet 30 MG PO (18:05)
[2023-01-08] MEDS: metroNIDAZOLE IV 500 MG/100 ML PREMIX 100 MG IV (18:06)
[2023-01-08] MEDS: morphine 4 mg/mL SDV 1 mL 2 MG IVP (18:19)
[2023-01-08] MEDS: sodium chlor 0.9% + KCl 40 mEq 40 MEQ/1,000 ML BAG 75 MEQ IV (18:50)
[2023-01-08 18:54] LABS: Glucose Point of Care 164 mg/dL (70-110)
[2023-01-08] MEDS: insulin lispro 100 unit/1 mL SUBCUT (18:59)
[2023-01-08] MEDS: gabapentin 300 mg Capsule PO (20:50)
[2023-01-08] MEDS: atorvastatin 40 mg Tablet 20 MG PO (20:50)
[2023-01-08] MEDS: HYDROcodone-acetaminophen 5-325 mg Tablet 1 TAB PO (20:53)
[2023-01-08 22:16] LABS: Glucose Point of Care 109 mg/dL (70-110)
[2023-01-09] VITALS (11 sets, daily range): BP systolic 95–134; BP diastolic 61–90; PULSE 72–87; RESP 15–18; TEMP 36.6–36.8; O2SAT 91–96
[2023-01-09] MEDS: metroNIDAZOLE IV 500 MG/100 ML PREMIX 100 MG IV ×3 (02:07→17:49)
[2023-01-09 05:20] LABS: Basophils # 0.1 10^3/uL (0.0-0.1); Basophils % 0.8 %; Eosinophils % 0.2 %; Hematocrit 39.1 % (36-47); Lymphocytes # 2.2 10^3/uL (0.8-4.8); Lymphocytes % 15.6 %; Mean Corpuscular HGB Conc 33.2 g/dL (30-55); Mean Corpuscular Hemoglobin 26.1 pg (27-33); Mean Corpuscular Volume 78.4 fl (85-98); Mean Platelet Volume 10.7 fL (7.4-10.4); Monocytes # 1.6 10^3/uL (0.2-0.9); Monocytes % 11.4 %; Neutrophils % 68.9 %; Nucleated Red Blood Cells % 0 %; Platelet Count 394 10^3/cmm (157-399); Red Blood Count 4.99 10^6/uL (3.85-5.65); Red Cell Distribution Width 13.7 % (12.1-15.1); White Blood Count 14.36 10^3/uL (3.29-11.43)
[2023-01-09] MEDS: morphine 4 mg/mL SDV 1 mL 2 MG IVP ×3 (05:38→17:04)
[2023-01-09] MEDS: buPROPion XL (24 HR) 150 mg Tablet PO (05:39)
[2023-01-09] MEDS: buPROPion XL (24 HR) 300 mg Tablet PO (05:39)
[2023-01-09] MEDS: aspirin 81 mg EC Tablet PO (05:39)
[2023-01-09] MEDS: amlodipine 10 mg Tablet PO (05:39)
[2023-01-09 05:50] LABS: Alanine Aminotransferase 26 U/L (0-33); Albumin Level 3.2 g/dL (3.5-5.2); Alkaline Phosphatase 143 U/L (35-105); Anion Gap 13.8 (5-19); Aspartate Amino Transferase 19 U/L (0-32); Blood Urea Nitrogen 4 mg/dL (6-20); Calcium 8.6 mg/dL (8.5-10.5); Carbon Dioxide 30 mmol/L (22-29); Chloride 90 mmol/L (98-107); Glomerular Filtration Rate 130.1 mL/min (90-130); Glucose 112 mg/dL (65-115); Magnesium 1.7 mg/dL (1.7-2.3); Osmolality Calculated 270 mOsm/kg (285-295); Sodium 131 mmol/L (136-145); Total Bilirubin 0.3 mg/dL (0.15-1.2); Total Protein 6.2 g/dL (6.6-8.7)
[2023-01-09 05:57] LABS: Potassium 2.8 mmol/L (3.5-5.1)
[2023-01-09] MEDS: ciprofloxacin 400 MG/200 ML PREMIX 200 MG IV ×2 (06:07→17:50)
[2023-01-09 06:35] LABS: Glucose Point of Care 158 mg/dL (70-110)
[2023-01-09] MEDS: gabapentin 300 mg Capsule PO ×3 (08:39→20:13)
[2023-01-09] MEDS: BuSPIRONE 10 mg Tablet 30 MG PO ×2 (08:41→17:50)
[2023-01-09] MEDS: insulin lispro 100 unit/1 mL SUBCUT (08:41)
[2023-01-09] MEDS: sodium chlor 0.9% + KCl 40 mEq 40 MEQ/1,000 ML BAG 75 MEQ IV ×2 (08:42→21:32)
[2023-01-09] MEDS: potassium chloride premix 100 ML 25 MEQ IV ×3 (08:42→20:13)
[2023-01-09] MEDS: lidocaine 1% INJ 10 mL (per mL) INJECTION (08:57)
[2023-01-09] MEDS: ondansetron 2 mg/ML SDV 2 mL 4 MG IVP (10:43)
[2023-01-09] MEDS: pantoprazole DR 40 mg Tablet PO (10:44)
[2023-01-09 11:37] LABS: Glucose Point of Care 105 mg/dL (70-110)
--- NOTE | 2023-01-09 13:43 | PM.PN ---
Subjective Subjective: States abdominal pain is slightly better today but continues to have nausea. Vomiting has resolved in spite of this she wishes to try to advance her diet for a trial. Continues to have 6-7 episodes of diarrhea. Leukocytosis at 14,000, Medications: Reviewed: Yes Vitals/I&O/Wt Last Vital Signs Temp 98.0 F 01/09/23 11:40 Pulse 86 01/09/23 11:40 Resp 17 01/09/23 11:40 BP 117/81 01/09/23 11:40 Pulse Ox 93 01/09/23 11:40 O2 Del Method Room Air 01/09/23 08:00 01/08/23 01/09/23 01/09/23 22:59 06:59 14:59 Intake Total 1592 / 1592 340 / 2 2019 Balance 1592 / 1592 / 1931 Weight last 48 hrs Weight 111.13 kg Physical Exam Narrative: General: No acute distress, AO x3 HEENT: PERRLA, pupils bilaterally equal and reactive, pallors not present Chest: Normal vesicular breath sounds, no added sounds, equal good air entry bilaterally CVS: S1-S2 regular, no murmurs, no tachycardia, no gallops, no rubs Abdomen: Soft, nontender, no organomegaly, bowel sounds present Neuro: No focal deficits, no facial deformity, AO x3, power 5/5 in all limbs Data 01/09/23 04:13 01/09/23 04:13 Micro: Microbiology 01/08/23 15:45 Blood Culture - Preliminary Blood SPECIMEN COLLECTED 01/08/23 15:45 Blood Culture - Preliminary Blood SPECIMEN COLLECTED A&P Assessment and plan (1) Colitis: Continue IV fluid with normal saline at 100 cc an hour Clear liquid diet to be advanced today Pain control with as needed morphine As needed Tylenol for pain and fever. As needed Zofran for nausea management. CT of the abdomen and pelvis shows signs of colitis involving the right colon extending into the transverse colon. started on empiric antibiotic regimen with ciprofloxacin and metronidazole blood cx pending C diff pending patient asking for loperamide - will need to await c diff negative testing- counselled regarding same (2) Hypokalemia: Likely related to GI losses, supplement with iv KCL again (3) Hyponatremia: likely from GI loss , IVF NS ,improving (4) Obstructive sleep apnea: Bipap at [facility] time (5) Diabetes: insulin sliding scale Plan dvt ppx: lovenox Attestations Medical Necessity Statement*: IVF, Iv abx , persisting leukocytsosi, trial of diet, c diff pending Coding Level of Care Code Acute Code for Chg Fwd Diagnoses Colitis K52.9 Hypokalemia E87.6 Hyponatremia E87.1 Obstructive sleep apnea G47.33 Diabetes E11.9
[2023-01-09] MEDS: lidocaine 1% INJ 10 mL (per mL) 20 ML INJECTION (16:00)
[2023-01-09 17:46] LABS: Glucose Point of Care 108 mg/dL (70-110)
[2023-01-09] MEDS: enoxaparin 40 mg/0.4 mL Syringe SUBCUT (17:50)
[2023-01-09] MEDS: atorvastatin 40 mg Tablet 20 MG PO (20:12)
[2023-01-09] MEDS: HYDROcodone-acetaminophen 5-325 mg Tablet 1 TAB PO (20:19)
[2023-01-09 20:47] LABS: Glucose Point of Care 116 mg/dL (70-110)
[2023-01-10] VITALS (7 sets, daily range): BP systolic 91–122; BP diastolic 59–73; PULSE 68–76; RESP 15–20; TEMP 36.6–36.9; O2SAT 93–98
[2023-01-10] MEDS: metroNIDAZOLE IV 500 MG/100 ML PREMIX 100 MG IV ×2 (01:02→09:26)
[2023-01-10 05:11] LABS: Mean Corpuscular HGB Conc 31.3 g/dL (30-55); Mean Corpuscular Hemoglobin 25.8 pg (27-33); Mean Corpuscular Volume 82.4 fl (85-98); Mean Platelet Volume 10.3 fL (7.4-10.4); Platelet Count 412 10^3/cmm (157-399); Red Blood Count 4.61 10^6/uL (3.85-5.65); Red Cell Distribution Width 13.9 % (12.1-15.1); White Blood Count 10.51 10^3/uL (3.29-11.43)
[2023-01-10] MEDS: buPROPion XL (24 HR) 300 mg Tablet PO (05:17)
[2023-01-10] MEDS: aspirin 81 mg EC Tablet PO (05:17)
[2023-01-10] MEDS: amlodipine 10 mg Tablet PO (05:17)
[2023-01-10] MEDS: buPROPion XL (24 HR) 150 mg Tablet PO (05:17)
[2023-01-10] MEDS: ciprofloxacin 400 MG/200 ML PREMIX 200 MG IV (05:18)
[2023-01-10 05:24] LABS: Alanine Aminotransferase 22 U/L (0-33); Alkaline Phosphatase 117 U/L (35-105); Anion Gap 12.6 (5-19); Aspartate Amino Transferase 22 U/L (0-32); Blood Urea Nitrogen 3 mg/dL (6-20); Calcium 8.3 mg/dL (8.5-10.5); Carbon Dioxide 29 mmol/L (22-29); Chloride 99 mmol/L (98-107); Glomerular Filtration Rate 130.1 mL/min (90-130); Glucose 103 mg/dL (65-115); Osmolality Calculated 279 mOsm/kg (285-295); Potassium 4.6 mmol/L (3.5-5.1); Sodium 136 mmol/L (136-145); Total Bilirubin 0.2 mg/dL (0.15-1.2)
[2023-01-10] MEDS: HYDROcodone-acetaminophen 5-325 mg Tablet 1 TAB PO ×3 (05:24→13:35)
[2023-01-10 05:44] LABS: Slide Review Slide Review Perform
[2023-01-10 05:45] LABS: Absolute Neutrophil 5.5 10^3/cmm (1.4-6.5); Absolute Segmented Neutrophil 5.4 10/cmm (1.6-7.1); Band Neutrophils Absolute 0.1 10^3/cmm (0.0-1.2); Eosinophils 0 %; Lymphocytes 33 %; Lymphocytes Absolute 3.5 10^3/cmm (1.2-3.4); Monocytes Absolute 1.1 10^3/cmm (0.1-0.6); Platelet Estimate Increased (Normal); Segmented Neutrophils 51 %; Total Cells Counted 100 (0-100)
[2023-01-10 07:11] LABS: Glucose Point of Care 173 mg/dL (70-110)
[2023-01-10] MEDS: gabapentin 300 mg Capsule PO (09:25)
[2023-01-10] MEDS: insulin lispro 100 unit/1 mL SUBCUT ×2 (09:26→12:02)
[2023-01-10] MEDS: pantoprazole DR 40 mg Tablet PO (09:26)
[2023-01-10] MEDS: BuSPIRONE 10 mg Tablet 30 MG PO (09:26)
[2023-01-10] MEDS: sodium chlor 0.9% + KCl 40 mEq 40 MEQ/1,000 ML BAG 75 MEQ IV (10:59)
[2023-01-10 11:33] LABS: Glucose Point of Care 164 mg/dL (70-110)
--- NOTE | 2023-01-10 17:51 | PM.DCS ---
Discharge Providers Date of Admission: 01/08/23 15:20 Date of Discharge: January 10, 2023 Attending Provider at Admission: Beatriz Sow MD Attending Provider at Discharge: Beatriz Sow MD Primary Care Provider: JONNY Taylor Diagnoses at Discharge Discharge Diagnosis (1) Colitis: Status: Acute (2) Hypokalemia: Status: Acute (3) Hyponatremia: Status: Acute (4) Obstructive sleep apnea: Status: Acute (5) Diabetes: Status: Acute Reason for Visit Reason for Visit: sent by UC/abn labs Hospital Course Hospital Course Prudence Acuna is a 52 year old female with past medical history of hypertension, diabetes mellitus, sleep apnea, developed right lower quadrant abdominal pain 4 days ago.She has had multiple episodes of diarrhea and vomiting thereafter.? Pain is located mostly in the right lower quadrant, 8-10 on intensity, nonradiating.? She has been unable to keep any food down.? Does not recall eating anything out of the ordinary prior to onset of symptoms.?She was diagnosed with diffuse thickening with bowel wall edema and enhancement involving the cecum and RIGHT colon extending into the transverse colon suspicious for infectious or inflammatory colitis. She was admitted and started on iv antibiotics and iv fluids. She as treated with iv ciprofloxacin and IV metronidazole and she improved significantly over the course of the next 3 days. Slowly advanced from clear liquid to mechanical soft which she is tolerating well. Antibiotics have been transitioned to oral ciprofloxacin and metronidazole for the next 10 days at the time of discharge. She is currently able to tolerate p.o. intake. Recommended to follow-up with surgery in about 6 weeks to discuss colonoscopy and follow-up. C. difficile testing remains pending at the time of discharge, we will follow and if positive will likely add p.o. vancomycin. Physical Exam Narrative: General: No acute distress, AO x3 HEENT: PERRLA, pupils bilaterally equal and reactive, pallors not present Chest: Normal vesicular breath sounds, no added sounds, equal good air entry bilaterally CVS: S1-S2 regular, no murmurs, no tachycardia, no gallops, no rubs Abdomen: Soft, nontender, no organomegaly, bowel sounds present Neuro: No focal deficits, no facial deformity, AO x3, power 5/5 in all limbs Discharge Data Studies Completed and Pending Completed Studies During Hospitalization Category Date Time Status CT abdomen pelvis w con* [id number] Stat Cat Scan 01/08/23 13:59 Completed Pending at discharge Category Date Time Status Blood Culture Stat Lab 01/08/23 15:45 Results Miscellaneous Test Routine Lab 01/09/23 22:28 Received Salmonella / Shigella / Campy Routine Lab 01/08/23 22:28 Received Laboratory Results WBC 10.51 10^3/uL (3.29-11.43) 01/10/23 04:36 RBC 4.61 10^6/uL (3.85-5.65) 01/10/23 04:36 Hgb 11.90 g/dL (11.27-16.99) 01/10/23 04:36 Hct 38.0 % (36-47) 01/10/23 04:36 MCV 82.4 fl (85-98) L 01/10/23 04:36 MCH 25.8 pg (27-33) L 01/10/23 04:36 MCHC 31.3 g/dL (30-55) D 01/10/23 04:36 RDW 13.9 % (12.1-15.1) 01/10/23 04:36 Plt Count 412 10^3/cmm (157-399) H 01/10/23 04:36 MPV 10.3 fL (7.4-10.4) 01/10/23 04:36 Neut % (Auto) 68.9 % 01/09/23 04:13 Lymph % (Auto) Not Reportable 01/10/23 04:36 [place] % (Auto) Not Reportable 01/10/23 04:36 Eos % (Auto) 0.2 % 01/09/23 04:13 Baso % (Auto) 0.8 % 01/09/23 04:13 Neut # (Auto) 9.90 10^3/uL (1.8-7.7) H 01/09/23 04:13 Lymph # (Auto) Not Reportable 01/10/23 04:36 [place] # (Auto) Not Reportable 01/10/23 04:36 Eos # (Auto) 0.0 10^3/uL (0.0-0.8) 01/09/23 04:13 Baso # (Auto) 0.1 10^3/uL (0.0-0.1) 01/09/23 04:13 Nucleated RBC % (auto) 0 % 01/09/23 04:13 Total Counted 100 (0-100) 01/10/23 04:36 Atypical Lymphs % 0.0 % (0-5) 01/10/23 04:36 Absolute Neutrophils 5.5 10^3/cmm (1.4-6.5) 01/10/23 04:36 Segmented Neutrophils 51 % 01/10/23 04:36 Abs Segm Neuts (Man) 5.4 10/cmm (1.6-7.1) 01/10/23 04:36 Band Neutrophils 1.0 % 01/10/23 04:36 Abs Band Neuts (Man) 0.1 10^3/cmm (0.0-1.2) 01/10/23 04:36 Absolute Lymphocytes 3.5 10^3/cmm (1.2-3.4) H 01/10/23 04:36 Lymphocytes (Manual) 33 % 01/10/23 04:36 Monocytes (Manual) 10.0 % 01/10/23 04:36 Absolute Monocytes 1.1 10^3/cmm (0.1-0.6) H 01/10/23 04:36 Eosinophils (Manual) 0 % 01/10/23 04:36 Absolute Eosinophils 0.0 10^3/cmm (0.0-0.7) 01/10/23 04:36 Basophils (Manual) 0.0 % 01/10/23 04:36 Absolute Basophils 0.0 10^3/cmm (0.0-0.2) 01/10/23 04:36 Metamyelocytes 3.0 % 01/10/23 04:36 Myelocytes 2.0 % 01/10/23 04:36 Nucleated RBCs # 0.0 /100WBC 01/09/23 04:13 Platelet Estimate Increased (Normal) H 01/10/23 04:36 Sodium 136 mmol/L (136-145) 01/10/23 04:36 Potassium 4.6 mmol/L (3.5-5.1) 01/10/23 04:36 Chloride 99 mmol/L (98-107) 01/10/23 04:36 Carbon Dioxide 29 mmol/L (22-29) 01/10/23 04:36 Anion Gap 12.6 (5-19) 01/10/23 04:36 BUN 3 mg/dL (6-20) L 01/10/23 04:36 Creatinine 0.5 mg/dL (0.5-0.9) 01/10/23 04:36 GFR Calculation 130.1 mL/min (90-130) H 01/10/23 04:36 Glucose 103 mg/dL (65-115) 01/10/23 04:36 POC Glucose 164 mg/dL (70-110) H 01/10/23 11:26 Calculated Osmolality 279 mOsm/kg (285-295) L 01/10/23 04:36 Calcium 8.3 mg/dL (8.5-10.5) L 01/10/23 04:36 Magnesium 1.7 mg/dL (1.7-2.3) 01/09/23 04:13 Total Bilirubin 0.2 mg/dL (0.15-1.2) 01/10/23 04:36 AST 22 U/L (0-32) 01/10/23 04:36 ALT 22 U/L (0-33) 01/10/23 04:36 Alkaline Phosphatase 117 U/L (35-105) H 01/10/23 04:36 Total Protein 5.0 g/dL (6.6-8.7) L 01/10/23 04:36 Albumin 3.0 g/dL (3.5-5.2) L 01/10/23 04:36 Globulin 2.0 g/dL (1.3-4.6) 01/10/23 04:36 Urine Color Light yellow (Yellow) 01/08/23 15:10 Urine Appearance Clear (CLEAR) 01/08/23 15:10 Urine pH 6 (5-7) 01/08/23 15:10 Ur Specific [place] 1.010 (1.005-1.030) 01/08/23 15:10 Urine Protein Neg (Negative) 01/08/23 15:10 Urine Glucose (UA) Norm (Normal) 01/08/23 15:10 Urine Ketones Negative (Negative) 01/08/23 15:10 Urine Blood Neg (Negative) 01/08/23 15:10 Urine Nitrate Negative (Negative) 01/08/23 15:10 Urine Bilirubin Neg (Negative) 01/08/23 15:10 Urine Urobilinogen Norm mg/dL (Negative) 01/08/23 15:10 Ur Leukocyte Esterase Negative (Negative) 01/08/23 15:10 C. difficile Tox (PCR) Cancelled 01/08/23 20:57 Vitals Last Vital Signs Temp 97.9 F 01/10/23 13:48 Pulse 76 01/10/23 13:48 Resp 18 01/10/23 13:48 BP 111/72 01/10/23 13:48 Pulse Ox 95 01/10/23 13:48 O2 Del Method Room Air 01/10/23 11:50 FiO2 35 01/10/23 01:56 Discharge Plan Discharge Patient Disposition: Home Condition: Stable Prescriptions: New hydrocodone-acetaminophen 5-325 mg Tablet 1 tab PO Q8H PRN (Reason: Moderate To Severe Pain) 5 Days Qty: 15 0RF Cipro 500 mg tablet 500 mg PO Q12H 10 Days Qty: 20 0RF metronidazole 500 mg tablet 500 mg PO Q8H 10 Days Qty: 30 0RF Continued amlodipine 10 mg tablet 10 mg PO QAM hydrochlorothiazide 50 mg tablet 50 mg PO QAM epinephrine 0.3 mg/0.3 mL auto-injector 0.3 mg IM Q10M PRN (Reason: Anaphylaxis) Rx Instructions: for 2 doses meloxicam 15 mg tablet 15 mg PO DAILY albuterol sulfate [ProAir HFA] 90 mcg/actuation HFA aerosol inhaler 2 puff inhalation Q6H PRN (Reason: Shortness Of Breath) bupropion HCl [Wellbutrin XL] 150 mg tablet extended release 24 hr 150 mg PO QAM Qty: 30 11RF Rx Instructions: Take with 300mg tablet for total daily dose of 450mg. gabapentin 300 mg capsule 300 mg PO TID Trintellix 20 mg tablet 20 mg PO DAILY Qty: 30 11RF buspirone 30 mg tablet 30 mg PO BID Qty: 60 11RF pantoprazole [Protonix] 40 mg Tablet,Delayed Release (Dr/Ec) 40 mg PO DAILY lisinopril 5 mg tablet 5 mg PO QAM benzonatate 200 mg capsule 200 mg PO TID PRN (Reason: Cough) famotidine 20 mg tablet 20 mg PO BEDTIME PRN (Reason: Acid Reflux) simvastatin 20 mg tablet 20 mg PO BEDTIME metformin 500 mg tablet extended release 24 hr 500 mg PO BID bupropion HCl 300 mg tablet extended release 24 hr 300 mg PO QAM aspirin 81 mg tablet,delayed release (DR/EC) 81 mg PO QAM Discharge Orders: Discharge Order (Routine); Ordered 01/10/23 Ordered By: Beatriz Sow Referrals: Serena Santana FNP [Primary Care Provider] - 01/13/23 9:30 am Juan Luis Butterfield MD [Physician] - (colitis, on treatment. F/up colonoscopy ) Patient Instructions: Ciprofloxacin (By mouth), Hydrocodone/Acetaminophen (By mouth), Metronidazole (By mouth), Colitis (ED), Opioid Safety Discharge Attestations Time Spent in Discharge Care*: greater than 30 min Quality Metrics Clinical Quality Measures [ No reported AMI, CVA or VTE this stay] Coding Level of Care Code Acute Code for g Fwd Diagnoses Colitis K52.9 Hypokalemia E87.6 Hyponatremia E87.1 Obstructive sleep apnea G47.33 Diabetes E11.9
[2023-01-19 17:21] LABS: Miscellaneous Test SEE COMMENTS
== END 2023-01-10 14:10 | disposition home or self-care (01) | DRG 392 ==
LOC: ER 15:51 → MEDSURG 15:52
PROVIDERS: Admitting Provider Student in an Organized Health Care Education/Training Program; Emergency Provider Emergency Medicine; PCP Nurse Practitioner Family; Visit Provider Student in an Organized Health Care Education/Training Program
DX: K52.9 Noninfective gastroenteritis and colitis, unspecified (principal); E87.1 Hypo-osmolality and hyponatremia; I10 Essential (primary) hypertension; E11.9 Type 2 diabetes mellitus without complications; G47.33 Obstructive sleep apnea (adult) (pediatric); Z79.51 Long term (current) use of inhaled steroids; Z79.84 Long term (current) use of oral hypoglycemic drugs; Z79.82 Long term (current) use of aspirin; F10.21 Alcohol dependence, in remission; F60.3 Borderline personality disorder; J44.9 Chronic obstructive pulmonary disease, unspecified; E78.5 Hyperlipidemia, unspecified; F33.42 Major depressive disorder, recurrent, in full remission; F41.0 Panic disorder [episodic paroxysmal anxiety]; F43.12 Post-traumatic stress disorder, chronic; F17.210 Nicotine dependence, cigarettes, uncomplicated; E87.6 Hypokalemia
CPT/HCPCS: 36415; 36416; 74177; 80053; 81003; 82962; 83735; 85007; 85025; 87040; 87045; 87324; 87427; 87449; 87493; 87506; 94660; 96365; 96367; 96372; 96375; 99285; J0744; J1650; J1815; J2270; J2405; J3475; J3480; J3490; J7030; Q9967

== ENCOUNTER 2023-01-16 11:42 | Emergency (ER) | payer MEDICAID, SELFPAY ==
[2022-12-05 16:05] VITALS: BP 129/87; BMI 38.7
[2023-01-16 11:50] VITALS: BP 114/80; PULSE 107; RESP 17; TEMP 37.6; O2SAT 95; BMI 37.9
[2023-01-16 12:08] LABS: Basophils # 0.1 10^3/uL (0.0-0.1); Basophils % 0.5 %; Eosinophils # 0.1 10^3/uL (0.0-0.8); Eosinophils % 0.5 %; Hematocrit 41.3 % (36-47); Lymphocytes # 4.5 10^3/uL (0.8-4.8); Lymphocytes % 29.8 %; Mean Corpuscular HGB Conc 32.2 g/dL (30-55); Mean Corpuscular Hemoglobin 26.4 pg (27-33); Mean Corpuscular Volume 81.9 fl (85-98); Monocytes # 1.2 10^3/uL (0.2-0.9); Monocytes % 7.9 %; Neutrophils # 9.02 10^3/uL (1.8-7.7); Neutrophils % 59.7 %; Nucleated Red Blood Cells % 0 %; Platelet Count 610 10^3/cmm (157-399); Red Blood Count 5.04 10^6/uL (3.85-5.65); Red Cell Distribution Width 14.6 % (12.1-15.1); White Blood Count 15.09 10^3/uL (3.29-11.43)
[2023-01-16 12:26] LABS: Albumin Level 4.1 g/dL (3.5-5.2); Alkaline Phosphatase 108 U/L (35-105); Anion Gap 16.1 (5-19); Blood Urea Nitrogen 9 mg/dL (6-20); Calcium 9.4 mg/dL (8.5-10.5); Carbon Dioxide 26 mmol/L (22-29); Chloride 95 mmol/L (98-107); Globulin 2.8 g/dL (1.3-4.6); Glomerular Filtration Rate 105.4 mL/min (90-130); Glucose 232 mg/dL (65-115); Lipase 86 U/L (13-60); Osmolality Calculated 282 mOsm/kg (285-295); Potassium 4.1 mmol/L (3.5-5.1); Sodium 133 mmol/L (136-145); Total Bilirubin 0.3 mg/dL (0.15-1.2); Total Protein 6.9 g/dL (6.6-8.7)
[2023-01-16 12:37] LABS: Alanine Aminotransferase 22 U/L (0-33); Aspartate Amino Transferase 5 U/L (0-32)
--- NOTE | 2023-01-16 12:41 | CT_ITS ---
WS: [id number] CT ABDOMEN AND PELVIS WITH CONTRAST HISTORY: abd pain, history of colitis. Bloody stools TECHNIQUE: Imaging performed of the abdomen and pelvis with IV contrast. Single phase imaging of the abdomen. Coronal and sagittal reformats are submitted. All CT scans at [facility] use at [address] one of these dose optimization techniques: automated exposure control; mA and/or kV adjustment per patient size (includes targeted exams where dose is matched to clinical indication); or iterative re construction. IV CONTRAST: Omnipaque 350; 100 mL IV. Oral contrast: No DLP: 1080.85 mGy.cm COMPARISON: 01/08/2023 Lower thorax: Lung bases are clear. Small hiatal hernia. Normal size heart. Liver/biliary system: Liver is enlarged with a stable 3.0 cm cyst in the RIGHT lobe. No mass or bile duct dilatation. Gallbladder: Status post cholecystectomy. Pancreas: Common bile duct at the pancreatic head is mildly dilated measuring 8.8 mm. Similar to prio r studies. No pancreatic duct dilatation. Spleen: Normal size spleen. No mass or infarct. Adrenal glands: Stable 10 mm RIGHT adrenal nodule. Normal LEFT adrenal gland. Right kidney: Normal. Left kidney: Normal. Aorta: Mild atherosclerosis with no aneurysm. Lymphadenopathy: None. Free fluid: None. GI tract: Nondistended stomach. No small bowel obstruction. Normal appendix. Moderate improvement in the submucosal edema and thickening involving the colon but greatest in the RIGHT colon. Improving dumas bmucosal edema. Increase in the amount of fluid within the colon. No enhancing colon lesions are iden tified. Abdominal wall: Unremarkable abdominal wall. No hernia. Pelvis: No free fluid or adenopathy within the pelvis. Bones: Unremarkable. IMPRESSION: 1. Moderate improvement in the submucosal edema and pericolonic stranding throughout the colon but g reatest in the RIGHT colon. Improvement since the recent CT of 01/08/2023. There is still a small amoun t of submucosal edema. 2. Increasing fluid within the colon. No blush like areas of enhancement or active bleeding identifi ed. 3. Normal appendix. 4. Prior cholecystectomy. 5. Stable hepatic cyst.
--- NOTE | 2023-01-16 12:44 | ED_ITS ---
HPI - GI Bleed General: Chief complaint: GI Bleed Stated complaint: blood in stool Time Seen by Provider: 01/16/23 12:32 Source: patient Mode of arrival: ambulatory Limitations: no limitations History of Present Illness: 52-year-old female who was seen last week and diagnosed with colitis admitted to the hospital with IV antibiotics she has been on Cipro Flagyl at home as well. States she ran out of her hydrocodone she been having some increased diffuse abdominal pain states started having some blood in her stool over the last 2 days as well. Denies any severe diarrhea she denies any fever she rates her pain a 5 out of 10 Associated symptoms: Reports abdominal pain; Denies chills, fever(s), headache(s), nausea, rash or vomiting Review of Systems Const: Denies: fever(s), chills or change in appetite Eyes: Denies: eye discomfort ENMT: Denies: throat pain or dental pain Card: Denies: chest pain Resp: Denies: dyspnea GI: Reports: abdominal pain and hematochezia; Denies: nausea, vomiting or diarrhea : Denies: dysuria Musc: Denies: neck pain or back pain Skin/Breast: Denies: rash Neuro: Denies: headache(s) PFSH ED PFSH: Medical History Alcohol dependence, in remission Borderline personality disorder COPD (chronic obstructive pulmonary disease) Dependent personality disorder Diabetes Falls frequently Hyperlipidemia Hypertension Insect bite, venomous Knee buckling Major depressive disorder, recurrent, in full remission Obstructive sleep apnea Panic disorder [episodic paroxysmal anxiety] Post-traumatic stress disorder, chronic Psychiatric care Right wrist injury Surgical History deliv NOS-unsp X4 History of bilateral tubal ligation History of endometrial ablation Family History Other Cancer Diabetes Social History Smoking and tobacco status: current every day smoker cigarettes Years cigarettes smoked: 34 Quit status (tobacco): has tried quititng Number of times tried to quit tobacco: 1 Second hand smoke exposure: No Smoking risk assessment/counseling performed?: Yes (discussed risks/benefits. client declined TTS at this time) Alcohol intake: former Former alcohol use details: quit 6 months ago Desire information about alcohol rehabilitation?: No Substance/Drug Use: former Desire information about substance/drug rehabilitation?: No Adopted: No Caregiver/support person: Yes ([facility] 5 days a week for 2.5 hrs and med Nurse 1 day a week) Lives independently: Yes Household members: none Housing: Apartment Marital status: Number of children: 4 Number of grandchildren: 5 Highest education level completed: GED or Equivalent service: No Current occupational status: disabled Current occupational exposures/hazards: No Pets and animals: Yes Pets & animals: dog(s) Pets & animal details: mighty Leisure activites: reading and other Leisure activities details: games on computer, making jewlery Sexually active: No Do you think of yourself as: Straight/Heterosexual Current gender identity: Female Geno/Mormon: None Special geon needs: No Agree to transfusion: Yes Financial difficulty paying for basics: Somewhat Hard Female Reproductive History: Para: 4 Spontaneous abortions: Yes Physical Exam Const: COMMON NORMALS: patient oriented x3 HENMT: COMMON NORMALS: normocephalic and atraumatic HEAD & SCALP: normocephalic and atraumatic Eye: COMMON NORMALS: Equal, round and reactive pupils present and EOMs intact bilaterally PUPIL: Yes Equal, round and reactive pupils present Neck/C-Spine: COMMON NORMALS: full ROM and supple Chest: COMMONS NORMALS: normal inspection of the chest and normal palpation of entire chest wall Resp: COMMON NORMALS: normal respiratory effort, No retractions, No use of accessory muscles and clear to auscultation bilaterally AUSCULTATION: clear to auscultation bilaterally Cardio: COMMON NORMALS: regular rate, regular rhythm and No murmurs present (Cardio) RATE: regular rate RHYTHM: regular rhythm GI: COMMON NORMALS: Normal to inspection, nondistended, normoactive bowel sounds present, Soft to palpation and no masses PALPATION: Yes Soft to palpation RECTAL EXAM: stool normal and heme positive stool Extremity: COMMON NORMALS: normal to inspection and full ROM Neuro: COMMON NORMALS: patient oriented x3, moves all extremities and no focal motor deficits Psych: COMMON NORMALS: mental status grossly normal, Normal thought process present and cooperative THOUGHT PROCESS: Normal thought process present Skin: COMMON NORMALS: no rashes or lesions noted and no wounds GENERAL SKIN EXAM: no rashes or lesions noted Course Vital Signs: Vital signs: Vital Signs Temperature 99.6 F 01/16/23 11:50 Pulse Rate 82 01/16/23 14:13 Respiratory Rate 18 01/16/23 14:13 Blood Pressure 84/47 01/16/23 14:13 Pulse Oximetry 93 01/16/23 14:13 Oxygen Delivery Me thod Room Air 01/16/23 14:13 MDM - GI Bleed Medical Decision Making Patient presents with some abdominal pain along with blood in her stool. CT scan here showed improving colitis likely having some blood in her stool still from the colitis on my rectal exam she had no gross blood it was Hemoccult positive her hemoglobin here is normal she is to continue her Cipro Flagyl CT showed improvement. Pain is much improved here she had some low blood pressure readings here but they were false that she was laying on her side when I laid on her back her blood pressure is 124/78 she is to follow-up with Dr. [place] who she is going to get a colonoscopy from return if worsening she understands agrees to plan. Lab Data 01/16/23 11:57 01/16/23 11:57 Laboratory Results WBC 15.09 10^3/uL (3.29-11.43) H 01/16/23 11:57 RBC 5.04 10^6/uL (3.85-5.65) 01/16/23 11:57 Hgb 13.30 g/dL (11.27-16.99) 01/16/23 11:57 Hct 41.3 % (36-47) 01/16/23 11:57 MCV 81.9 fl (85-98) L 01/16/23 11:57 MCH 26.4 pg (27-33) L 01/16/23 11:57 MCHC 32.2 g/dL (30-55) 01/16/23 11:57 RDW 14.6 % (12.1-15.1) 01/16/23 11:57 Plt Count 610 10^3/cmm (157-399) H 01/16/23 11:57 MPV 9.0 fL (7.4-10.4) 01/16/23 11:57 Neut % (Auto) 59.7 % 01/16/23 11:57 Lymph % (Auto) 29.8 % 01/16/23 11:57 [place] % (Auto) 7.9 % 01/16/23 11:57 Eos % (Auto) 0.5 % 01/16/23 11:57 Baso % (Auto) 0.5 % 01/16/23 11:57 Neut # (Auto) 9.02 10^3/uL (1.8-7.7) H 01/16/23 11:57 Lymph # (Auto) 4.5 10^3/uL (0.8-4.8) 01/16/23 11:57 [place] # (Auto) 1.2 10^3/uL (0.2-0.9) H 01/16/23 11:57 Eos # (Auto) 0.1 10^3/uL (0.0-0.8) 01/16/23 11:57 Baso # (Auto) 0.1 10^3/uL (0.0-0.1) 01/16/23 11:57 Nucleated RBC % (auto) 0 % 01/16/23 11:57 Nucleated RBCs # 0.0 /100WBC 01/16/23 11:57 Sodium 133 mmol/L (136-145) L 01/16/23 11:57 Potassium 4.1 mmol/L (3.5-5.1) 01/16/23 11:57 Chloride 95 mmol/L (98-107) L 01/16/23 11:57 Carbon Dioxide 26 mmol/L (22-29) 01/16/23 11:57 Anion Gap 16.1 (5-19) 01/16/23 11:57 BUN 9 mg/dL (6-20) 01/16/23 11:57 Creatinine 0.6 mg/dL (0.5-0.9) 01/16/23 11:57 GFR Calculation 105.4 mL/min (90-130) 01/16/23 11:57 Glucose 232 mg/dL (65-115) H 01/16/23 11:57 Calculated Osmolality 282 mOsm/kg (285-295) L 01/16/23 11:57 Lactic Acid 2.6 mmol/L (0.5-2.2) H 01/16/23 11:57 Calcium 9.4 mg/dL (8.5-10.5) 01/16/23 11:57 Total Bilirubin 0.3 mg/dL (0.15-1.2) 01/16/23 11:57 AST 5 U/L (0-32) 01/16/23 11:57 ALT 22 U/L (0-33) 01/16/23 11:57 Alkaline Phosphatase 108 U/L (35-105) H 01/16/23 11:57 Total Protein 6.9 g/dL (6.6-8.7) 01/16/23 11:57 Albumin 4.1 g/dL (3.5-5.2) 01/16/23 11:57 Globulin 2.8 g/dL (1.3-4.6) 01/16/23 11:57 Lipase 86 U/L (13-60) H 01/16/23 11:57 All radiology interpretation(s) finalized by discharge Discharge Plan Discharge Patient Disposition: Home Clinical Impression: Colitis Condition: Stable Prescriptions: New hydrocodone-acetaminophen 5-325 mg tablet 1 tab PO Q6H PRN (Reason: pain) Qty: 14 0RF No Action amlodipine 10 mg tablet 10 mg PO QAM hydrochlorothiazide 50 mg tablet 50 mg PO QAM epinephrine 0.3 mg/0.3 mL auto-injector 0.3 mg IM Q10M PRN (Reason: Anaphylaxis) Rx Instructions: for 2 doses meloxicam 15 mg tablet 15 mg PO DAILY albuterol sulfate [ProAir HFA] 90 mcg/actuation HFA aerosol inhaler 2 puff inhalation Q6H PRN (Reason: Shortness Of Breath) bupropion HCl [Wellbutrin XL] 150 mg tablet extended release 24 hr 150 mg PO QAM Qty: 30 11RF Rx Instructions: Take with 300mg tablet for total daily dose of 450mg. gabapentin 300 mg capsule 300 mg PO TID Trintellix 20 mg tablet 20 mg PO DAILY Qty: 30 11RF buspirone 30 mg tablet 30 mg PO BID Qty: 60 11RF pantoprazole [Protonix] 40 mg Tablet,Delayed Release (Dr/Ec) 40 mg PO DAILY ciprofloxacin HCl [Cipro] 500 mg tablet 500 mg PO Q12H 10 Days Qty: 20 0RF metronidazole 500 mg tablet 500 mg PO Q8H 10 Days Qty: 30 0RF lisinopril 5 mg tablet 5 mg PO QAM famotidine 20 mg tablet 20 mg PO BEDTIME PRN (Reason: Acid Reflux) simvastatin 20 mg tablet 20 mg PO BEDTIME metformin 500 mg tablet extended release 24 hr 500 mg PO BID bupropion HCl 300 mg tablet extended release 24 hr 300 mg PO QAM aspirin 81 mg tablet,delayed release (DR/EC) 81 mg PO QAM ondansetron 4 mg tablet,disintegrating 4 mg PO BID MDD NAUSEA Discharge Orders: Discharge ED (Routine); Ordered 01/16/23 Ordered By: Sonali Berumen Referrals: Serena Santana FNP [Primary Care Provider] - 1-3 days Discharge Diet: Advance as tolerated Discharge Activity: Resume usual activity Patient Instructions: Abdominal Pain (ED), Opioid Safety Coding Level of Care Code ED [employer] 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
[2023-01-16 13:01] VITALS: BP 106/67; PULSE 88; RESP 18; O2SAT 92
[2023-01-16 13:27] VITALS: RESP 18; O2SAT 98
[2023-01-16] MEDS: morphine 4 mg/mL SDV 1 mL IVP (13:27)
[2023-01-16] MEDS: ondansetron 2 mg/ML SDV 2 mL 4 MG IVP (13:28)
[2023-01-16] MEDS: iohexol 350 mg/mL 500 mL Btl (per mL) IV (13:52)
[2023-01-16 14:12] LABS: Lactic Sepsis W/Reflex 2.6 mmol/L (0.5-2.2)
[2023-01-16 14:13] VITALS: BP 84/47; PULSE 82; RESP 18; O2SAT 93
[2023-01-16] MEDS: sodium chloride 0.9% 1,000 ML 999 ML IV ×2 (14:22)
[2023-01-16 15:43] LABS: Reflex Lactate Order REFLEX LACTIC ORDERD
== END 2023-01-16 15:34 | disposition home or self-care (01) ==
PROVIDERS: Emergency Provider Emergency Medicine; PCP Nurse Practitioner Family
DX: K52.9 Noninfective gastroenteritis and colitis, unspecified (principal); Z79.84 Long term (current) use of oral hypoglycemic drugs; Z79.82 Long term (current) use of aspirin; F17.210 Nicotine dependence, cigarettes, uncomplicated; J44.9 Chronic obstructive pulmonary disease, unspecified; E11.9 Type 2 diabetes mellitus without complications; I10 Essential (primary) hypertension; E78.5 Hyperlipidemia, unspecified
CPT/HCPCS: 36415; 74177; 80053; 83605; 83690; 85025; 96374; 96375; 99285; J2270; J2405; J7030; Q9967

== ENCOUNTER 2023-05-04 15:21 | Emergency (ER) | payer MEDICAID, SELFPAY ==
[2023-04-13 09:30] VITALS: BP 129/87; BMI 38.7
[2023-05-04 15:41] VITALS: BP 121/76; PULSE 107; RESP 17; TEMP 36.6; O2SAT 97; BMI 39.6
--- NOTE | 2023-05-04 15:59 | CTR_ITS ---
PROCEDURE INFORMATION: Exam: CT Abdomen And Pelvis With Contrast Exam date and time: 05/04/2023 4:32 PM Age: 53 years old Clinical indication: Abdominal tenderness; Prior surgery; Surgery date: 6+ months; Surgery type: Gb, c section; Additional info: 4 episodes of brbpr and HX of colitis TECHNIQUE: Imaging protocol: Computed tomography of the abdomen and pelvis with contrast. Sagittal and coronal reformatted images were created and reviewed. Radiation optimization: All CT scans at this facility use at least one of these dose optimization techniques: automated exposure control; mA and/or kV adjustment per patient size (includes targeted exams where dose is matched to clinical indication); or iterative reconstruction. Contrast material: OMNI 350; Contrast volume: 100 ml; Contrast route: INTRAVENOUS (IV); REPORTING DATA: Count of CT and Cardiac NM exams in prior 12 months: This patient has received 2 known CTs and 0 known cardiac nuclear medicine studies in the 12 months prior to the current study. COMPARISON: CT abdomen pelvis w con* [id number] 01/16/2023 1:50 PM RADIATION DOSE METRICS: Total DLP (mGy-cm): 1138.52 FINDINGS: Lungs: Visualized lungs are clear. Pleural spaces: No pleural effusion. Heart: Stable mild enlargement of the visualized portions of the heart. Liver: Stable cyst in the right hepatic lobe measuring 3.4 cm. Multiple calcified granulomas in the liver are stable. Gallbladder and bile ducts: Stable findings consistent with a previous cholecystectomy. Stable dilatation of the biliary ducts, not unexpected in a patient who has had a prior cholecystectomy. Pancreas: The pancreas is unremarkable. No pancreatic ductal dilatation. Spleen: The spleen is unremarkable. Adrenal glands: The right and left adrenal glands are unremarkable. Kidneys and ureters: The right and left kidneys are unremarkable. The right and left ureters are unremarkable. Stomach and bowel: Scattered diverticula in the colon. No evidence for diverticulitis. No acute abnormality in the small bowel. Ingested contents in the stomach. Appendix: The appendix is visualized and is unremarkable. No findings to suggest acute appendicitis. Intraperitoneal space: No free intraperitoneal air. No ascites. No loculated fluid collections to suggest an abscess. Vasculature: Stable mild atherosclerotic calcifications in the visualized arteries. No evidence for aortic aneurysm or aortic dissection. Hepatic veins, portal veins, splenic vein, and SMV are patent. Lymph nodes: No lymphadenopathy. Urinary bladder: The bladder is unremarkable for the degree of distension. Reproductive: Multiple Nabothian cysts in the cervix. Interval development of a 3.2 x 3.5 cm cyst in the right ovary (series 4, image 68). The left ovary is unremarkable. Bones/joints: Degenerative changes in the spine, sacroiliac joints, and hips. Soft tissues: No acute abnormality in the extra-abdominal soft tissues. CT/CT abdomen pelvis w con* [id number] IMPRESSION: 1. Interval development of a 3.2 x 3.5 cm cyst in the right ovary. 2. Scattered diverticula in the colon. No evidence for diverticulitis. 3. Incidental/nonacute findings are listed in the report.
[2023-05-04 16:27] LABS: Basophils % 0.4 %; Eosinophils # 0.1 10^3/uL (0.0-0.8); Eosinophils % 0.7 %; Hematocrit 43.9 % (36-47); Lymphocytes # 3.8 10^3/uL (0.8-4.8); Lymphocytes % 36.9 %; Mean Corpuscular HGB Conc 31.7 g/dL (30-55); Mean Corpuscular Hemoglobin 23.8 pg (27-33); Mean Platelet Volume 10.7 fL (7.4-10.4); Monocytes # 0.9 10^3/uL (0.2-0.9); Monocytes % 8.8 %; Neutrophils # 5.48 10^3/uL (1.8-7.7); Neutrophils % 52.6 %; Nucleated Red Blood Cells % 0 %; Platelet Count 419 10^3/cmm (157-399); Red Blood Count 5.85 10^6/uL (3.85-5.65); Red Cell Distribution Width 14.7 % (12.1-15.1); White Blood Count 10.39 10^3/uL (3.29-11.43)
[2023-05-04] MEDS: iohexol 350 mg/mL 500 mL Btl (per mL) IV (16:36)
[2023-05-04 16:40] LABS: INR 0.89 (0.8-1.2)
[2023-05-04 16:41] LABS: Partial Thromboplastin Time 31.5 SECONDS (23.9-36.7)
[2023-05-04 16:48] LABS: Alanine Aminotransferase 32 U/L (0-33); Albumin Level 4.1 g/dL (3.5-5.2); Alkaline Phosphatase 123 U/L (35-105); Anion Gap 19.3 (5-19); Aspartate Amino Transferase 27 U/L (0-32); Blood Urea Nitrogen 6 mg/dL (6-20); Calcium 8.7 mg/dL (8.5-10.5); Carbon Dioxide 24 mmol/L (22-29); Chloride 97 mmol/L (98-107); Globulin 3.1 g/dL (1.3-4.6); Glomerular Filtration Rate 87.9 mL/min (90-130); Glucose 108 mg/dL (65-115); Osmolality Calculated 282 mOsm/kg (285-295); Potassium 3.3 mmol/L (3.5-5.1); Sodium 137 mmol/L (136-145); Total Bilirubin 0.2 mg/dL (0.15-1.2); Total Protein 7.2 g/dL (6.6-8.7)
[2023-05-04 17:00] VITALS: BP 148/102; PULSE 91; RESP 18; O2SAT 93
--- NOTE | 2023-05-04 18:12 | ED_ITS ---
HPI - GI Bleed 2 General: Chief complaint: GI Bleed Stated complaint: passing blood clots Time Seen by Provider: 05/04/23 16:12 History of Present Illness: 53-year-old female presents the emergenc y department complaining of 4 episodes of painless bright red blood per rectum. She has had a little bit of abdominal discomfort and cramping in the left lower quadrant. She reports a history of colitis in the past. She takes baby aspirin daily but no other blood thinners. She reports she had a bright red small blood clot at one point come out. No syncope, diaphoresis, nausea, vomiting, abdominal distention, trauma. Reports most recent colonoscopy was about 1.5 years ago and she had noncancerous polyps. Associated symptoms: Denies chills, fever(s), nausea, rash, syncope or vomiting Review of Systems 2 General: Reports: 10 or more systems reviewed and unremarkable except in HPI and below Const: Denies: fever(s), chills or body aches Eyes: Denies: change in vision ENMT: Denies: throat pain Card: Denies: chest pain, edema or syncope Resp: Denies: dyspnea or productive cough GI: Denies: nausea, vomiting or diarrhea : Denies: flank pain, dysuria or urinary frequency Musc: Reports: back pain (Chronic, unchanged); Denies: neck pain, extremity pain or extremity swelling Skin/Breast: Denies: rash or erythema PFSH ED 2 PFSH: Medical History Alcohol dependence, in remission Borderline personality disorder COPD (chronic obstructive pulmonary disease) Dependent personality disorder Diabetes Falls frequently Hyperlipidemia Hypertension Insect bite, venomous Knee buckling Major depressive disorder, recurrent, in full remission Obstructive sleep apnea Panic disorder [episodic paroxysmal anxiety] Post-traumatic stress disorder, chronic Psychiatric care Right wrist injury Surgical History deliv NOS-unsp X4 History of bilateral tubal ligation History of endometrial ablation Family History Other Cancer Diabetes Social History Smoking and tobacco/nicotine status: current every day tobacco/nicotine user cigarettes Years cigarettes smoked: 34 Quit status (tobacco/nicotine): has tried quititng Number of times tried to quit tobacco: 1 Second hand smoke exposure: No Alcohol intake: former Former alcohol use details: quit 6 months ago Substance/Drug Use: former Adopted: No Caregiver/support person: Yes ([facility] 5 days a week for 2.5 hrs and med Nurse 1 day a week) Lives independently: Yes Household members: none Housing: Apartment Marital status: Number of children: 4 Number of grandchildren: 5 Highest education level completed: GED or Equivalent service: No Current occupational status: disabled Current occupational exposures/hazards: No Pets and animals: Yes Pets & animals: dog(s) Pets & animal details: mighty Leisure activites: reading and other Leisure activities details: games on computer, making jewlery Sexually active: No Do you think of yourself as: Straight/Heterosexual Current gender identity: Female Geno/Anglican: None Special geno needs: No Agree to transfusion: Yes Female Reproductive History: Para: 4 Spontaneous abortions: Yes Physical Exam 2 Narrative: EXAM NARRATIVE: left lateral decubitus position, no distress, morbid obesity Const: COMMON NORMALS: no limitations, alert and well nourished EXAM LIMITATIONS: no altered mental status HENMT: COMMON NORMALS: normocephalic, atraumatic and external ears normal H EAD & SCALP: normocephalic and atraumatic EXTERNAL EAR: Yes external ears normal MOUTH: no muffled voice Eye: COMMON NORMALS: EOMs intact bilaterally, conjunctivae normal and no scleral icterus CONJUNCTIVA: Yes conjunctivae normal Neck/C-Spine: GENERAL: Yes normal visual inspection and Yes trachea midline Resp: COMMON NORMALS: normal respiratory effort, No use of accessory muscles and clear to auscultation bilaterally AUSCULTATION: clear to auscultation bilaterally Cardio: COMMON NORMALS: regular rate (91) RATE: regular rate (91) GI: COMMON NORMALS: Soft to palpation PALPATION: Yes Soft to palpation, Yes Tenderness to palpation present (GI) (mild LLQ tenderness) and No Guarding due to palpation present (GI) Extremity: COMMON NORMALS: normal to inspection Neuro: COMMON NORMALS: moves all extremities, no focal motor deficits and no sensory deficits noted SENSORIUM/ORIENTATION: Yes alert SPEECH: speech normal Psych: COMMON NORMALS: mental status grossly normal, Normal thought process present, cooperative, normal affect and speech normal SPEECH: Yes normal speech THOUGHT PROCESS: Normal thought process present Skin: COMMON NORMALS: turgor normal, no jaundice and no mottling GENERAL SKIN EXAM: turgor normal Course 2 Vital Signs: Vital signs: Vital Signs Temperature 98 F 05/04/23 15:41 Pulse Rate 76 05/04/23 18:30 Respiratory Rate 18 05/04/23 18:30 Blood Pressure 135/89 05/04/23 18:30 Pulse Oximetry 95 05/04/23 18:30 Oxygen Delivery Me thod Room Air 05/04/23 15:41 MDM - GI Bleed Medical Decision Making 53-year-old female presents with painless bright red bleeding per rectum. She has reported some cramping and mild tenderness on exam in the left lower quadrant. She reports a history of colitis but not inflammatory bowel disease. She takes aspirin but no other anticoagulation. A CT scan of the abdomen and pelvis was performed to evaluate for any signs of colitis, diverticulitis, abnormal adenopathy, or other anatomic abnormalities. She did have diverticulosis but no diverticulitis according to the radiologist. Her hemoglobin is normal. Her heart rate is 91 during my exam. Her blood pressure has been normal. She has not had any bowel movements here in the emergency department or since leaving her home. I think she is stable for outpatient follow-up but I am going to touch base with Dr. Butterfield, general surgery. UPDATE [id number] Butterfield. He agrees with plan for discharge with follow-up in his clinic this week for repeat assessment. Patient was given return precautions verbally and written instructions. Concerning the right ovarian cyst. This was an incidental finding. The patient is not postmenopausal. Routine follow-up with PCP was advised to the patient. Lab Data 05/04/23 16:23 05/04/23 16:23 Radiology Impressions Abdomen/Pelvis CT 05/04/23 15:59 IMPRESSION: 1. Interval development of a 3.2 x 3.5 cm cyst in the right ovary. 2. Scattered diverticula in the colon. No evidence for diverticulitis. 3. Incidental/nonacute findings are listed in the report. Laboratory Results WBC 10.39 10^3/uL (3.29-11.43) 05/04/23 16:23 RBC 5.85 10^6/uL (3.85-5.65) H 05/04/23 16:23 Hgb 13.90 g/dL (11.27-16.99) 05/04/23 16:23 Hct 43.9 % (36-47) 05/04/23 16:23 MCV 75.0 fl (85-98) L 05/04/23 16:23 MCH 23.8 pg (27-33) L 05/04/23 16:23 MCHC 31.7 g/dL (30-55) 05/04/23 16:23 RDW 14.7 % (12.1-15.1) 05/04/23 16:23 Plt Count 419 10^3/cmm (157-399) H 05/04/23 16:23 MPV 10.7 fL (7.4-10.4) H 05/04/23 16:23 Neut % (Auto) 52.6 % 05/04/23 16:23 Lymph % (Auto) 36.9 % 05/04/23 16:23 [place] % (Auto) 8.8 % 05/04/23 16:23 Eos % (Auto) 0.7 % 05/04/23 16:23 Baso % (Auto) 0.4 % 05/04/23 16:23 Neut # (Auto) 5.48 10^3/uL (1.8-7.7) 05/04/23 16:23 Lymph # (Auto) 3.8 10^3/uL (0.8-4.8) 05/04/23 16:23 [place] # (Auto) 0.9 10^3/uL (0.2-0.9) 05/04/23 16:23 Eos # (Auto) 0.1 10^3/uL (0.0-0.8) 05/04/23 16:23 Baso # (Auto) 0.0 10^3/uL (0.0-0.1) 05/04/23 16:23 Nucleated RBC % (auto) 0 % 05/04/23 16:23 Nucleated RBCs # 0.0 /100WBC 05/04/23 16:23 PT 12.30 SECONDS (12.1-14.9) 05/04/23 16:23 INR 0.89 (0.8-1.2) 05/04/23 16:23 APTT 31.5 SECONDS (23.9-36.7) 05/04/23 16:23 Sodium 137 mmol/L (136-145) 05/04/23 16:23 Potassium 3.3 mmol/L (3.5-5.1) L 05/04/23 16:23 Chloride 97 mmol/L (98-107) L 05/04/23 16:23 Carbon Dioxide 24 mmol/L (22-29) 05/04/23 16:23 Anion Gap 19.3 (5-19) H 05/04/23 16:23 BUN 6 mg/dL (6-20) 05/04/23 16:23 Creatinine 0.7 mg/dL (0.5-0.9) 05/04/23 16:23 GFR Calculation 87.9 mL/min (90-130) L 05/04/23 16:23 Glucose 108 mg/dL (65-115) 05/04/23 16:23 Calculated Osmolality 282 mOsm/kg (285-295) L 05/04/23 16:23 Calcium 8.7 mg/dL (8.5-10.5) 05/04/23 16:23 Total Bilirubin 0.2 mg/dL (0.15-1.2) 05/04/23 16:23 AST 27 U/L (0-32) 05/04/23 16:23 ALT 32 U/L (0-33) 05/04/23 16:23 Alkaline Phosphatase 123 U/L (35-105) H 05/04/23 16:23 Total Protein 7.2 g/dL (6.6-8.7) 05/04/23 16:23 Albumin 4.1 g/dL (3.5-5.2) 05/04/23 16:23 Globulin 3.1 g/dL (1.3-4.6) 05/04/23 16:23 Blood Type O Positive 05/04/23 16:33 Rho(D) Type Rh positive 05/04/23 16:33 Antibody Screen Negative 05/04/23 16:33 All radiology interpretation(s) finalized by discharge Discharge Plan Discharge Patient Disposition: Home Clinical Impression: Hematochezia, Lower gastrointestinal hemorrhage, Diverticulosis, Right ovarian cyst Condition: Stable Prescriptions: Held aspirin 81 mg tablet,delayed release (DR/EC) 81 mg PO QAM Hold Instructions: Resume on 06/09/23. No Action amlodipine 10 mg tablet 10 mg PO QAM hydrochlorothiazide 50 mg tablet 50 mg PO QAM epinephrine 0.3 mg/0.3 mL auto-injector 0.3 mg IM Q10M PRN (Reason: Anaphylaxis) Rx Instructions: for 2 doses albuterol sulfate [ProAir HFA] 90 mcg/actuation HFA aerosol inhaler 2 puff inhalation Q6H PRN (Reason: Shortness Of Breath) gabapentin 300 mg capsule 300 mg PO TID Trintellix 20 mg tablet 20 mg PO DAILY Qty: 30 11RF buspirone 30 mg tablet 30 mg PO BID Qty: 60 11RF bupropion HCl 150 mg tablet extended release 24 hr See Rx Instructions .ROUTE .COMPLEX Qty: 30 11RF Dose Instruction: TAKE 1 TABLET BY MOUTH EVERY MORNING with 300mg DOSE Rx Instructions: TAKE 1 TABLET BY MOUTH EVERY MORNING with 300mg DOSE pantoprazole [Protonix] 40 mg Tablet,Delayed Release (Dr/Ec) 40 mg PO DAILY lisinopril 5 mg tablet 5 mg PO QAM famotidine 20 mg tablet 20 mg PO BEDTIME PRN (Reason: Acid Reflux) simvastatin 20 mg tablet 20 mg PO BEDTIME metformin 500 mg tablet extended release 24 hr 500 mg PO BID bupropion HCl 300 mg tablet extended release 24 hr 300 mg PO QAM ondansetron 4 mg tablet,disintegrating 4 mg PO BID MDD NAUSEA Discharge Orders: Discharge ED (Routine); Ordered 05/04/23 Ordered By: Herson Kamara Referrals: Juan Luis Butterfield MD [Physician] - 1-3 days Serena Santana FNP [Primary Care Provider] - 2 weeks (Right ovarian cyst) Discharge Diet: Advance as tolerated Discharge Activity: Resume usual activity Patient Instructions: Gastrointestinal Bleeding (ED), Pain Management Activity Restrictions/Additional Instructions: You have reported bright red blood per rectum. You do have diverticulosis but you do not have any signs of colitis or active inflammation or infection on CT scan. Your hemoglobin is normal. I have discussed your case with the general surgeon, Dr. Jorge. He would like you to call his clinic tomorrow for an urgent follow-up appointment to make sure that the bleeding has stopped and to do a repeat examination. You may need a repeat colonoscopy for further evaluation. If you start to become dizzy, passout, have large quantities of blood passing from the rectum, low blood pressure, or other emergent symptoms then return to the emergency department for repeat evaluation. You also have a incidental finding of a right ovarian cyst. Since you have not gone through menopause, this is not unusual. You can do a routine follow-up with your primary care doctor. Coding Level of Care Code ED Envelope Machine Adjuster for Mallory Boucher
[2023-05-04 18:30] VITALS: BP 135/89; PULSE 76; RESP 18; O2SAT 95
== END 2023-05-04 19:03 | disposition home or self-care (01) ==
PROVIDERS: Emergency Provider Emergency Medicine; PCP Nurse Practitioner Family
DX: K57.31 Diverticulosis of large intestine without perforation or abscess with bleeding (principal); K92.1 Melena; N83.201 Unspecified ovarian cyst, right side; Z79.84 Long term (current) use of oral hypoglycemic drugs; F17.210 Nicotine dependence, cigarettes, uncomplicated; J44.9 Chronic obstructive pulmonary disease, unspecified; E11.9 Type 2 diabetes mellitus without complications; E78.5 Hyperlipidemia, unspecified; I10 Essential (primary) hypertension
CPT/HCPCS: 74177; 80053; 85025; 85610; 85730; 86850; 86900; 99285; Q9967

== ENCOUNTER → 2023-05-12 13:49 | Outpatient (BNVA) | payer MEDICAID, SELFPAY ==
[2023-04-13 09:30] VITALS: BP 129/87; BMI 38.7
== END ==
PROVIDERS: PCP Nurse Practitioner Family; Referring Provider Emergency Medicine; Visit Provider Surgery
DX: Z09 Encounter for follow-up examination after completed treatment for conditions other than malignant neoplasm (principal); K92.2 Gastrointestinal hemorrhage, unspecified; K21.9 Gastro-esophageal reflux disease without esophagitis; R10.9 Unspecified abdominal pain
CPT/HCPCS: 99204

== ENCOUNTER 2023-06-03 05:24 | Day surgery (SDC) | payer MEDICAID, SELFPAY ==
[2023-04-13 09:30] VITALS: BP 129/87; BMI 38.7
[2023-06-03 06:05] VITALS: BP 136/96; PULSE 102; RESP 18; TEMP 36.1; O2SAT 97; BMI 39.6
[2023-06-03] MEDS: sodium chloride 0.9% 1,000 ML 30 ML IV (06:15)
[2023-06-03 06:19] LABS: Glucose Point of Care 145 mg/dL (70-110)
--- NOTE | 2023-06-03 06:47 | W.PM.OPSUD ---
Surgery/Procedure H&P Update DATE OF PROCEDURE: June 03, 2023 DATE H&P PERFORMED: 05/12/23 H&P UPDATE INFORMATION: I have reviewed H&P completed within last 30 days, I have examined patient prior to procedure and No changes to prior documentation PLANNED PROCEDURE: Operation Date: 06/03/23 07:00 Proposed Procedures p [id number] egd [id number] colon G0121 screen colon A risk K92.2, K21.9,R10.9(Not Applicable) - DO concetta Jaime Colonoscopy(Not Applicable) - Sahil Frost DO
--- NOTE | 2023-06-03 06:49 | ANES.PREANE2 ---
Pre-Anesthetic Assessment Height/Weight: Height 1.68 m Weight 111.584 kg Temp Pulse Resp BP Pulse Ox O2 Del Method 97 F L 102 H 18 136/96 97 Room Air 06/03/23 06:05 06/03/23 06:05 06/03/23 06:05 06/03/23 06:05 06/03/23 06:05 06/03/23 06:05 Preop Diagnosis: Gerd, abdominal pain Operation Date: 06/03/23 07:00 Proposed Procedures p [id number] egd [id number] colon G0121 screen colon A risk K92.2, K21.9,R10.9(Not Applicable) - DO concetta Jaime Colonoscopy(Not Applicable) - Sahil Frost DO Familial anesthetic complications: none Was Beta Yary taken within 24 hours: N/A Was Clonidine taken within 24 hours: N/A Last intake: Intake Last Liquid Date 06/02/23 Last Liquid Time 22:30 Last Solid Date 06/01/23 Last Solid Time 17:30 Social No alcohol 1 pack(s) per day Exam alert, oriented x 3, clear to auscultation bilaterally and regular rate & rhythm Airway Mallampati: Class II Dentition: false History/ROS No significant history except as noted Pulmonary Chronic Obstructive Pulmonary Disease and Sleep Apnea (wear bipap with o2) CV/HEM Hypertension None reported Hepatic None reported GI Gastroesophageal Reflux Disease Metabolic Diabetes Mellitus [facility] [place] None reported Neuropsych None reported Anesthetic Plan ASA status: 3 Anesthesia: Anesthesia Evaluation and MAC Risk of > 500 ml blood loss (7ml/kg in children): No Medications/Allergies Home Medications Medication Instructions Recorded Confirmed Last Taken Type amlodipine 10 mg tablet 10 mg PO QAM 07/07/19 06/02/23 06/02/23 History hydrochlorothiazide 50 mg tablet 50 mg PO QAM 07/07/19 06/02/23 06/02/23 History epinephrine 0.3 mg/0.3 mL 0.3 mg IM Q10M PRN Anaphylaxis 10/05/19 06/02/23 Unknown History injection, auto-injector lisinopril 5 mg tablet 5 mg PO QAM 10/24/21 06/02/23 06/02/23 History albuterol sulfate 90 mcg/actuation 2 puff inhalation Q6H PRN 11/25/21 06/02/23 06/02/23 History aerosol inhaler (ProAir HFA) Shortness Of Breath gabapentin 300 mg capsule 300 mg PO TID 05/06/22 06/02/23 06/02/23 History aspirin 81 mg tablet,delayed 81 mg PO QAM 10/27/22 06/02/23 06/02/23 History release famotidine 20 mg tablet 20 mg PO BEDTIME Acid Reflux 10/27/22 06/02/23 06/02/23 History metformin 500 mg tablet,extended 500 mg PO BID 10/27/22 06/02/23 06/02/23 History release 24 hr simvastatin 20 mg tablet 20 mg PO BEDTIME 10/27/22 06/02/23 06/02/23 History meclizine 25 mg tablet 25 mg PO TID PRN Dizziness Or 05/12/23 06/02/23 06/02/23 History Vertigo pantoprazole 40 mg tablet,delayed 40 mg PO BID 6 weeks #84 tabs 05/12/23 06/02/23 06/02/23 Rx release (Protonix) bupropion HCl 300 mg 24 hr tablet, 300 mg PO QAM #30 tabs 05/15/23 06/02/23 06/02/23 Rx extended release buspirone 30 mg tablet 30 mg PO BID #60 tabs 05/15/23 06/02/23 06/02/23 Rx duloxetine 30 mg capsule,delayed 30 mg PO DAILY 7 days #7 caps 05/28/23 06/02/23 06/02/23 Rx release (Cymbalta) duloxetine 60 mg capsule,delayed 60 mg PO DAILY #30 caps 05/28/23 06/02/23 06/02/23 Rx release (Cymbalta) vortioxetine 10 mg tablet 10 mg PO DAILY 7 days #7 tabs 05/28/23 06/02/23 06/02/23 Rx (Trintellix) bupropion HCl 150 mg 24 hr tablet, 150 mg PO DAILY 06/02/23 06/02/23 06/02/23 History extended release meloxicam 15 mg tablet 15 mg PO DAILY 06/02/23 06/02/23 06/02/23 History Allergies Allergy/AdvReac Type Severity Reaction Status Date / Time venom-wasp Allergy Unknown ALGY-Anaphy Verified 05/28/23 09:43 laxis Latex, Natural Rubber Allergy ALGY-Bliste Verified 05/28/23 09:43 r bees Allergy Unknown ALGY-Anaphy Uncoded 05/12/23 13:53 laxis mushrooms Allergy Unknown ALGY-Anaphy Uncoded 05/12/23 13:53 laxis Current Medications Generic Name Dose Route Start Last Admin Trade Name Freq PRN Reason Stop Dose Admin Sodium Chloride 1,000 mls @ 30 mls/hr 06/03/23 05:45 06/03/23 06:15 Sodium Chloride 0.9% IV 06/04/23 05:44 30 mls/hr .Q24H ARLEY Administration PFSH Anesthesia Medical History Psychiatric care Insect bite, venomous Knee buckling Right wrist injury Falls frequently Hyperlipidemia Diabetes COPD (chronic obstructive pulmonary disease) Hypertension Obstructive sleep apnea Dependent personality disorder Borderline personality disorder Alcohol dependence, in remission Panic disorder [episodic paroxysmal anxiety] Major depressive disorder, recurrent, in full remission Post-traumatic stress disorder, chronic Surgical History deliv NOS-unsp X4 History of bilateral tubal ligation History of endometrial ablation Family History Other Cancer Diabetes Social History Smoking and tobacco/nicotine status: current every day tobacco/nicotine user cigarettes Years cigarettes smoked: 34 Quit status (tobacco/nicotine): has tried quititng Number of times tried to quit tobacco: 1 Second hand smoke exposure: No Alcohol intake: former Former alcohol use details: quit 6 months ago Substance/Drug Use: former Adopted: No Caregiver/support person: Yes ([facility] 5 days a week for 2.5 hrs and med Nurse 1 day a week) Lives independently: Yes Household members: none Housing: Apartment Marital status: Number of children: 4 Number of grandchildren: 5 Highest education level completed: GED or Equivalent service: No Current occupational status: disabled Current occupational exposures/hazards: No Pets and animals: Yes Pets & animals: dog(s) Pets & animal details: mighty Leisure activites: reading and other Leisure activities details: games on computer, making jewlery Sexually active: No Do you think of yourself as: Straight/Heterosexual Current gender identity: Female Geno/Synagogue: None Special geno needs: No Agree to transfusion: Yes Female Reproductive History Para: 4 Spontaneous abortions: Yes Data Anesthesia Cardiac Studies: Echocardiogram Ultrasound 02/15/20 Sestamibi Stress Test (Cardiology) 02/14/20
[2023-06-03 07:34] VITALS: BP 119/69; PULSE 90; RESP 16; TEMP 36.1; O2SAT 96
[2023-06-03 07:39] VITALS: BP 157/98; PULSE 99; RESP 18; O2SAT 94
--- NOTE | 2023-06-03 07:39 | PC.NURSE ---
patient demanding to get up to bathroom. offered bedpan, patient refused and demanded again to get up to the bathroom. assisted patient up and assisted patient to bathroom.
[2023-06-03 07:49] VITALS: BP 128/95; PULSE 89; RESP 18; O2SAT 97
--- NOTE | 2023-06-03 08:05 | ANE.PACU2 ---
Inpatient post-anesthesia follow up: Airway intact: Yes Vital signs: Temperature 97.0 F Pulse Rate 89 Respiratory Rate 18 Blood Pressure 128/95 Pulse Oximetry 97 Oxygen Delivery Me thod Room Air Oxygen Flow Rate Fraction of Inspir ed Oxygen Hydration adequate: Yes Nausea and vomiting: No Pain level: 1 Mental status: Baseline
== END 2023-06-03 08:04 | disposition home or self-care (01) ==
PROVIDERS: PCP Nurse Practitioner Family; Visit Provider Surgery
PROC: 0DJ08ZZ Inspection of Upper Intestinal Tract, Via Natural or Artificial Opening Endoscopic (ICD-10-PCS; CPT 43235; principal; 2023-06-03 07:00)
PROC: 0DJD8ZZ Inspection of Lower Intestinal Tract, Via Natural or Artificial Opening Endoscopic (ICD-10-PCS; CPT 45378; 2023-06-03 07:00)
DX: K21.9 Gastro-esophageal reflux disease without esophagitis (principal); R10.9 Unspecified abdominal pain; K57.30 Diverticulosis of large intestine without perforation or abscess without bleeding; K64.4 Residual hemorrhoidal skin tags; K20.90 Esophagitis, unspecified without bleeding; J44.9 Chronic obstructive pulmonary disease, unspecified; G47.30 Sleep apnea, unspecified; Z99.81 Dependence on supplemental oxygen; I10 Essential (primary) hypertension; E11.9 Type 2 diabetes mellitus without complications; Z79.82 Long term (current) use of aspirin; Z79.84 Long term (current) use of oral hypoglycemic drugs; E78.5 Hyperlipidemia, unspecified; Z91.81 History of falling; F17.210 Nicotine dependence, cigarettes, uncomplicated
CPT/HCPCS: 36416; 43239; 45380; 82962; 88305; J2704; J7030

== ENCOUNTER → 2023-06-16 10:45 | Outpatient (BNVA) | payer MEDICAID, SELFPAY ==
[2023-04-13 09:30] VITALS: BP 129/87; BMI 38.7
== END ==
PROVIDERS: PCP Nurse Practitioner Family; Referring Provider Nurse Practitioner Family; Visit Provider Nurse Practitioner Women's Health
DX: N83.209 Unspecified ovarian cyst, unspecified side (principal); Z12.4 Encounter for screening for malignant neoplasm of cervix; N91.2 Amenorrhea, unspecified
CPT/HCPCS: 82670; 83001; 86304; 87624

== ENCOUNTER → 2023-07-06 07:53 | Outpatient (BNVA) | payer MEDICAID, SELFPAY ==
[2023-04-13 09:30] VITALS: BP 129/87; BMI 38.7
== END ==
PROVIDERS: PCP Nurse Practitioner Family; Visit Provider Nurse Practitioner Women's Health
DX: N83.201 Unspecified ovarian cyst, right side (principal)
CPT/HCPCS: 76830

== ENCOUNTER → 2023-08-31 10:09 | Outpatient (BNVA) | payer MEDICAID, SELFPAY ==
[2023-04-13 09:30] VITALS: BP 129/87; BMI 38.7
== END ==
PROVIDERS: PCP Nurse Practitioner Family; Visit Provider Nurse Practitioner Women's Health
DX: R10.2 Pelvic and perineal pain (principal); N83.201 Unspecified ovarian cyst, right side; D25.9 Leiomyoma of uterus, unspecified; N88.8 Other specified noninflammatory disorders of cervix uteri
CPT/HCPCS: 76830

== ENCOUNTER → 2023-10-27 10:54 | Outpatient (BNVA) | payer MEDICAID, SELFPAY ==
[2023-04-13 09:30] VITALS: BP 129/87; BMI 38.7
== END ==
PROVIDERS: PCP Nurse Practitioner Family; Visit Provider Internal Medicine Cardiovascular Disease
DX: R55 Syncope and collapse (principal); I49.1 Atrial premature depolarization; I49.3 Ventricular premature depolarization
CPT/HCPCS: 93225

== ENCOUNTER 2023-11-03 11:54 | Outpatient (CLI) | payer MEDICAID, SELFPAY ==
[2023-04-13 09:30] VITALS: BP 129/87; BMI 38.7
--- NOTE | 2023-11-03 12:00 | MR_ITS ---
WS: [id number] MRI HEAD WITHOUT CONTRAST TECHNIQUE: Sagittal T1, T2 axial, T2 axial FLAIR, axial and coronal T1 images, axial susceptibility w eighted imaging, axial diffusion weighted images, and coronal T2 images were obtained. CLINICAL INFORMATION: SYNCOPE COMPARISON: MRI 2013 FINDINGS: No evidence of restricted diffusion to suggest acute ischemia. Ventricular system and basal cisterns are patent. Mild small vessel changes. Mild parenchymal volume loss. Small vessel changes in the cindy . Normal vascular flow voids at the skull base. No extra-axial fluid collections. Paranasal sinuses a nd mastoid air cells are well aerated. Normal posterior nasopharynx. No hemosiderin on the susceptibl y weighted images. Incidental venous angioma RIGHT cerebellum. Temporal lobes and hippocampal formations are normal in appearance. MR/MR head wo con* [id number] IMPRESSION: 1. No evidence of restricted diffusion to suggest acute ischemia. 2. Mild small vessel changes with mild parenchymal volume loss. Small vessel c hanges in the cindy. 3. Incidental venous angioma RIGHT cerebellum. 4. No other acute findings.
== END 2023-11-03 11:55 | disposition home or self-care (01) ==
LOC: RAD 11:54
PROVIDERS: PCP Nurse Practitioner Family; Visit Provider Nurse Practitioner Family
DX: R55 Syncope and collapse (principal); D18.02 Hemangioma of intracranial structures
CPT/HCPCS: 70551

== ENCOUNTER → 2023-12-10 10:18 | Outpatient (BNVA) | payer MEDICAID, SELFPAY ==
[2023-04-13 09:30] VITALS: BP 129/87; BMI 38.7
== END ==
PROVIDERS: PCP Nurse Practitioner Family; Visit Provider Internal Medicine Cardiovascular Disease
DX: R55 Syncope and collapse (principal); E11.9 Type 2 diabetes mellitus without complications; G47.33 Obstructive sleep apnea (adult) (pediatric); F17.210 Nicotine dependence, cigarettes, uncomplicated; F41.0 Panic disorder [episodic paroxysmal anxiety]; F60.3 Borderline personality disorder; Z79.84 Long term (current) use of oral hypoglycemic drugs
CPT/HCPCS: 99203

== ENCOUNTER 2024-01-06 07:37 | Outpatient (CLI) | payer MEDICAID, SELFPAY ==
[2023-04-13 09:30] VITALS: BP 129/87; BMI 38.7
--- NOTE | 2024-01-06 07:45 | MM_ITS ---
WS: [id number] BILATERAL SCREENING DIGITAL TOMOSYNTHESIS MAMMOGRAM WITH CAD HISTORY: SCREENING COMPARISON: 08/27/2021, 07/01/2021 and 03/16/2020 and 08/19/2018 Bilateral CC and MLO views with tomosynthesis and synthetic mammography submitted. Computer aided det ection analyzed. Breast composition: There are scattered areas of fibroglandular density. No suspicious masses, microc alcifications or architectural distortion. There are a few benign calcifications and stable asymmetri es over multiple prior years. MM/[place] [id number] IMPRESSION: BI-RADS: 2 - Benign. FOLLOW UP: 1 Year Follow-up
== END 2024-01-06 07:38 | disposition home or self-care (01) ==
LOC: RAD 07:39
PROVIDERS: PCP Nurse Practitioner Family; Visit Provider Nurse Practitioner Family
DX: Z12.31 Encounter for screening mammogram for malignant neoplasm of breast (principal); R92.323 Mammographic fibroglandular density, bilateral breasts; R92.1 Mammographic calcification found on diagnostic imaging of breast; N64.89 Other specified disorders of breast
CPT/HCPCS: 77063; 77067

== ENCOUNTER → 2024-01-11 08:21 | Outpatient (BNVA) | payer MEDICAID, SELFPAY ==
[2023-04-13 09:30] VITALS: BP 129/87; BMI 38.7
== END ==
PROVIDERS: PCP Nurse Practitioner Family; Visit Provider Podiatrist Foot & Ankle Surgery
DX: M79.672 Pain in left foot (principal); M76.822 Posterior tibial tendinitis, left leg; E11.9 Type 2 diabetes mellitus without complications
CPT/HCPCS: 73630; 99203

== ENCOUNTER → 2024-02-10 10:43 | Outpatient (BNVA) | payer MEDICAID, SELFPAY ==
[2023-04-13 09:30] VITALS: BP 129/87; BMI 38.7
== END ==
PROVIDERS: PCP Nurse Practitioner Family; Referring Provider Nurse Practitioner Family; Visit Provider Psychiatry & Neurology Neurology
DX: R55 Syncope and collapse (principal)
CPT/HCPCS: 36415; 82306; 82607; 82746; 83090; 83735; 83921; 84439; 84443; 84481; 99203; 99204

== ENCOUNTER → 2024-02-22 11:22 | Outpatient (BNVA) | payer MEDICAID, SELFPAY ==
[2023-04-13 09:30] VITALS: BP 129/87; BMI 38.7
== END ==
PROVIDERS: PCP Nurse Practitioner Family; Visit Provider Podiatrist Foot & Ankle Surgery
DX: E11.9 Type 2 diabetes mellitus without complications; M76.822 Posterior tibial tendinitis, left leg
CPT/HCPCS: 99213

== ENCOUNTER 2024-03-07 06:00 | Outpatient (CLI) | payer MEDICAID, SELFPAY ==
[2023-04-13 09:30] VITALS: BP 129/87; BMI 38.7
--- NOTE | 2024-03-07 08:45 | MR_ITS ---
WS: [id number] MRA CAROTID ARTERIES HISTORY: R55 - Syncope and collapse COMPARISON: None available. TECHNIQUE: MRA is performed with intravenous gadolinium. MIP and source images are reviewed. Right: No occlusion or high-grade stenosis RIGHT common, internal and external carotid arteries. Left: No occlusion or high-grade stenosis LEFT common, internal or external carotid arteries. Subclavian Arteries: Proximal subclavian arteries are of generated by breathing motion artifact. Good flow distally and into the axillary arteries. Vertebral Arteries: Proximal RIGHT vertebral artery and origin of the LEFT vertebral artery poorly vi sualized due to breathing motion artifact. Both arteries are present with the LEFT being dominant. MR/MR angio neck w con* [id number] IMPRESSION: 1. No significant carotid artery stenosis. Both cervical carotid arteries are opacified and patent. 2. Proximal subclavian and vertebral arteries are obscured by breathing motion artifact. 3. Patent vertebral arteries, LEFT is dominant.
[2024-03-07] MEDS: gadobenate dimeglumine 20 mL vial IV (09:28)
== END 2024-03-07 06:01 | disposition home or self-care (01) ==
LOC: RAD 05-09 16:08
PROVIDERS: PCP Nurse Practitioner Family; Visit Provider Psychiatry & Neurology Neurology
DX: R55 Syncope and collapse (principal)
CPT/HCPCS: 70548; A9577

== ENCOUNTER → 2024-03-11 08:33 | Outpatient (BNVA) | payer MEDICAID, SELFPAY ==
[2023-04-13 09:30] VITALS: BP 129/87; BMI 38.7
== END ==
PROVIDERS: PCP Nurse Practitioner Family; Visit Provider Nurse Practitioner Family
DX: R55 Syncope and collapse (principal); R00.0 Tachycardia, unspecified; F17.200 Nicotine dependence, unspecified, uncomplicated; I10 Essential (primary) hypertension
CPT/HCPCS: 99213

== ENCOUNTER → 2024-04-15 07:12 | Outpatient (BNVA) | payer MEDICAID, SELFPAY ==
[2023-04-13 09:30] VITALS: BP 129/87; BMI 38.7
== END ==
PROVIDERS: PCP Nurse Practitioner Family; Visit Provider Podiatrist Foot & Ankle Surgery
DX: E11.9 Type 2 diabetes mellitus without complications; M76.822 Posterior tibial tendinitis, left leg
CPT/HCPCS: 99213

== ENCOUNTER 2024-06-14 20:08 | Emergency (ER) | payer MEDICAID, SELFPAY ==
[2023-04-13 09:30] VITALS: BP 129/87; BMI 38.7
[2024-06-14 20:09] VITALS: BP 124/84; PULSE 93; RESP 18; TEMP 36.8; O2SAT 93; BMI 42.7
--- NOTE | 2024-06-14 20:20 | ECG_ITS ---
[employer] Test Date: 2024-06-14 Pat Name: Prudence Acuna Department: Room: Gender: Female Skid Wrapper: : 1970 Requested By: Sonali Berumen Order Number: [id number] MD: Hortencia Gamez M.D. Measurements Intervals [place] Rate: 96 P: 69 TN: 179 QRS: -29 QRSD: 117 T: 62 QT: 360 QTc: 455 Interpretive Statements SINUS RHYTHM WITH OCCASIONAL SUPRAVENTRICULAR PREMATURE COMPLEXES MINIMAL VOLTAGE CRITERIA FOR LVH, CONSIDER NORMAL VARIANT [MEETS CRITERIA IN ONE OF: R(aVL), S(V1), R(V5), R(V5/V6)+S(V1)] SEPTAL MYOCARDIAL INFARCTION , PROBABLY OLD [40+ ms Q WAVE IN V1/V2] Compared to ECG 10/27/2022 11:07:18 Incomplete right bundle-branch block no longer present Myocardial infarct finding still present Electronically Signed On 06-15-2024 17:44:30 TOP LIFT TRIMMER by Hortencia Gamez M.D. [email or web address]
[2024-06-14 20:25] LABS: Glucose Point of Care 114 mg/dL (70-110)
[2024-06-14 20:58] LABS: Basophils # 0.1 10^3/uL (0.0-0.1); Basophils % 0.7 %; Eosinophils # 0.1 10^3/uL (0.0-0.8); Eosinophils % 0.6 %; Hematocrit 45.6 % (36-47); Lymphocytes # 3.1 10^3/uL (0.8-4.8); Lymphocytes % 36.9 %; Mean Corpuscular Hemoglobin 22.5 pg (27-33); Mean Platelet Volume 10.7 fL (7.4-10.4); Monocytes # 0.6 10^3/uL (0.2-0.9); Monocytes % 7.3 %; Neutrophils # 4.49 10^3/uL (1.8-7.7); Nucleated Red Blood Cells % 0 %; Platelet Count 403 10^3/cmm (157-399); Red Blood Count 6.08 10^6/uL (3.85-5.65); Red Cell Distribution Width 16.4 % (12.1-15.1); White Blood Count 8.32 10^3/uL (3.29-11.43)
[2024-06-14 21:14] LABS: Alanine Aminotransferase 30 U/L (0-33); Alkaline Phosphatase 120 U/L (35-105); Anion Gap 17.8 (5-19); Aspartate Amino Transferase 48 U/L (0-32); Blood Urea Nitrogen 5 mg/dL (6-20); Calcium 9.5 mg/dL (8.5-10.5); Carbon Dioxide 26 mmol/L (22-29); Chloride 95 mmol/L (98-107); Globulin 3.3 g/dL (1.3-4.6); Glomerular Filtration Rate 104.6 mL/min (90-130); Glucose 119 mg/dL (65-115); Osmolality Calculated 278 mOsm/kg (285-295); Potassium 3.8 mmol/L (3.5-5.1); Sodium 135 mmol/L (136-145); Total Bilirubin 0.4 mg/dL (0.15-1.2); Total Protein 7.3 g/dL (6.6-8.7)
--- NOTE | 2024-06-14 21:54 | XRR_ITS ---
PROCEDURE INFORMATION: Exam: XR Chest Exam date and time: 06/14/2024 9:55 PM Age: 54 years old Clinical indication: Other: Weakness TECHNIQUE: Imaging protocol: Radiologic exam of the chest. Views: 1 view. COMPARISON: CR XR chest 2V* [id number] 02/10/2024 12:55 PM FINDINGS: Lungs: Unremarkable. No consolidation. Pleural spaces: Unremarkable. No pleural effusion. No pneumothorax. Heart/Mediastinum: Unremarkable. No cardiomegaly. Bones/joints: Unremarkable. XR/XR chest 1V portable [id number] IMPRESSION: No acute findings.
[2024-06-14 22:10] LABS: Troponin(5th) Baseline < 6 ng/L (0-10)
[2024-06-14 22:11] LABS: Covid PCR NEGATIVE (Negative); Influenza A NEGATIVE (Negative); Influenza B NEGATIVE (Negative); Respiratory Syncytial Virus Ce NEGATIVE (Negative)
[2024-06-14] MEDS: sodium chloride 0.9% 1,000 ML 999 ML IV (22:12)
--- NOTE | 2024-06-14 22:21 | W.ED.WEAKNES ---
HPI - Weakness General: Chief complaint: Weakness Stated complaint: Dizzy Time Seen by Provider: 06/14/24 21:47 Source: patient Mode of arrival: EMS Limitations: no limitations History of Present Illness: Patient is a 54-year-old female with history of diabetes, COPD, and psychiatric history presenting to the emergency department by ambulance for weakness for the past 3 days. She states I have been unable to stay awake for the past 3 days. She also reports that prior to arrival, she had sudden onset of chest pressure that has since resolved, noting that it felt like something light was sitting on her chest. She was laying down when this pain started, does report a history of GERD and states this does feel somewhat similar now that she thinks about it. She does not report any new shortness of breath, though states she is always short of breath due to her asthma and COPD. The pain in her chest did not radiate when she had it, states that it resolved on its own and there was no specific alleviating or exacerbating factor to it. She also reports that her roommate took her blood pressure prior to coming in, and found it to be 110s systolic and this concerned her. No other symptoms reported at this time, specifically no urinary symptoms, no fevers, no cough, and no seizures or syncopal episodes. In regards to any medication changes, she states that she was recently prescribed Valium to take as needed but has not taken this for the past 4 days. MD Complaint: generalized weakness Onset (ago): day(s) (3) Duration: constant Location: generalized Migration: none Severity: moderate Relieving factors: none Exacerbating factors: none Associated symptoms: Reports chest pain; Denies chills, dysuria, fever(s), headache(s), nausea or vomiting Review of Systems General: Reports: 10 or more systems reviewed and unremarkable except in HPI and below Const: Reports: fatigue; Denies: fever(s) or chills Eyes: Denies: change in vision ENMT: Denies: throat pain, ear or mastoid pain or nasal discharge Card: Reports: chest pain; Denies: palpitations, swelling of feet/ankles or lightheadedness Resp: Reports: dyspnea (Chronic); Denies: productive cough or wheezing GI: Denies: abdominal pain, nausea, vomiting, diarrhea or constipation : Denies: flank pain, difficulty voiding, dysuria or urinary frequency Musc: Reports: muscle weakness; Denies: neck pain, back pain or joint pain Skin/Breast: Denies: rash Neuro: Denies: headache(s) or numbness in extremities PFSH ED PFSH: Medical History Syncope History of colon polyps Psychiatric care Insect bite, venomous Knee buckling Right wrist injury Falls frequently Hyperlipidemia Diabetes COPD (chronic obstructive pulmonary disease) Hypertension Obstructive sleep apnea Dependent personality disorder Borderline personality disorder Alcohol dependence, in remission Panic disorder [episodic paroxysmal anxiety] Major depressive disorder, recurrent, in full remission Post-traumatic stress disorder, chronic Surgical History History of cholecystectomy deliv NOS-unsp X4 History of bilateral tubal ligation History of endometrial ablation for heavy menses; did not resolve issue Family History Brother Heart disease Hyperlipidemia Hypertension Sister Hypertension Denies family history of Colon cancer Diabetes Breast cancer Social History Smoking and tobacco/nicotine status: current every day tobacco/nicotine user Alcohol intake: never Substance/Drug Use: never Female Reproductive History: Para: 4 Spontaneous abortions: Yes Physical Exam Const: COMMON NORMALS: no acute distress, patient oriented x3 and no limitations GENERAL APPEARANCE: cooperative, comfortable and well developed NUTRITIONAL APPEARANCE: obese morbidly obese ORIENTATION/CONSCIOUSNESS: Yes awake, Yes oriented to person, Yes oriented to place and Yes oriented to time HENMT: COMMON NORMALS: normocephalic, atraumatic, hearing grossly normal bilaterally, moist oral mucous membranes and oropharynx normal HEAD & SCALP: normocephalic and atraumatic Eye: COMMON NORMALS: Equal, round and reactive pupils present, EOMs intact bilaterally and conjunctivae normal CONJUNCTIVA: Yes conjunctivae normal PUPIL: Yes Equal, round and reactive pupils present OTHER: Xanthomas present to bilateral upper eyelids Neck/C-Spine: COMMON NORMALS: full ROM, supple and no JVD Resp: COMMON NORMALS: normal respiratory effort, No retractions, No use of accessory muscles and clear to auscultation bilaterally AUSCULTATION: clear to auscultation bilaterally Cardio: COMMON NORMALS: no JVD, regular rate, regular rhythm, No clicks present (Cardio), No murmurs present (Cardio) and No rub (Cardio) RATE: regular rate RHYTHM: regular rhythm GI: COMMON NORMALS: Normal to inspection, nondistended, normoactive bowel sounds present, Soft to palpation and non-tender AUSCULTATION: Yes normoactive bowel sounds PALPATION: Yes Soft to palpation RECTAL EXAM: deferred Extremity: COMMON NORMALS: normal to inspection, full ROM and capillary refill normal Neuro: COMMON NORMALS: patient oriented x3, moves all extremities, no focal motor deficits and no sensory deficits noted SENSORIUM/ORIENTATION: Yes oriented to person, Yes oriented to place and Yes oriented to time Psych: COMMON NORMALS: mental status grossly normal and Normal thought process present THOUGHT PROCESS: Normal thought process present Skin: COMMON NORMALS: no rashes or lesions noted GENERAL SKIN EXAM: no rashes or lesions noted Course Vital Signs: Vital signs: Vital Signs Temperature 98.2 F 06/14/24 20:09 Pulse Rate 93 06/14/24 20:09 Respiratory Rate 18 06/14/24 20:09 Blood Pressure 124/84 06/14/24 20:09 Pulse Oximetry 93 06/14/24 20:09 Oxygen Delivery Me thod Room Air 06/14/24 20:09 MDM - Weakness Medical Decision Making This patient presented by ambulance for weakness, stating to me that she was having difficulty staying awake for the past 3 days. Also had chest pain tonight which ultimately was why she came in to the ED. Her initial troponin was negative, EKG reviewed with physician showing normal sinus rhythm with no acute STEMI. Chest x-ray normal. On physical exam there were no abnormalities and her vitals have been within normal limits throughout ED stay. She was started on some IV fluids, on recheck stated she was feeling much better so there could be a dehydration component to her weakness. She also recently started Valium as needed for psych history, this could be causing her weakness. Ultimately her lab work and urinalysis was all unremarkable, no concern for infection. Ultimately she is ready for discharge home, strict return precautions were given. She does have a history of GERD and did state that her chest pain felt similar to GERD, this is more likely than any acute coronary syndrome. Lab Data 06/14/24 20:53 06/14/24 20:53 Radiology Impressions Chest X-Ray 06/14/24 21:54 IMPRESSION: No acute findings. Laboratory Results WBC 8.32 10^3/uL (3.29-11.43) 06/14/24 20:53 RBC 6.08 10^6/uL (3.85-5.65) H 06/14/24 20:53 Hgb 13.70 g/dL (11.27-16.99) 06/14/24 20:53 Hct 45.6 % (36-47) 06/14/24 20:53 MCV 75.0 fl (85-98) L 06/14/24 20:53 MCH 22.5 pg (27-33) L 06/14/24 20:53 MCHC 30.0 g/dL (30-55) 06/14/24 20:53 RDW 16.4 % (12.1-15.1) H 06/14/24 20:53 Plt Count 403 10^3/cmm (157-399) H 06/14/24 20:53 MPV 10.7 fL (7.4-10.4) H 06/14/24 20:53 Neut % (Auto) 54.0 % 06/14/24 20:53 Lymph % (Auto) 36.9 % 06/14/24 20:53 [place] % (Auto) 7.3 % 06/14/24 20:53 Eos % (Auto) 0.6 % 06/14/24 20:53 Baso % (Auto) 0.7 % 06/14/24 20:53 Neut # (Auto) 4.49 10^3/uL (1.8-7.7) 06/14/24 20:53 Lymph # (Auto) 3.1 10^3/uL (0.8-4.8) 06/14/24 20:53 [place] # (Auto) 0.6 10^3/uL (0.2-0.9) 06/14/24 20:53 Eos # (Auto) 0.1 10^3/uL (0.0-0.8) 06/14/24 20:53 Baso # (Auto) 0.1 10^3/uL (0.0-0.1) 06/14/24 20:53 Nucleated RBC % (auto) 0 % 06/14/24 20:53 Nucleated RBCs # 0.0 /100WBC 06/14/24 20:53 Sodium 135 mmol/L (136-145) L 06/14/24 20:53 Potassium 3.8 mmol/L (3.5-5.1) 06/14/24 20:53 Chloride 95 mmol/L (98-107) L 06/14/24 20:53 Carbon Dioxide 26 mmol/L (22-29) 06/14/24 20:53 Anion Gap 17.8 (5-19) 06/14/24 20:53 BUN 5 mg/dL (6-20) L 06/14/24 20:53 Creatinine 0.6 mg/dL (0.5-0.9) 06/14/24 20:53 GFR Calculation 104.6 mL/min (90-130) 06/14/24 20:53 Glucose 119 mg/dL (65-115) H 06/14/24 20:53 POC Glucose 114 mg/dL (70-110) H 06/14/24 20:22 Calculated Osmolality 278 mOsm/kg (285-295) L 06/14/24 20:53 Calcium 9.5 mg/dL (8.5-10.5) 06/14/24 20:53 Total Bilirubin 0.4 mg/dL (0.15-1.2) 06/14/24 20:53 AST 48 U/L (0-32) H 06/14/24 20:53 ALT 30 U/L (0-33) 06/14/24 20:53 Alkaline Phosphatase 120 U/L (35-105) H 06/14/24 20:53 Troponin T Baseline < 6 ng/L (0-10) 06/14/24 20:53 Total Protein 7.3 g/dL (6.6-8.7) 06/14/24 20:53 Albumin 4.0 g/dL (3.5-5.2) 06/14/24 20:53 Globulin 3.3 g/dL (1.3-4.6) 06/14/24 20:53 Urine Color Yellow (Yellow) 06/14/24 22:48 Urine Appearance Cloudy (CLEAR) A 06/14/24 22:48 Urine pH 6.5 (5-7) 06/14/24 22:48 Ur Specific Elmer 1.014 (1.005-1.030) 06/14/24 22:48 Urine Protein Negative (Negative) 06/14/24 22:48 Urine Glucose (UA) Negative (Normal) 06/14/24 22:48 Urine Ketones Negative (Negative) 06/14/24 22:48 Urine Blood Negative (Negative) 06/14/24 22:48 Urine Nitrate Negative (Negative) 06/14/24 22:48 Urine Bilirubin Negative (Negative) 06/14/24 22:48 Urine Urobilinogen 0.2 mg/dL (Negative) 06/14/24 22:48 Ur Leukocyte Esterase Negative (Negative) 06/14/24 22:48 Urine RBC 0-2 /hpf (0-2) 06/14/24 22:48 Urine WBC 0-5 /hpf (0-5) 06/14/24 22:48 Ur Squamous Epith Cells 11-20 /hpf (0-5) H 06/14/24 22:48 Amorphous Sediment Not Reportable 06/14/24 22:48 Urine Bacteria Trace /hpf (NONE) 06/14/24 22:48 Hyaline Casts 0.40 /lpf 06/14/24 22:48 Coronavirus (PCR) Negative (Negative) 06/14/24 20:20 Influenza A (PCR) Negative (Negative) 06/14/24 20:20 Influenza Type B (PCR) Negative (Negative) 06/14/24 20:20 RSV (PCR) Negative (Negative) 06/14/24 20:20 All radiology interpretation(s) finalized by discharge Discharge Plan Discharge Patient Disposition: Home Clinical Impression: Acute dehydration, Chest pain Condition: Stable Prescriptions: No Action amlodipine 10 mg tablet 10 mg PO QAM hydrochlorothiazide 50 mg tablet 50 mg PO QAM epinephrine 0.3 mg/0.3 mL auto-injector 0.3 mg IM Q10M PRN (Reason: Anaphylaxis) Rx Instructions: for 2 doses meclizine 25 mg tablet 25 mg PO TID PRN (Reason: Dizziness Or Vertigo) pantoprazole 40 mg tablet,delayed release (DR/EC) 40 mg PO DAILY budesonide-formoterol [Symbicort] 160-4.5 mcg/actuation HFA aerosol inhaler 1 puff inhalation BID Spiriva Respimat 1.25 mcg/actuation mist 2 puff inhalation DAILY nicotine 21 mg/24 hr patch 24 hour 1 patch transdermal DAILY Qty: 28 2RF duloxetine [Cymbalta] 60 mg capsule,delayed release(DR/EC) 60 mg PO DAILY Qty: 30 5RF diazepam 2 mg tablet 2 mg PO BID PRN (Reason: anxiety) Qty: 60 2RF gabapentin 400 mg capsule 400 mg PO TID (DME) Cam Boot See Rx Instructions .Route .MEDSUPPLY Qty: 1 0RF Rx Instructions: As directed by HOME L foot esomeprazole magnesium 40 mg capsule,delayed release(DR/EC) 40 mg PO DAILY Qty: 30 4RF cholecalciferol (vitamin D3) 1,250 mcg (50,000 unit) capsule 50,000 unit PO .weekly Qty: 14 2RF bupropion HCl 150 mg tablet extended release 24 hr 150 mg PO DAILY Qty: 30 11RF Rx Instructions: TAKE 1 TABLET BY MOUTH EVERY MORNING with 300mg DOSE bupropion HCl 300 mg tablet extended release 24 hr 300 mg PO QAM Qty: 30 11RF Rx Instructions: Take with Buproion ER 150 mg for a total daily dose of 450 mg. lisinopril 5 mg tablet 5 mg PO QAM famotidine 20 mg tablet 20 mg PO BEDTIME simvastatin 20 mg tablet 20 mg PO BEDTIME aspirin 81 mg tablet,delayed release (DR/EC) 81 mg PO QAM meloxicam 15 mg tablet 15 mg PO DAILY Discharge Orders: Discharge ED (Routine); Ordered 06/14/24 Ordered By: Juan Luis Kennedy Referrals: Serena Santana FNP [Primary Care Provider] - Patient Instructions: Dehydration (ED) Activity Restrictions/Additional Instructions: Make sure to drink plenty of fluids. Follow-up with primary care for close reevaluation. If you develop any further chest pain, worsening breathing, or other concerns please return to the ED as we discussed. Continue taking home medications as prescribed. Print Language: Kyrgyz Coding Level of Care Code ED Braker Passenger Train for Chg Fwd Related Data Home Medications ?Medication ?Instructions ?Recorded ?Confirmed amlodipine 10 mg tablet 10 mg PO QAM 07/07/19 06/09/24 hydrochlorothiazide 50 mg tablet 50 mg PO QAM 07/07/19 06/09/24 epinephrine 0.3 mg/0.3 mL 0.3 mg IM Q10M PRN Anaphylaxis 10/05/19 06/09/24 injection, auto-injector lisinopril 5 mg tablet 5 mg PO QAM 10/24/21 06/09/24 aspirin 81 mg tablet,delayed 81 mg PO QAM 10/27/22 06/09/24 release famotidine 20 mg tablet 20 mg PO BEDTIME Acid Reflux 10/27/22 06/09/24 simvastatin 20 mg tablet 20 mg PO BEDTIME 10/27/22 06/09/24 meclizine 25 mg tablet 25 mg PO TID PRN Dizziness Or 05/12/23 06/09/24 Vertigo meloxicam 15 mg tablet 15 mg PO DAILY 06/02/23 06/09/24 Held on 06/03/23. Instructions: Resume on 06/05/23. gabapentin 400 mg capsule 400 mg PO TID 12/29/23 06/09/24 pantoprazole 40 mg tablet,delayed 40 mg PO DAILY 02/10/24 06/09/24 release budesonide-formoterol HFA 160 1 puff inhalation BID 02/22/24 06/09/24 mcg-4.5 mcg/actuation aerosol inhaler (Symbicort) tiotropium bromide 1.25 2 puff inhalation DAILY 02/22/24 06/09/24 mcg/actuation mist for inhalation (Spiriva Respimat) Previous Rx's ?Medication ?Instructions ?Recorded Cam [place] #1 ea 01/11/24 cholecalciferol (vitamin D3) 1,250 50,000 unit PO .weekly #14 caps 02/10/24 mcg (50,000 unit) capsule esomeprazole magnesium 40 mg 40 mg PO DAILY #30 caps 02/10/24 capsule,delayed release bupropion HCl 150 mg 24 hr tablet, 150 mg PO DAILY #30 tabs 03/17/24 extended release bupropion HCl 300 mg 24 hr tablet, 300 mg PO QAM #30 tabs 03/17/24 extended release duloxetine 60 mg capsule,delayed 60 mg PO DAILY #30 caps 05/25/24 release (Cymbalta) nicotine 21 mg/24 hr daily 1 patch transdermal DAILY #28 ea 05/25/24 transdermal patch diazepam 2 mg tablet 2 mg PO BID PRN anxiety #60 tabs 06/09/24 Allergies Allergy/AdvReac Type Severity Reaction Status Date / Time bee venom protein (honey bee) Allergy Unknown ALGY-Anaphy Verified 06/14/24 20:18 laxis mushroom Allergy Unknown ALGY-Anaphy Verified 06/14/24 20:18 laxis venom-wasp Allergy Unknown ALGY-Anaphy Verified 06/14/24 20:18 laxis Latex, Natural Rubber Allergy ALGY-Bliste Verified 06/14/24 20:18 r
[2024-06-14 22:52] LABS: Bilirubin Urine Negative (Negative); Blood Urine Negative (Negative); Glucose Urine UA Negative (Normal); Ketones Urine Negative (Negative); Leukocyte Esterase Urine Negative (Negative); Nitrate Urine Negative (Negative); Protein Urine Negative (Negative); Specific Gravity, Urine 1.014 (1.005-1.030); Urine Appearance Cloudy (CLEAR); Urine Color Yellow (Yellow); Urobilinogen Urine 0.2 mg/dL (Negative); pH Urine 6.5 (5-7)
[2024-06-14 22:57] LABS: Add Urine Microscopic? YES; Bacteria Urine Trace /hpf; RBC Urine 0-2 /hpf (0-2); WBC Urine 0-5 /hpf (0-5)
[2024-06-14 23:00] VITALS: BP 128/86; PULSE 82; RESP 16; O2SAT 94
[2024-06-14 23:35] VITALS: BP 131/95; PULSE 83; RESP 16; O2SAT 95
== END 2024-06-14 23:32 | disposition home or self-care (01) ==
PROVIDERS: Emergency Medicine; Emergency Provider Physician Assistant; PCP Nurse Practitioner Family
DX: E86.0 Dehydration (principal); R07.9 Chest pain, unspecified; Z79.82 Long term (current) use of aspirin; Z11.52 Encounter for screening for COVID-19; Z72.0 Tobacco use; J44.9 Chronic obstructive pulmonary disease, unspecified; E11.9 Type 2 diabetes mellitus without complications; I10 Essential (primary) hypertension; E78.5 Hyperlipidemia, unspecified
CPT/HCPCS: 36416; 71045; 80053; 81001; 82962; 84484; 85025; 87637; 93005; 96360; 99285; J7030

== ENCOUNTER → 2024-07-12 06:29 | Outpatient (BNVA) | payer MEDICAID, SELFPAY ==
[2023-04-13 09:30] VITALS: BP 129/87; BMI 38.7
== END ==
PROVIDERS: PCP Nurse Practitioner Family; Referring Provider Psychiatry & Neurology Neurology; Visit Provider Psychiatry & Neurology Neurology
DX: R55 Syncope and collapse (principal); R29.6 Repeated falls
CPT/HCPCS: 95813

== ENCOUNTER 2024-08-09 18:51 | Inpatient (IN) | payer MEDICAID, SELFPAY ==
[2023-04-13 09:30] VITALS: BP 129/87; BMI 38.7
[2024-08-09 18:54] VITALS: BP 120/77; PULSE 92; RESP 18; TEMP 36.6; O2SAT 92; BMI 40.6
--- NOTE | 2024-08-09 18:58 | W.ED.PSYCHS ---
HPI - Psych General: Chief Complaint: Overdose Stated Complaint: SI - possible overdose Time Seen by Provider: 08/09/24 18:55 Source: patient Mode of arrival: ambulatory Limitations: no limitations History of Present Illness: 54-year-old female who states she has been suicidal she states she took Xanax an hour ago and attempt to overdose. She is unsure exactly how many she took. She denies any worse improving factors. Associated symptoms: Reports depression and suicidal ideation Related Data Home Medications ?Medication ?Instructions ?Recorded ?Confirmed amlodipine 10 mg tablet 10 mg PO QAM 07/07/19 07/12/24 hydrochlorothiazide 50 mg tablet 50 mg PO QAM 07/07/19 07/12/24 epinephrine 0.3 mg/0.3 mL 0.3 mg IM Q10M PRN Anaphylaxis 10/05/19 07/12/24 injection, auto-injector lisinopril 5 mg tablet 5 mg PO QAM 10/24/21 07/12/24 aspirin 81 mg tablet,delayed 81 mg PO QAM 10/27/22 07/12/24 release famotidine 20 mg tablet 20 mg PO BEDTIME Acid Reflux 10/27/22 07/12/24 simvastatin 20 mg tablet 20 mg PO BEDTIME 10/27/22 07/12/24 meclizine 25 mg tablet 25 mg PO TID PRN Dizziness Or 05/12/23 07/12/24 Vertigo meloxicam 15 mg tablet 15 mg PO DAILY 06/02/23 07/12/24 Held on 06/03/23. Instructions: Resume on 06/05/23. gabapentin 400 mg capsule 400 mg PO TID 12/29/23 07/12/24 pantoprazole 40 mg tablet,delayed 40 mg PO DAILY 02/10/24 07/12/24 release budesonide-formoterol HFA 160 1 puff inhalation BID 02/22/24 07/12/24 mcg-4.5 mcg/actuation aerosol inhaler (Symbicort) tiotropium bromide 1.25 2 puff inhalation DAILY 02/22/24 07/12/24 mcg/actuation mist for inhalation (Spiriva Respimat) Previous Rx's ?Medication ?Instructions ?Recorded [place] #1 ea 01/11/24 cholecalciferol (vitamin D3) 1,250 50,000 unit PO .weekly #14 caps 02/10/24 mcg (50,000 unit) capsule esomeprazole magnesium 40 mg 40 mg PO DAILY #30 caps 02/10/24 capsule,delayed release bupropion HCl 150 mg 24 hr tablet, 150 mg PO DAILY #30 tabs 03/17/24 extended release bupropion HCl 300 mg 24 hr tablet, 300 mg PO QAM #30 tabs 03/17/24 extended release duloxetine 60 mg capsule,delayed 60 mg PO DAILY #30 caps 05/25/24 release (Cymbalta) nicotine 21 mg/24 hr daily 1 patch transdermal DAILY #28 ea 05/25/24 transdermal patch diazepam 2 mg tablet 2 mg PO BID PRN anxiety #60 tabs 06/09/24 Allergies Allergy/AdvReac Type Severity Reaction Status Date / Time bee venom protein (honey bee) Allergy Unknown ALGY-Anaphy Verified 08/09/24 19:06 laxis mushroom Allergy Unknown ALGY-Anaphy Verified 08/09/24 19:06 laxis venom-wasp Allergy Unknown ALGY-Anaphy Verified 08/09/24 19:06 laxis Latex, Natural Rubber Allergy ALGY-Bliste Verified 08/09/24 19:06 r Review of Systems Const: Denies: fever(s), chills, body aches or change in appetite ENMT: Denies: throat pain or dental pain Card: Denies: chest pain Resp: Denies: dyspnea GI: Denies: abdominal pain, nausea, vomiting or diarrhea Musc: Denies: neck pain or back pain Skin/Breast: Denies: rash Neuro: Denies: headache(s) Psych: Reports: depression and suicidal ideation PFSH ED PFSH: Medical History Syncope History of colon polyps Psychiatric care Insect bite, venomous Knee buckling Right wrist injury Falls frequently Hyperlipidemia Diabetes COPD (chronic obstructive pulmonary disease) Hypertension Obstructive sleep apnea Dependent personality disorder Borderline personality disorder Alcohol dependence, in remission Panic disorder [episodic paroxysmal anxiety] Major depressive disorder, recurrent, in full remission Post-traumatic stress disorder, chronic Surgical History History of cholecystectomy deliv NOS-unsp X4 History of bilateral tubal ligation History of endometrial ablation for heavy menses; did not resolve issue Family History Brother Heart disease Hyperlipidemia Hypertension Sister Hypertension Denies family history of Colon cancer Diabetes Breast cancer Social History Smoking and tobacco/nicotine status: current every day tobacco/nicotine user Alcohol intake: never Substance/Drug Use: never Female Reproductive History: Para: 4 Spontaneous abortions: Yes Physical Exam Const: COMMON NORMALS: no acute distress, patient oriented x3 and healthy appearing HENMT: COMMON NORMALS: normocephalic and atraumatic HEAD & SCALP: normocephalic and atraumatic Eye: COMMON NORMALS: conjunctivae normal CONJUNCTIVA: Yes conjunctivae normal Neck/C-Spine: COMMON NORMALS: full ROM and supple Chest: COMMONS NORMALS: normal inspection of the chest Resp: COMMON NORMALS: normal respiratory effort Cardio: COMMON NORMALS: regular rate, regular rhythm and No murmurs present (Cardio) RATE: regular rate RHYTHM: regular rhythm Extremity: COMMON NORMALS: normal to inspection and full ROM Neuro: COMMON NORMALS: patient oriented x3, moves all extremities and no focal motor deficits Psych: COMMON NORMALS: mental status grossly normal, Normal thought process present and cooperative MOOD & AFFECT: Yes depressed mood THOUGHT PROCESS: Normal thought process present THOUGHT CONTENT: Yes Suicidality present Skin: COMMON NORMALS: no rashes or lesions noted and no wounds GENERAL SKIN EXAM: no rashes or lesions noted Course Vital Signs: Vital signs: Vital Signs Temperature 97.9 F 08/09/24 18:54 Pulse Rate 92 08/09/24 18:54 Respiratory Rate 18 08/09/24 18:54 Blood Pressure 120/77 08/09/24 18:54 Pulse Oximetry 92 08/09/24 18:54 Oxygen Delivery Me thod Room Air 08/09/24 18:54 MDM - Psych Medical Decision Making Patient presents here with suicidal ideations she is medically cleared she has no signs of true overdose will admit to the psych henyr. Medical Records I reviewed the patient's medical records. Lab Data I reviewed the patient's lab results. 08/09/24 18:36 08/09/24 19:51 Laboratory Results WBC 7.72 10^3/uL (3.29-11.43) 08/09/24 18:36 RBC 5.76 10^6/uL (3.85-5.65) H 08/09/24 18:36 Hgb 13.30 g/dL (11.27-16.99) 08/09/24 18:36 Hct 43.4 % (36-47) 08/09/24 18:36 MCV 75.3 fl (85-98) L 08/09/24 18:36 MCH 23.1 pg (27-33) L 08/09/24 18:36 MCHC 30.6 g/dL (30-55) 08/09/24 18:36 RDW 16.6 % (12.1-15.1) H 08/09/24 18:36 Plt Count 353 10^3/cmm (157-399) 08/09/24 18:36 MPV 11.8 fL (7.4-10.4) H 08/09/24 18:36 Neut % (Auto) 55.2 % 08/09/24 18:36 Lymph % (Auto) 35.5 % 08/09/24 18:36 [place] % (Auto) 7.1 % 08/09/24 18:36 Eos % (Auto) 1.0 % 08/09/24 18:36 Baso % (Auto) 0.8 % 08/09/24 18:36 Neut # (Auto) 4.26 10^3/uL (1.8-7.7) 08/09/24 18:36 Lymph # (Auto) 2.7 10^3/uL (0.8-4.8) 08/09/24 18:36 [place] # (Auto) 0.6 10^3/uL (0.2-0.9) 08/09/24 18:36 Eos # (Auto) 0.1 10^3/uL (0.0-0.8) 08/09/24 18:36 Baso # (Auto) 0.1 10^3/uL (0.0-0.1) 08/09/24 18:36 Nucleated RBC % (auto) 0 % 08/09/24 18:36 Nucleated RBCs # 0.0 /100WBC 08/09/24 18:36 Sodium 138 mmol/L (136-145) 08/09/24 19:51 Potassium 3.7 mmol/L (3.5-5.1) 08/09/24 19:51 Chloride 101 mmol/L (98-107) 08/09/24 19:51 Carbon Dioxide 24 mmol/L (22-29) 08/09/24 19:51 Anion Gap 16.7 (5-19) 08/09/24 19:51 BUN 3 mg/dL (6-20) L 08/09/24 19:51 Creatinine 0.7 mg/dL (0.5-0.9) 08/09/24 19:51 GFR Calculation 87.5 mL/min (90-130) L 08/09/24 19:51 Glucose 151 mg/dL (65-115) H 08/09/24 19:51 Calculated Osmolality 285 mOsm/kg (285-295) 08/09/24 19:51 Calcium 8.9 mg/dL (8.5-10.5) 08/09/24 19:51 Total Bilirubin 0.2 mg/dL (0.15-1.2) 08/09/24 19:51 AST 37 U/L (0-32) H 08/09/24 19:51 ALT 27 U/L (0-33) 08/09/24 19:51 Alkaline Phosphatase 102 U/L (35-105) 08/09/24 19:51 Total Protein 6.8 g/dL (6.6-8.7) 08/09/24 19:51 Albumin 3.9 g/dL (3.5-5.2) 08/09/24 19:51 Globulin 2.9 g/dL (1.3-4.6) 08/09/24 19:51 Salicylates < 0.3 mg/dL (3-10) L 08/09/24 19:51 Acetaminophen < 5.0 ug/mL (10-30) L 08/09/24 19:51 Ethyl Alcohol < 10 mg/dL (0-10) 08/09/24 19:51 No radiology studies performed this visit Discharge Plan Discharge Patient Disposition: Admitted As Inpatient Clinical Impression: Suicidal ideation Condition: Stable Prescriptions: No Action amlodipine 10 mg tablet 10 mg PO QAM hydrochlorothiazide 50 mg tablet 50 mg PO QAM epinephrine 0.3 mg/0.3 mL auto-injector 0.3 mg IM Q10M PRN (Reason: Anaphylaxis) Rx Instructions: for 2 doses meclizine 25 mg tablet 25 mg PO TID PRN (Reason: Dizziness Or Vertigo) pantoprazole 40 mg tablet,delayed release (DR/EC) 40 mg PO DAILY budesonide-formoterol [Symbicort] 160-4.5 mcg/actuation HFA aerosol inhaler 1 puff inhalation BID Spiriva Respimat 1.25 mcg/actuation mist 2 puff inhalation DAILY nicotine 21 mg/24 hr patch 24 hour 1 patch transdermal DAILY Qty: 28 2RF duloxetine [Cymbalta] 60 mg capsule,delayed release(DR/EC) 60 mg PO DAILY Qty: 30 5RF diazepam 2 mg tablet 2 mg PO BID PRN (Reason: anxiety) Qty: 60 2RF gabapentin 400 mg capsule 400 mg PO TID (DME) [place] [employer] See Rx Instructions .Route .MEDSUPPLY Qty: 1 0RF Rx Instructions: As directed by HOME Jose sorto esomeprazole magnesium 40 mg capsule,delayed release(DR/EC) 40 mg PO DAILY Qty: 30 4RF cholecalciferol (vitamin D3) 1,250 mcg (50,000 unit) capsule 50,000 unit PO .weekly Qty: 14 2RF bupropion HCl 150 mg tablet extended release 24 hr 150 mg PO DAILY Qty: 30 11RF Rx Instructions: TAKE 1 TABLET BY MOUTH EVERY MORNING with 300mg DOSE bupropion HCl 300 mg tablet extended release 24 hr 300 mg PO QAM Qty: 30 11RF Rx Instructions: Take with Buproion ER 150 mg for a total daily dose of 450 mg. lisinopril 5 mg tablet 5 mg PO QAM famotidine 20 mg tablet 20 mg PO BEDTIME simvastatin 20 mg tablet 20 mg PO BEDTIME aspirin 81 mg tablet,delayed release (DR/EC) 81 mg PO QAM meloxicam 15 mg tablet 15 mg PO DAILY Referrals: Serena Santana FNP [Primary Care Provider] - Print Language: Azerbaijani Coding Level of Care Code ED [employer] Rep[employer]r for Mallory Boucher
--- NOTE | 2024-08-09 19:27 | PC.NURSE ---
Poison control contacted at this time. info is being faxed
--- NOTE | 2024-08-09 19:27 | PC.NURSE ---
Pt arrived with a [facility], pt had a caregiver here who was willing to care for the dog until the pt is released. The caregiver took the dog and blanket home with her at this time.
[2024-08-09 19:31] LABS: Basophils # 0.1 10^3/uL (0.0-0.1); Basophils % 0.8 %; Eosinophils # 0.1 10^3/uL (0.0-0.8); Hematocrit 43.4 % (36-47); Lymphocytes # 2.7 10^3/uL (0.8-4.8); Lymphocytes % 35.5 %; Mean Corpuscular HGB Conc 30.6 g/dL (30-55); Mean Corpuscular Hemoglobin 23.1 pg (27-33); Mean Corpuscular Volume 75.3 fl (85-98); Mean Platelet Volume 11.8 fL (7.4-10.4); Monocytes # 0.6 10^3/uL (0.2-0.9); Monocytes % 7.1 %; Neutrophils # 4.26 10^3/uL (1.8-7.7); Neutrophils % 55.2 %; Nucleated Red Blood Cells % 0 %; Platelet Count 353 10^3/cmm (157-399); Red Blood Count 5.76 10^6/uL (3.85-5.65); Red Cell Distribution Width 16.6 % (12.1-15.1); White Blood Count 7.72 10^3/uL (3.29-11.43)
[2024-08-09 20:10] LABS: Slide Review Slide Review Perform
--- NOTE | 2024-08-09 20:11 | ECG_ITS ---
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 Measurements Intervals [place] Rate: 80 P: 69 MD: 197 QRS: -36 QRSD: 114 T: 43 QT: 401 QTc: 464 Interpretive Statements SINUS RHYTHM LEFT AXIS DEVIATION [QRS AXIS < -30] PATTERN CONSISTENT WITH PULMONARY DISEASE MODERATE INTRAVENTRICULAR CONDUCTION DELAY [105+ ms QRS DURATION, 80+ ms Q/S IN V1/V2, NO Q AND 60+ ms R IN I/aVL/V5/V6] VOLTAGE CRITERIA FOR LVH [MEETS CRITERIA IN ONE OF: R(aVL), S(V1), R(V5), R(V5/V6)+S(V1)] NONSPECIFIC T-WAVE ABNORMALITY Compared to ECG 06/14/2024 20:25:13 Left-axis deviation now present.Intraventricular conduction delay now present T-wave abnormality now present.Myocardial infarct finding no longer present Electronically Signed On 08-10-2024 16:02:42 CDT by Hortencia Gamez M.D. [email or web address]
[2024-08-09 20:36] LABS: Alanine Aminotransferase 27 U/L (0-33); Albumin Level 3.9 g/dL (3.5-5.2); Alkaline Phosphatase 102 U/L (35-105); Aspartate Amino Transferase 37 U/L (0-32); Blood Urea Nitrogen 3 mg/dL (6-20); Calcium 8.9 mg/dL (8.5-10.5); Creatinine Clr Calc Pharmacy 119.2913; Globulin 2.9 g/dL (1.3-4.6); Glomerular Filtration Rate 87.5 mL/min (90-130); Glucose 151 mg/dL (65-115); Total Bilirubin 0.2 mg/dL (0.15-1.2); Total Protein 6.8 g/dL (6.6-8.7)
--- NOTE | 2024-08-09 20:41 | PC.NURSE ---
pt assisted into restroom, placed urine hat in toilet and pt missed the hat. will try again.
[2024-08-09 20:45] LABS: Acetaminophen < 5.0 ug/mL (10-30); Alcohol Level < 10 mg/dL (0-10); Salicylate < 0.3 mg/dL (3-10)
[2024-08-09 20:57] LABS: Anion Gap 16.7 (5-19); Carbon Dioxide 24 mmol/L (22-29); Chloride 101 mmol/L (98-107); Osmolality Calculated 285 mOsm/kg (285-295); Potassium 3.7 mmol/L (3.5-5.1); Sodium 138 mmol/L (136-145)
--- NOTE | 2024-08-09 21:22 | PC.NURSE ---
96 Hour Hold Pt served with copy of 96 HH by this RN. Pt A&Ox3, pt states that she has been through the 96 Hour Hold process and has no questions regarding it. Pt states she is needing to find a new PCP to address her baseline needs.
[2024-08-09 22:19] VITALS: BP 106/68; PULSE 83; RESP 18; O2SAT 92
--- NOTE | 2024-08-09 22:23 | PC.NURSE ---
pt report called to [facility] [phone].
[2024-08-09 22:25] VITALS: BP 133/86; PULSE 96; RESP 18; TEMP 36.4; O2SAT 96
[2024-08-09 23:02] VITALS: BP 106/68; PULSE 83; O2SAT 92
--- NOTE | 2024-08-09 23:27 | PC.ADMIT ---
[email or web address] Admission Note: The patient,Prudence Acuna,54 y/o, was given written information regarding hospital policies, unit procedures and contact persons. Patient's smoking status: current every day smoker. Vital Signs - 8 hr 08/09/24 18:54 08/09/24 22:19 08/09/24 22:25 Temperature 97.9 F 97.6 F Pulse Rate 92 83 96 Respiratory Rate 18 18 18 Blood Pressure 120/77 106/68 133/86 Pulse Oximetry 92 92 96 Oxygen Delivery Method Room Air Room Air Room Air 08/09/24 22:36 08/09/24 23:02 Temperature Pulse Rate 83 Respiratory Rate Blood Pressure 106/68 Pulse Oximetry 92 Oxygen Delivery Method Room Air Pt. came in on a 96 hr hold. Pt. stated she took a hand full of Valium. Pt. states she has a live in that is an alcoholic and the entire building where she lives ([facility]) now knows she lives with an alcoholic. Pt. has HH for 3.25 hrs a day Mon-Fri. Pt. is cooperative, is excessive is speech and rambles on. Pt. uses a w/c, but was able to self transfer from chair to w/c. Pt. says she goes to a shinto to receive free food and the shinto told her she can no longer bring her dog and this upset her very much. Pt. says she has not used alcohol is 5 years. Pt. has a HX of falls.
--- NOTE | 2024-08-09 23:28 | PC.NURSE ---
Pt. came in on a 96 hr hold. Pt. stated she took a hand full of Valium. Pt. states she has a live in that is an alcoholic and the entire building where she lives ([facility]) now knows she lives with an alcoholic. Pt. has HH for 3.25 hrs a day Mon-Fri. Pt. is cooperative, is excessive is speech and rambles on. Pt. uses a w/c, but was able to self transfer from chair to w/c. Pt. says she goes to a yarsani to receive free food and the yarsani told her she can no longer bring her dog and this upset her very much. Pt. says she has not used alcohol is 5 years. Pt. has a HX of falls.
[2024-08-10 06:00] VITALS: BP 138/86; PULSE 87; RESP 18; TEMP 36.4; O2SAT 96
[2024-08-10 06:37] LABS: Amphetamines Screen Urine Negative (Negative); Barbiturates Screen Urine Negative (Negative); Benzodiazepines Screen Urine Positive (Negative); Cocaine Screen Urine Negative (Negative); Opiate Screen Urine Negative (Negative); PCP Screen Urine Negative (Negative); THC Screen Urine Negative (Negative)
[2024-08-10 07:35] LABS: Glucose Point of Care 190 mg/dL (70-110)
[2024-08-10] MEDS: hydroCHLOROthiazide 25 mg Tablet 50 MG PO (08:21)
[2024-08-10] MEDS: aspirin 81 mg EC Tablet PO (08:21)
[2024-08-10] MEDS: gabapentin 400 mg Capsule PO ×3 (08:21→20:40)
[2024-08-10] MEDS: ondansetron 4 MG Tablet PO (08:22)
[2024-08-10] MEDS: meloxicam 7.5 mg tablet 15 MG PO (08:22)
[2024-08-10] MEDS: lisinopril 5 mg Tablet PO (08:22)
[2024-08-10] MEDS: duloxetine 60 mg Capsule PO (08:22)
[2024-08-10] MEDS: buPROPion XL (24 HR) 300 mg Tablet PO (08:22)
[2024-08-10] MEDS: amlodipine 10 mg Tablet PO (08:22)
[2024-08-10] MEDS: buPROPion XL (24 HR) 150 mg Tablet PO (08:22)
[2024-08-10 11:53] LABS: Glucose Point of Care 204 mg/dL (70-110)
[2024-08-10 14:00] VITALS: BP 108/70; PULSE 85; RESP 18; TEMP 37.2; O2SAT 90
[2024-08-10] MEDS: acetaminophen 325 mg Tablet 650 MG PO (14:43)
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
[2024-08-10 17:25] LABS: Glucose Point of Care 144 mg/dL (70-110)
[2024-08-10 19:54] VITALS: BP 102/66; PULSE 83; RESP 16; TEMP 36.6; O2SAT 91
[2024-08-10] MEDS: meclizine 25 mg tablet PO (20:40)
[2024-08-10] MEDS: trazodone 50 mg Tablet PO (20:40)
[2024-08-10] MEDS: hyDROXYzine 25 mg Capsule 50 MG PO (20:40)
[2024-08-10] MEDS: atorvastatin 40 mg Tablet 20 MG PO (20:40)
[2024-08-10] MEDS: famotidine 20 mg Tablet PO (20:40)
[2024-08-11 06:00] VITALS: BP 101/63; PULSE 86; RESP 16; O2SAT 90
[2024-08-11 07:34] LABS: Glucose Point of Care 239 mg/dL (70-110)
--- NOTE | 2024-08-11 08:14 | PC.NURSE ---
Addendum entered by Jaz Allen RN 08/11/24 08:50: Correction: patient is taking Mobic rather than Lyrica as noted below. Original Note: During shift assessment, patient c/o pain in her back and left side 10/11. She states that this is normal for her at home and a chronic pain issue. I asked if she takes anything at home for pain and she states yes, normally a Naproxen but she states that whatever medication they gave me yesterday worked fine . Upon review, patient has Lyrica and Gabapentin as scheduled medications. Will reassess pain after these medications.
[2024-08-11 09:20] VITALS: BP 101/64; PULSE 91; RESP 17; O2SAT 90
[2024-08-11] MEDS: amlodipine 10 mg Tablet PO (10:22)
[2024-08-11] MEDS: meloxicam 7.5 mg tablet 15 MG PO (10:22)
[2024-08-11] MEDS: lisinopril 5 mg Tablet PO (10:23)
[2024-08-11] MEDS: buPROPion XL (24 HR) 300 mg Tablet PO (10:23)
[2024-08-11] MEDS: duloxetine 60 mg Capsule PO (10:23)
[2024-08-11] MEDS: aspirin 81 mg EC Tablet PO (10:23)
[2024-08-11] MEDS: buPROPion XL (24 HR) 150 mg Tablet PO (10:23)
[2024-08-11] MEDS: gabapentin 400 mg Capsule PO (10:23)
[2024-08-11] MEDS: hydroCHLOROthiazide 25 mg Tablet 50 MG PO (10:23)
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
[2024-08-11 11:36] VITALS: BP 101/64; PULSE 90; O2SAT 91
--- NOTE | 2024-08-11 12:07 | PC.NURSE ---
I offered to make d/c follow up appointment with PCP, JONNY Taylor, however patient refused, stating she would make it on her own. She did allow me to contact [facility] and move her appointment up with Dr. Mock to 08/23. I added this to her d/c and reviewed it with her prior to d/c. She verbalizes understanding and denies any further questions/concerns.
== END 2024-08-11 12:29 | disposition home or self-care (01) | DRG 885 ==
LOC: ER 21:57 → NP 22:01
PROVIDERS: Admitting Provider Psychiatry & Neurology Psychiatry; Emergency Provider Emergency Medicine; PCP Nurse Practitioner Family; Visit Provider Psychiatry & Neurology Psychiatry
DX: F33.9 Major depressive disorder, recurrent, unspecified (principal); R45.851 Suicidal ideations; Z68.41 Body mass index [BMI] 40.0-44.9, adult; F43.12 Post-traumatic stress disorder, chronic; F60.3 Borderline personality disorder; F41.0 Panic disorder [episodic paroxysmal anxiety]; F10.21 Alcohol dependence, in remission; E66.01 Morbid (severe) obesity due to excess calories; Z79.82 Long term (current) use of aspirin; F17.210 Nicotine dependence, cigarettes, uncomplicated; E78.5 Hyperlipidemia, unspecified; E11.9 Type 2 diabetes mellitus without complications; J44.9 Chronic obstructive pulmonary disease, unspecified; G47.33 Obstructive sleep apnea (adult) (pediatric)
CPT/HCPCS: 36415; 36416; 80053; 80306; 80307; 82962; 85025; 93005; 97150; 97165; 99285; J8597; J9999; Q0162

== ENCOUNTER → 2024-08-19 09:33 | Outpatient (BNVA) | payer OTHER, SELFPAY ==
[2023-04-13 09:30] VITALS: BP 129/87; BMI 38.7
== END ==
PROVIDERS: PCP Nurse Practitioner Family; Visit Provider Nurse Practitioner Family
DX: R55 Syncope and collapse (principal); R42 Dizziness and giddiness; R00.0 Tachycardia, unspecified; I89.0 Lymphedema, not elsewhere classified; G47.30 Sleep apnea, unspecified; F17.200 Nicotine dependence, unspecified, uncomplicated; Z79.82 Long term (current) use of aspirin
CPT/HCPCS: 99214

== ENCOUNTER → 2024-08-25 14:17 | Outpatient (BNVA) | payer MEDICAID, SELFPAY ==
[2023-04-13 09:30] VITALS: BP 129/87; BMI 38.7
== END ==
PROVIDERS: PCP Nurse Practitioner Family; Visit Provider Podiatrist Foot & Ankle Surgery
DX: M79.671 Pain in right foot (principal); S99.921A Unspecified injury of right foot, initial encounter; M76.829 Posterior tibial tendinitis, unspecified leg; E11.9 Type 2 diabetes mellitus without complications; M19.071 Primary osteoarthritis, right ankle and foot; X58.XXXA Exposure to other specified factors, initial encounter
CPT/HCPCS: 73630; 99214

== ENCOUNTER → 2024-10-13 08:27 | Outpatient (BNVA) | payer MEDICAID, SELFPAY ==
[2023-04-13 09:30] VITALS: BP 129/87; BMI 38.7
== END ==
PROVIDERS: PCP Nurse Practitioner Family; Visit Provider Podiatrist Foot & Ankle Surgery
DX: E11.8 Type 2 diabetes mellitus with unspecified complications (principal); M19.071 Primary osteoarthritis, right ankle and foot; M76.821 Posterior tibial tendinitis, right leg
CPT/HCPCS: 99213

== ENCOUNTER 2024-10-26 15:08 | Inpatient (IN) | payer MEDICAID, SELFPAY ==
[2023-04-13 09:30] VITALS: BP 129/87; BMI 38.7
--- OUTSIDE RECORDS SUMMARY | 2024-10-20 15:00 | XMS_ITS | Encounter Summary ---
Author Organization [facility] Address [address] [place] [address] Care Team Providers Care Typing Checker Name Role Phone Unavailable Primary Care Provider Unavailabl e Reason for Visit * Reason Comments Dizziness Encounter Details Date Type Department Care Team (Late st Contact Info) Description 10/20/2024 3:00 PM CDT Office Visit [facility] [address] [place] [id number] Jose Hernandes AU.D [address] [place] [id number] Dizziness (Primary Dx) Social History Tobacco Use Types Packs/Day Years Used Date Smoking Tobacco: Never Assessed Comments Unknown Sex and Gender Information Value Date Recorded Sex Assigned at Female 10/20/2024 8:18 AM CDT Legal Sex Female 9:55 AM [employer] Gender Identity Female 10/20/2024 8:18 AM CDT Sexual Orientation Straight 10/20/2024 8: 18 AM CDT documented as of this encounter Progress Notes * Jose Hernandes AU.D - 10/20/2024 4:33 PM CDT View procedures for details of today's visit. documented in this encounter Procedure Notes * Jose Hernandes AU.D - 10/20/2024 4:44 PM CDTAssociated Order(s): ELECTRONYSTAGMOGRAPHY Procedure(s): IL CALORIC VESTIBULAR TEST W/REC BI BITHERMAL; IL VSTBLR FUNCJ NYSTAG FOVL&PERPH STIMJ OSCIL TRK Pre-Procedure Diagnose(s): Dizziness SUBJECTIVE: Prudence Acuna is a 54 y.o. female seen today for videonystagmography testing. She reports having dizziness episodes for over 2 years. She describes the dizziness as intermittent episodes of spinning vertigo that occurs when she moves too quickly or when she turns. The dizziness seems to be associated with head movement. The dizziness episodes last approximately 5 minutes in duration. She states she feels like she is going to fall down when the dizziness happens. She has hearing loss in both ears, but it is worse in the right ear. She is not sure if the hearing fluctuates with the dizziness episodes. She has taken meclizine for the dizziness. She also reports that she has blacked out with the dizziness. She has been evaluated by cardiology and neurology. She has undergone an MRI of the brain. OBJECTIVE: Ms. Acuna was referred by Fady Logan MD. ASSESSMENT: The VNG showed no gaze, spontaneous, post head shake, or positional nystagmus. The [place]-Hallpike test for benign paroxysmal positional vertigo (BPPV) was negative for both sides. Saccadic eye velocity and accuracy were normal. The visual pursuit test was normal and symmetrical. The eye-movement recordings in the optokinetic test showed low gain for right and left moving targets. This is a central ocular motor finding. Bithermal caloric irrigations produced weak, but symmetrical nystagmus. The patient demonstrated a caloric Reduced Vestibular Response (RVR) of 10% in the left ear. This RVR value is within normal limits. From the 4 irrigations, right beating nystagmus was 10% stronger than the left beating nystagmus. This value for Directional Preponderance is within normal limits. PLAN: It was recommended that Ms. Acuna follow-up with Dr. Logan as planned documented in this encounter Plan of Treatment Not on file documented as of this encounter Procedures Procedure Name Priority Date/Time Associated Diagnosis Comments IL VSTBLR FUNCJ NYSTAG FOVL&PERPH STIMJ OSCIL TRK Routine 10/20/2024 4:44 PM CDT Dizziness IL CALORIC VESTIBULAR TEST W/REC BI BITHERMAL Routine 10/20/2024 4:44 PM CDT Dizziness documented in this encounter Results * IL CALORIC VESTIBULAR TEST W/REC BI BITHERMAL, IL VSTBLR FUNCJ NYSTAG FOVL&PERPH STIMJ OSCIL TRK (10/20/2024 4:44 PM CDT) Narrative Jose Hernandes AU.D - 10/20/2024 4:44 PM CDT Jose Hernandes AU.D 10/20/2024 4:45 PM SUBJECTIVE: Prudence Acuna is a 54 y.o. female seen today for videonystagmography testing. She reports having dizziness episodes for over 2 years. She describes the dizziness as intermittent episodes of spinning vertigo that occurs when she moves too quickly or when she turns. The dizziness seems to be associated with head movement. The dizziness episodes last approximately 5 minutes in duration. She states she feels like she is going to fall down when the dizziness happens. She has hearing loss in both ears, but it is worse in the right ear. She is not sure if the hearing fluctuates with the dizziness episodes. She has taken meclizine for the dizziness. She also reports that she has blacked out with the dizziness. She has been evaluated by cardiology and neurology. She has undergone an MRI of the brain. OBJECTIVE: Ms. Acuna was referred by Fady Logan MD. ASSESSMENT: The VNG showed no gaze, spontaneous, post head shake, or positional nystagmus. The [place]-Hallpike test for benign paroxysmal positional vertigo (BPPV) was negative for both sides. Saccadic eye velocity and accuracy were normal. The visual pursuit test was normal and symmetrical. The eye-movement recordings in the optokinetic test showed low gain for right and left moving targets. This is a central ocular motor finding. Bithermal caloric irrigations produced weak, but symmetrical nystagmus. The patient demonstrated a caloric Reduced Vestibular Response (RVR) of 10% in the left ear. This RVR value is within normal limits. From the 4 irrigations, right beating nystagmus was 10% stronger than the left beating nystagmus. This value for Directional Preponderance is within normal limits. PLAN: It was recommended that Ms. Acuna follow-up with Dr. Logan as planned Jose [facility] ORDERABLES Fi nal Result documented in this encounter Visit Diagnoses Diagnosis Dizziness- Primary Dizziness and giddiness documented in this encounter
[2024-10-26] VITALS (12 sets, daily range): BP systolic 111–133; BP diastolic 68–83; PULSE 95–102; RESP 20; TEMP 36.9; O2SAT 87–98; BMI 40.8
--- NOTE | 2024-10-26 15:20 | W.ED.ABDPA2 ---
Documented by User: Ann Marie Michaud MD 10/26/24 17:24 HPI - Abdominal Pain General: Chief Complaint: Abdominal Pain Stated Complaint: N/V abd pain Time Seen by Provider: 10/26/24 15:09 History of Present Illness: 54-year-old female with a history of alcohol abuse in remission, obesity, obstructive sleep apnea, COPD, hyperlipidemia, borderline personality disorder and PTSD who presents to the emergency room with diffuse abdominal pain and intractable nausea and vomiting. Apparently she received an increased dose of her semaglutide last and has been sick since. She complains of pain in her right upper and lower quadrants and her left lower quadrant. No known fevers. She has had some diarrhea. Related Data Home Medications ?Medication ?Instructions ?Recorded ?Confirmed amlodipine 10 mg tablet 10 mg PO QAM 07/07/19 10/27/24 hydrochlorothiazide 50 mg tablet 50 mg PO QAM 07/07/19 10/27/24 epinephrine 0.3 mg/0.3 mL 0.3 mg IM Q10M PRN Anaphylaxis 10/05/19 10/27/24 injection, auto-injector lisinopril 5 mg tablet 5 mg PO QAM 10/24/21 10/27/24 aspirin 81 mg tablet,delayed 81 mg PO QAM 10/27/22 10/27/24 release famotidine 20 mg tablet 20 mg PO BEDTIME Acid Reflux 10/27/22 10/27/24 simvastatin 20 mg tablet 20 mg PO BEDTIME 10/27/22 10/27/24 meloxicam 15 mg tablet 15 mg PO DAILY 06/02/23 10/27/24 gabapentin 400 mg capsule 400 mg PO TID 12/29/23 10/27/24 ondansetron 4 mg disintegrating 4 mg PO Q6H 08/19/24 10/27/24 tablet glyburide 5 mg tablet 5 mg PO BID 09/13/24 10/27/24 magnesium oxide 250 mg PO DAILY 09/13/24 10/27/24 meclizine 25 mg tablet 25 mg PO TID PRN Dizziness 09/13/24 10/27/24 Previous Rx's ?Medication ?Instructions ?Recorded cholecalciferol (vitamin D3) 1,250 50,000 unit PO .weekly #14 caps 02/10/24 mcg (50,000 unit) capsule bupropion HCl 150 mg 24 hr tablet, 150 mg PO DAILY #30 tabs 03/17/24 extended release bupropion HCl 300 mg 24 hr tablet, 300 mg PO QAM #30 tabs 03/17/24 extended release diazepam 2 mg tablet 2 mg PO BID PRN anxiety #60 tabs 08/23/24 nicotine 21 mg/24 hr daily See Rx Instructions .Route 09/01/24 transdermal patch .COMPLEX #28 patches duloxetine 60 mg capsule,delayed 60 mg PO DAILY #30 caps 09/13/24 release (Cymbalta) semaglutide 0.25 mg or 0.5 mg (2 0.25 mg (0.368 mL) SUBCUT .weekly 09/13/24 mg/3 mL) subcutaneous pen injector #3 mL (Ozempic) Allergies Allergy/AdvReac Type Severity Reaction Status Date / Time bee venom protein (honey bee) Allergy Unknown ALGY-Anaphy Verified 10/13/24 06:59 laxis mushroom Allergy Unknown ALGY-Anaphy Verified 10/13/24 06:59 laxis venom-wasp Allergy Unknown ALGY-Anaphy Verified 10/13/24 06:59 laxis Latex, Natural Rubber Allergy ALGY-Bliste Verified 10/13/24 06:59 r Review of Systems Narrative: Constitutional symptoms: Negative except as documented in HPI. Skin symptoms: Negative except as documented in HPI. Eye symptoms: Negative except as documented in HPI. ENMT symptoms: Negative except as documented in HPI. Respiratory symptoms: Negative except as documented in HPI. Cardiovascular symptoms: Negative except as documented in HPI. Gastrointestinal symptoms: Negative except as documented in HPI. Genitourinary symptoms: Negative except as documented in HPI. Musculoskeletal symptoms: Negative except as documented in HPI. Neurologic symptoms: Negative except as documented in HPI. Psychiatric symptoms: Negative except as documented in HPI. Endocrine symptoms: Negative except as documented in HPI. PFSH ED PFSH: Medical History Syncope History of colon polyps Psychiatric care Insect bite, venomous Knee buckling Right wrist injury Falls frequently Hyperlipidemia COPD (chronic obstructive pulmonary disease) Hypertension Obstructive sleep apnea Dependent personality disorder Borderline personality disorder Alcohol dependence, in remission Panic disorder [episodic paroxysmal anxiety] Post-traumatic stress disorder, chronic Surgical History History of cholecystectomy deliv NOS-unsp X4 History of bilateral tubal ligation History of endometrial ablation for heavy menses; did not resolve issue Family History Brother Heart disease Hyperlipidemia Hypertension Sister Hypertension Denies family history of Colon cancer Diabetes Breast cancer Social History (Updated 10/26/24 @ 22:45 by Edward Huerta MD) Smoking and tobacco/nicotine status: current every day tobacco/nicotine user cigarettes Number of cigarettes per day: 6-10 [ Other cigarette details: Previously was smoking 4 packs/day and is trying to quit] Quit status (tobacco/nicotine): considering quitting Alcohol intake: never Substance/Drug Use: never Additional social history: 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 Her next of kin is her life partner Carlos Mehta phone #[phone]. Female Reproductive History: Para: 4 Spontaneous abortions: Yes Physical Exam Narrative: EXAM NARRATIVE: General: Alert, no acute distress. Skin: Warm, dry. Head: Normocephalic, atraumatic. Neck: Supple, trachea midline. Eye: Extraocular movements are intact. Ears, nose, mouth and throat: Tacky oral mucosa Cardiovascular: Regular, Normal peripheral perfusion. Respiratory: Lungs are clear to auscultation, respirations are non-labored, breath sounds are equal, Symmetrical chest wall expansion. Gastrointestinal: Soft, diffuse nonfocal tenderness, Non distended Musculoskeletal: Normal ROM, no deformity. Neurological: Alert and oriented, No focal neurological deficit observed. Psychiatric: Cooperative, appropriate mood & affect. Course Vital Signs: Vital signs: Vital Signs Temperature 98.5 F 10/27/24 00:00 Pulse Rate 91 10/27/24 00:00 Respiratory Rate 16 10/27/24 00:00 Blood Pressure 106/68 10/27/24 00:00 Pulse Oximetry 95 10/27/24 00:00 Oxygen Delivery Me thod Room Air 10/27/24 00:00 MDM - Abdominal Pain Medical Decision Making Medical decision making: Differential diagnosis for this patient with nausea and vomiting including but not limited to and based on the above HPI, review of systems and physical exam: Urinary tract infection. Appendicitis. Cholecystitis. Colitis. small bowel obstruction. crohn's flare. pancreatitis. gastritis. peptic ulcer. cyclic vomiting. Viral illness. Influenza. COVID. Orders placed to evaluate differential diagnosis based on the above differential, HPI and physical exam Lab Review: Laboratory results were reviewed and interpreted by myself the emergency room physician. Patient does have some leukocytosis. No anemia. No renal failure. Potassium is significantly low at 2.8. IV potassium 40 mill equivalents was ordered. Patient care transitioned to Dr. Lazcano at shift change. Awaiting urinalysis. Patient is refusing cath. Also awaiting CT of the abdomen results. Lab Data 10/26/24 14:47 10/26/24 14:47 Labs/Radiology: Radiology Impressions Abdomen/Pelvis CT 10/26/24 15:40 IMPRESSION: 1. Exam demonstrates features of small bowel obstruction. Transition point is not well defined but appears to be in the region of the right lower quadrant. 2. Diverticulosis without evidence of acute diverticulitis. 3. Cirrhotic morphology of the liver. ADDENDUM: 10/26/242101 THIS REPORT CONTAINS FINDINGS THAT MAY BE CRITICAL TO PATIENT CARE. The findings were verbally communicated via telephone conference with Dr. Lazcano at 9:01 PM CDT on 10/26/2024. The findings were acknowledged and understood. Chest X-Ray 10/26/24 21:36 IMPRESSION: Enteral tube is in satisfactory position. Laboratory Results WBC 16.44 10^3/uL (3.29-11.43) H 10/26/24 14:47 RBC 6.81 10^6/uL (3.85-5.65) H 10/26/24 14:47 Hgb 15.70 g/dL (11.27-16.99) 10/26/24 14:47 Hct 48.6 % (36-47) H 10/26/24 14:47 MCV 71.4 fl (85-98) L 10/26/24 14:47 MCH 23.1 pg (27-33) L 10/26/24 14:47 MCHC 32.3 g/dL (30-55) 10/26/24 14:47 RDW 16.5 % (12.1-15.1) H 10/26/24 14:47 Plt Count 376 10^3/cmm (157-399) 10/26/24 14:47 MPV 11.4 fL (7.4-10.4) H 10/26/24 14:47 Neut % (Auto) 69.4 % 10/26/24 14:47 Lymph % (Auto) 16.8 % 10/26/24 14:47 [place] % (Auto) 12.8 % 10/26/24 14:47 Eos % (Auto) 0.1 % 10/26/24 14:47 Baso % (Auto) 0.4 % 10/26/24 14:47 Neut # (Auto) 11.41 10^3/uL (1.8-7.7) H 10/26/24 14:47 Lymph # (Auto) 2.8 10^3/uL (0.8-4.8) 10/26/24 14:47 [place] # (Auto) 2.1 10^3/uL (0.2-0.9) H 10/26/24 14:47 Eos # (Auto) 0.0 10^3/uL (0.0-0.8) 10/26/24 14:47 Baso # (Auto) 0.1 10^3/uL (0.0-0.1) 10/26/24 14:47 Nucleated RBC % (auto) 0 % 10/26/24 14:47 Nucleated RBCs # 0.0 /100WBC 10/26/24 14:47 Sodium 133 mmol/L (136-145) L 10/26/24 14:47 Potassium 2.8 mmol/L (3.5-5.1) L* 10/26/24 14:47 Chloride 88 mmol/L (98-107) L 10/26/24 14:47 Carbon Dioxide 25 mmol/L (22-29) 10/26/24 14:47 Anion Gap 22.8 (5-19) H 10/26/24 14:47 BUN 10 mg/dL (6-20) 10/26/24 14:47 Creatinine 0.8 mg/dL (0.5-0.9) 10/26/24 14:47 GFR Calculation 75.0 mL/min (90-130) L 10/26/24 14:47 Glucose 174 mg/dL (65-115) H 10/26/24 14:47 Calculated Osmolality 279 mOsm/kg (285-295) L 10/26/24 14:47 Lactic Acid 2.2 mmol/L (0.5-2.2) 10/26/24 14:47 Lactic Acid (Sepsis) 1.5 mmol/L (0.5-2.2) 10/26/24 17:45 Calcium 9.8 mg/dL (8.5-10.5) 10/26/24 14:47 Phosphorus 3.4 mg/dL (2.5-4.5) 10/26/24 14:47 Magnesium 1.8 mg/dL (1.7-2.3) 10/26/24 14:47 Total Bilirubin 0.6 mg/dL (0.15-1.2) 10/26/24 14:47 AST 12 U/L (0-32) 10/26/24 14:47 ALT 13 U/L (0-33) 10/26/24 14:47 Alkaline Phosphatase 116 U/L (35-105) H 10/26/24 14:47 Total Protein 7.3 g/dL (6.6-8.7) 10/26/24 14:47 Albumin 4.2 g/dL (3.5-5.2) 10/26/24 14:47 Globulin 3.1 g/dL (1.3-4.6) 10/26/24 14:47 Lipase 20 U/L (13-60) 10/26/24 14:47 Urine Color Yellow (Yellow) 10/26/24 17:20 Urine Appearance Clear (CLEAR) 10/26/24 17:20 Urine pH 7.0 (5-7) 10/26/24 17:20 Ur Specific [place] 1.060 (1.005-1.030) H 10/26/24 17:20 Urine Protein 1+ (Negative) A 10/26/24 17:20 Urine Glucose (UA) Negative (Normal) 10/26/24 17:20 Urine Ketones 1+ (Negative) H 10/26/24 17:20 Urine Blood Negative (Negative) 10/26/24 17:20 Urine Nitrate Negative (Negative) 10/26/24 17:20 Urine Bilirubin Negative (Negative) 10/26/24 17:20 Urine Urobilinogen 1.0 mg/dL (Negative) 10/26/24 17:20 Ur Leukocyte Esterase Negative (Negative) 10/26/24 17:20 Urine RBC 0-2 /hpf (0-2) 10/26/24 17:20 Urine WBC 0-5 /hpf (0-5) 10/26/24 17:20 Ur Squamous Epith Cells 6-10 /hpf (0-5) 10/26/24 17:20 Amorphous Sediment Not Reportable 10/26/24 17:20 Urine Bacteria 3+ /hpf (NONE) H 10/26/24 17:20 Hyaline Casts 2.05 /lpf 10/26/24 17:20 Discharge Plan Discharge Patient Disposition: Admitted As Inpatient Admit Provider: Edward Huerta Clinical Impression: Acute hypokalemia, Nausea vomiting and diarrhea, Dehydration, SBO (small bowel obstruction) Condition: Stable Sign Out Sign Out Data: Patient Sign Out occurred on 10/26/24 at 18:08. Patient's care was discussed, and care was transferred from Ann Marie Michaud MD to Jose Lazcano MD. Post-Handoff Eval: Patient has silent bowel sounds on exam and CT scan showing small bowel obstruction. Lactic acid is not elevated. White blood cell count is significantly elevated. She continues to vomit. NG tube was placed with copious liquid output and significant symptomatic relief. I spoke with on-call general surgery who will consult on the case and she will be admitted to the hospitalist service in stable condition. She shows good understanding and agrees to the plan. Coding Level of Care Code ED Professor Of Poultry Science for Chg Fwd Documented by User: Jose Lazcano MD 10/27/24 02:51 HPI - Abdominal Pain General: Chief Complaint: Abdominal Pain Stated Complaint: N/V abd pain Time Seen by Provider: 10/26/24 15:09 Related Data Home Medications ?Medication ?Instructions ?Recorded ?Confirmed amlodipine 10 mg tablet 10 mg PO QAM 07/07/19 10/27/24 hydrochlorothiazide 50 mg tablet 50 mg PO QAM 07/07/19 10/27/24 epinephrine 0.3 mg/0.3 mL 0.3 mg IM Q10M PRN Anaphylaxis 10/05/19 10/27/24 injection, auto-injector lisinopril 5 mg tablet 5 mg PO QAM 10/24/21 10/27/24 aspirin 81 mg tablet,delayed 81 mg PO QAM 10/27/22 10/27/24 release famotidine 20 mg tablet 20 mg PO BEDTIME Acid Reflux 10/27/22 10/27/24 simvastatin 20 mg tablet 20 mg PO BEDTIME 10/27/22 10/27/24 meloxicam 15 mg tablet 15 mg PO DAILY 06/02/23 10/27/24 gabapentin 400 mg capsule 400 mg PO TID 12/29/23 10/27/24 ondansetron 4 mg disintegrating 4 mg PO Q6H 08/19/24 10/27/24 tablet glyburide 5 mg tablet 5 mg PO BID 09/13/24 10/27/24 magnesium oxide 250 mg PO DAILY 09/13/24 10/27/24 meclizine 25 mg tablet 25 mg PO TID PRN Dizziness 09/13/24 10/27/24 Previous Rx's ?Medication ?Instructions ?Recorded cholecalciferol (vitamin D3) 1,250 50,000 unit PO .weekly #14 caps 02/10/24 mcg (50,000 unit) capsule bupropion HCl 150 mg 24 hr tablet, 150 mg PO DAILY #30 tabs 03/17/24 extended release bupropion HCl 300 mg 24 hr tablet, 300 mg PO QAM #30 tabs 03/17/24 extended release diazepam 2 mg tablet 2 mg PO BID PRN anxiety #60 tabs 08/23/24 nicotine 21 mg/24 hr daily See Rx Instructions .Route 09/01/24 transdermal patch .COMPLEX #28 patches duloxetine 60 mg capsule,delayed 60 mg PO DAILY #30 caps 09/13/24 release (Cymbalta) semaglutide 0.25 mg or 0.5 mg (2 0.25 mg (0.368 mL) SUBCUT .weekly 09/13/24 mg/3 mL) subcutaneous pen injector #3 mL (Ozempic) Allergies Allergy/AdvReac Type Severity Reaction Status Date / Time bee venom protein (honey bee) Allergy Unknown ALGY-Anaphy Verified 10/13/24 06:59 laxis mushroom Allergy Unknown ALGY-Anaphy Verified 10/13/24 06:59 laxis venom-wasp Allergy Unknown ALGY-Anaphy Verified 10/13/24 06:59 laxis Latex, Natural Rubber Allergy ALGY-Bliste Verified 10/13/24 06:59 r PFSH ED PFSH: Medical History Syncope History of colon polyps Psychiatric care Insect bite, venomous Knee buckling Right wrist injury Falls frequently Hyperlipidemia COPD (chronic obstructive pulmonary disease) Hypertension Obstructive sleep apnea Dependent personality disorder Borderline personality disorder Alcohol dependence, in remission Panic disorder [episodic paroxysmal anxiety] Post-traumatic stress disorder, chronic Surgical History History of cholecystectomy deliv NOS-unsp X4 History of bilateral tubal ligation History of endometrial ablation for heavy menses; did not resolve issue Family History Brother Heart disease Hyperlipidemia Hypertension Sister Hypertension Denies family history of Colon cancer Diabetes Breast cancer Social History (Updated 10/26/24 @ 22:45 by Edward Huerta MD) Smoking and tobacco/nicotine status: current every day tobacco/nicotine user cigarettes Number of cigarettes per day: 6-10 [ Other cigarette details: Previously was smoking 4 packs/day and is trying to quit] Quit status (tobacco/nicotine): considering quitting Alcohol intake: never Substance/Drug Use: never Additional social history: 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 Her next of kin is her life partner Carlos Mehta phone #[phone]. Course Vital Signs: Vital signs: Vital Signs Temperature 98.5 F 10/27/24 00:00 Pulse Rate 91 10/27/24 00:00 Respiratory Rate 16 10/27/24 00:00 Blood Pressure 106/68 10/27/24 00:00 Pulse Oximetry 95 10/27/24 00:00 Oxygen Delivery Me thod Room Air 10/27/24 00:00 MDM - Abdominal Pain Lab Data 10/26/24 14:47 10/26/24 14:47 Labs/Radiology: Radiology Impressions Abdomen/Pelvis CT 10/26/24 15:40 IMPRESSION: 1. Exam demonstrates features of small bowel obstruction. Transition point is not well defined but appears to be in the region of the right lower quadrant. 2. Diverticulosis without evidence of acute diverticulitis. 3. Cirrhotic morphology of the liver. ADDENDUM: 10/26/242101 THIS REPORT CONTAINS FINDINGS THAT MAY BE CRITICAL TO PATIENT CARE. The findings were verbally communicated via telephone conference with Dr. Lazcano at 9:01 PM CDT on 10/26/2024. The findings were acknowledged and understood. Chest X-Ray 10/26/24 21:36 IMPRESSION: Enteral tube is in satisfactory position. Laboratory Results WBC 16.44 10^3/uL (3.29-11.43) H 10/26/24 14:47 RBC 6.81 10^6/uL (3.85-5.65) H 10/26/24 14:47 Hgb 15.70 g/dL (11.27-16.99) 10/26/24 14:47 Hct 48.6 % (36-47) H 10/26/24 14:47 MCV 71.4 fl (85-98) L 10/26/24 14:47 MCH 23.1 pg (27-33) L 10/26/24 14:47 MCHC 32.3 g/dL (30-55) 10/26/24 14:47 RDW 16.5 % (12.1-15.1) H 10/26/24 14:47 Plt Count 376 10^3/cmm (157-399) 10/26/24 14:47 MPV 11.4 fL (7.4-10.4) H 10/26/24 14:47 Neut % (Auto) 69.4 % 10/26/24 14:47 Lymph % (Auto) 16.8 % 10/26/24 14:47 [place] % (Auto) 12.8 % 10/26/24 14:47 Eos % (Auto) 0.1 % 10/26/24 14:47 Baso % (Auto) 0.4 % 10/26/24 14:47 Neut # (Auto) 11.41 10^3/uL (1.8-7.7) H 10/26/24 14:47 Lymph # (Auto) 2.8 10^3/uL (0.8-4.8) 10/26/24 14:47 [place] # (Auto) 2.1 10^3/uL (0.2-0.9) H 10/26/24 14:47 Eos # (Auto) 0.0 10^3/uL (0.0-0.8) 10/26/24 14:47 Baso # (Auto) 0.1 10^3/uL (0.0-0.1) 10/26/24 14:47 Nucleated RBC % (auto) 0 % 10/26/24 14:47 Nucleated RBCs # 0.0 /100WBC 10/26/24 14:47 Sodium 133 mmol/L (136-145) L 10/26/24 14:47 Potassium 2.8 mmol/L (3.5-5.1) L* 10/26/24 14:47 Chloride 88 mmol/L (98-107) L 10/26/24 14:47 Carbon Dioxide 25 mmol/L (22-29) 10/26/24 14:47 Anion Gap 22.8 (5-19) H 10/26/24 14:47 BUN 10 mg/dL (6-20) 10/26/24 14:47 Creatinine 0.8 mg/dL (0.5-0.9) 10/26/24 14:47 GFR Calculation 75.0 mL/min (90-130) L 10/26/24 14:47 Glucose 174 mg/dL (65-115) H 10/26/24 14:47 Calculated Osmolality 279 mOsm/kg (285-295) L 10/26/24 14:47 Lactic Acid 2.2 mmol/L (0.5-2.2) 10/26/24 14:47 Lactic Acid (Sepsis) 1.5 mmol/L (0.5-2.2) 10/26/24 17:45 Calcium 9.8 mg/dL (8.5-10.5) 10/26/24 14:47 Phosphorus 3.4 mg/dL (2.5-4.5) 10/26/24 14:47 Magnesium 1.8 mg/dL (1.7-2.3) 10/26/24 14:47 Total Bilirubin 0.6 mg/dL (0.15-1.2) 10/26/24 14:47 AST 12 U/L (0-32) 10/26/24 14:47 ALT 13 U/L (0-33) 10/26/24 14:47 Alkaline Phosphatase 116 U/L (35-105) H 10/26/24 14:47 Total Protein 7.3 g/dL (6.6-8.7) 10/26/24 14:47 Albumin 4.2 g/dL (3.5-5.2) 10/26/24 14:47 Globulin 3.1 g/dL (1.3-4.6) 10/26/24 14:47 Lipase 20 U/L (13-60) 10/26/24 14:47 Urine Color Yellow (Yellow) 10/26/24 17:20 Urine Appearance Clear (CLEAR) 10/26/24 17:20 Urine pH 7.0 (5-7) 10/26/24 17:20 Ur Specific [place] 1.060 (1.005-1.030) H 10/26/24 17:20 Urine Protein 1+ (Negative) A 10/26/24 17:20 Urine Glucose (UA) Negative (Normal) 10/26/24 17:20 Urine Ketones 1+ (Negative) H 10/26/24 17:20 Urine Blood Negative (Negative) 10/26/24 17:20 Urine Nitrate Negative (Negative) 10/26/24 17:20 Urine Bilirubin Negative (Negative) 10/26/24 17:20 Urine Urobilinogen 1.0 mg/dL (Negative) 10/26/24 17:20 Ur Leukocyte Esterase Negative (Negative) 10/26/24 17:20 Urine RBC 0-2 /hpf (0-2) 10/26/24 17:20 Urine WBC 0-5 /hpf (0-5) 10/26/24 17:20 Ur Squamous Epith Cells 6-10 /hpf (0-5) 10/26/24 17:20 Amorphous Sediment Not Reportable 10/26/24 17:20 Urine Bacteria 3+ /hpf (NONE) H 10/26/24 17:20 Hyaline Casts 2.05 /lpf 10/26/24 17:20 All radiology interpretation(s) finalized by discharge Discharge Plan Discharge Patient Disposition: Admitted As Inpatient Admit Provider: Edward Huerta Clinical Impression: Acute hypokalemia, Nausea vomiting and diarrhea, Dehydration, SBO (small bowel obstruction) Condition: Stable Sign Out Sign Out Data: Patient Sign Out occurred on 10/26/24 at 18:08. Patient's care was discussed, and care was transferred from Ann Marie Michaud MD to Jose Lazcano MD. Post-Handoff Eval: Patient has silent bowel sounds on exam and CT scan showing small bowel obstruction. Lactic acid is not elevated. White blood cell count is significantly elevated. She continues to vomit. NG tube was placed with copious liquid output and significant symptomatic relief. I spoke with on-call general surgery who will consult on the case and she will be admitted to the hospitalist service in stable condition. She shows good understanding and agrees to the plan. Coding Level of Care Code ED Professor Of Poultry Science for Mallory Boucher
[2024-10-26] MEDS: sodium chloride 0.9% 1,000 ML 999 ML IV (15:27)
[2024-10-26] MEDS: ondansetron 2 mg/ML SDV 2 mL 8 MG IVP (15:27)
[2024-10-26 15:28] LABS: Basophils # 0.1 10^3/uL (0.0-0.1); Basophils % 0.4 %; Eosinophils % 0.1 %; Hematocrit 48.6 % (36-47); Lymphocytes # 2.8 10^3/uL (0.8-4.8); Lymphocytes % 16.8 %; Mean Corpuscular HGB Conc 32.3 g/dL (30-55); Mean Corpuscular Hemoglobin 23.1 pg (27-33); Mean Corpuscular Volume 71.4 fl (85-98); Mean Platelet Volume 11.4 fL (7.4-10.4); Monocytes # 2.1 10^3/uL (0.2-0.9); Monocytes % 12.8 %; Neutrophils # 11.41 10^3/uL (1.8-7.7); Neutrophils % 69.4 %; Nucleated Red Blood Cells % 0 %; Platelet Count 376 10^3/cmm (157-399); Red Blood Count 6.81 10^6/uL (3.85-5.65); Red Cell Distribution Width 16.5 % (12.1-15.1); White Blood Count 16.44 10^3/uL (3.29-11.43)
--- NOTE | 2024-10-26 15:40 | CTR_ITS ---
PROCEDURE INFORMATION: Exam: CT Abdomen And Pelvis With Contrast Exam date and time: 10/26/2024 3:52 PM Age: 54 years old Clinical indication: Abdominal pain; Generalized TECHNIQUE: Imaging protocol: Computed tomography of the abdomen and pelvis with contrast. Radiation optimization: All CT scans at this facility use at least one of these dose optimization techniques: automated exposure control; mA and/or kV adjustment per patient size (includes targeted exams where dose is matched to clinical indication); or iterative reconstruction. Contrast material: OMNI 350; Contrast volume: 100 ml; Contrast route: INTRAVENOUS (IV); COMPARISON: CT abdomen pelvis w con* [id number] 05/04/2023 4:32 PM RADIATION DOSE METRICS: Total DLP (mGy-cm): 1245.77 FINDINGS: Lungs: Clear basilar lung parenchyma. Pleural spaces: No pleural fluid. Heart: Normal heart size. Diaphragm: Small sliding hiatal hernia. Liver: Homogeneous low attenuation throughout the liver is compatible with fatty infiltration. Cirrhotic morphology. Liver measures 16.9 cm in length. Cyst noted in the right hepatic lobe adjacent to the gallbladder fossa. Gallbladder and biliary ducts: Prior cholecystectomy. No biliary tree dilation or high-density retained stones appreciated. Pancreas: Normal. No ductal dilation. Spleen: Spleen measures 12.3 cm in length. Adrenal glands: Ovoid right adrenal nodule measures 1.8 x 1.3 cm. Ovoid left adrenal nodule measures 1.2 x 0.8 cm. Both adrenal nodules demonstrated attenuation coefficient above 60 Hounsfield units. Kidneys and ureters: Kidneys enhance symmetrically and demonstrate no evidence of mass, calculus, obstruction, or inflammation. Stomach and bowel: Stomach is distended with gas and fluid. No visible gastric ulcer or mass. Dilated proximal small bowel with distal small bowel feces. Distal small bowel is decompressed. A discrete transition point is not appreciated, but appears to be in the anterior right lower quadrant. Colon is relatively decompressed with scattered diverticula. No evidence of acute diverticulitis. Bowel enhances normally throughout. No bowel wall pneumatosis. Appendix: Normal appendix is in a retrocecal position. Intraperitoneal space: No free air. No significant fluid collection. Vasculature: Mild aortoiliac calcific atherosclerosis. Mesenteric vessels enhance normally. Patent portal vein and tributaries. No portal venous gas. Opacified systemic venous structures appear normal. Lymph nodes: No enlarged lymph nodes. Urinary bladder: Unremarkable as visualized. Reproductive: Physiologic appearance for age. Bones/joints: No fracture or destructive lesion. Soft tissues: No perineal/perianal abscess or inflammation. CT/CT abdomen pelvis w con* [id number] IMPRESSION: 1. Exam demonstrates features of small bowel obstruction. Transition point is not well defined but appears to be in the region of the right lower quadrant. 2. Diverticulosis without evidence of acute diverticulitis. 3. Cirrhotic morphology of the liver.
--- OUTSIDE RECORDS SUMMARY | 2024-10-26 15:44 | XMS_ITS | Encounter Summary ---
Author Organization [facility] Address [address] [place] [address] Care Team Providers Care Orthodontic Treatment Coordinator Name Role Phone Unavailable Primary Care Provider Unavailabl e Encounter Details Date Type Department Care Team (Late st Contact Info) Description 10/25/2024 External Device Data [facility] ABSTRACTION Provider, Abstract NO ADDRESS ON FILE Social History Tobacco Use Types Packs/Day Years Used Date Smoking Tobacco: Never Assessed Comments Unknown Sex and Gender Information Value Date Recorded Sex Assigned at Female 10/20/2024 8:18 AM CDT Legal Sex Female 9:55 AM CLIENT SERVICES ADMINISTRATOR Gender Identity Female 10/20/2024 8:18 AM CDT Sexual Orientation Straight 10/20/2024 8: 18 AM CDT documented as of this encounter Plan of Treatment Not on file documented as of this encounter Visit Diagnoses Not on filedocumented in this encounter
--- OUTSIDE RECORDS SUMMARY | 2024-10-26 15:44 | XMS_ITS | Encounter Summary ---
Author Organization [facility] Address 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
--- OUTSIDE RECORDS SUMMARY | 2024-10-26 15:44 | XMS_ITS | Clinical Summary ---
Author Organization [facility] [place] Address [address] [place] [address] Phone Care Team Providers Care Skeiner Name Role Phone Unavailable Primary Care Provider Unavailabl e Medications No known medications Active Problems No known active problems Encounters Date Type Department Care Team Description 10/25/2024 External Device Data [facility] ABSTRACTION Provider, Abstract 10/25/2024 External Device Data [facility] ABSTRACTION Provider, Abstract 10/25/2024 External Device Data [facility] ABSTRACTION Provider, Abstract 10/20/2024 3:00 PM CDT Office Visit [facility] [address] [place] [address] Jose Hernandes AU.D Dizziness (Primary Dx) from Last 3 Months Social History Tobacco Use Types Packs/Day Years Used Date Smoking Tobacco: Never Assessed Comments Unknown Sex and Gender Information Value Date Recorded Sex Assigned at Female 10/20/2024 8:18 AM CDT Legal Sex Female 9:55 AM [employer] Gender Identity Female 10/20/2024 8:18 AM CDT Sexual Orientation Straight 10/20/2024 8: 18 AM CDT Plan of Treatment Health Maintenance Due Date Last Done Comments DIABETES ANNUAL FOOT EXAM 1989 DIABETES ANNUAL RETINAL EXAM 1989 DIABETES MICROALBUMIN ANNUAL SCREEN 1989 LDL CHOLESTEROL ANNUAL 1989 DTAP/TDAP/TD VACCINES (1 - Tdap) 1990 HEPATITIS B VACCINES (1 of 3 - 19+ 3-dose series) 1990 HPV/Cotest (21-29) 02/13/1992 CERVICAL CANCER SCREENING 2001 HPV/Cotest (30-65) 2001 PAP SMEAR 2001 BREAST CANCER SCREENING 2011 COLORECTAL SCREENING 02/13/2016 Colorectal Cancer Screening 02/13/2016 FIT-DNA Q 3 years 02/13/2016 FIT/FOBT Q 1 year 02/13/2016 Flex Sig/CT Colonography Q 5 years 02/13/2016 ZOSTER VACCINE (1 of 2) 2021 DIABETES HBA1C Q 6 MONTHS 12/21/2024 06/23/2024, COVID-19 Vaccine Completed 02/19/2024 INFLUENZA VACCINE Completed 02/19/2024, , 03/26/2016, Additional history exists Procedures Procedure Name Priority Date/Time Associated Diagnosis Comments [place] VSTBLR FUNCJ NYSTAG FOVL&PERPH STIMJ OSCIL TRK Routine 10/20/2024 4:44 PM CDT Dizziness [place] CALORIC VESTIBULAR TEST W/REC BI BITHERMAL Routine 10/20/2024 4:44 PM CDT Dizziness from Last 3 Months Results * [place] CALORIC VESTIBULAR TEST W/REC BI BITHERMAL, [place] VSTBLR FUNCJ NYSTAG FOVL&PERPH STIMJ OSCIL TRK [...] post head shake, or positional nystagmus. The Holder-Hallpike test for benign paroxysmal positional vertigo (BPPV) [...] [place] follow-up with Dr. Logan as planned [facility] ORDERABLES Fi nal Result from Last 3 Months Insurance [place]ICA[place]
--- OUTSIDE RECORDS SUMMARY | 2024-10-26 15:44 | XMS_ITS | Data Portability ---
Author Organization MAURICIO Vyas [facility] Bartolo Felix [facility] Address [address] [place] [address] Care Team Providers Care Vascular Nurse Name Role Phone IZABELLA LANE Primary Care Provider Unavailabl e Assessment Encounter Date Assessment Date Assessment LastModified by Organization Details LastModified Time 02/19/2024 02/19/2024 Last week state came in and inspected all of the apartments and then housing came in and did the same. She had to move her room around while they were there. 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 She is planning to get her immunizations at the pharmacy today. Not available 02/19/2024 11:52:33 03/24/2024 03/24/2024 Patient here today for check-up. She has been having LLQ pain and reports it feels like it did when she has had kidney stones in the past. She says her sister invited her to come out for Thanksgiving. Not available 03/24/2024 11:43:25 06/23/2024 06/23/2024 Patient reports she has been sleeping more lately. She denies any sickness. She is short of breath when she walks. She has been to the ER. She feels like her tremors are worse. She was started on Valium 2mg twice daily as needed, she hasn't taken if for the past week but it didn't make a difference with her fatigue. She reports she got into a fight where she goes to [facility] for dinner over her service dog. Her caregivers are not coming on schedule many times. Not available 06/23/2024 14:15:57 09/16/2024 09/16/2024 This morning she checked her sugar and it was 216. She had a 2 egg sandwich. She feels like a ping pong ball between cardiology and neurology in regards to why she is passing out. She is going to change providers so everyone can be on the same portal. She also has been seeing Dr. Logan for dizziness. She is taking meclizine four times a day now and zofran also. She has an appointment with psychiatry in 4-6 weeks she feels like her schizophrenia is coming out. She has an appointment with Dr. Sanchez next month because her toe is broken. She says she has to call the [facility] office and apologize so she can be seen there again because she missed an appointment. Not available 09/16/2024 11:42:47 09/20/2024 09/20/2024 6 HARRY WRAP [email or web address] Not available 12:51:05 Plan of Treatment Reminders Order Date Submit Date Provider Last Modified By Organization Details Last Modified Time Details Appointments None recorded. Lab microalbumi n/creatinin e, mass ratio, urine 2024 025 [facility], [address] [place] [address] 248, dg 3 [facility] [place], [address], 5 06:18:06 hemoglobin A1C/hemoglo bin total, QN, blood 2024 025 [facility], [address], [facility] 1, [place], [address], 5 15:10:55 vitamin D, 25-hydroxy, total, serum 2024 025 [facility], [address] [facility] [address], [address] C, [place], [address], 5 06:18:07 CMP, serum or plasma 2024 025 [email or web address], [address] [facility], [facility] 1, [place], [address], 5 16:25:04 CBC 2024 025 [facility], [address], [address], [place], [address], 5 14:49:49 hemoglobin A1C/hemoglo bin total, QN, blood 2023 024 [facility], [address], [address], [place], [address], 4 12:22:46 CMP, serum or plasma 2023 024 [facility], [address], [address], [place], [address], 4 12:31:59 CBC 2023 024 [facility], [address] [facility], [address], [place], [address], 4 12:12:20 urinalysis, complete 2023 024 [facility], [address], [address], [place], [address], 4 12:19:16 culture, urine 2023 024 [email or web address] [facility], [address] [place] [address], [address], [place], [address], 4 13:44:32 Referral None recorded. Procedures None recorded. Surgeries None recorded. Imaging XR, knee, 3 view 2024 025 [email or web address] [facility] ([facility] [address] [place], [address], 5 18:13:13 XR, abdomen, [address] [facility] ([facility] [address] [place], [address], 5 10:51:39 Medication Orders ondansetron HCl 4 mg tablet 2024 [facility], [address] [place] [address], [address], 5 05:00:39 meclizine 25 mg tablet 2024 [facility], [address] [place] [address], [address], 5 16:16:22 ondansetron HCl 4 mg tablet [address], [address], 5 05:00:39 Symbicort 160 mcg-4.5 mcg/actuati on HFA aerosol inhaler 2023 [facility], [address] [place] [address], [address], 18:21:27 Spiriva Respimat 1.25 mcg/actuati on solution for inhalation [address], [address], 18:21:23 Patient TargetsNo targets recorded. Patient Instructions Encounter Date Encounter Id Patient Instructions Last Modified By Organization Details Last Modified Time 02/19/2024 [id number] Call or return for questions or concerns. Not available 02/19/2024 11:47:32 03/24/2024 [id number] Call or return for questions or concerns. Not available 03/24/2024 11:42:58 06/23/2024 [id number] Call or return for questions or concerns. Not available 06/23/2024 14:10:14 09/16/2024 [id number] Call or return for questions or concerns. Not available 09/16/2024 11:32:22 Reason for Referral None Reported. Results Created Date Observation Date Name Description Value Unit Range Abnormal Flag Note LastModifiedBy Organization Detail LastModifiedTime 03/24/20 24 03/24/2024 CBC WBC 9.2 x10 4.0-10 .5 Not Available [facility] [address] [facility] 1, [place], [address], 03/24/2024 12:12:20 03/24/2003/24/2024 CBC RBC 5.55 x10 3.50-5 .50 high Not Available [facility] [address] [facility] 1, [place], [address], 03/24/2024 12:12:20 03/24/20 24 03/24/2024 CBC HGB 13.0 g/dL 12.0-1 6.0 Not Available [facility] [address] [facility] 1, [place], [address], 03/24/2024 12:12:20 03/24/20 24 03/24/2024 CBC HCT 40.1 % 37.0-4 7.0 Not Available [facility] [address] [facility] 1, [place], [address], 03/24/2024 12:12:20 03/24/20 24 03/24/2024 CBC MCV 72.3 fL 80.0-9 9.9 low Not Available [facility] [address] [facility] 1, [place], [address], 03/24/2024 12:12:20 03/24/20 24 03/24/2024 CBC MCH 23.4 pg 27.0-3 2.0 low Not Available [facility] [address] [facility] 1, [place], [address], 03/24/2024 12:12:20 03/24/20 24 03/24/2024 CBC MCHC 32.4 g/dL 32.0-3 6.0 Not Available [facility] [address] [facility] 1, [place], [address], 03/24/2024 12:12:20 03/24/2003/24/2024 CBC RDW 16.8 % 11.5-1 4.5 high Not Available [facility] [address] [facility] 1, [place], [address], 03/24/2024 12:12:20 03/24/20 24 03/24/2024 CBC plt 360.8 x10 140.0- 451.0 Not Available [facility] [address] [facility] 1, [place], [address], 03/24/2024 12:12:20 03/24/20 24 03/24/2024 CBC lymphocytes % 35.7 % 20.0-5 0.0 Not Available [facility] [address] [facility] 1, [place], [address], 03/24/2024 12:12:20 03/24/20 24 03/24/2024 CBC granulcytes % 55.7 % 30.0-7 0.0 Not Available [facility] [address] [facility] 1, [place], [address], 03/24/2024 12:12:20 03/24/2003/24/2024 CBC monocytes % 7.0 % 2.0-16 .0 Not Available [facility] [address] [facility] 1, [place], [address], 03/24/2024 12:12:20 03/24/20 24 03/24/2024 CBC granulcytes# 5.1 x10 Not [facility] [address] [facility], [place], [address], 03/24/2024 12:12:20 03/24/20 24 03/24/2024 CBC lymphocytes # 3.3 x10 Not Available [facility] [address] [facility], [place], [address], 03/24/2024 12:12:20 03/24/20 24 03/24/2024 CBC monocytes # 0.6 x10 Not Avai lable [facility] [address] [facility] 1, [place], [address], 03/24/2024 12:12:20 03/24/20 24 03/24/2024 URINA LYSIS WITH MICRO color YELLOW Not Available [facility] [address] [facility], [place], [address], 03/24/2024 12:19:16 03/24/20 24 03/24/2024 URINA LYSIS WITH MICRO clarity SLIGHT Y CLOUDY abnormal Not Available [facility] [address] [facility] 1, [place], [address], 03/24/2024 12:19:16 03/24/20 24 03/24/2024 URINA LYSIS WITH MICRO glu TRACE abnormal Not Available [facility] [address] [facility] 1, [place], [address], 03/24/2024 12:19:16 03/24/20 24 03/24/2024 URINA LYSIS WITH MICRO bili NEGATI VE Not Available [facility] [address] [facility] 1, [place], [address], 03/24/2024 12:19:16 03/24/20 24 03/24/2024 URINA LYSIS WITH MICRO ket NEGATI VE Not Available [facility] [address], [place], [address], 03/24/2024 12:19:16 03/24/20 24 03/24/2024 URINA LYSIS WITH MICRO S.g 1.025 1.005- 1.025 Not Available [facility] [address] [facility], [place], [address], 03/24/2024 12:19:16 03/24/20 24 03/24/2024 URINA LYSIS WITH MICRO pH 6.5 5.0-7. 0 Not Available [facility] [address] [facility] 1, [place], [address], 03/24/2024 12:19:16 03/24/20 24 03/24/2024 URINA LYSIS WITH MICRO pro TRACE abnormal Not Available [facility] [address] [facility] 1, [place], [address], 03/24/2024 12:19:16 03/24/20 24 03/24/2024 URINA LYSIS WITH MICRO uro 1.0 Not Available [facility] [address] [facility] 1, [place], [address], 03/24/2024 12:19:16 03/24/20 24 03/24/2024 URINA LYSIS WITH MICRO nit NEGATI VE Not Available [facility] [address] [facility] 1, [place], [address], 03/24/2024 12:19:16 03/24/20 24 03/24/2024 URINA LYSIS WITH MICRO blo NEGATI VE Not Available [facility] [address] [facility] 1, [place], [address], 03/24/2024 12:19:16 03/24/20 24 03/24/2024 URINA LYSIS WITH MICRO dario TRACE abnormal Not Available [facility] [address], [place], [address], 03/24/2024 12:19:16 03/24/20 24 03/24/2024 URINA LYSIS WITH MICRO WBC 2-3 Not Available [facility] [address] [facility] [address], [place], [address], 03/24/2024 12:19:16 03/24/20 24 03/24/2024 URINA LYSIS WITH MICRO RBC 0-1 Not Available [facility] [address] [facility] [address], [place], [address], 03/24/2024 12:19:16 03/24/20 24 03/24/2024 URINA LYSIS WITH MICRO epi cells 18-20 abnormal Not Available [facility] [address] [facility] 1, [place], [address], 03/24/2024 12:19:16 03/24/20 24 03/24/2024 URINA LYSIS WITH MICRO bacteria 1+ MIXED BELL abnormal Not Available [facility] [address] [facility] 1, [place], [address], 03/24/2024 12:19:16 03/24/20 24 03/24/2024 URINA LYSIS WITH MICRO other NG Not Available [facility] [address] [facility] 1, [place], [address], 03/24/2024 12:19:16 03/24/20 24 03/24/2024 HBA1C hemaglobin A1C 8.2 4.2-6. 5 high Not Available [facility] [address] [facility] 1, [place], [address], 03/24/2024 12:22:46 03/24/20 24 03/24/2024 CMP (FEMA LE) glucose 147.0 mg/dL 60.0-9 9.0 high Not Available [facility] [address] [facility], [place], [address], 03/24/2024 12:31:59 03/24/2003/24/2024 CMP (FEMA LE) BUN (blood urea nitrogen) 5.0 mg/dL 10.0-2 6.0 low Not Available [facility] [address] [facility], [place], [address], 03/24/2024 12:31:59 03/24/20 24 03/24/2024 CMP (FEMA LE) creatinine (serum) 0.7 mg/dL 0.4-1. 5 Not Available [facility] [address] [facility], [place], [address], 03/24/2024 12:31:59 03/24/20 24 03/24/2024 CMP (FEMA LE) BUN/creatini ne ratio 7.14 ratio Not Available [facility] [address] [facility], [place], [address], 03/24/2024 12:31:59 03/24/20 24 03/24/2024 CMP (FEMA LE) eGFR calculated 93.0 Not Available [facility] [address] [facility], [place], [address], 03/24/2024 12:31:59 03/24/20 24 03/24/2024 CMP (FEMA LE) total protein 7.5 g/dL 6.0-8. 5 Not Available [facility] [address] [facility], [place], [address], 03/24/2024 12:31:59 03/24/20 24 03/24/2024 CMP (FEMA LE) total bilirubin 0.5 mg/dL 0.2-1. 3 Not Available [facility] [address] [facility] [address] [address], [place], [address], 03/24/2024 12:31:59 03/24/20 24 03/24/2024 CMP (FEMA LE) albumin 4.3 g/dL 3.5-5. 5 Not Available [facility] [address] [facility], [place], [address], 03/24/2024 12:31:59 03/24/20 24 03/24/2024 CMP (FEMA LE) globulin 3.2 calc Not Available [facility] [address] [facility] 1, [place], [address], 03/24/2024 12:31:59 03/24/20 24 03/24/2024 CMP (FEMA LE) AST (SGOT) 40.0 U/L 0.0-46 .0 Not Available [facility] [address] [facility] 1, [place], [address], 03/24/2024 12:31:59 03/24/20 24 03/24/2024 CMP (FEMA LE) altv (SGPT) 23.0 U/L 13.0-6 9.0 normal Not Available [facility] [address] [facility] 1, [place], [address], 03/24/2024 12:31:59 03/24/20 24 03/24/2024 CMP (FEMA LE) A/G ratio 1.3 ratio Not Available [facility] [address] [facility] 1, [place], [address], 03/24/2024 12:31:59 03/24/20 24 03/24/2024 CMP (FEMA LE) ALP phos 89.0 U/L 30.0-1 40.0 normal Not Available [facility] [address] [facility] 1, [place], [address], 03/24/2024 12:31:59 11/21/03/24/2024 CMP (FEMA LE) calcium 9.6 mg/dL 8.4-10 .5 Not Available [facility] [address] [facility], [place], [address], 03/24/2024 12:31:59 03/24/20 24 03/24/2024 CMP (FEMA LE) sodium 136.0 mmol/ L 136.0- 145.0 Not Available [facility] [address] [facility], [place], [address], 03/24/2024 12:31:59 03/24/2003/24/2024 CMP (FEMA LE) potassium 4.1 mmol/ L 3.5-5. 1 Not Available [facility] [address] [address], [place], [address], 03/24/2024 12:31:59 03/24/20 24 03/24/2024 CMP (FEMA LE) chloride 97.0 mmol/ L 98.0-1 10.0 abnormal Not Available [facility] [address] [facility] 1, [place], [address], 03/24/2024 12:31:59 03/24/20 24 03/24/2024 CMP (FEMA LE) C02 32.0 mmol/ L 22.0-3 1.0 high Not Available [facility] [address] [facility] 1, [place], [address], 03/24/2024 12:31:59 03/24/20 24 03/24/2024 CMP (FEMA LE) anion gap 7.0 calc Not Available [facility] [address] [facility] 1, [place], [address], 03/24/2024 12:31:59 03/24/20 24 03/24/2024 CMP (FEMA LE) osmolality 281.0 calc Not Available [facility] [address] [place], [address], 03/24/2024 12:31:59 06/23/19 25 06/23/2024 CBC WBC 7.7 x10 4.0-10 .5 Not Available [facility] [address] [facility] 1, [place], [address], 06/23/2024 14:49:49 06/23/19 25 06/23/2024 CBC RBC 5.70 x10 3.50-5 .50 high Not Available [facility] [address] [facility] 1, [place], [address], 06/23/2024 14:49:49 06/23/19 25 06/23/2024 CBC HGB 13.9 g/dL 12.0-1 6.0 Not Available [facility] [address] [facility] 1, [place], [address], 06/23/2024 14:49:49 06/23/19 25 06/23/2024 CBC HCT 41.3 % 37.0-4 7.0 Not Available [facility] [address] [facility] 1, [place], [address], 06/23/2024 14:49:49 06/23/19 25 06/23/2024 CBC MCV 72.4 fL 80.0-9 9.9 low Not Available [facility] [address] [facility] 1, [place], [address], 06/23/2024 14:49:49 06/23/19 25 06/23/2024 CBC MCH 24.4 pg 27.0-3 2.0 low Not Available [facility] [address] [facility] 1, [place], [address], 06/23/2024 14:49:49 06/23/19 25 06/23/2024 CBC MCHC 33.6 g/dL 32.0-3 6.0 Not Available [facility] [address] [facility] 1, [place], [address], 06/23/2024 14:49:49 06/23/19 25 06/23/2024 CBC RDW 17.4 % 11.5-1 4.5 high Not Available [facility] [address] [facility] 1, [place], [address], 06/23/2024 14:49:49 06/23/19 25 06/23/2024 CBC plt 330.4 x10 140.0- 451.0 Not Available [facility] [address] [facility] 1, [place], [address], 06/23/2024 14:49:49 06/23/19 25 06/23/2024 CBC lymphocytes % 42.7 % 20.0-5 0.0 Not Available [place] [facility] [address] [facility] 1, [place], [address], 06/23/2024 14:49:49 06/23/19 25 06/23/2024 CBC granulcytes % 48.7 % 30.0-7 0.0 Not Available [facility] [address] [facility] 1, [place], [address], 06/23/2024 14:49:49 06/23/19 25 06/23/2024 CBC monocytes % 7.4 % 2.0-16 .0 Not Available [place] [facility] [address] [facility] 1, [place], [address], 06/23/2024 14:49:49 06/23/19 25 06/23/2024 CBC granulcytes# 3.7 x10 Not Lily ilable [facility] [address] [address], [place], [address], 06/23/2024 14:49:49 06/23/19 25 06/23/2024 CBC lymphocytes # 3.3 x10 Not Available [facility] [address] [facility], [place], [address], 06/23/2024 14:49:49 06/23/19 25 06/23/2024 CBC monocytes # 0.6 x10 Not [facility] [address] [facility] 1, [place], [address], 06/23/2024 14:49:49 06/23/19 25 06/23/2024 HBA1C hemaglobin A1C 8.7 4.2-6. 5 high Not Available [facility] [address] [facility] 1, [place], [address], 06/23/2024 15:10:55 06/23/19 25 06/23/2024 CMP (FEMA LE) glucose 160.0 mg/dL 60.0-9 9.0 high Not Available [facility] [address] [address], [place], [address], 06/23/2024 16:25:04 06/23/19 25 06/23/2024 CMP (FEMA LE) BUN (blood urea nitrogen) 9.0 mg/dL 10.0-2 6.0 low Not Available [facility] [address] [address], [place], [address], 06/23/2024 16:25:04 06/23/19 25 06/23/2024 CMP (FEMA LE) creatinine (serum) 0.7 mg/dL 0.4-1. 5 Not Available [facility] [address] [address], [place], [address], 06/23/2024 16:25:04 06/23/19 25 06/23/2024 CMP (FEMA LE) BUN/creatini ne ratio 12.86 ratio Not Available [facility] [address] [address], [place], [address], 06/23/2024 16:25:04 06/23/19 25 06/23/2024 CMP (FEMA LE) eGFR calculated 93.0 Not Available [facility] [address] [facility] 1, [place], [address], 06/23/2024 16:25:04 06/23/19 25 06/23/2024 CMP (FEMA LE) total protein 7.4 g/dL 6.0-8. 5 Not Available [facility] [address] [facility] 1, [place], [address], 06/23/2024 16:25:04 06/23/19 25 06/23/2024 CMP (FEMA LE) total bilirubin 0.5 mg/dL 0.2-1. 3 Not Available [facility] [address] [facility] 1, [place], [address], 06/23/2024 16:25:04 06/23/19 25 06/23/2024 CMP (FEMA LE) albumin 4.4 g/dL 3.5-5. 5 Not Available [facility] [address] [facility] 1, [place], [address], 06/23/2024 16:25:04 06/23/19 25 06/23/2024 CMP (FEMA LE) globulin 3.0 calc Not Available [facility] [address] [facility] 1, [place], [address], 06/23/2024 16:25:04 06/23/19 25 06/23/2024 CMP (FEMA LE) AST (SGOT) 51.0 U/L 0.0-46 .0 high Not Available [facility] [address] [facility] 1, [place], [address], 06/23/2024 16:25:04 06/23/19 25 06/23/2024 CMP (FEMA LE) altv (SGPT) 39.0 U/L 13.0-6 9.0 normal Not Available [facility] [address] [facility] 1, [place], [address], 06/23/2024 16:25:04 06/23/19 25 06/23/2024 CMP (FEMA LE) A/G ratio 1.5 ratio Not Available [facility] [address] [facility] 1, [place], [address], 06/23/2024 16:25:04 06/23/19 25 06/23/2024 CMP (FEMA LE) ALP phos 98.0 U/L 30.0-1 40.0 normal Not Available [facility] [address] [facility] 1, [place], [address], 06/23/2024 16:25:04 06/23/19 25 06/23/2024 CMP (FEMA LE) calcium 9.5 mg/dL 8.4-10 .5 Not Available [facility] [address] [facility] 1, [place], [address], 06/23/2024 16:25:04 06/23/19 25 06/23/2024 CMP (FEMA LE) sodium 135.0 mmol/ L 136.0- 145.0 low Not Available [facility] [address] [facility] 1, [place], [address], 06/23/2024 16:25:04 06/23/19 25 06/23/2024 CMP (FEMA LE) potassium 3.4 mmol/ L 3.5-5. 1 low Not Available [facility] [address] [address], [place], [address], 06/23/2024 16:25:04 06/23/19 25 06/23/2024 CMP (FEMA LE) chloride 96.0 mmol/ L 98.0-1 10.0 abnormal Not Available [facility] [address] [facility] 1, [place], [address], 06/23/2024 16:25:04 06/23/19 25 06/23/2024 CMP (FEMA LE) C02 27.0 mmol/ L 22.0-3 1.0 Not Available [facility] [address] [facility] [address], [place], [address], 06/23/2024 16:25:04 06/23/19 25 06/23/2024 CMP (FEMA LE) anion gap 12.0 calc Not Available [facility] [address] [facility] [address], [place], [address], 06/23/2024 16:25:04 06/23/19 25 06/23/2024 CMP (FEMA LE) osmolality 281.0 calc Not Available [facility] [address] [facility] [address], [place], [address], 06/23/2024 16:25:04 06/23/19 25 06/24/2024 ALBUM IN, RANDO M URINE W/CRE ATINI NE creatinine, random urine 85 mg/dL 20-275 normal Not Available [facility] [address] [place], [address], 06/24/2024 06:18:06 06/23/19 25 06/24/2024 ALBUM IN, RANDO M URINE W/CRE ATINI NE albumin, urine 1.9 mg/dL see note: normal Refer ence Range : Refer ence Range Not estab lishe d Not Available [facility] [address] [place], [address], 06/24/2024 06:18:06 06/23/19 25 06/24/2024 ALBUM IN, RANDO M URINE W/CRE ATINI NE albumin/crea tinine ratio, random urine 22 mg/g_ creat <30 normal The ADA defin es abnor malit ies in album in excre tion as follo ws: Album inuri a Categ ory Resul t (mg/g creat inine ) Sana l to Mildl y incre ased <30 Moder ately incre ased 30-29 9 Sever jace incre ased > OR = 300 The ADA recom mends that at least two of three speci mens colle cted withi n a 3-6 month perio d be abnor mal befor e consi benoit g a patie nt to be withi n a diagn ostic categ ory. Not Available [facility] [address] [place], [address], 06/24/2024 06:18:06 06/23/1906/24/2024 VITAM IN D,25- OH,TO KRISTIN,I A vitamin D,25-oh,tota l,ia 57 NG/mL 30-100 normal Vitam in D Statu s 25-OH Vitam in D: Defic iency : <20 ng/mL Insuf ficie ncy: 20 - 29 ng/mL Optim al: > or = 30 ng/mL For 25-OH Vitam in D testi ng on patie nts on D2-dumas pplem entat ion and patie nts for whom quant itati on of D2 and D3 fract ions is requi red, the [employer] Assur eD(TM ) 25-OH VIT D, (D2,D 3), LC/MS /MS is recom aditya d: order code 87151 (last ents >2yrs ). See Note 1 Note 1 For addit ional infor samantha herring refer to [email or web address]: [email or web address] [email or web address] q/FAQ [email or web address] (This link is being provi ded for infor heber white/ maurice hopper purpo ses only. ) Not Available [facility] [address] , [place], [address], 06/24/2024 06:18:07 06/24/1906/23/2024 XR, abdom en, 2 view No observ ation record ed. [email or web address] [facility] [address] [place], [address], 06/30/2024 17:49:47 09/21/19 25 09/20/2024 XR, knee, 3 view No observ ation record ed. [email or web address] [facility] [address] [place], [address], 09/20/2024 15:56:36 Result Notes None recorded. Problems Name Problem SNOMED Code Status Onset Date Resolution Date Notes Provider Name and Address Organization Details Recorded Time Generaliz ed anxiety disorder 22591745 Active 2021 ELVIS kulkarni [facility] 4 16:00:11 Bipolar disorder 02357551 Active 2021 ELVIS JEREZ [facility] 4 15:59:52 Manic behavior 799581956 Active 2021 ELVIS kulkarni [facility] 4 16:00:17 Schizophr enia 61102466 Active 2021 ELVIS kulkarni [facility] 4 16:00:23 Diverticu litis of colon 572258817 Active 2022 ELVIS kulkarni [facility] 4 15:59:57 Overdose 7765071330 Active 2024 attempted overdose of Xanax ELVIS [facility]ulkarni [facility] 5 09:39:20 Chronic obstructi ve pulmonary disease 24999943 Active 2024 ELVIS kulkarni [facility] 5 09:39:40 Sleep apnea 65182215 Active 2024 ELVIS [facility]ulkarni [facility] 5 09:39:52 Essential hypertens ion 73830231 Active 2024 ELVIS JEREZ cayla [facility] 5 09:40:08 Major depressiv e disorder 979740396 Active 2024 [facility] 5 09:40:27 Suicidal thoughts 6439239 Active 2024 [facility] 5 09:40:49 Migraine 93200428 Active 2022 [facility] 3 16:50:59 Hyperlipi demia 21384908 Active 2022 [facility] 3 16:51:13 Gastroeso phageal reflux disease 583546089 Active 2022 [facility] 3 16:51:25 Type 2 diabetes mellitus 95613802 Active 2022 [facility] 3 16:51:38 Problem Notes None recorded. Procedures Surgical History Date Name Laterality Status Provider Name and Address Organization Details Recorded Time 09/21/19 25 plain X-ray of left knee region completed ELVIS [facility] 09/21/2024 12:10:40 06/23/19 25 plain X-ray of abdomen completed [facility] 06/24/2024 15:36:32 06/14/19 25 plain X-ray of chest completed ELVIS SOLITARIO [facility] 06/23/2024 13:36:52 02/10/20 24 plain X-ray of chest completed [facility] 02/15/2024 10:24:19 01/06/20 24 screening mammography completed [facility] 01/07/2024 17:09:53 12/23/19 24 plain X-ray of chest completed [facility] 01/01/2024 15:59:26 11/03/19 24 MRI of brain completed [facility] 11/10/2023 17:28:15 04/28/20 23 radiography of humerus completed [facility] 05/01/2023 16:00:44 01/31/20 23 radiography of wrist completed [facility] 02/03/2023 10:53:31 Cholecystectomy completed [facility] 07/22/2022 16:55:33 delivery completed [facility] 07/22/2022 16:55:44 Imaging Results None recorded. Procedure Notes None recorded. Medical Equipment None Reported. Allergies Allergen ID Allergen Name Allergen Category Reaction Reaction Severity Criticality Documentation Date Start Date Code Code System Note Provider Name and Address Organization Details Recorded Time 34139 cultivate d mushroom extract food Not available Not available Not available 11/29/2022 71757 17 RxNorm Kate Pmeberton [facility] 4 09:11:36 31626 honey bee venom medicatio n Not available Not available Not available 09/20/2024 21958 7 RxNorm Elyssa Hua [facility] 5 11:09:08 30891 latex environme nt,medica tion Not available Not available Not available 09/20/2024 11430 91 RxNorm Elyssa Hua [facility] 5 11:09:16 Medications Name Sig Start Date Stop Date Status Note LastModified by Organization Details LastModified Time promethaz ine-DM 6.25 mg-15 mg/5 mL oral syrup take 5ml BY MOUTH EVERY 6 HOURS NEEDED FOR cough 08/28 completed Not Available Not Available Not Available doxycycli ne hyclate 100 mg capsule TAKE 1 CAPSULE BY MOUTH TWICE A DAY 04/28 completed Not Available Not Available Not Available Delsym 12 hour 30 mg/5 mL oral suspensio n,extende d release take 5ml BY MOUTH EVERY TWELVE HOURS 04/28 completed Not Available Not Available Not Available cefuroxim e axetil 250 mg tablet TAKE 1 TABLET BY MOUTH TWICE DAILY for 7 days FOR uti 06/23 completed Not Available Not Available Not Available azithromy aldo 250 mg tablet TAKE 2 TABLETS BY MOUTH TODAY, THEN TAKE 1 TABLET DAILY ON DAYS 2-5 08/28 completed Not Available Not Available Not Available glyburide 5 mg tablet TAKE 1 TABLET BY MOUTH TWICE DAILY active Not Available Not Available No t Available benzonata te 200 mg capsule TAKE ONE CAPSULE BY MOUTH THREE TIMES DAILY NEEDED FOR 10 DAYS 01/13 completed Not Available Not Available Not Available glyburide 2.5 mg tablet TAKE 1 TABLET BY MOUTH TWICE DAILY 07/08 completed Not Available Not Available Not Available hydrochlo rothiazid e 50 mg tablet TAKE 1 TABLET BY MOUTH EVERY DAY active Not Available Not Available No t Available hydrocodo ne 5 mg-acetam inophen 325 mg tablet TAKE 1 TABLET BY MOUTH FOUR TIMES DAILY NEEDED 04/28 completed Not Available Not Available Not Available meloxicam 15 mg tablet TAKE 1 TABLET BY MOUTH EVERY DAY do not take with ibuprofe n active Not Available Not Available No t Available ondansetr on HCl 4 mg tablet Take 1 tablet twice a day by oral route as needed for 7 days, for nausea/v omiting. 09/30 completed Not Available Not Available Not Available prednison e 20 mg tablet TAKE 2 TABLETS BY MOUTH EVERY DAY FOR FIVE DAYS 02/08 completed Not Available Not Available Not Available gabapenti n 400 mg capsule take 1 capsule BY MOUTH THREE TIMES DAILY active Not Available Not Available No t Available hydrocodo ne 10 mg-acetam inophen 325 mg tablet TAKE ONE TABLET BY MOUTH EVERY 6 HOURS NEEDED post op pain 08/28 completed Not Available Not Available Not Available aspirin 81 mg tablet,de layed release TAKE 1 TABLET BY MOUTH EVERY DAY active Not Available Not Available No t Available tramadol 50 mg tablet TAKE ONE TABLET BY MOUTH THREE TIMES DAILY NEEDED FOR FIVE DAYS 10/05 completed Not Available Not Available Not Available prazosin 5 mg capsule take 1 capsule BY MOUTH AT BEDTIME 08/28 completed Not Available Not Available Not Available oxycodone -acetamin ophen 5 mg-325 mg tablet TAKE 1 TABLET BY MOUTH every 24 hours NEEDED 08/28 completed Not Available Not Available Not Available famotidin e 20 mg tablet TAKE 1 TABLET BY MOUTH AT BEDTIME NEEDED FOR gastroes ophageal reflux disease active Not Available Not Available No t Available tamsulosi n 0.4 mg capsule take 1 capsule BY MOUTH EVERY DAY FOR 14 DAYS 09/16 completed Not Available Not Available Not Available meclizine 25 mg tablet TAKE 1 TABLET BY MOUTH THREE TIMES DAILY NEEDED FOR 20 DAYS active Not Available Not Available No t Available diazepam 2 mg tablet TAKE 1 TABLET BY MOUTH TWICE DAILY NEEDED FOR ANXIETY active Not Available Not Available No t Available amlodipin e 10 mg tablet TAKE 1 TABLET BY MOUTH EVERY DAY active Not Available Not Available No t Available hydrocodo ne 7.5 mg-acetam inophen 325 mg tablet TAKE 1 TABLET BY MOUTH EVERY 8 HOURS NEEDED 08/28 completed Not Available Not Available Not Available pantopraz ole 40 mg tablet,de layed release TAKE 1 TABLET BY MOUTH TWICE DAILY FOR SIX weeks active Not Available Not Available No t Available simvastat in 20 mg tablet TAKE 1 TABLET BY MOUTH AT BEDTIME active Not Available Not Available No t Available buspirone 30 mg tablet TAKE 1 TABLET BY MOUTH TWICE DAILY active Not Available Not Available No t Available buspirone 10 mg tablet TAKE 2 TABLETS BY MOUTH TWICE DAILY 08/28 completed Not Available Not Available Not Available nicotine 21 mg/24 hr daily transderm al patch APPLY ONE PATCH TO SKIN EVERY DAY active Not Available Not Available No t Available gabapenti n 300 mg capsule take 1 capsule BY MOUTH THREE TIMES DAILY 02/15 completed Not Available Not Available Not Available hydrocort isone 2.5 % topical cream apply rectally FOUR TIMES DAILY for 10 days. MAY USE FOR UP TO 21 DAYS if no resoluti on AFTER 10 DAYS 11/08 completed Not Available Not Available Not Available lisinopri l 5 mg tablet TAKE ONE TABLET BY MOUTH EVERY DAY active Not Available Not Available No t Available diazepam 10 mg tablet TAKE 1 TABLET BY MOUTH BEFORE PROCEDUR E WHEN INSTRUCT ED BY PROCEDUR E STAFF. MUST HAVE TOBACCO WETTER 08/28 completed Not Available Not Available Not Available epinephri ne 0.3 mg/0.3 mL injection , auto-inje ctor USE ONE injectio n DIRECTED 12/22 completed Not Available Not Available Not Available Vitamin D2 1,250 mcg (50,000 unit) capsule take 1 capsule BY MOUTH every week active Not Available Not Available No t Available ondansetr on 4 mg disintegr ating tablet DISSOLVE ONE TABLET BY MOUTH TWICE DAILY NEEDED for 10 days 09/16 completed Not Available Not Available Not Available cefdinir 300 mg capsule take 1 capsule BY MOUTH EVERY TWELVE HOURS for 10 days 08/28 completed Not Available Not Available Not Available metformin ER 500 mg tablet,ex tended release 24 hr TAKE ONE TABLET BY MOUTH TWICE DAILY 12/22 completed Not Available Not Available Not Available prazosin 2 mg capsule take 1 capsule BY MOUTH AT BEDTIME with 5mg DOSE 08/28 completed Not Available Not Available Not Available amoxicill in 875 mg-potass ium clavulana te 125 mg tablet TAKE 1 TABLET BY MOUTH TWICE DAILY FOR 10 DAYS 02/08 completed Not Available Not Available Not Available Ventolin HFA 90 mcg/actua tion aerosol inhaler INHALE TWO PUFFS EVERY 6 HOURS NEEDED active Not Available Not Available No t Available magnesium 250 mg (as magnesium oxide) tablet TAKE 1 TABLET BY MOUTH DAILY AT BEDTIME FOR 90 DAYS active Not Available Not Available No t Available buspirone 15 mg tablet TAKE 1 TABLET BY MOUTH TWICE DAILY FOR FIVE DAYS 12/22 completed Not Available Not Available Not Available bupropion HCl XL 300 mg 24 hr tablet, extended release TAKE 1 TABLET BY MOUTH EVERY MORNING with 150mg DOSE active Not Available Not Available No t Available bupropion HCl XL 150 mg 24 hr tablet, extended release TAKE 1 TABLET BY MOUTH EVERY MORNING with 300mg DOSE active Not Available Not Available No t Available duloxetin e 30 mg capsule,d elayed release take 1 capsule BY MOUTH EVERY DAY FOR SEVEN DAYS 10/05 completed Not Available Not Available Not Available duloxetin e 60 mg capsule,d elayed release take 1 capsule BY MOUTH EVERY DAY active Not Available Not Available No t Available OneTouch UltraSoft Lancets daily 12/05 completed 58447; Recorded 02/15/20 22 9:16AM by Elvis Jerez CMT (Authori matthias through [facility]), Refill Request; Refill Quantity : 100; Each; Not Available Not Available Not Available ondansetr on HCl Q 6 hours prn 12/05 completed Recorded 01/01/20 22 1:34PM by Solitario Ward LPN, Office Visit; Refill Quantity : 0; Not Available Not Available Not Available magnesium citrate as directed 12/05 completed Recorded 08/22/19 22 11:40AM by Elvis Jerez CMT, Office Visit; Refill Quantity : 0; Not Available Not Available Not Available aspirin daily 12/05 completed 23762; Recorded 06/19/19 23 11:16AM by Elvis Jerez CMT (Authorgallo rizzo through [facility]), Refill Request; Refill Quantity : 90; Tablet; Not Available Not Available Not Available Bisacodyl EC take on 06/06/21 @ 4pm 12/05 completed Vo JR/bh; Recorded 06/11/19 22 1:47PM by Solitario Ward LPN, Office Visit; Refill Quantity : 0; Not Available Not Available Not Available hydrochlo rothiazid e daily 12/05 completed 46891; Recorded 03/18/20 22 4:54PM by Elvis Jerez CMT (Cary rizzo through [facility]), Refill Request; Refill Quantity : 90; Tablet; Not Available Not Available Not Available prazosin at bedtime 12/05 completed [facility]; 0; Recorded 02/07/20 22 9:13AM by Elivs Jerez CMT, Office Visit; Not Available Not Available Not Available metformin two times daily 12/05 completed 29904; Recorded 03/18/20 4:53PM by Elvis Jerez CMT (Authori matthias through [facility]), Refill Request; Refill Quantity : 180; Tablet; Not Available Not Available Not Available Wellbutri n SR 12/05 completed 0; Recorded 02/07/20 22 9:13AM by Elvis Jerez CMT, Office Visit; Not Available Not Available Not Available Oxycodone W/Acetami nophen three times daily 12/05 completed 0; Recorded 02/07/20 22 9:13AM by Elvis Jerez CMT, Office Visit; Not Available Not Available Not Available Glucose Test Strips daily 12/05 completed dispense whatever insuranc e covers. DM type 2; 02165; Recorded 02/26/20 12:00PM by Elvis Jerez CMT (Authori matthias through [facility]), Refill Request; Refill Quantity : 100; Each; Not Available Not Available Not Available metformin ER 500 mg 24 hr tablet,ex tended release (gastric retention ) Take 1 tablet twice a day by oral route. 08/28 completed Not Available Not Available Not Available Symbicort 160 mcg-4.5 mcg/actua tion HFA aerosol inhaler INHALE TWO PUFFS BY MOUTH TWICE DAILY FOR COPD active Not Available Not Available No t Available cholecalc iferol (vitamin D3) 1,250 mcg (50,000 unit) capsule take 1 capsule BY MOUTH every week active Not Available Not Available No t Available Protonix 40 mg granules delayed-r elease packet take ONE PACKET TWICE DAILY FOR SIX weeks 02/18 completed Not Available Not Available Not Available diclofena c 1 % topical gel apply TWO grams TO SKIN FOUR TIMES DAILY active Not Available Not Available No t Available ClearLax 17 gram/dose oral powder USE ONE CAPFUL TWICE DAILY NEEDED active Not Available Not Available No t Available amlodipin e besylate (bulk) daily 12/05 completed DOC CS/smf; 15822; Recorded 05/19/19 23 2:01PM by Marly Encinas RN (Authori zed through Tonio Castro DO), Refill Request; Refill Quantity : 0; Not Available Not Available Not Available Butrans 20 mcg/hour transderm al patch APPLY ONE PATCH EVERY 7 DAYS remove old PATCH before adding new one 08/28 completed Not Available Not Available Not Available Butrans 10 mcg/hour transderm al patch APPLY ONE PATCH EVERY 7 DAYS REMOVE OLD PATCH BEFORE ADDING NEW ONE 08/28 completed Not Available Not Available Not Available Butrans 5 mcg/hour transderm al patch apply one PATCH TO THE SKIN every SEVEN DAYS, REMOVE old PATCH before adding a new one 08/28 completed Not Available Not Available Not Available Butrans weekly 12/05 completed 0; Recorded 02/07/20 22 9:13AM by Elvis Jerez CMT, Office Visit; Not Available Not Available Not Available TRUEplus Lancets 33 gauge USE TO test EVERY DAY active Not Available Not Available No t Available Butrans 15 mcg/hour transderm al patch APPLY AND CHANGE ONE PATCH every week 08/28 completed Not Available Not Available Not Available True Metrix Glucose Test Strip USE TO test EVERY DAY active Not Available Not Available No t Available True Metrix Glucose Meter USE TO test EVERY DAY active Not Available Not Available No t Available Spiriva Respimat 1.25 mcg/actua tion solution for inhalatio n INHALE TWO PUFFS BY MOUTH EVERY DAY FOR 30 DAYS active Not Available Not Available No t Available Narcan 4 mg/actuat ion nasal spray CALL 911, USE 1 SPRAY IN ONE NOSTRIL. MAY REPEAT IN ALTERNAT E NOSTRILS EVERY 3 MINUTES NEEDED IF NO OR MINIMAL RESPONSE . 08/28 completed Not Available Not Available Not Available Trintelli x 10 mg tablet TAKE 1 TABLET BY MOUTH EVERY DAY FOR SEVEN DAYS 10/05 completed Not Available Not Available Not Available Trintelli x 20 mg tablet TAKE 1 TABLET BY MOUTH EVERY DAY 10/05 completed Not Available Not Available Not Available Trintelli x daily 12/05 completed [facility]; 0; Recorded 02/07/20 22 9:13AM by Elvis Jerez CMT, Office Visit; Not Available Not Available Not Available Ozempic 0.25 mg or 0.5 mg (2 mg/3 mL) subcutane ous pen injector inject 0.25mg (0.368ml ) SUBCUTAN EOUSLY every week active Not Available Not Available No t Available Vitals Date Recorded Body height Body mass index (BMI) Body weight Oxygen saturation Oxygen saturation in Arterial blood by Pulse oximetry Heart rate Systolic blood pressure Diastolic blood pressure Provider Name and Address Organization Details Last Updated DateTime 5 166.37 cm 42.6 kg/m2 623096. 02 g 95 % 95 % 102 /min 132 mm[Hg] 80 mm[Hg] ELVIS [facility] 5 13:34:21 Date Recorded Body height Body mass index (BMI) Body weight Oxygen saturation Oxygen saturation in Arterial blood by Pulse oximetry Heart rate Respiratory rate Body temperature Systolic blood pressure Diastolic blood pressure Provider Name and Address Organization Details Last Updated DateTime 5 166.37 cm 42.6 kg/m2 122822. 02 g 95 % 95 % 106 /min 16 /min 98.2 [degF] 140 mm[Hg] 84 mm[Hg] Elyssa Hua [facility] 5 11:08:42 Date Recorded Body height Body mass index (BMI) Body weight Oxygen saturation Oxygen saturation in Arterial blood by Pulse oximetry Heart rate Respiratory rate Systolic blood pressure Diastolic blood pressure Provider Name and Address Organization Details Last Updated DateTime 4 166.37 cm 41.3 kg/m2 864707. 28 g 98 % 98 % 102 /min 20 /min 118 mm[Hg] 64 mm[Hg] ELVIS [facility] 4 11:24:12 Date Recorded Body height Body mass index (BMI) Body weight Oxygen saturation Oxygen saturation in Arterial blood by Pulse oximetry Heart rate Respiratory rate Systolic blood pressure Diastolic blood pressure Provider Name and Address Organization Details Last Updated DateTime 4 166.37 cm 42.8 kg/m2 762620. 61 g 96 % 96 % 94 /min 24 /min 138 mm[Hg] 86 mm[Hg] ELVIS [facility] 4 11:16:20 Social History Question Answer Notes LastModified by Organizat ion Details LastModified Time Tobacco Smoking Status Current Every Day Smoker ELVIS kulkarni [facility] 10/13/2022 11:19:43 What Is Your Level Of Caffeine Consumption? Moderate [email or web address] Information not available 12/23/2023 What Was The Date Of Your Most Recent Tobacco Screening? 12/23/2023 Information not available 12/23/2023 How Many Years Have You Used Nicotine-free Products? 5 Information not available 12/23/2023 What Is Your Current Pack Years? [email or web address] Information not available 12/23/2023 What Is Your Relationship Status? Information not available 04/28/2023 At What Age Did You Start Smoking Tobacco? 18 Information not available 12/23/2023 How Much Tobacco Do You Smoke? 0.25 PPD Information not available 04/28/2023 Has Tobacco Cessation Counseling Been Provided? Yes Information not available 12/23/2023 On What Date Was Tobacco Cessation Counseling Provided? 09/20/2024 [email or web address] Information not available 09/20/2024 How Many Years Have You Smoked Tobacco? 35 Information not available 12/23/2023 Which Types Of Nicotine-free Products Have You Used? Vape, Nicotine Free Information not available 12/23/2023 Sex: Unknown Functional Status Question Answer Note LastModified by Organizat ion Details LastModified Time Do you use any illicit or recreational drugs? No [email or web address] Information not available 12/23/2023 Do you or have you ever used any other forms of tobacco or nicotine? No Information not available 12/23/2023 What is your level of alcohol consumption? Occasional Information not available 04/28/2023 Are you currently employed? No disabled [email or web address] Information not available 12/23/2023 Are you able to care for yourself? Yes [email or web address] Information not available 12/23/2023 Do you or have you ever used e-cigarettes or vape? Never used electronic cigarettes Information not available 12/23/2023 Do you or have you ever used any nicotine-free cigarettes, vape, or chewing tobacco? Yes Information not available 12/23/2023 Do you currently use nicotine-free products or are you a former user of these products? Currently uses nicotine-free products Information not available 12/23/2023 Mental Status None recorded. Family History Relationship Description Onset Age of this Age Resolved Age Notes LastModified by Organization Details LastModified Time Mother Malignant neoplasm of lung age 62 Not available 12/23/2023 10:00:48 Father Malignant neoplasm of lung [email or web address] Not available 12/22 10:00:27 Brother Essential hypertension [email or web address] Not available 10:01:19 Brother Myocardial infarction age 54 Not available 12/23/2023 10:01:34 Medical History Condition Response Diabetes Y Anxiety Disorder Y Mental Illness Y Hypertension Y Reflux/GERD Y COPD Y Gynecological HistoryNo gynecological history recorded. Obstetrics History GPAL:G 0 P 0 0 0 0 Immunizations Vaccine Type Date Status Note Provider Nam e and Address Organization Details Recorded Time Pneumococcal conjugate PCV20, polysaccharide HLV242 conjugate, adjuvant, PF [address], [address], [address], [facility] 06/23/2024 16:02:44 COVID-19, mRNA, LNP-S, PF, 50 mcg/0.5 mL [address], [address], [facility] 06/23/2024 16:02:44 Influenza, split virus, trivalent, PF [address], [address], [facility] 06/23/2024 16:02:44 Influenza, split virus, trivalent, preservative [address] [facility] [address] [place] [address], [address], [facility] 10/14/2022 11:36:05 Influenza, split virus, trivalent, preservative [address], [address], [address], [facility] 10/14/2022 11:36:05 Influenza, split virus, trivalent, preservative [address], [address], [address], [facility] 10/14/2022 11:36:05 Influenza, split virus, trivalent, preservative [address] [facility] [address] [place] [address], [id number], [facility] 10/14/2022 11:36:05 Past Encounters Encounter ID Performer Location Encounter Start Date Encounter Closed Date Diagnosis/Indication Diagnosis SNOMED-CT Code Diagnosis ICD10 Code Diagnosis Note [id number] Mariaelena Boss MD [facility] ([facility]) [address] [place] [address] [id number] 5 08/28/2022 10:02:18 09/16/2022 15:19:[id number] [facility] ([facility]) [address] [place] [address] [id number] 08/28/2022 10:13:28 08/28/2022 13:44:40 Posttraumatic stress disorder 30704480 F43.10 Letter written for Nicholas Lyndsey her service dog. Chronic back pain 154510 002 G89.29 Patient reports her pain management group [facility] in [facility] will no longer see her because she is not a surgical candidate. Nocturnal cough 38883857 R05.9 [id number] KRAIG REYES COUNSELING AIDE [facility] ([facility]) [address] [place] [address] [id number] 09/24/2022 13:00:16 12/23/2022 17:15:02 [id number] JONNY MOELLER [facility] ([facility]) [address] [place] [address] [id number] 10/14/2022 10:12:37 10/15/2022 19:53:25 Type 2 diabetes mellitus 09596566 E11.9 Hyperlipidemia 28998563 E78.5 Dizziness 478192544 R42 Doesn't feel safe walking sometimes. Cough 73991541 R05.9 Especially at night Obstructiv e sleep apnea of adult 3578579243 103 G47.33 Trouble using it at this time due to cough. Wears Bi-Pap. [id number] JONNY MOELLER [facility] ([facility]) [address] [place] [address] [id number] 12/05/2022 11:47:01 12/05/2022 12:52:28 Recurrent falls 535090190 R29.6 Bronchitis 59890627 J40 Recently seen in the ER. Weakness present 9965217 07 M62.81 Symptoms include weakness. The episodes occur daily. The patient describes this as interferes with normal daily activities and worsening. Symptoms are relieved by Manual Wheelchair , while symptoms are not relieved by walker (uses a walker but has fallen over it twice now). Pertinent medical history includes diabetes, Chronic Obstructiv e Pulmonary Disease, Neuropathy , Degenerati ve Joint Disease and Osteoarthr itis. The patient is currently able to do activities of daily living with limitation s, unable to work, unable to do housework, unable to participat e in sports and able to walk indoors with assisting devices for short periods of time. Lower body weakness and Lower body pain. Patient is currently unable to perform the following MRADLs feeding, grooming and dressing. Caregiver helps in home 5 days per week with help from friends on weekends. Impacted c erumen in right ear 6534482900 181573 H61.21 Flushed to clear [id number] DAVID NGUYEN [facility] ([facility]) [address] [place] [address] [id number] 01/07/2023 11:35:33 01/07/2023 18:19:03 Nausea and vomiting 39906660 R11.2 Will start ondansetro n PRN today. Continue to push fluids and eat foods as tolerated. If fever occurs, tylenol okay. Will check CBC, CMP, and lipase today due to abnormal abdominal exam. Will call with results. Can continue imodium PRN. If worsening condition or no improvemen t in 7-10 days, return for further evaluation . If pain becomes severe, go to ED. Patient is agreeable to plan of care. Viral gastroenteritis [address] 8124078 [address]08.[id number] COUNSELING AIDE [facility] ([facility]) [address] [place] [address] [id number] 5 01/13/2023 10:24:32 01/13/2023 11:39:54 Colitis 44917759 K52.9 History of anaphylaxis 3439265440 1081312 Z87.892 Type 2 eva betes mellitus 46183451 E11.9 Reactive a irway disease 5344444604 06 J45.909 Obstructiv e sleep apnea syndrome 50219112 G47.33 Patient has been compliant with Bi-PAP machine wearing it 4 hours per night or more. She is improving with this treatment. [id number] [address] COUNSELING AIDE [facility] ([facility]) [address] [place] [address] [id number] 01/30/2023 11:41:56 02/22/2023 22:21:52 Pain of right wrist 1450360502 27913 M25.531 Cough 59607258 R05.9 Especially at night Diverticulitis 897489328 K57.92 [id number] Fady Phoenix MD [facility] ([facility]) [address] [place] [address] [id number] 02/16/2023 15:09:01 02/21/2023 07:28:46 [id number] Brijesh Jolley MD [facility] ([facility]) [address] [place] [address] [id number] 04/02/2023 12:31:57 04/07/2023 12:05:59 Bronchitis 29160692 J40 . Advised to drink plenty of fluids, run a cool-mist humidifier in room at night, gargle salt water for sore throat, and get plenty of rest. Patient should avoid over-exert ion and reduce exposure to irritants such as smoke, cold, dry air, and dust. Treatment currently involves symptomati c relief. Patient may take acetaminop hen or ibuprofen as directed to reduce fever and body aches. Antihistam ine and decongesta nt usage was discussed and recommenda tions made. Albuterol inhaler, prednisone , and doxcycline sent to pharmacy. Take as prescribed . Patient understood these instructio ns and will follow up in the office in 7-10 days if symptoms not improving. Encouraged patient to follow up with PCP in 2 weeks for COPD prince reilly [id number] [address] ([facility]) [address] [place] [address] [id number] 5 04/28/2023 09:52:15 04/28/2023 10:56:55 Type 2 diabetes mellitus without complication 412387596 E11.9 Bipolar disorder 3963263 4 F31.9 Follows with psychiatry . Advised her to discuss with them her nightmares . Bilateral pain in upper arms 8090116300 1810734 M79.621 M79.622 Dizziness 570101428 R42 Doesn't feel safe walking sometimes. [id number] [facility] ([facility]) [address] [place] [address] [id number] 05/19/2023 09:42:19 05/19/2023 14:41:38 Cyst of right ovary 5369774898 3093418 N83.201 Last period 1.5 years ago. Abdominal pain 87606274 R10.9 Protonix increased to BID for 6 weeks. Diverticulitis 553491685 K57.92 She has taken tramadol in the past and tolerated it well by her report. [id number] [facility] ([facility]) [address] [place] [address] [id number] 5 10/06/2023 14:11:24 10/06/2023 15:04:26 Uncontrolled type 2 diabetes mellitus 051450908 E11.65 Syncope and collapse 309 677610 R55 Chronic da aure headache 0520825472 [address] daily, Naproxen not helping. Bipolar disorder 8892709 4 F31.9 Follows with psychiatry . Advised her to discuss with them her nightmares . Pain of ri ght ankle joint 5630920650 4429897 M25.571 Encouraged her to wear a brace at this time. [id number] JONNY MOELLER [facility] ([facility]) [address] [place] [address] [id number] 5 12/23/2023 09:42:06 12/23/2023 10:58:10 Chronic obstructive pulmonary disease 07169768 J44.9 Smoking 5 cig/day. Type 2 eva betes mellitus without complication 913688418 E11.9 Sugars have been 120-200. She doesn't want to take Metformin any longer. Syncope and collapse 309 460970 R55 Currently wearing a heart monitor. Generalize d anxiety disorder 76729124 F41.[address] Herman. She feels like the buspirone has quit working but he won't give her anything differentl y. She said he won't do anything for the voices in her head. Encouraged her to continue to follow with [facility] and make them aware of her concerns again. Chronic back pain 538677 002 G89.29 Patient reports her pain management group [facility] in [facility] will no longer see her because she is not a surgical candidate. Pain in left foot 051656 0053 30566 M79.672 Screening mammography 24 824530 Z12.31 [id number] JONNY MOELLER [facility] ([facility]) [address] [place] [address] [id number] 5 03/24/2024 10:43:31 03/24/2024 11:47:23 Abdominal pain 20510965 R10.9 LLQ, history of kidney stones. History of calculus of kidney 341209291 Z87.442 Type 2 eva betes mellitus 77444340 E11.9 [id number] JONNY MOELLER [facility] ([facility]) [address] [place] [address] [id number] 5 02/19/2024 10:42:56 02/19/2024 11:58:19 Chronic obstructive pulmonary disease 30229278 J44.9 Dizziness 780968081 R42 Doesn't feel safe walking sometimes. MRI scheduled in March. Slow movements with position changes. Vitamin D deficiency 347 [address] Hooker about getting something different than the weekly pill. Nausea and vomiting 1693 [address]11.[id number] [facility] ([facility]) [address] [place] [address] [id number] 5 06/23/2024 13:05:32 06/23/2024 14:25:12 Abdominal pain 97780727 R10.9 RLQ pain. Dizziness 088728659 R42 Dr. Logan requested labs Essential tremor 8436345 09 G25.0 Missed EEG appt due to weather. She has left them messages to reschedule . Type 2 eva betes mellitus 69752219 E11.65 Bipolar disorder 6484671 4 F31.9 Follows with psychiatry , Dr. Mock. Chronic ob structive pulmonary disease 35507698 J44.9 Continue Spiriva. Vitamin D deficiency [address] Hooker. Multiple s kin tags of eyelids 723116876 D23.121 She will check with her eye care provider for removal. Pain of to e of right foot 0018764181 17849 M79.674 Hit toe on walker a couple of weeks ago. Impaired mobility 383105 [address] Z74.[id number] [facility] ([facility]) [address] [place] [address] [id number] 5 09/16/2024 10:50:23 09/16/2024 11:48:09 Type 2 diabetes mellitus 02518822 E11.65 Started Ozempic yesterday. No nausea. Nausea and vomiting 1692 1999 R11.2 Dizziness 069942260 R42 [id number] JERMAIN HAYES COUNSELING AIDE [facility] ([facility]) [address] [place] [address] [id number] 09/20/2024 10:55:28 09/20/2024 18:13:12 Recurrent falls 604702528 R29.6 Pain of le ft knee joint 4724933744 96377 M25.562 Will send X ray to radiology. Harry wrap applied. RICE. OTC tylenol as needed for pain. RTC with any new or worsening symptoms. Health Concerns Section Related Observation LastModified by Organization Detai ls LastModified Time None Recorded Concern Status LastModified by Organization Details LastModified Time None Recorded Advance Directives Directive None Recorded Payers Insurance Date Sequence Insurance Name Policy Number Policy Rosenbaum Covered Member ID Rosenbaum Member ID Guarantor Name 09/13/2024 1 [place] Prudence Gunnlsen [id number] Prudence Rowe Kalpana 09/13/2024 [place] [facility] Prudence Kalpana [id number] Prudence Rowe Kalpana Notes Date Note Type Note Provider Name and Address Organization Details Recorded Time 4 text/html CoughReported bypatient.Quality:dry Severity:moderate Duration:chronic (>8 weeks) Context:smoker Associated Symptoms:no fever; no chills [address], [address], [address], [facility] [place] 02/19/2024 11:54:55 4 text/html Abdominal PainReported bypatient.Location:LLQ Quality:sharp Severity:pain level 8/10 Duration:constant Onset/Timing:acute Context:history of kidney stones Associated Symptoms:no fever; no chills [address], [address], [address], [facility], [place] 03/24/2024 13:55:16 5 text/html Abdominal PainReported bypatient.Location:RLQ Quality:aching;stabbing Severity:severe Duration:intermittent Associated Symptoms:no fever; no chills;shortness of breath;decreased appetiteFatigueReported bypatient.Severity:change in sleep patterns Context:COPD [address], [address], [address], [facility] [place] 06/23/2024 16:04:27 5 text/html walk in patientpatient is here today for 2 falls that happened today, patient is seeing Neurology for her falls and Dr Logan for her dizziness. Patient said that she rolled out of bed twice today and hurting her left side of her body. Pain is primarily at the left knee. Patient currently using electric wheelchair to assist with ambulation. Denies any dizziness/near syncope/syncope at time of falls. JERMAIN HAYES, [facility] [place], [address], [facility] [place] 09/20/2024 17:54:05 OBGyn Episode No OBEpisode recorded.
--- OUTSIDE RECORDS SUMMARY | 2024-10-26 15:44 | XMS_ITS | Encounter Summary ---
Author Organization [facility] Address 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
[2024-10-26 15:48] LABS: Alanine Aminotransferase 13 U/L (0-33); Albumin Level 4.2 g/dL (3.5-5.2); Alkaline Phosphatase 116 U/L (35-105); Anion Gap 22.8 (5-19); Aspartate Amino Transferase 12 U/L (0-32); Blood Urea Nitrogen 10 mg/dL (6-20); Calcium 9.8 mg/dL (8.5-10.5); Carbon Dioxide 25 mmol/L (22-29); Chloride 88 mmol/L (98-107); Creatinine Clr Calc Pharmacy 103.4483; Globulin 3.1 g/dL (1.3-4.6); Glucose 174 mg/dL (65-115); Lipase 20 U/L (13-60); Osmolality Calculated 279 mOsm/kg (285-295); Sodium 133 mmol/L (136-145); Total Bilirubin 0.6 mg/dL (0.15-1.2); Total Protein 7.3 g/dL (6.6-8.7)
[2024-10-26 15:49] LABS: Lactic Sepsis W/Reflex 2.2 mmol/L (0.5-2.2)
[2024-10-26 15:51] LABS: Potassium 2.8 mmol/L (3.5-5.1)
[2024-10-26] MEDS: potassium chloride premix 100 ML 25 MEQ IV (16:15)
[2024-10-26 17:11] LABS: Reflex Lactate Order REFLEX LACTIC ORDERD
[2024-10-26 17:39] LABS: Bilirubin Urine Negative (Negative); Blood Urine Negative (Negative); Glucose Urine UA Negative (Normal); Ketones Urine 1+ (Negative); Leukocyte Esterase Urine Negative (Negative); Nitrate Urine Negative (Negative); Protein Urine 1+ (Negative); Urine Appearance Clear (CLEAR); Urine Color Yellow (Yellow)
[2024-10-26 17:42] LABS: Bacteria Urine 3+ /hpf; Hyaline Casts Urine 2.05 /lpf; RBC Urine 0-2 /hpf (0-2); WBC Urine 0-5 /hpf (0-5)
[2024-10-26 17:50] LABS: UA Slide Review UA Slide Review Perf
[2024-10-26 17:51] LABS: Add Urine Culture? No
[2024-10-26 18:11] LABS: Lactic Acid level (Lactate) 1.5 mmol/L (0.5-2.2)
[2024-10-26] MEDS: ondansetron 2 mg/ML SDV 2 mL 4 MG IVP (21:05)
--- NOTE | 2024-10-26 21:17 | PM.CONSULT ---
Providers/Reason For Consult Consulting Physician/Specialty*: Dr. Yanez general surgery Reason for Consult*: SBO Primary Care Provider: JONNY Taylor History of Present Illness History of Present Illness Prudence Acuna is a 54 year old female who presents with SBO. Patient reports no gas or bowel movements for a day. Diffuse abdominal pain. Medications/Allergies Home Medications ?Medication ?Instructions ?Recorded ?Confirmed ?Last Taken ?Type amlodipine 10 mg tablet 10 mg PO QAM 07/07/19 10/27/24 10/24/24 History hydrochlorothiazide 50 mg tablet 50 mg PO QAM 07/07/19 10/27/24 10/24/24 History epinephrine 0.3 mg/0.3 mL 0.3 mg IM Q10M PRN Anaphylaxis 10/05/19 10/27/24 Unknown History injection, auto-injector lisinopril 5 mg tablet 5 mg PO QAM 10/24/21 10/27/24 10/24/24 History aspirin 81 mg tablet,delayed 81 mg PO QAM 10/27/22 10/27/24 10/24/24 History release famotidine 20 mg tablet 20 mg PO BEDTIME Acid Reflux 10/27/22 10/27/24 10/24/24 History simvastatin 20 mg tablet 20 mg PO BEDTIME 10/27/22 10/27/24 10/24/24 History meloxicam 15 mg tablet 15 mg PO DAILY 06/02/23 10/27/24 10/24/24 History gabapentin 400 mg capsule 400 mg PO TID 12/29/23 10/27/24 10/24/24 History cholecalciferol (vitamin D3) 1,250 50,000 unit PO .weekly #14 caps 02/10/24 10/27/24 10/20/24 Rx mcg (50,000 unit) capsule bupropion HCl 150 mg 24 hr tablet, 150 mg PO DAILY #30 tabs 03/17/24 10/27/24 10/24/24 Rx extended release bupropion HCl 300 mg 24 hr tablet, 300 mg PO QAM #30 tabs 03/17/24 10/27/24 10/24/24 Rx extended release ondansetron 4 mg disintegrating 4 mg PO Q6H 08/19/24 10/27/24 10/26/24 History tablet diazepam 2 mg tablet 2 mg PO BID PRN anxiety #60 tabs 08/23/24 10/27/24 10/24/24 Rx nicotine 21 mg/24 hr daily See Rx Instructions .Route 09/01/24 10/27/24 10/26/24 Rx transdermal patch .COMPLEX #28 patches duloxetine 60 mg capsule,delayed 60 mg PO DAILY #30 caps 09/13/24 10/27/24 10/24/24 Rx release (Cymbalta) glyburide 5 mg tablet 5 mg PO BID 09/13/24 10/27/24 10/24/24 History magnesium oxide 250 mg PO DAILY 09/13/24 10/27/24 10/24/24 History meclizine 25 mg tablet 25 mg PO TID PRN Dizziness 09/13/24 10/27/24 10/24/24 History semaglutide 0.25 mg or 0.5 mg (2 0.25 mg (0.368 mL) SUBCUT .weekly 09/13/24 10/27/24 10/20/24 Rx mg/3 mL) subcutaneous pen injector #3 mL (Crashmob) Allergies Allergy/AdvReac Type Severity Reaction Status Date / Time bee venom protein (honey bee) Allergy Unknown ALGY-Anaphy Verified 10/13/24 06:59 laxis mushroom Allergy Unknown ALGY-Anaphy Verified 10/13/24 06:59 laxis venom-wasp Allergy Unknown ALGY-Anaphy Verified 10/13/24 06:59 laxis Latex, Natural Rubber Allergy ALGY-Bliste Verified 10/13/24 06:59 r PFSH Acute PFSH: Medical History Syncope History of colon polyps Psychiatric care Insect bite, venomous Knee buckling Right wrist injury Falls frequently Hyperlipidemia COPD (chronic obstructive pulmonary disease) Hypertension Obstructive sleep apnea Dependent personality disorder Borderline personality disorder Alcohol dependence, in remission Panic disorder [episodic paroxysmal anxiety] Post-traumatic stress disorder, chronic Surgical History History of cholecystectomy deliv NOS-unsp X4 History of bilateral tubal ligation History of endometrial ablation for heavy menses; did not resolve issue Family History Brother Heart disease Hyperlipidemia Hypertension Sister Hypertension Denies family history of Colon cancer Diabetes Breast cancer Social History (Updated 10/26/24 @ 22:45 by Edward Huerta MD) Smoking and tobacco/nicotine status: current every day tobacco/nicotine user cigarettes Number of cigarettes per day: 6-10 [ Other cigarette details: Previously was smoking 4 packs/day and is trying to quit] Quit status (tobacco/nicotine): considering quitting Alcohol intake: never Substance/Drug Use: never Additional social history: 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 Her next of kin is her life partner Carlos Mehta phone #[phone]. Female Reproductive History: Para: 4 Spontaneous abortions: Yes Vitals/I&O/Wt Last Vital Signs Temp 98.4 F 10/26/24 15:12 Pulse 97 10/26/24 20:30 Resp 20 H 10/26/24 15:12 BP 113/70 10/26/24 20:00 Pulse Ox 91 10/26/24 20:30 O2 Del Method Room Air 10/26/24 18:15 10/26/24 10/26/24 10/26/24 06:59 14:59 22:59 Intake Total 1000 / 1000 Balance 1000 / 1000 Weight last 48 hrs Weight 248 lb Physical Exam Narrative: Chest: Unlabored breathing room air. No lymphadenopathy. Heart: Regular rate and rhythm. Abdomen: Soft, diffusely tender, distended. No masses or lymphadenopathy. Data 10/27/24 05:53 10/27/24 05:53 Micro: Microbiology 10/26/24 15:48 Blood Culture - Preliminary Blood SPECIMEN COLLECTED 10/26/24 15:45 Blood Culture - Preliminary Blood SPECIMEN COLLECTED A&P Assessment and plan (1) SBO (small bowel obstruction): Plan 54-year-old female who presents with an SBO. No threatened bowel. NG tube to low continuous suction, IV fluids. Correct electrolyte derangements. Will follow. PDMP PDMP Reviewed: Not Reviewed Coding Level of Care Code 34275 Diagnoses SBO (small bowel obstruction) K56.609
[2024-10-26] MEDS: morphine 4 mg/mL SDV 1 mL IVP (21:23)
[2024-10-26] MEDS: cetacaine Spray 5 gm Can 1 SPRAY TOPICAL (21:28)
--- NOTE | 2024-10-26 21:36 | XRR_ITS ---
PROCEDURE INFORMATION: Exam: XR Chest Exam date and time: 10/26/2024 9:37 PM Age: 54 years old Clinical indication: Device placement; Ng tube; Additional info: Ng placement TECHNIQUE: Imaging protocol: Radiologic exam of the chest. Views: 1 view. COMPARISON: CR XR chest 1V portable [id number] 06/14/2024 9:55 PM FINDINGS: Tubes, catheters and devices: Enteral tube is in satisfactory position. Lungs: Clear, symmetrically inflated lungs. Pleural spaces: No pleural effusion. No pneumothorax. Heart/Mediastinum: Cardiac silhouette is normal in size for technique. Bones/joints: Age appropriate. XR/XR chest 1V portable [id number] IMPRESSION: Enteral tube is in satisfactory position.
--- NOTE | 2024-10-26 22:36 | PM.HP ---
Providers/Chief Complaint Admitting Physician: Edward Huerta MD Primary Care Provider: JONNY Taylor Chief Complaint: N/V abd pain History of Present Illness Prudence Acuna is a 54 year old female with history of obesity, sleep apnea, diabetes was recently prescribed semaglutide by her psychiatrist. Patient states she was on 0.25 mg for a month and then is on her second dose of 0.5 mg weekly. She lost 5 pounds in the first 4 weeks and then did fine on the first week of 0.5 mg. Her second 0.5 mg shot was last in the morning and she went to [place] to see a specialist eye doctor. She had nausea vomiting for last 6 days and has not passed any stool. She did have some diarrhea prior to that shot she has been passing gas daily still and the last time was 10 minutes ago. She voided urine here which is dark. Patient has history of abdominal surgery including x 4 BTL and cholecystectomy. She has not had appendectomy or herniorrhaphy. Patient states she has sleep apnea treated with BiPAP at home pressures include some number of 7 she has not used it for 1.5 years. She was diagnosed 6 years ago and uses sadly for 3 years until stopped due to nocturnal coughing which was never fully diagnosed. She states it feels like she is choking when she is coughing into her full facemask she has not tried a nasal CPAP. Review of Systems Narrative: General Positive for weight loss 5 pounds last month. She is now down to 248 from a starting weight of 263 with this week of nausea. Cardiovascular positive chest pain started after the vomiting it is a burning sensation in her throat no palpitations edema Respiratory she did not vomit into her lungs GI positive for nausea vomiting diarrhea and now constipation. She has diffuse abdominal pain no dysuria hematuria Neuro no seizures strokes Hematologic no history of blood clots in the legs or lungs Medications/Allergies Home Medications ?Medication ?Instructions ?Recorded ?Confirmed ?Last Taken ?Type amlodipine 10 mg tablet 10 mg PO QAM 07/07/19 10/13/24 06/02/23 History hydrochlorothiazide 50 mg tablet 50 mg PO QAM 07/07/19 10/13/24 06/02/23 History epinephrine 0.3 mg/0.3 mL 0.3 mg IM Q10M PRN Anaphylaxis 10/05/19 10/13/24 Unknown History injection, auto-injector lisinopril 5 mg tablet 5 mg PO QAM 10/24/21 10/13/24 06/02/23 History aspirin 81 mg tablet,delayed 81 mg PO QAM 10/27/22 10/13/24 06/02/23 History release famotidine 20 mg tablet 20 mg PO BEDTIME Acid Reflux 10/27/22 10/13/24 06/02/23 History simvastatin 20 mg tablet 20 mg PO BEDTIME 10/27/22 10/13/24 06/02/23 History meloxicam 15 mg tablet 15 mg PO DAILY 06/02/23 10/13/24 06/02/23 History gabapentin 400 mg capsule 400 mg PO TID 12/29/23 10/13/24 Unknown History cholecalciferol (vitamin D3) 1,250 50,000 unit PO .weekly #14 caps 02/10/24 10/13/24 Unknown Rx mcg (50,000 unit) capsule bupropion HCl 150 mg 24 hr tablet, 150 mg PO DAILY #30 tabs 03/17/24 10/13/24 Unknown Rx extended release bupropion HCl 300 mg 24 hr tablet, 300 mg PO QAM #30 tabs 03/17/24 10/13/24 Unknown Rx extended release ondansetron 4 mg disintegrating 4 mg PO Q6H 08/19/24 10/13/24 Unknown History tablet diazepam 2 mg tablet 2 mg PO BID PRN anxiety #60 tabs 08/23/24 10/13/24 Unknown Rx diclofenac sodium 1 % topical gel 2 g topical QID #100 grams 08/25/24 10/13/24 Unknown Rx diclofenac sodium 3 % topical gel 1 applic topical BID #100 grams 08/25/24 10/13/24 Unknown Rx nicotine 21 mg/24 hr daily See Rx Instructions .Route 09/01/24 10/13/24 Unknown Rx transdermal patch .COMPLEX #28 patches duloxetine 60 mg capsule,delayed 60 mg PO DAILY #30 caps 09/13/24 10/13/24 Unknown Rx release (Cymbalta) glyburide 5 mg tablet 5 mg PO BID 09/13/24 10/13/24 Unknown History magnesium oxide 250 mg PO DAILY 09/13/24 10/13/24 Unknown History meclizine 25 mg tablet 25 mg PO TID PRN 09/13/24 10/13/24 Unknown History semaglutide 0.25 mg or 0.5 mg (2 0.25 mg (0.368 mL) SUBCUT .weekly 09/13/24 10/13/24 Unknown Rx mg/3 mL) subcutaneous pen injector #3 mL (Ozempic) Allergies Allergy/AdvReac Type Severity Reaction Status Date / Time bee venom protein (honey bee) Allergy Unknown ALGY-Anaphy Verified 10/13/24 06:59 laxis mushroom Allergy Unknown ALGY-Anaphy Verified 10/13/24 06:59 laxis venom-wasp Allergy Unknown ALGY-Anaphy Verified 10/13/24 06:59 laxis Latex, Natural Rubber Allergy ALGY-Bliste Verified 10/13/24 06:59 r PFSH Acute PFSH: Medical History Syncope History of colon polyps Psychiatric care Insect bite, venomous Knee buckling Right wrist injury Falls frequently Hyperlipidemia COPD (chronic obstructive pulmonary disease) Hypertension Obstructive sleep apnea Dependent personality disorder Borderline personality disorder Alcohol dependence, in remission Panic disorder [episodic paroxysmal anxiety] Post-traumatic stress disorder, chronic Surgical History History of cholecystectomy deliv NOS-unsp X4 History of bilateral tubal ligation History of endometrial ablation for heavy menses; did not resolve issue Family History Brother Heart disease Hyperlipidemia Hypertension Sister Hypertension Denies family history of Colon cancer Diabetes Breast cancer Social History (Updated 10/26/24 @ 22:45 by Edward Huerta MD) Smoking and tobacco/nicotine status: current every day tobacco/nicotine user cigarettes Number of cigarettes per day: 6-10 [ Other cigarette details: Previously was smoking 4 packs/day and is trying to quit] Quit status (tobacco/nicotine): considering quitting Alcohol intake: never Substance/Drug Use: never Additional social history: 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 Her next of kin is her life partner Carlos Mehta phone #[phone]. Female Reproductive History: Para: 4 Spontaneous abortions: Yes Vitals/I&O/Wt Last Vital Signs Temp 98.4 F 10/26/24 15:12 Pulse 95 10/26/24 22:30 Resp 20 H 10/26/24 15:12 BP 121/83 10/26/24 22:30 Pulse Ox 90 10/26/24 22:30 O2 Del Method Room Air 10/26/24 21:30 10/26/24 10/26/24 10/26/24 06:59 14:59 22:59 Intake Total 1000 / 1000 Balance 1000 / 1000 Weight last 48 hrs Weight 112.491 kg Physical Exam Narrative: General well-developed well-nourished morbidly obese female in no acute cardiopulmonary stress CV regular rate and rhythm Lungs clear to auscultation bilaterally Abdomen decreased bowel tones soft modest left lower quadrant tenderness minimal diffuse tenderness no rebound Calves no tenderness cords pretrip edema Mood and affect appropriate Data 10/26/24 14:47 10/26/24 14:47 Micro: Microbiology 10/26/24 15:48 Blood Culture - Preliminary Blood SPECIMEN COLLECTED 10/26/24 15:45 Blood Culture - Preliminary Blood SPECIMEN COLLECTED A&P Assessment and plan (1) SBO (small bowel obstruction): NG tube has been placed. There is not a distinct transition point despite her having multiple surgeries. I think the semaglutide has caused decreased bowel transit and this is in part ileus and small bowel obstruction. Ambulate 3 times daily continue with NG tube and hold semaglutide. She is not a good candidate to continue semaglutide. It has however helped her from weight loss and diabetes standpoint (2) Acute hypokalemia: Add mag and Phos to her labs and will replace potassium and subsequent electrolyte abnormalities (3) Type 2 diabetes mellitus associated with morbid obesity: Start sliding scale insulin. Patient reports her A1c was 8.6 and that her blood sugars are running 270 prior to semaglutide and now 130 representing huge improvement (4) Obstructive sleep apnea: Once NG tube is out and the patient is feeling better she should resume sleep apnea therapy with the CPAP. I counseled her regarding this. She needs to have her cough diagnosed and if that is not possible she can wear a nasal mask. It is not unsafe to cough into a fullface mask but this may give her less sense of claustrophobia PDMP PDMP Reviewed: Not Reviewed Attestations Medical Necessity Statement*: Patient mid to the hospital small bowel obstruction and expected to be hospitalized greater than 2 midnights Coding Level of Care Code 65567 Diagnoses SBO (small bowel obstruction) K56.609 Acute hypokalemia E87.6 Type 2 diabetes mellitus associated with morbid obesity E11.69; E66.01 Obstructive sleep apnea G47.33 Time Spent (min) 70
[2024-10-26] MEDS: enoxaparin 40 mg/0.4 mL Syringe SUBCUT (23:49)
[2024-10-26] MEDS: pantoprazole 40 mg SDV IVP (23:49)
[2024-10-26] MEDS: lidocaine 2% viscous 15 ML, aluminum-mag hydrox-simethicon 30 ML, sucralfate oral liq 1 GM PO (23:50)
[2024-10-26] MEDS: sodium chlor 0.9% + KCl 20 mEq 20 MEQ/1,000 ML BAG 150 MEQ IV (23:50)
[2024-10-26 23:57] LABS: Magnesium 1.8 mg/dL (1.7-2.3); Phosphorus 3.4 mg/dL (2.5-4.5)
[2024-10-27] VITALS (8 sets, daily range): BP systolic 93–117; BP diastolic 50–78; PULSE 85–93; RESP 16–18; TEMP 36.4–36.9; O2SAT 90–98
[2024-10-27] MEDS: sodium chlor 0.9% + KCl 20 mEq 20 MEQ/1,000 ML BAG 150 MEQ IV ×2 (05:18→11:50)
[2024-10-27 06:11] LABS: Basophils # 0.1 10^3/uL (0.0-0.1); Basophils % 0.4 %; Eosinophils # 0.1 10^3/uL (0.0-0.8); Eosinophils % 0.6 %; Hematocrit 43.1 % (36-47); Lymphocytes % 23.9 %; Mean Corpuscular HGB Conc 30.2 g/dL (30-55); Mean Corpuscular Hemoglobin 23.1 pg (27-33); Mean Corpuscular Volume 76.6 fl (85-98); Mean Platelet Volume 11.1 fL (7.4-10.4); Monocytes # 1.6 10^3/uL (0.2-0.9); Neutrophils # 7.79 10^3/uL (1.8-7.7); Neutrophils % 61.8 %; Nucleated Red Blood Cells % 0 %; Platelet Count 281 10^3/cmm (157-399); Red Blood Count 5.63 10^6/uL (3.85-5.65); Red Cell Distribution Width 15.6 % (12.1-15.1)
[2024-10-27 06:30] LABS: Glucose Point of Care 120 mg/dL (70-110)
[2024-10-27 06:43] LABS: Alanine Aminotransferase 9 U/L (0-33); Albumin Level 2.9 g/dL (3.5-5.2); Alkaline Phosphatase 86 U/L (35-105); Aspartate Amino Transferase 10 U/L (0-32); Blood Urea Nitrogen 8 mg/dL (6-20); Calcium 8.4 mg/dL (8.5-10.5); Carbon Dioxide 23 mmol/L (22-29); Chloride 94 mmol/L (98-107); Creatinine Clr Calc Pharmacy 120.0901; Globulin 2.7 g/dL (1.3-4.6); Glomerular Filtration Rate 87.5 mL/min (90-130); Glucose 122 mg/dL (65-115); Osmolality Calculated 272 mOsm/kg (285-295); Sodium 131 mmol/L (136-145); Thyroid Stimulating Hormone 1.06 uIU/mL (0.27-4.20); Total Bilirubin 0.4 mg/dL (0.15-1.2); Total Protein 5.6 g/dL (6.6-8.7)
[2024-10-27 06:45] LABS: Anion Gap 17.2 (5-19); Potassium 3.2 mmol/L (3.5-5.1)
--- NOTE | 2024-10-27 08:35 | P.PN_ITS ---
Subjective 2 Subjective: Passing gas No abdominal pain Abdomen benign NG tube output about 100 cc Vitals/I&O/Wt Last Vital Signs Temp 98.5 F 10/27/24 07:27 Pulse 88 10/27/24 07:27 Resp 17 10/27/24 07:27 BP 117/71 10/27/24 07:27 Pulse Ox 90 10/27/24 07:27 O2 Del Method Room Air 10/27/24 07:27 10/26/24 10/27/24 10/27/24 22:59 06:59 14:59 Intake Total 1000 / 1000 920 / 1920 Output Total 50 / 50 Balance 1000 / 1000 870 / 1870 Weight last 48 hrs Weight 255 lb Weight 253 lb Weight 248 lb Physical Exam 2 Narrative: Chest: Unlabored breathing room air. No lymphadenopathy. Heart: Regular rate and rhythm. Abdomen: Soft, nontender, nondistended. No masses or lymphadenopathy. Data 10/27/24 05:53 10/27/24 05:53 Micro: Microbiology 10/26/24 15:48 Blood Culture - Preliminary Blood SPECIMEN COLLECTED 10/26/24 15:45 Blood Culture - Preliminary Blood SPECIMEN COLLECTED A&P Assessment and plan (1) SBO (small bowel obstruction): Plan 54-year-old female presenting with SBO. Now having bowel function. Okay to discontinue NG tube. Start clears. Will follow PDMP PDMP Reviewed: Not Reviewed Attestations 2 Medical Necessity Statement*: N/A Coding Level of Care Code 69975 Diagnoses SBO (small bowel obstruction) K56.609
[2024-10-27 11:15] LABS: Glucose Point of Care 129 mg/dL (70-110)
[2024-10-27] MEDS: pantoprazole 40 mg SDV IVP ×2 (11:50→22:33)
[2024-10-27] MEDS: morphine 4 mg/mL SDV 1 mL 2 MG IVP ×2 (11:51→19:32)
--- NOTE | 2024-10-27 14:42 | P.PN_ITS ---
Subjective 2 Subjective: Patient was seen this morning, she feels nauseous, the nasogastric tube is bothering her, no lightheadedness, no dizziness, she is passing gas from below, her abdominal pain is also improving Vitals/I&O/Wt Last Vital Signs Temp 97.5 F L 10/27/24 11:28 Pulse 85 10/27/24 11:28 Resp 16 10/27/24 11:51 BP 116/78 10/27/24 11:28 Pulse Ox 91 10/27/24 11:28 O2 Del Method Room Air 10/27/24 11:28 10/26/24 10/27/24 10/27/24 22:59 06:59 14:59 Intake Total 1000 / 1000 920 / 1920 980 / 980 Output Total 50 / 50 Balance 1000 / 1000 870 / 1870 980 / 980 Weight last 48 hrs Weight 115.666 kg Weight 114.759 kg Weight 112.491 kg Physical Exam 2 Const: COMMON NORMALS: no acute distress and patient oriented x3 Resp: COMMON NORMALS: normal respiratory effort, No retractions, No use of accessory muscles and clear to auscultation bilaterally AUSCULTATION: clear to auscultation bilaterally Cardio: COMMON NORMALS: regular rate, regular rhythm, S1 normal heart sound present and S2 normal heart sound present RATE: regular rate RHYTHM: r egular rhythm HEART SOUNDS: S1 normal heart sound present and S2 normal heart sound present GI: OTHER: Abdomen soft, slightly distended, diminished bowel sounds but present in all 4 quadrants, no guarding, no rebound, no rigidity Extremity: COMMON NORMALS: no pedal edema Neuro: COMMON NORMALS: patient oriented x3 Psych: COMMON NORMALS: mental status grossly normal Data 10/27/24 05:53 10/27/24 05:53 Micro: Microbiology 10/26/24 17:20 Urine Culture - Preliminary Urine,Clean Catch Gram Negative Rods 10/26/24 15:48 Blood Culture - Preliminary Blood SPECIMEN COLLECTED 10/26/24 15:45 Blood Culture - Preliminary Blood SPECIMEN COLLECTED A&P Assessment and plan (1) SBO (small bowel obstruction): (2) Acute hypokalemia: (3) Type 2 diabetes mellitus associated with morbid obesity: (4) Obstructive sleep apnea: Plan Small bowel obstruction Plan - N.p.o. - Bowel rest - IV fluids - NG tube in place - General Surgery consulted - Morphine for pain control - Full code - Lovenox for DVT prophylaxis Urinary tract infection, Rocephin Type 2 diabetes mellitus, insulin scale obstructive sleep apnea, CPAP anxiety resume home patient's diazepam, Wellbutrin, gabapentin, duloxetine PDMP PDMP Reviewed: Not Reviewed Attestations 2 Medical Necessity Statement*: Patient requires hospitalization for small bowel obstruction, UTI Diagnoses SBO (small bowel obstruction) K56.609 Acute hypokalemia E87.6 Type 2 diabetes mellitus associated with morbid obesity E11.69; E66.01 Obstructive sleep apnea G47.33
[2024-10-27] MEDS: gabapentin 400 mg Capsule PO ×2 (15:52→19:33)
[2024-10-27] MEDS: cefTRIAXone 1,000 mg SDV 1000 MG IVP (15:52)
[2024-10-27 16:35] LABS: Glucose Point of Care 141 mg/dL (70-110)
[2024-10-27] MEDS: insulin lispro 100 unit/1 mL SUBCUT (17:35)
[2024-10-27] MEDS: ATORVASTATIN 10 MG TABLET PO (19:33)
[2024-10-27 20:23] LABS: Glucose Point of Care 136 mg/dL (70-110)
[2024-10-27] MEDS: enoxaparin 40 mg/0.4 mL Syringe SUBCUT (22:33)
[2024-10-27] MEDS: sodium chlor 0.9% + KCl 20 mEq 20 MEQ/1,000 ML BAG 50 MEQ IV (22:33)
[2024-10-28] VITALS: BP 108/62; PULSE 89; RESP 17; TEMP 36.4; O2SAT 98
[2024-10-28 04:00] VITALS: BP 93/58; PULSE 68; RESP 16; TEMP 36.6; O2SAT 92
[2024-10-28 06:00] LABS: Basophils % 0.5 %; Eosinophils # 0.1 10^3/uL (0.0-0.8); Hematocrit 37.5 % (36-47); Mean Corpuscular HGB Conc 30.7 g/dL (30-55); Mean Corpuscular Hemoglobin 23.1 pg (27-33); Mean Corpuscular Volume 75.3 fl (85-98); Mean Platelet Volume 11.5 fL (7.4-10.4); Monocytes % 12.6 %; Neutrophils # 3.67 10^3/uL (1.8-7.7); Neutrophils % 46.8 %; Nucleated Red Blood Cells % 0 %; Platelet Count 260 10^3/cmm (157-399); Red Blood Count 4.98 10^6/uL (3.85-5.65); Red Cell Distribution Width 15.6 % (12.1-15.1); White Blood Count 7.85 10^3/uL (3.29-11.43)
[2024-10-28 06:26] LABS: Anion Gap 13.6 (5-19); Blood Urea Nitrogen 5 mg/dL (6-20); Calcium 8.1 mg/dL (8.5-10.5); Carbon Dioxide 26 mmol/L (22-29); Chloride 101 mmol/L (98-107); Creatinine Clr Calc Pharmacy 141.9689; Glomerular Filtration Rate 104.6 mL/min (90-130); Glucose 87 mg/dL (65-115); Osmolality Calculated 281 mOsm/kg (285-295); Potassium 3.6 mmol/L (3.5-5.1); Sodium 137 mmol/L (136-145)
[2024-10-28 06:30] LABS: Glucose Point of Care 92 mg/dL (70-110)
[2024-10-28 07:57] VITALS: BP 124/76; PULSE 79; RESP 18; TEMP 36.4; O2SAT 92
[2024-10-28] MEDS: aspirin 81 mg EC Tablet PO (08:12)
[2024-10-28] MEDS: buPROPion XL (24 HR) 150 mg Tablet PO (08:12)
[2024-10-28] MEDS: gabapentin 400 mg Capsule PO (08:12)
[2024-10-28] MEDS: duloxetine 60 mg Capsule PO (08:12)
--- NOTE | 2024-10-28 08:34 | P.PN_ITS ---
Subjective 2 Subjective: Passing gas consistently Had a bowel movement Tolerating clears No abdominal pain Abdomen benign Vitals/I&O/Wt Last Vital Signs Temp 97.5 F L 10/28/24 07:57 Pulse 79 10/28/24 07:57 Resp 18 10/28/24 07:57 BP 124/76 10/28/24 07:57 Pulse Ox 92 10/28/24 07:57 O2 Del Method Room Air 10/28/24 04:00 10/27/24 10/28/24 10/28/24 22:59 06:59 14:59 Intake Total 2759.167 / 3739.167 Output Total 800 / 800 800 / 1600 Balance 1959.167 / 2939.167 -800 / 2139.167 Weight last 48 hrs Weight 261 lb Weight 255 lb Weight 253 lb Weight 248 lb Physical Exam 2 Narrative: Chest: Unlabored breathing room air. No lymphadenopathy. Heart: Regular rate and rhythm. Abdomen: Soft, nontender, nondistended. No masses or lymphadenopathy. Data 10/28/24 05:40 10/28/24 05:40 Micro: Microbiology 10/26/24 15:48 Blood Culture - Preliminary Blood NEGATIVE TO DATE 10/26/24 15:45 Blood Culture - Preliminary Blood NEGATIVE TO DATE 10/26/24 17:20 Urine Culture - Preliminary Urine,Clean Catch Gram Negative Rods A&P Assessment and plan (1) SBO (small bowel obstruction): Plan 54-year-old female who presented with an SBO. Now resolved. Having bowel function. Okay to start regular diet. If she tolerates this well cleared for discharge as soon as this afternoon. PDMP PDMP Reviewed: Not Reviewed Attestations 2 Medical Necessity Statement*: N/A Coding Level of Care Code 04884 Diagnoses SBO (small bowel obstruction) K56.609
--- NOTE | 2024-10-28 10:22 | PM.DCS ---
Discharge Providers Date of Admission: 10/26/24 21:58 Date of Discharge: October 28, 2024 Attending Provider at Admission: Edward Huerta MD Attending Provider at Discharge: Lloyd Mccray MD Primary Care Provider: JONNY Taylor Diagnoses at Discharge Discharge Diagnosis (1) SBO (small bowel obstruction): Status: Acute Reason for Visit Reason for Visit: N/V abd pain Hospital Course Hospital Course This is a 54-year-old female with a past medical history of cholecystectomy, who presents [facility] due to nausea and vomiting Patient was admitted to [facility] for small bowel obstruction, conservative manage, NG tube placed, IV fluids, general surgery was consulted, overall clinically improved, passing gas, abdominal pain resolved, having bowel movements, NG tube removed, diet was slowly transitioned to GI soft diet. Overall patient is clinically improved, discharged with a close follow-up with primary care provider as outpatient In terms of her semaglutide, discussed with her that semaglutide could be associated with decreased gastric emptying, decreased gastric motility, for now I would recommend against its use. She does have a history of multiple abdominal surgeries including cholecystectomy, C-sections, bilateral tubal ligation, so she is at increased risk of surgical adhesions. That she is at increased risk of bowel obstruction in the future, if she were to have any recurrent abdominal pain, lack of stooling, nausea or vomiting to go to the emergency room. For UTI discharged on cefdinir, urine culture pending at discharge, blood cultures so far no growth Physical Exam Const: COMMON NORMALS: no acute distress and patient oriented x3 Resp: COMMON NORMALS: normal respiratory effort, No retractions, No use of accessory muscles and clear to auscultation bilaterally AUSCULTATION: clear to auscultation bilaterally Cardio: COMMON NORMALS: regular rate, regular rhythm, S1 normal heart sound present and S2 normal heart sound present RATE: regular rate RHYTHM: regular rhythm HEART SOUNDS: S1 normal heart sound present and S2 normal heart sound present GI: COMMON NORMALS: Normal to inspection, nondistended, normoactive bowel sounds present and non-tender Extremity: COMMON NORMALS: no pedal edema Neuro: COMMON NORMALS: patient oriented x3 Psych: COMMON NORMALS: mental status grossly normal Discharge Data Studies Completed and Pending Completed Studies During Hospitalization Category Date Time Status CT abdomen pelvis w con* [id number] Stat Cat Scan 10/26/24 15:40 Completed XR chest 1V portable [id number] Stat Exams 10/26/24 21:36 Completed Pending at discharge Category Date Time Status Basic Metabolic Panel AM LABS Lab 10/29/24 04:00 Ordered Basic Metabolic Panel AM LABS Lab 10/30/24 04:00 Ordered Blood Culture Stat Lab 10/26/24 15:48 Results Complete Blood Count w/Auto AM LABS Lab 10/29/24 04:00 Ordered Complete Blood Count w/Auto AM LABS Lab 10/30/24 04:00 Ordered Urine Culture Stat Lab 10/26/24 17:20 Results Radiology Impressions Abdomen/Pelvis CT 10/26/24 15:40 IMPRESSION: 1. Exam demonstrates features of small bowel obstruction. Transition point is not well defined but appears to be in the region of the right lower quadrant. 2. Diverticulosis without evidence of acute diverticulitis. 3. Cirrhotic morphology of the liver. ADDENDUM: 10/26/242101 THIS REPORT CONTAINS FINDINGS THAT MAY BE CRITICAL TO PATIENT CARE. The findings were verbally communicated via telephone conference with Dr. Lazcano at 9:01 PM CDT on 10/26/2024. The findings were acknowledged and understood. Chest X-Ray 10/26/24 21:36 IMPRESSION: Enteral tube is in satisfactory position. Laboratory Results WBC 7.85 10^3/uL (3.29-11.43) 10/28/24 05:40 RBC 4.98 10^6/uL (3.85-5.65) 10/28/24 05:40 Hgb 11.50 g/dL (11.27-16.99) 10/28/24 05:40 Hct 37.5 % (36-47) 10/28/24 05:40 MCV 75.3 fl (85-98) L 10/28/24 05:40 MCH 23.1 pg (27-33) L 10/28/24 05:40 MCHC 30.7 g/dL (30-55) 10/28/24 05:40 RDW 15.6 % (12.1-15.1) H 10/28/24 05:40 Plt Count 260 10^3/cmm (157-399) 10/28/24 05:40 MPV 11.5 fL (7.4-10.4) H 10/28/24 05:40 Neut % (Auto) 46.8 % 10/28/24 05:40 Lymph % (Auto) 38.0 % 10/28/24 05:40 Grady % (Auto) 12.6 % 10/28/24 05:40 Eos % (Auto) 1.0 % 10/28/24 05:40 Baso % (Auto) 0.5 % 10/28/24 05:40 Neut # (Auto) 3.67 10^3/uL (1.8-7.7) 10/28/24 05:40 Lymph # (Auto) 3.0 10^3/uL (0.8-4.8) 10/28/24 05:40 [place]ady # (Auto) 1.0 10^3/uL (0.2-0.9) H 10/28/24 05:40 Eos # (Auto) 0.1 10^3/uL (0.0-0.8) 10/28/24 05:40 Baso # (Auto) 0.0 10^3/uL (0.0-0.1) 10/28/24 05:40 Nucleated RBC % (auto) 0 % 10/28/24 05:40 Nucleated RBCs # 0.0 /100WBC 10/28/24 05:40 Sodium 137 mmol/L (136-145) 10/28/24 05:40 Potassium 3.6 mmol/L (3.5-5.1) 10/28/24 05:40 Chloride 101 mmol/L (98-107) 10/28/24 05:40 Carbon Dioxide 26 mmol/L (22-29) 10/28/24 05:40 Anion Gap 13.6 (5-19) 10/28/24 05:40 BUN 5 mg/dL (6-20) L 10/28/24 05:40 Creatinine 0.6 mg/dL (0.5-0.9) 10/28/24 05:40 GFR Calculation 104.6 mL/min (90-130) 10/28/24 05:40 Glucose 87 mg/dL (65-115) 10/28/24 05:40 POC Glucose 92 mg/dL (70-110) 10/28/24 06:18 Calculated Osmolality 281 mOsm/kg (285-295) L 10/28/24 05:40 Lactic Acid 2.2 mmol/L (0.5-2.2) 10/26/24 14:47 Lactic Acid (Sepsis) 1.5 mmol/L (0.5-2.2) 10/26/24 17:45 Calcium 8.1 mg/dL (8.5-10.5) L 10/28/24 05:40 Phosphorus 3.4 mg/dL (2.5-4.5) 10/26/24 14:47 Magnesium 1.8 mg/dL (1.7-2.3) 10/26/24 14:47 Total Bilirubin 0.4 mg/dL (0.15-1.2) 10/27/24 05:53 AST 10 U/L (0-32) 10/27/24 05:53 ALT 9 U/L (0-33) 10/27/24 05:53 Alkaline Phosphatase 86 U/L (35-105) 10/27/24 05:53 Total Protein 5.6 g/dL (6.6-8.7) L D 10/27/24 05:53 Albumin 2.9 g/dL (3.5-5.2) L 10/27/24 05:53 Globulin 2.7 g/dL (1.3-4.6) 10/27/24 05:53 Lipase 20 U/L (13-60) 10/26/24 14:47 TSH 1.06 uIU/mL (0.27-4.20) 10/27/24 05:53 Urine Color Yellow (Yellow) 10/26/24 17:20 Urine Appearance Clear (CLEAR) 10/26/24 17:20 Urine pH 7.0 (5-7) 10/26/24 17:20 Ur Specific [place] 1.060 (1.005-1.030) H 10/26/24 17:20 Urine Protein 1+ (Negative) A 10/26/24 17:20 Urine Glucose (UA) Negative (Normal) 10/26/24 17:20 Urine Ketones 1+ (Negative) H 10/26/24 17:20 Urine Blood Negative (Negative) 10/26/24 17:20 Urine Nitrate Negative (Negative) 10/26/24 17:20 Urine Bilirubin Negative (Negative) 10/26/24 17:20 Urine Urobilinogen 1.0 mg/dL (Negative) 10/26/24 17:20 Ur Leukocyte Esterase Negative (Negative) 10/26/24 17:20 Urine RBC 0-2 /hpf (0-2) 10/26/24 17:20 Urine WBC 0-5 /hpf (0-5) 10/26/24 17:20 Ur Squamous Epith Cells 6-10 /hpf (0-5) 10/26/24 17:20 Amorphous Sediment Not Reportable 10/26/24 17:20 Urine Bacteria 3+ /hpf (NONE) H 10/26/24 17:20 Hyaline Casts 2.05 /lpf 10/26/24 17:20 Vitals Last Vital Signs Temp 97.5 F L 10/28/24 07:57 Pulse 79 10/28/24 07:57 Resp 18 10/28/24 07:57 BP 124/76 10/28/24 07:57 Pulse Ox 92 10/28/24 07:57 O2 Del Method Room Air 10/28/24 04:00 Discharge Plan Discharge Patient Disposition: Home Condition: Stable Prescriptions: New cefdinir 300 mg capsule 300 mg PO BID 5 Days Qty: 10 0RF Continued amlodipine 10 mg tablet 10 mg PO QAM hydrochlorothiazide 50 mg tablet 50 mg PO QAM epinephrine 0.3 mg/0.3 mL auto-injector 0.3 mg IM Q10M PRN (Reason: Anaphylaxis) Rx Instructions: for 2 doses ondansetron 4 mg tablet,disintegrating 4 mg PO Q6H meclizine 25 mg tablet 25 mg PO TID PRN (Reason: Dizziness) gabapentin 400 mg capsule 400 mg PO TID glyburide 5 mg tablet 5 mg PO BID magnesium oxide 250 mg magnesium tablet 250 mg PO DAILY duloxetine [Cymbalta] 60 mg capsule,delayed release(DR/EC) 60 mg PO DAILY Qty: 30 11RF diazepam 2 mg tablet 2 mg PO BID PRN (Reason: anxiety) Qty: 60 5RF cholecalciferol (vitamin D3) 1,250 mcg (50,000 unit) capsule 50,000 unit PO .weekly Qty: 14 2RF bupropion HCl 150 mg tablet extended release 24 hr 150 mg PO DAILY Qty: 30 11RF Rx Instructions: TAKE 1 TABLET BY MOUTH EVERY MORNING with 300mg DOSE bupropion HCl 300 mg tablet extended release 24 hr 300 mg PO QAM Qty: 30 11RF Rx Instructions: Take with Buproion ER 150 mg for a total daily dose of 450 mg. nicotine 21 mg/24 hr patch 24 hour See Rx Instructions .ROUTE .COMPLEX Qty: 28 2RF Dose Instruction: APPLY ONE PATCH TO SKIN EVERY DAY Rx Instructions: APPLY ONE PATCH TO SKIN EVERY DAY lisinopril 5 mg tablet 5 mg PO QAM famotidine 20 mg tablet 20 mg PO BEDTIME simvastatin 20 mg tablet 20 mg PO BEDTIME aspirin 81 mg tablet,delayed release (DR/EC) 81 mg PO QAM Discontinued Ozempic 0.25 mg or 0.5 mg (2 mg/3 mL) pen injector 0.25 mg SUBCUT .weekly Qty: 3 0RF meloxicam 15 mg tablet 15 mg PO DAILY Discharge Orders: Discharge Order (Routine); Ordered 10/28/24 Ordered By: Lloyd Mccray Referrals: Venu Yanez MD [Physician, General Surgery] - 11/10/24 3:15 pm Serena Santana FNP [Primary Care Provider, Unknown] - 11/10/24 8:20 am Discharge Diet: Cardiac Discharge Activity: Resume usual activity Patient Instructions: Cefdinir (By mouth), Hypokalemia (DC), Bowel Obstruction (DC), Opioid Safety, Patient Portal & [facility] Instructions Discharge Attestations Time Spent in Discharge Care*: greater than 30 min Quality Metrics Clinical Quality Measures [ No reported AMI, CVA or VTE this stay] Coding Level of Care Code 88885 Total time (in minutes) for Discharge: 45 Diagnoses SBO (small bowel obstruction) K56.609
[2024-10-28 11:24] LABS: Glucose Point of Care 160 mg/dL (70-110)
--- NOTE | 2024-10-28 11:36 | PC.NURSE ---
Discharge instructions went over with patient and medications sent to [facility] per patient request. Patient needs to eat lunch and tolerate a regular diet per surgeon before discharge. Patient's ride called.
[2024-10-28 12:00] VITALS: BP 99/66; PULSE 76; RESP 18; TEMP 36.6; O2SAT 94
[2024-10-28 12:24] VITALS: BP 99/66; PULSE 76; RESP 18; TEMP 36.6; O2SAT 94
== END 2024-10-28 12:26 | disposition home or self-care (01) | DRG 389 ==
LOC: ER 21:55 → MEDSURG 22:28
PROVIDERS: Emergency Medicine; Admitting Provider Internal Medicine; Emergency Provider Student in an Organized Health Care Education/Training Program; PCP Nurse Practitioner Family; Visit Provider Family Medicine
DX: K56.609 Unspecified intestinal obstruction, unspecified as to partial versus complete obstruction (principal); N39.0 Urinary tract infection, site not specified; Z68.41 Body mass index [BMI] 40.0-44.9, adult; Z90.49 Acquired absence of other specified parts of digestive tract; Z79.82 Long term (current) use of aspirin; F10.21 Alcohol dependence, in remission; E66.01 Morbid (severe) obesity due to excess calories; G47.33 Obstructive sleep apnea (adult) (pediatric); J44.9 Chronic obstructive pulmonary disease, unspecified; E78.5 Hyperlipidemia, unspecified; F60.3 Borderline personality disorder; F43.10 Post-traumatic stress disorder, unspecified; I10 Essential (primary) hypertension; F41.0 Panic disorder [episodic paroxysmal anxiety]; F43.12 Post-traumatic stress disorder, chronic; E11.69 Type 2 diabetes mellitus with other specified complication; E86.0 Dehydration; E87.6 Hypokalemia; F17.210 Nicotine dependence, cigarettes, uncomplicated
CPT/HCPCS: 36415; 36416; 71045; 74177; 80048; 80053; 81001; 82962; 83605; 83690; 83735; 84100; 84443; 85025; 87040; 87077; 87086; 87186; 96365; 96366; 96372; 96375; 96376; 99285; J0696; J1650; J1815; J2270; J2405; J2470; J3480; J7030; J9999

== ENCOUNTER → 2024-11-14 08:00 | Outpatient (BNVA) | payer MEDICAID, SELFPAY ==
[2023-04-13 09:30] VITALS: BP 129/87; BMI 38.7
== END ==
PROVIDERS: PCP Nurse Practitioner Family; Visit Provider Student in an Organized Health Care Education/Training Program
DX: Z09 Encounter for follow-up examination after completed treatment for conditions other than malignant neoplasm (principal)
CPT/HCPCS: 99204

== ENCOUNTER 2024-12-20 09:16 | Oncology outpatient (recurring) (ONCR) | payer MEDICAID, SELFPAY ==
[2023-04-13 09:30] VITALS: BP 129/87; BMI 38.7
[2024-12-20 11:01] LABS: Ferritin 17 ng/mL (15-150); Iron 43 ug/dL (37-145); Total Iron Binding Capacity 415 mcg/dl; Unsaturated Iron Binding 372 ug/dL (112-347)
[2024-12-20 11:17] LABS: Vitamin B12 291 pg/mL (232-1245)
== END 2025-01-01 23:59 | disposition home or self-care (01) ==
PROVIDERS: PCP Nurse Practitioner Family; Visit Provider Internal Medicine Medical Oncology
DX: K92.2 Gastrointestinal hemorrhage, unspecified (principal); R71.8 Other abnormality of red blood cells; E61.1 Iron deficiency; Z53.9 Procedure and treatment not carried out, unspecified reason
CPT/HCPCS: 36415; 82607; 82728; 82746; 83540; 83550; 99204

== ENCOUNTER 2024-12-29 15:23 | Emergency (ER) | payer MEDICAID, SELFPAY ==
[2023-04-13 09:30] VITALS: BP 129/87; BMI 38.7
--- NOTE | 2024-12-29 07:41 | XR_ITS ---
Exam: XR acute abdomen series [id number] Date/Time of Exam: 12/29/2024 4:01 PM Reason For Exam: Constipation abdominal pain DLP: PA chest. No prior exam. Atelectasis in the LEFT upper lobe. No infiltrates. No pleural effusions. No pneumothorax. Heart size is normal. The mediastinum is normal in contour. Bony structures are intact. IMPRESSION: 1. LEFT upper lobe atelectasis. Flat and erect abdomen. No bowel obstruction or pneumoperitoneum. Signs of prior cholecystectomy. No sign of organ enlargement. Degenerative changes of the lower lumbar spine. Moderate amount retained stool in the colon. IMPRESSION: 1. No acute abdominal process. MTDD
[2024-12-29 15:25] VITALS: BP 117/69; PULSE 98; RESP 18; TEMP 36.9; O2SAT 95
--- OUTSIDE RECORDS SUMMARY | 2024-12-29 15:30 | XMS_ITS | Clinical Summary ---
Author Organization [facility] Address [address] [place] [address] Phone Care Team Providers Care Ancillary Services Manager Name Role Phone Unavailable Primary Care Provider Unavailabl e Medications No known medications Active Problems No known active problems Encounters Date Type Department Care Team Description 12/06/2024 External Device Data STL ABSTRACTION Provider, Abstract 11/16/2024 External Device Data ST[facility] ABSTRACTION Provider, Abstract 11/16/2024 External Device Data ST[facility] ABSTRACTION Provider, Abstract 10/25/2024 External Device Data ST[facility] ABSTRACTION Provider, Abstract 10/25/2024 External Device Data STL ABSTRACTION Provider, Abstract 10/25/2024 External Device Data STL ABSTRACTION Provider, Abstract 10/20/2024 3:00 PM CDT Office Visit 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 Gender Identity Female 10/20/2024 8:18 AM CDT [...] 02/13/2016 ZOSTER VACCINE (1 of 2) 2021 INFLUENZA VACCINE (#1) 2024 , 02/19/2017, 03/26/2016, Additional history exists DIABETES HBA1C Q 6 MONTHS 12/21/2024 06/23/2024, COVID-19 Vaccine Completed 02/19/2024 Procedures Procedure Name Priority Date/Time Associated Diagnosis Comments FL VSTBLR FUNCJ NYSTAG FOVL&PERPH STIMJ OSCIL TRK Routine 10/20/2024 4:44 PM CDT Dizziness FL CALORIC VESTIBULAR TEST W/REC BI BITHERMAL Routine 10/20/2024 4:44 PM CDT Dizziness from Last 3 Months Results * FL CALORIC VESTIBULAR TEST W/REC BI BITHERMAL, FL VSTBLR FUNCJ NYSTAG FOVL&PERPH STIMJ OSCIL TRK [...] post head shake, or positional nystagmus. The [place] test for benign paroxysmal positional vertigo (BPPV) [...] follow-up with Dr. Logan as planned Jose Cecilio [facility] ORDERABLES Fi nal Result from Last 3 Months Insurance MEDICAID [place]
--- NOTE | 2024-12-29 16:01 | ECG_ITS ---
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 Measurements Intervals [place] Rate: 98 P: 31 SD: 165 QRS: -34 QRSD: 113 T: 93 QT: 343 QTc: 440 Interpretive Statements SINUS RHYTHM LEFT AXIS DEVIATION [QRS AXIS < -30] PATTERN CONSISTENT WITH PULMONARY DISEASE LEFT VENTRICULAR HYPERTROPHY AND ST-T CHANGE [VOLTAGE CRITERIA PLUS ST/T ABNORMALITY] POSSIBLE SEPTAL MYOCARDIAL INFARCTION , OF INDETERMINATE AGE [30 ms Q WAVE IN V1/V2] INTERPRETATION BASED ON A DEFAULT AGE OF 40 YEARS Compared to ECG 08/09/2024 20:11:44 T-wave abnormality no longer present Electronically Signed On 12-30-2024 22:41:34 CDT by Ming Chicas M.D. [email or web address]
[2024-12-29 16:50] LABS: Hematocrit 44.9 % (36-47); Hemoglobin 13.80 g/dL (11.27-16.99); Mean Corpuscular HGB Conc 30.7 g/dL (30-55); Mean Corpuscular Hemoglobin 23.2 pg (27-33); Mean Corpuscular Volume 75.6 fl (85-98); Nucleated Red Blood Cells % 0 %; Platelet Count 405 10^3/cmm (157-399); Red Blood Count 5.94 10^6/uL (3.85-5.65); White Blood Count 10.90 10^3/uL (3.29-11.43)
[2024-12-29 17:00] LABS: Alanine Aminotransferase 15 U/L (0-33); Albumin Level 4.2 g/dL (3.5-5.2); Alkaline Phosphatase 104 U/L (35-105); Anion Gap 19.4 (5-19); Aspartate Amino Transferase 21 U/L (0-32); Blood Urea Nitrogen 8 mg/dL (6-20); Calcium 10.0 mg/dL (8.5-10.5); Carbon Dioxide 26 mmol/L (22-29); Chloride 98 mmol/L (98-107); Globulin 3.4 g/dL (1.3-4.6); Glucose 142 mg/dL (65-115); Lipase 31 U/L (13-60); Osmolality Calculated 289 mOsm/kg (285-295); Potassium 4.4 mmol/L (3.5-5.1); Sodium 139 mmol/L (136-145); Total Protein 7.6 g/dL (6.6-8.7)
--- NOTE | 2024-12-29 19:49 | W.ED.ABDPA2 ---
HPI - Abdominal Pain General: Chief Complaint: Abdominal Pain Stated Complaint: CP last BM 3 days Time Seen by Provider: 12/29/24 19:04 History of Present Illness: 54 yo F with Hx of HLD, COPD, HTN, NATHAN, dependent and borderline personality disorders, alcohol dependence in remission, panic disorder, and PTSD presents for constipation after home health nurse advised ER visit. Pt reports no abdominal pain, no vomiting, able to eat and drink. States prior similar episode ~2 months ago was worse and was associated with vomiting; none currently. Today she ate normally. Denies distress. In ER, clinician-reviewed labs described as normal and abdominal x-ray as normal with bowels appearing mostly empty; no evidence of obstruction or large stool burden per discussion. ROS notable for tolerating PO without pain or emesis; no other acute complaints documented. Related Data Home Medications ?Medication ?Instructions ?Recorded ?Confirmed amlodipine 10 mg tablet 10 mg PO QAM 07/07/19 12/20/24 hydrochlorothiazide 50 mg tablet 50 mg PO QAM 07/07/19 12/20/24 epinephrine 0.3 mg/0.3 mL 0.3 mg IM Q10M PRN Anaphylaxis 10/05/19 12/20/24 injection, auto-injector lisinopril 5 mg tablet 5 mg PO QAM 10/24/21 12/20/24 aspirin 81 mg tablet,delayed 81 mg PO QAM 10/27/22 12/20/24 release famotidine 20 mg tablet 20 mg PO BEDTIME Acid Reflux 10/27/22 12/20/24 simvastatin 20 mg tablet 20 mg PO BEDTIME 10/27/22 12/20/24 gabapentin 400 mg capsule 400 mg PO TID 12/29/23 12/20/24 ondansetron 4 mg disintegrating 4 mg PO Q6H 08/19/24 12/20/24 tablet glyburide 5 mg tablet 5 mg PO BID 09/13/24 12/20/24 magnesium oxide 250 mg PO DAILY 09/13/24 12/20/24 meclizine 25 mg tablet 25 mg PO TID PRN Dizziness 09/13/24 12/20/24 docusate sodium 100 mg capsule 100 mg PO DAILY 11/18/24 12/20/24 (Colace) psyllium husk 0.4 gram capsule 0.4 g PO DAILY 11/18/24 12/20/24 (Metamucil) vitamin d3 PO 12/01/24 12/20/24 Previous Rx's ?Medication ?Instructions ?Recorded bupropion HCl 150 mg 24 hr tablet, 150 mg PO DAILY #30 tabs 03/17/24 extended release bupropion HCl 300 mg 24 hr tablet, 300 mg PO QAM #30 tabs 03/17/24 extended release duloxetine 60 mg capsule,delayed 60 mg PO DAILY #30 caps 09/13/24 release (Cymbalta) diazepam 2 mg tablet 2 mg PO BID PRN anxiety #60 tabs 12/14/24 Allergies Allergy/AdvReac Type Severity Reaction Status Date / Time bee venom protein (honey bee) Allergy Unknown ALGY-Anaphy Verified 12/20/24 09:47 laxis mushroom Allergy Unknown ALGY-Anaphy Verified 12/20/24 09:47 laxis venom-wasp Allergy Unknown ALGY-Anaphy Verified 12/20/24 09:47 laxis Latex, Natural Rubber Allergy ALGY-Bliste Verified 12/20/24 09:47 r PFSH ED PFSH: Medical History (Updated 12/29/24 @ 19:38 by Jose Lazcano MD) Syncope History of colon polyps Psychiatric care Insect bite, venomous Knee buckling Right wrist injury Falls frequently Hyperlipidemia COPD (chronic obstructive pulmonary disease) Hypertension Obstructive sleep apnea Dependent personality disorder Borderline personality disorder Alcohol dependence, in remission Panic disorder [episodic paroxysmal anxiety] Post-traumatic stress disorder, chronic Surgical History History of cholecystectomy deliv NOS-unsp X4 History of bilateral tubal ligation History of endometrial ablation for heavy menses; did not resolve issue Family History Brother Heart disease Hyperlipidemia Hypertension Sister Hypertension Denies family history of Colon cancer Diabetes Breast cancer Social History Smoking and tobacco/nicotine status: never used tobacco/nicotine Quit status (tobacco/nicotine): considering quitting Alcohol intake: never Substance/Drug Use: never Additional social history: 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 Her next of kin is her life partner Carlos Mehta phone #[phone]. Female Reproductive History: Para: 4 Spontaneous abortions: Yes Physical Exam Const: COMMON NORMALS: no acute distress, patient oriented x3 and alert HENMT: COMMON NORMALS: normocephalic and atraumatic HEAD & SCALP: normocephalic and atraumatic Eye: COMMON NORMALS: Equal, round and reactive pupils present, EOMs intact bilaterally and no scleral icterus PUPIL: Yes Equal, round and reactive pupils present Resp: COMMON NORMALS: normal respiratory effort and No retractions Cardio: COMMON NORMALS: regular rate, regular rhythm and No murmurs present (Cardio) RATE: regular rate RHYTHM: regular rhythm GI: COMMON NORMALS: Normal to inspection, nondistended, normoactive bowel sounds present, Soft to palpation and non-tender PALPATION: Yes Soft to palpation Neuro: COMMON NORMALS: patient oriented x3 SENSORIUM/ORIENTATION: Yes alert Skin: COMMON NORMALS: no rashes or lesions noted GENERAL SKIN EXAM: no rashes or lesions noted Course Vital Signs: Vital signs: Vital Signs Temperature 98.4 F 12/29/24 15:25 Pulse Rate 98 12/29/24 15:25 Respiratory Rate 18 12/29/24 15:25 Blood Pressure 117/69 12/29/24 15:25 Pulse Oximetry 95 12/29/24 15:25 Oxygen Delivery Me thod Room Air 12/29/24 15:25 MDM - Abdominal Pain Medical Decision Making 54 yo F with constipation x3 days. No abd pain, no vomiting, tolerating PO. Prior worse episode 2 months ago with vomiting. Referred by home health; pt otherwise feels well. PE: abdomen without tenderness; bowel sounds not appreciated. Labs reviewed and described as normal. Abdominal x-ray reviewed and described as normal with mostly empty bowels; no obstruction or large stool burden. Constipation vs normal stooling variant discussed. Low concern for obstruction or fecal impaction given normal labs/imaging, lack of pain/emesis, and ability to tolerate PO. Provider assessed presentation as non-emergent. Discharge home. Lab Data 12/29/24 16:38 12/29/24 16:38 Labs/Radiology: Laboratory Results WBC 10.90 10^3/uL (3.29-11.43) 12/29/24 16:38 RBC 5.94 10^6/uL (3.85-5.65) H 12/29/24 16:38 Hgb 13.80 g/dL (11.27-16.99) 12/29/24 16:38 Hct 44.9 % (36-47) 12/29/24 16:38 MCV 75.6 fl (85-98) L 12/29/24 16:38 MCH 23.2 pg (27-33) L 12/29/24 16:38 MCHC 30.7 g/dL (30-55) 12/29/24 16:38 RDW 16.6 % (12.1-15.1) H 12/29/24 16:38 Plt Count 405 10^3/cmm (157-399) H 12/29/24 16:38 MPV 10.4 fL (7.4-10.4) 12/29/24 16:38 Neut % (Auto) 61.8 % 12/29/24 16:38 Lymph % (Auto) 29.2 % 12/29/24 16:38 Howell % (Auto) 7.1 % 12/29/24 16:38 Eos % (Auto) 0.7 % 12/29/24 16:38 Baso % (Auto) 0.7 % 12/29/24 16:38 Neut # (Auto) 6.74 10^3/uL (1.8-7.7) 12/29/24 16:38 Lymph # (Auto) 3.2 10^3/uL (0.8-4.8) 12/29/24 16:38 Howell # (Auto) 0.8 10^3/uL (0.2-0.9) 12/29/24 16:38 Eos # (Auto) 0.1 10^3/uL (0.0-0.8) 12/29/24 16:38 Baso # (Auto) 0.1 10^3/uL (0.0-0.1) 12/29/24 16:38 Nucleated RBC % (auto) 0 % 12/29/24 16:38 Nucleated RBCs # 0.0 /100WBC 12/29/24 16:38 Sodium 139 mmol/L (136-145) 12/29/24 16:38 Potassium 4.4 mmol/L (3.5-5.1) 12/29/24 16:38 Chloride 98 mmol/L (98-107) 12/29/24 16:38 Carbon Dioxide 26 mmol/L (22-29) 12/29/24 16:38 Anion Gap 19.4 (5-19) H 12/29/24 16:38 BUN 8 mg/dL (6-20) 12/29/24 16:38 Creatinine 0.8 mg/dL (0.5-0.9) 12/29/24 16:38 GFR Calculation 75.0 mL/min (90-130) L 12/29/24 16:38 Glucose 142 mg/dL (65-115) H 12/29/24 16:38 Calculated Osmolality 289 mOsm/kg (285-295) 12/29/24 16:38 Calcium 10.0 mg/dL (8.5-10.5) 12/29/24 16:38 Total Bilirubin 0.4 mg/dL (0.15-1.2) 12/29/24 16:38 AST 21 U/L (0-32) 12/29/24 16:38 ALT 15 U/L (0-33) 12/29/24 16:38 Alkaline Phosphatase 104 U/L (35-105) 12/29/24 16:38 Total Protein 7.6 g/dL (6.6-8.7) 12/29/24 16:38 Albumin 4.2 g/dL (3.5-5.2) 12/29/24 16:38 Globulin 3.4 g/dL (1.3-4.6) 12/29/24 16:38 Lipase 31 U/L (13-60) 12/29/24 16:38 All radiology interpretation(s) finalized by discharge Discharge Plan Discharge Patient Disposition: Home Clinical Impression: Suspected condition not found Condition: Stable Prescriptions: No Action amlodipine 10 mg tablet 10 mg PO QAM hydrochlorothiazide 50 mg tablet 50 mg PO QAM epinephrine 0.3 mg/0.3 mL auto-injector 0.3 mg IM Q10M PRN (Reason: Anaphylaxis) Rx Instructions: for 2 doses ondansetron 4 mg tablet,disintegrating 4 mg PO Q6H meclizine 25 mg tablet 25 mg PO TID PRN (Reason: Dizziness) docusate sodium [Colace] 100 mg capsule 100 mg PO DAILY psyllium husk [Metamucil] 0.4 gram capsule 0.4 g PO DAILY vitamin d3 PO gabapentin 400 mg capsule 400 mg PO TID glyburide 5 mg tablet 5 mg PO BID magnesium oxide 250 mg magnesium tablet 250 mg PO DAILY duloxetine [Cymbalta] 60 mg capsule,delayed release(DR/EC) 60 mg PO DAILY Qty: 30 11RF diazepam 2 mg tablet 2 mg PO BID PRN (Reason: anxiety) Qty: 60 5RF bupropion HCl 150 mg tablet extended release 24 hr 150 mg PO DAILY Qty: 30 11RF Rx Instructions: TAKE 1 TABLET BY MOUTH EVERY MORNING with 300mg DOSE bupropion HCl 300 mg tablet extended release 24 hr 300 mg PO QAM Qty: 30 11RF Rx Instructions: Take with Buproion ER 150 mg for a total daily dose of 450 mg. lisinopril 5 mg tablet 5 mg PO QAM famotidine 20 mg tablet 20 mg PO BEDTIME simvastatin 20 mg tablet 20 mg PO BEDTIME aspirin 81 mg tablet,delayed release (DR/EC) 81 mg PO QAM Discharge Orders: Discharge ED (Routine); Ordered 12/29/24 Ordered By: Jose Lazcano Referrals: Serena Santana FNP [Primary Care Provider, Unknown] Discharge Diet: Usual diet Discharge Activity: Resume usual activity Patient Instructions: Patient Portal & [facility] Instructions Activity Restrictions/Additional Instructions: As we discussed, your blood tests and x-ray are reassuring with no evidence of emergency or blockage requiring hospitalization or further intervention. Your bowels look mostly evacuated on x-ray and there is no evidence of obstruction or constipation. Probably the reason you have not been having stools the last few days is that you do not have an excess burden of stool in the colon. I suspect you will have normal bowel movements as soon as needed and as we discussed, it can be normal to have no bowel movements for up to several weeks at a time as long as you do not have pain or vomiting or other worsening symptoms Print Language: Kyrgyz Coding Level of Care Code ED [employer]el Manager for Mallory Boucher
[2024-12-29 19:51] VITALS: PULSE 99; RESP 16; O2SAT 96
== END 2024-12-29 19:52 | disposition home or self-care (01) ==
PROVIDERS: Family Medicine; Emergency Provider Student in an Organized Health Care Education/Training Program; PCP Nurse Practitioner Family
DX: Z03.89 Encounter for observation for other suspected diseases and conditions ruled out (principal); Z79.82 Long term (current) use of aspirin; J44.9 Chronic obstructive pulmonary disease, unspecified; E78.5 Hyperlipidemia, unspecified; I10 Essential (primary) hypertension
CPT/HCPCS: 36415; 74022; 80053; 83690; 85025; 93005; 99285

== ENCOUNTER → 2025-01-11 08:41 | Outpatient (BNVA) | payer MEDICAID, SELFPAY ==
[2023-04-13 09:30] VITALS: BP 129/87; BMI 38.7
== END ==
PROVIDERS: PCP Nurse Practitioner Family; Visit Provider Podiatrist Foot & Ankle Surgery
DX: E11.8 Type 2 diabetes mellitus with unspecified complications (principal); L60.3 Nail dystrophy; M76.829 Posterior tibial tendinitis, unspecified leg; E11.9 Type 2 diabetes mellitus without complications; E11.42 Type 2 diabetes mellitus with diabetic polyneuropathy
CPT/HCPCS: 11721

== ENCOUNTER 2025-03-21 09:15 | Oncology outpatient (recurring) (ONCR) | payer MEDICAID, SELFPAY ==
[2023-04-13 09:30] VITALS: BP 129/87; BMI 38.7
[2025-03-21 09:54] LABS: Hematocrit 49.2 % (36-47); Hemoglobin 15.80 g/dL (11.27-16.99); Mean Corpuscular HGB Conc 32.1 g/dL (30-55); Mean Corpuscular Hemoglobin 25.2 pg (27-33); Mean Corpuscular Volume 78.6 fl (85-98); Nucleated Red Blood Cells % 0 %; Platelet Count 407 10^3/cmm (157-399); Red Blood Count 6.26 10^6/uL (3.85-5.65); White Blood Count 8.85 10^3/uL (3.29-11.43)
[2025-03-21 10:12] LABS: Alanine Aminotransferase 10 U/L (0-33); Albumin Level 4.2 g/dL (3.5-5.2); Alkaline Phosphatase 94 U/L (35-105); Anion Gap 15.7 (5-19); Aspartate Amino Transferase 8 U/L (0-32); Blood Urea Nitrogen 6 mg/dL (6-20); Calcium 9.6 mg/dL (8.5-10.5); Carbon Dioxide 27 mmol/L (22-29); Chloride 99 mmol/L (98-107); Ferritin 69 ng/mL (15-150); Globulin 3.2 g/dL (1.3-4.6); Glucose 206 mg/dL (65-115); Iron 68 ug/dL (37-145); Osmolality Calculated 290 mOsm/kg (285-295); Potassium 3.7 mmol/L (3.5-5.1); Sodium 138 mmol/L (136-145); Total Iron Binding Capacity 330 mcg/dl; Total Protein 7.4 g/dL (6.6-8.7); Unsaturated Iron Binding 262 ug/dL (112-347)
[2025-03-21 10:28] LABS: Vitamin B12 276 pg/mL (232-1245)
== END 2025-04-02 23:59 | disposition home or self-care (01) ==
PROVIDERS: PCP Nurse Practitioner Family; Visit Provider Internal Medicine Medical Oncology
DX: Z53.9 Procedure and treatment not carried out, unspecified reason; R71.8 Other abnormality of red blood cells; F17.210 Nicotine dependence, cigarettes, uncomplicated; K59.00 Constipation, unspecified; R25.1 Tremor, unspecified; Z71.6 Tobacco abuse counseling
CPT/HCPCS: 36415; 80053; 82607; 82728; 82746; 83540; 83550; 85025; 99214

== ENCOUNTER → 2025-03-22 09:03 | Outpatient (BNVA) | payer MEDICAID, SELFPAY ==
[2023-04-13 09:30] VITALS: BP 129/87; BMI 38.7
== END ==
PROVIDERS: PCP Nurse Practitioner Family; Visit Provider Podiatrist Foot & Ankle Surgery
DX: E11.42 Type 2 diabetes mellitus with diabetic polyneuropathy (principal); L60.3 Nail dystrophy; E11.8 Type 2 diabetes mellitus with unspecified complications
CPT/HCPCS: 11721

== ENCOUNTER 2025-03-28 07:57 | Outpatient (CLI) | payer MEDICAID, SELFPAY ==
[2023-04-13 09:30] VITALS: BP 129/87; BMI 38.7
--- NOTE | 2025-03-28 08:05 | CT_ITS ---
WS: [id number] LDCT LUNG CANCER SCREENING TECHNIQUE: Noncontrast CT of the chest with coronal and sagittal reformatted images. CLINICAL INFORMATION: NICOTINE DEPENDENCE, CIGARETTES COMPARISON: None. DLP: 132.29 mGy.cm DIvol: Mean CTDIvol: 3.40 (mGy) All CT scans at [facility] use at least one of these dose optimization techniques: automated exposure control; mA and/or kV adjustment per patient size (includes targeted exams where dose is matched to clinical indication); or iterative reconstruction. FINDINGS: Lungs are well aerated. No suspicious pulmonary parenchymal abnormalities. Tiny noncalcified nodule RIGHT upper lobe anteriorly. Mild chronic emphysematous changes. Small RIGHT perifissural nodule. Aberrant RIGHT subclavian artery. Aortic calcification. Normal caliber descending thoracic aorta. Cholecystectomy clips. Normal LEFT adrenal gland. Nodular RIGHT adrenal gland. Small esophageal canal hernia. Thoracic curve. Mild thoracic kyphosis. CT/CT lung screening [id number] IMPRESSION: LUNG-RADS: 2-Benign Appearance or Behavior FOLLOW UP: 12 Month: Continue annual screening with LDCT
== END 2025-03-28 07:58 | disposition home or self-care (01) ==
LOC: RAD 07:59
PROVIDERS: PCP Nurse Practitioner Family; Visit Provider Nurse Practitioner Family
DX: Z12.2 Encounter for screening for malignant neoplasm of respiratory organs (principal); J43.9 Emphysema, unspecified; R91.1 Solitary pulmonary nodule; I70.0 Atherosclerosis of aorta; Z96.89 Presence of other specified functional implants; K44.9 Diaphragmatic hernia without obstruction or gangrene; M40.204 Unspecified kyphosis, thoracic region
CPT/HCPCS: 71271

== ENCOUNTER 2025-04-11 07:40 | Outpatient (CLI) | payer MEDICAID, SELFPAY ==
[2023-04-13 09:30] VITALS: BP 129/87; BMI 38.7
--- NOTE | 2025-04-11 07:45 | MM_ITS ---
WS: [id number] BILATERAL 3D TOMOSYNTHESIS DIGITAL SCREENING MAMMOGRAPHY WITH CAD CLINICAL INFORMATION: SCREENING HISTORY: Screening mammogram. No current complaints. COMPARISON: 2023 TECHNIQUE: Bilateral CC and MLO views. FINDINGS: Scattered fibroglandular densities bilaterally. No suspicious focal mass, asymmetry, calcifications, or architectural distortion. No evidence of malignancy. Stable biopsy clip RIGHT breast. Incidental punctate calcifications. MM/MM scr BI tomosynthesis [id number] IMPRESSION: DENSITY: There are scattered areas of fibroglandular density. BI-RADS: 2 - Benign. FOLLOW UP: 1 Year Follow-up Recommend return to annual screening mammography.
== END 2025-04-11 07:41 | disposition home or self-care (01) ==
LOC: RAD 07:41
PROVIDERS: PCP Nurse Practitioner Family; Visit Provider Nurse Practitioner Family
DX: Z12.31 Encounter for screening mammogram for malignant neoplasm of breast (principal); R92.323 Mammographic fibroglandular density, bilateral breasts; R92.1 Mammographic calcification found on diagnostic imaging of breast; Z96.89 Presence of other specified functional implants
CPT/HCPCS: 77063; 77067